=== PATIENT | female | born 1985 | race Caucasian/White ===

== ENCOUNTER 2024-04-17 07:23 | Emergency (ER) | payer MEDICAID, SELFPAY ==
[2024-04-17] VITALS (16 sets, daily range): BP systolic 118–147; BP diastolic 67–107; PULSE 70–91; RESP 16–20; TEMP 36.6–36.8; O2SAT 88–97; BMI 31.3
--- NOTE | 2024-04-17 06:09 | XR_ITS ---
Examination: Complete OB ultrasound greater than 14 weeks Date and time of exam: April 17, 2024 at 0740 hrs. This examination on synapse at 0856 hrs. Indications: Severe onset back pain and vomiting today Findings: Viable intrauterine single fetus with single amniotic sac presentation breech spine maternal left Cardiac motion 155 BPM Placenta posterior grade 1 Umbilical cord insertion seen Amniotic fluid index 15.3 cm Cervix 3.5 cm Ovaries obscured by bowel gas. Composite estimated gestational age based on BPD, head circumference, abdominal circumference, femur length is 23 weeks 4 days Estimated weight 621 g. Survey of intracranial anatomy, spinal anatomy, abdominal anatomy, four-chamber heart performed with no abnormalities identified. Impression: Viable intrauterine gestation breech presentation Estimated gestational age 23 weeks 4 days.
--- NOTE | 2024-04-17 06:40 | EKG_ITS ---
[facility] Test Date: 2024-04-17 Pat Name: RICHARD WRIGHT Department: Room: [facility] Gender: Female Varnish Remover: CICI : 1985 Requested By: Derian Umana Order Number: [id number] Reading MD: Derian Umana Measurements Intervals Myra Rate: 76 P: 84 CA: 162 QRS: 55 QRSD: 85 T: 36 QT: 389 QTc: 438 Interpretive Statements SINUS RHYTHM Compared to ECG 02/05/2023 10:30:47 Sinus bradycardia no longer present /store/S0/[id number]
--- NOTE | 2024-04-17 06:48 | XR_ITS ---
Examination: CTA chest with intravenous contrast 2-D reconstructions 3-D reconstructions, vascular Date and time of exam: April 17, 2024 at 0836 hrs. Indications: Severe chest back and abdomen pain shortness of breath nausea vomiting beginning 2 days ago CTDI: vol (mGy) 17.3 DLP: (mGycm) 338 Technique: Multiple axial sections of the thorax have been obtained. 3 mm slice thickness, from below the hemidiaphragms to above the apices of the lungs. Mediastinal and lung density settings have been obtained. 2-D sagittal and coronal reconstructions. 3-D angiographic renderings, 3-D volume renderings, 3D post processing, vascular maximum intensity projections obtained. Contrast administered is 80 cc Isovue-300 intravenous. Low dose protocols were performed. One or more of the following dose reduction techniques were used; automated exposure control, adjustment of the mA and/or KV according to patient size, use of iterative reconstruction technique. Findings: No thoracic aortic aneurysmal dilatation No pulmonary artery emboli depicted No paratracheal tracheobronchial or bronchopulmonary adenopathy No lobar pneumonia or pulmonary edema No pleural disease 3 mm calcified granuloma left upper lobe Diffuse fatty infiltration throughout the liver Retrocardiac gastric hernia No pancreatic mass noted Osseous structures are intact Impression: Negative for pulmonary artery emboli No pneumonia, pulmonary edema or pleural disease
[2024-04-17] MEDS: ONDANSETRON INJ 2 MG/ML INJ 2 ML 4 MG IV ×2 (06:55→09:51)
[2024-04-17] MEDS: ACETAMINOPHEN IVPB 1,000 MG/100 ML VIAL 250 MG IV (06:57)
[2024-04-17 07:12] LABS: Collection Type, Urine Clean Catch
[2024-04-17 07:21] LABS: Basophils # (Auto) 0.1 Thou/mm3 (0.0-0.2); Basophils % (Auto) 0 % (0-2.5); Eosinophils # (Auto) 0.2 Thou/mm3 (0.0-0.5); Eosinophils % (Auto) 1 % (0-10); Hematocrit 35.6 % (36.0-46.0); Hemoglobin 12.1 g/dL (12.0-16.0); Immature Granulocytes % (Auto) 1 % (0-0); Lymphocytes # (Auto) 2.2 Thou/mm3 (1.0-4.8); Lymphocytes % (Auto) 17 % (10-50); Mean Corpuscular Hemoglobin 27.8 pg (25.0-35.0); Mean Corpuscular Volume 82 fL (80-100); Monocytes # (Auto) 0.7 Thou/mm3 (0.0-0.8); Monocytes % (Auto) 5 % (0-12); Neutrophils # (Auto) 10.1 Thou/mm3 (1.8-7.7); Neutrophils % (Auto) 76 % (37-80); Nucleated Red Blood Cell % 0 /100 WBC (0); Platelet Count 355 Thou/mm3 (140-440); RDW Standard Deviation 40.1 fL (36.4-46.3); Red Blood Count 4.35 Miln/mm3 (4.00-5.20); White Blood Count 13.3 Thou/mm3 (3.6-11.0)
--- NOTE | 2024-04-17 07:22 | PD.LDTRIAGE2 ---
Documentation for date of: 04/17/24 Hx History Provider: Mejia Espinoza Attending Provider: Mejia Espinoza : 13 Term: 3 : 2 Number of Living Children: 3 Abortions: Spontaneous & Elective: 7 Hx Section: No Hx Vaginal Delivery Post : No Complaint Complaint Complaint: patiemnt seen at bedside , diaphoretic , c/o sever back , abdomen and groin pain , generalised , nauseated. Denies any chaest pain , SOB. Declines any drug use in last 24 hours except marijuana. No vaginal bleeding or contractions . 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 Disposition Dispostition: ER
[2024-04-17 07:26] LABS: Amphetamine/Metham Scrn,Ur OB Negative (Negative); Benzoylecgonine Screen, Ur OB Negative (Negative); Opiate Screen,Urine OB Negative (Negative); THC Screen,Urine OB Positive (Negative); THC U Confirm* See Sep Rpt
--- NOTE | 2024-04-17 07:30 | PC.NURSE ---
REPORT GIVEN TO MERLINE BHATT RN
[2024-04-17 07:40] LABS: Alanine Aminotransferase 12 U/L (10-49); Albumin, Serum 4.3 gm/dL (3.5-5.0); Albumin/Globulin Ratio 1.5 (1.2-2.2); Alkaline Phosphatase 101 U/L (46-116); Anion Gap 8 (7-16); Aspartate Amino Transferase 14 U/L (0-34); BUN/Creatinine Ratio 13 Ratio (12-20); Bilirubin,Total 0.2 mg/dL (0.3-1.2); Blood Urea Nitrogen 8 mg/dL (9-23); Calcium 9.1 mg/dL (8.3-10.6); Calcium (Corrected) 9.1 mg/dL (8.5-10.1); Carbon Dioxide 18.8 mMol/L (20.0-31.0); Chloride 109 mMol/L (98-107); Creatinine (Component) 0.6 mg/dL (0.6-1.3); Globulin 2.9 gm/dL (2.3-3.5); Glucose 137 mg/dL (74-106); LDH (Lactate Dehydrogenase) 183 U/L (120-246); Osmolality,Calculated 272 (275-295); Potassium 3.8 mMol/L (3.4-5.1); Sodium 136 mMol/L (136-145); Total Protein 7.2 gm/dL (5.7-8.2); Uric Acid 3.8 mg/dL (3.1-7.8); eGFR > 60 See Note
--- NOTE | 2024-04-17 07:44 | PD.EDABDPN ---
ED Abdominal Pain RME/HPI General Chief Complaint: Abdominal Pain Stated complaint: LABOR EVALUATION Time seen by provider: 04/17/24 08:14 Arrival date/time: 04/17/24 07:23 RME / HPI RME / HPI narrative: 39 year old female with history of psychiatric disorder, hyperlipidemia, currently 24 weeks gestational age [id number] presents to the ED from the L&D unit within this facility for evaluation for lower abdomen/groin and lower back pain beginning 2 days ago that has progressively worsened. Patient reports the pain initially was described as It felt like my stomach was stretching . However, over the last 24 hours pain has become moderate-severe with no known modifying factors. Accompanied by nausea, vomiting beginning at 03:00 this morning and urinary urgency. Denies fevers, chills, chest pain, cough, shortness of breath, vaginal bleeding. Related Data Home Medications ?Medication ?Instructions ?Recorded ?Confirmed ondansetron HCl 8 mg tablet 4 mg PO Q8HR PRN Nausea 08/25/21 02/06/23 tizanidine 2 mg capsule 4 mg PO HS 09/05/21 02/06/23 pregabalin 150 mg capsule 75 mg PO HS 11/17/21 02/06/23 albuterol sulfate 90 mcg/actuation 1 inh inhalation QID PRN Wheezing 02/05/23 02/06/23 aerosol inhaler atorvastatin 20 mg tablet 20 mg PO QPM 02/05/23 02/06/23 fluoxetine 20 mg capsule 20 mg PO QDAY 02/05/23 02/06/23 Previous Rx's ?Medication ?Instructions ?Recorded ibuprofen 800 mg tablet 800 mg PO Q8H PRN pain #30 tabs 04/03/22 ibuprofen 800 mg tablet (IBU) 800 mg PO Q8H #20 tabs 04/25/23 Allergies Allergy/AdvReac Type Severity Reaction Status Date / Time No Known Allergies Allergy Verified 02/06/23 10:00 Review of Systems Review of Systems Narrative Review of Systems: Gen: No fever, no chills, no weight loss EYES: No discharge, no visual changes, no pain HEENT: No ear pain, no congestion, no sore throat PULM: No shortness of breath, no cough, no congestion CV: No chest pain, no dyspnea on exertion, no palpitations GI: +nausea, +vomiting, no diarrhea, +pain, no constipation : No frequency, +urgency,? no dysuria Musc/skel: No joint pain, +back pain Skin: No rash. Psyc: No hallucinations, no depression Heme/Lymph: No easy bleeding or bruising tendencies Neuro: No weakness, no headache Past Medical History Past Medical History CARDIAC: Positive Cardiac Disorders, Hypercholesterolemia and Varicose Veins RESPIRATORY: Positive Asthma GASTROINTESTINAL: Positive Gastrointestinal Disorders, Pancreatitis, Hiatal Hernia and Obesity REPRODUCTIVE: Positive Previous Pregnancies MUSCULOSKELETAL: Positive Musculoskeletal Disorders, Arthritis, Degenerative Disk Disease and Fibromyalgia PSYCHO/SOCIAL: Positive Psychiatric Problems, Recreational Drug Use, Bipolar Disorder, Anxiety and Depression OTHER HISTORY: Positive Hospitalization and Chicken Pox Family History FAMILY HISTORY: Positive Family Cardiac Disorders and Family Surgery Surgical History SURGICAL: Negative Section Social History SMOKING STATUS: Former smoker SECOND HAND EXPOSURE: No SUBSTANCE USE: does not use ED Exam Narrative Physical exam: GENERAL: In general the patient is awake, interactive, in an emergency department gurney. HEAD/EYES/EARS/NOSE/THROAT: normo-cephalic, atraumatic, mucus membranes are moist, anicteric, palpebral conjunctiva is pink, trachea is midline. CARDIOVASCULAR: regular rate and regular rhythm, no murmurs, heart sounds are not distant, strong pulses in all four extremities that are equal and symmetric bilateral upper and lower extremities, normal capillary refill. CHEST/PULMONARY: normal chest rise and fall, good air movement, clear to auscultation bilaterally, normal inspiratory to expiratory ratios without evidence of respiratory distress. ABDOMEN: soft, not tender, gravid fundus consisted with gestational age. BACK: normal range of motion without pain. No CVA tenderness. NEUROLOGICAL: cranio-facial features are symmetric, moves all four extremities equally without obvious limitations or weakness. EXTREMITY: no tenderness to palpation over the long bones or large joints of the bilateral upper and lower extremities, no joint swelling, no joint erythema, no signs of trauma, no unilateral leg swelling and no peripheral edema. SKIN: warm, dry, well-perfused, no jaundice, no rash, no telangiectasias or petechia. PSYCH: calm, cooperative, no evidence of psychosis or agitation Course Quality Measures none Orders Category Date Time Status Place in Observation Status Routine Admission 04/17/24 06:[address] Screening NOW Care 04/17/24 06:[address] Screening NOW Care 04/17/24 11:[address] Screening X1 Care 04/17/24 11:10 Active Continuous Monitoring Routine Care 04/17/24 06:50 Ordered heart tone auscultation X1 Care 04/17/24 06:17 Active In and Out Catheter X1 Care 04/17/24 08:13 Completed Insert IV NOW Care 04/17/24 06:17 Active Sterile Vaginal Exam PRN Care 04/17/24 06:[address] abdomen pelvis w con Stat Exams 04/17/24 11:[address] abdomen pelvis wo con Stat Exams 04/17/24 06:[address] angio chest Stat Exams 04/17/24 06:48 Completed US OB >= 14 weeks Fetus Stat Exams 04/17/24 06:09 Completed CBC Stat Lab 04/17/24 06:30 Completed Comprehensive Metabolic Panel Stat Lab 04/17/24 06:30 Completed Drug Screen OB, Ur (Inpatient) Stat Lab 04/17/24 06:38 Completed Drug Screen,Urine Stat Lab 04/17/24 09:15 Completed Fibrinogen Stat Lab 04/17/24 06:30 Completed LDH (Lactate Dehydrogenase) Stat Lab 04/17/24 06:30 Completed Partial Thromboplastin Time Stat Lab 04/17/24 06:30 Completed Prothrombin Time with INR Stat Lab 04/17/24 06:30 Completed THC U Confirm* Stat Lab 04/17/24 06:38 Received Uric Acid Stat Lab 04/17/24 06:30 Completed Urinalysis Stat Lab 04/17/24 06:30 Completed Acetaminophen Ivpb [Ofirmev Inj] Med 04/17/24 06:54 Discontinued 1,000 mg in 100 ml IV Q6HR DiphenhydrAMINE INJ [Benadryl Inj] Med 04/17/24 10:23 Discontinued 25 mg IVP X1 ONE DiphenhydrAMINE INJ [Benadryl Inj] Med 04/17/24 10:40 Discontinued 50 mg IVP X1 ONE LORazepam [Ativan Inj] Med 04/17/24 11:39 Discontinued 1 mg IVP X1 ONE LORazepam [Ativan Inj] Med 04/17/24 08:12 Discontinued 2 mg IVP X1 ONE Metoclopramide Inj [Reglan Inj] Med 04/17/24 10:40 Discontinued 10 mg IVP X1 ONE Morphine Inj Med 04/17/24 11:38 Discontinued 4 mg IVP X1 ONE Ondansetron Inj [Zofran Inj] Med 04/17/24 06:47 Discontinued 4 mg IV NOW ONE Ondansetron Inj [Zofran Inj] Med 04/17/24 09:20 Discontinued 4 mg IV X1 ONE Ondansetron Inj [Zofran Inj] Med 04/17/24 09:44 Discontinued 4 mg IV X1 ONE Ringers Lactated 1000 ml [Lactated Ringers] 1,000 ml Med 04/17/24 06:30 Discontinued IV 100 mls/hr Ringers Lactated 1000 ml [Lactated Ringers] 1,000 ml Med 04/17/24 06:17 Discontinued IV 999 mls/hr cefTRIAXone [Rocephin] 1,000 mg Med 04/17/24 10:24 Discontinued Sodium Chloride 0.9% (P) [Ns 0.9% (P)] 50 ml IV X1 EKG (RT) Stat RT 04/17/24 06:40 Draft Reevaluation(s) Reevaluation #1: gis technician reports she was only able to get about 5 images for the ultrasound. States patient was uncooperative and in too much pain to continue. Time: 07:50 Reevaluation #2: We reviewed all the results, analysis, and treatment plans. Patient states she is still in pain and requesting medication for pain and to help her sleep . Advised I would consult again with her OB Dr. Umana. Time: 10:10 Vital Signs Vital signs: Vital Signs Pulse Rate 78 04/17/24 06:17 Blood Pressure 147/99 H 04/17/24 06:17 Pulse ox is 96% on room air which is adequate. Abdominal Pain MDM MDM Narrative MDM Narrative:: IKimber, am scribing for and in the presence of Dr. Ferguson. 1200: I was notified by the patients RN that she left against medical advise. It was discussed in great length that without further evaluation and monitoring there may be unforeseen circumstances and deterioration causing permanent bodily harm or as a result of their choice. The patient is alert, oriented and competent at this time. The patient states that they are aware of the serious risks as explained, but they continue to wish to leave against medical advice. Patient left without received her prescription for Keflex. Will send the prescription to the pharmacy. Patient data External records reviewed:: [facility] previous records (I reviewed triage report from OB Dr. Umana today 04/17/2024. I reviewed ED visit on 03/19/2024. ) Clinical information provided by:: patient and other (specify) (Dr. Umana called prior to patient's arrival to the ED) Social determinants that could affect healthcare access:: substance use (Marijuana ) Patient has the following chronic illnesses:: psychiatric disorder, hyperlipidemia, currently 24 weeks gestational age [id number] How is presenting disease/condition affected by chronic disease/condition?: uneffected by Evaluation data The following diagnostics were reviewed and interpreted by me:: lab results and radiology exam(s) Lab and/or radiology exams considered but not ordered:: None Interpretation Summary: Ordering Physician: Derian Umana MD Date of Service: 04/17/24 Procedure(s): CT angio chest Accession Number(s): [id number] cc: Derian Umana MD; Prashant Newton MD; Julien Monte MD~ Examination: CTA chest with intravenous contrast 2-D reconstructions 3-D reconstructions, vascular Date and time of exam: April 17, 2024 at 0836 hrs. Indications: Severe chest back and abdomen pain shortness of breath nausea vomiting beginning 2 days ago CTDI: vol (mGy) 17.3 DLP: (mGycm) 338 Technique: Multiple axial sections of the thorax have been obtained. 3 mm slice thickness, from below the hemidiaphragms to above the apices of the lungs. Mediastinal and lung density settings have been obtained. 2-D sagittal and coronal reconstructions. 3-D angiographic renderings, 3-D volume renderings, 3D post processing, vascular maximum intensity projections obtained. Contrast administered is 80 cc Isovue-300 intravenous. Low dose protocols were performed. One or more of the following dose reduction techniques were used; automated exposure control, adjustment of the mA and/or KV according to patient size, use of iterative reconstruction technique. Findings: No thoracic aortic aneurysmal dilatation No pulmonary artery emboli depicted No paratracheal tracheobronchial or bronchopulmonary adenopathy No lobar pneumonia or pulmonary edema No pleural disease 3 mm calcified granuloma left upper lobe Diffuse fatty infiltration throughout the liver Retrocardiac gastric hernia No pancreatic mass noted Osseous structures are intact Impression: Negative for pulmonary artery emboli No pneumonia, pulmonary edema or pleural disease Dictated By: Prashant Newton MD Signed By: <Electronically signed by Prashant Newton MD in OV> 04/17/2410 Ordering Physician: Derian Umana MD Date of Service: 04/17/24 Procedure(s): US OB >= 14 weeks Fetus Accession Number(s): [id number] cc: Derian Umana MD; Prashant Newton MD; Julien Monte MD~ Examination: Complete OB ultrasound greater than 14 weeks Date and time of exam: April 17, 2024 at 0740 hrs. This examination on synapse at 0856 hrs. Indications: Severe onset back pain and vomiting today Findings: Viable intrauterine single fetus with single amniotic sac presentation breech spine maternal left Cardiac motion 155 BPM Placenta posterior grade 1 Umbilical cord insertion seen Amniotic fluid index 15.3 cm Cervix 3.5 cm Ovaries obscured by bowel gas. Composite estimated gestational age based on BPD, head circumference, abdominal circumference, femur length is 23 weeks 4 days Estimated weight 621 g. Survey of intracranial anatomy, spinal anatomy, abdominal anatomy, four-chamber heart performed with no abnormalities identified. Impression: Viable intrauterine gestation breech presentation Estimated gestational age 23 weeks 4 days. Dictated By: Prashant Newton MD Signed By: <Electronically signed by Prashant Newton MD in OV> 04/17/24 09 Medications / Prescriptions Medications or Prescriptions considered but not ordered:: None Medication administrations:: Medication Administration History Discontinued Medications Diphenhydramine HCl (Diphenhydramine Inj 50 Mg/Ml Vial) 25 mg IVP X1 ONE Stop: 04/17/24 10:24 Last Admin: 04/17/24 11:44 Dose: Not Given Documented By: BRINDA Non-Admin Reason: Cancelled by Provider Diphenhydramine HCl (Diphenhydramine Inj 50 Mg/Ml Vial) 50 mg IVP X1 ONE Stop: 04/17/24 10:41 Last Admin: 04/17/24 10:51 Dose: 50 mg Documented By: BRINDA Lactated Ringer's (Lactated Ringers) 1,000 mls @ 999 mls/hr IV .Q1H1M ONE Stop: 04/17/24 07:17 Last Admin: 04/17/24 09:04 Dose: Not Given Documented By: BRINDA Non-Admin Reason: Cancelled by Provider Lactated Ringer's (Lactated Ringers) 1,000 mls @ 100 mls/hr IV .Q10H CHRISTINA Stop: 05/17/24 06:29 Last Admin: 04/17/24 09:05 Dose: Not Given Documented By: BRINDA Non-Admin Reason: Cancelled by Provider Acetaminophen (Ofirmev Inj) 1,000 mg in 100 mls @ 250 mls/hr IV Q6HR [facility] Stop: 04/18/24 00:23 Last Infusion: 04/17/24 09:17 Dose: Infused Documented By: Admin: 04/17/24 06:57 Dose: 250 mls/hr Documented By: KALIE Ceftriaxone Sodium 1,000 mg/ (Sodium Chloride) 50 mls @ 100 mls/hr IV X1 ONE Stop: 04/17/24 10:53 Last Admin: 04/17/24 11:42 Dose: 100 mls/hr Documented By: BIRNDA Lorazepam (Lorazepam 2 Mg/Ml Vial) 2 mg IVP X1 ONE Stop: 04/17/24 08:13 Last Admin: 04/17/24 08:21 Dose: 2 mg Documented By: BRINDA Lorazepam (Lorazepam 2 Mg/Ml Vial) 1 mg IVP X1 ONE Stop: 04/17/24 11:40 Metoclopramide HCl (Metoclopramide Inj 5 Mg/Ml Vial 2 Ml) 10 mg IVP X1 ONE; Protocol Stop: 04/17/24 10:41 Last Admin: 04/17/24 10:52 Dose: 10 mg Documented By: BRINDA Morphine Sulfate (Morphine Sulf Inj 10 Mg/Ml Vial) 4 mg IVP X1 ONE Stop: 04/17/24 11:39 Ondansetron HCl (Ondansetron Inj 2 Mg/Ml Inj 2 Ml) 4 mg IV NOW ONE; Protocol Stop: 04/17/24 06:48 Last Admin: 04/17/24 06:55 Dose: 4 mg Documented By: KALIE Ondansetron HCl (Ondansetron Inj 2 Mg/Ml Inj 2 Ml) 4 mg IV X1 ONE; Protocol Stop: 04/17/24 09:21 Last Admin: 04/17/24 09:51 Dose: Not Given Documented By: BRINDA Non-Admin Reason: Duplicate Medication on eMAR Ondansetron HCl (Ondansetron Inj 2 Mg/Ml Inj 2 Ml) 4 mg IV X1 ONE; Protocol Stop: 04/17/24 09:45 Last Admin: 04/17/24 09:51 Dose: 4 mg Documented By: BRINDA See above Consultations Consultation(s) initiated? (list below): Yes Consultation #1 (Physician, Specialty, Details): I spoke with OB Dr. Umana. We discussed ED course, exam findings, labs results. Will call back once imaging and remainder of labs result. Time: 07:44 Consultation #2 (Physician, Specialty, Details): I spoke with radiologist Dr. Newton regarding CT abdomen. Time: 08:02 Consultation #3 (Physician, Specialty, Details): 1017: I spoke with OB Dr. Umana. Discussed patients ED course, exam findings, labs, and radiology results. She is requesting MRI of abdomen however advised it is not available today or tomorrow. She is requesting CT abdomen to rule out appendicitis. 1028: I spoke again with radiologist Dr. Newton regarding CT abdomen. Diagnosis Differential diagnosis abdominal pain: abdominal pain, calculus of kidney and other (Pyelonephritis, UTI ) Most likely diagnosis given after review of the tests above:: Intractable nausea Admission Indicated Admission indicated?: not indicated Explain why admission is indicated or not indicated:: Patient left against medical advise Admission Request Was there a request for admission?: No Disposition Plan Disposition Plan: other (specify) (Patient left against medical advise at 12:00 ) Discharge Plan Plan Patient Disposition: Left Against Medical Advice Prescriptions/Referrals Prescriptions/Med Rec: No Action ondansetron HCl 8 mg tablet 4 mg PO Q8HR PRN (Reason: Nausea) Patient Comments: TAKE ONE TABLET BY MOUTH EVERY 8 HOURS NEEDED FOR NAUSEA tizanidine 2 mg Capsule 4 mg PO HS Rx Instructions: every 4 to 6 hours. pregabalin 150 mg capsule 75 mg PO HS Patient Comments: TAKE ONE CAPSULE BY MOUTH EVERY 12 HOURS NOTE NEW STRENGTH ibuprofen 800 mg tablet 800 mg PO Q8H PRN (Reason: pain) Qty: 30 0RF atorvastatin 20 mg Tablet 20 mg PO QPM fluoxetine 20 mg Capsule 20 mg PO QDAY albuterol sulfate 90 mcg/actuation Hfa Aerosol Inhaler 1 inh INHALATION QID PRN (Reason: Wheezing) ibuprofen [IBU] 800 mg tablet 800 mg PO Q8H Qty: 20 0RF Referrals: Derian Umana MD [Physician] - In 1 week Problem List Clinical Impression: Intractable nausea Patient/Caregiver Discharge Instructions Print Language: Mongolian
[2024-04-17 07:48] LABS: Bacteria,Urine Rare; Bilirubin,Urine Negative (Negative); Blood,Urine Negative (Negative); Clarity,Urine Clear (Clear/Hazy); Color,Urine Lt-Yellow (Lt Yel-Yel); Glucose, Urine Negative (Negative); Ketones,Urine Negative (Negative); Leukocyte Esterase,Urine Negative (Negative); Nitrite,Urine Negative (Negative); Protein,Urine Negative (Neg - Trace); RBC,Urine < 1 /hpf (0-3); Specific Gravity,Urine 1.011 (1.001-1.035); Squamous Epithelial Cell,Urine 6 /hpf (0-5); Urobilinogen,Urine Negative mg/dL (0.0-1.0); WBC,Urine 1 /hpf (0-5)
--- NOTE | 2024-04-17 07:48 | PC.NURSE ---
PATIENT BROUGHT DOWN TO ED FROM OB FOR FURTHER EVALUATION. PATIENT STATES SHE STARTED HAVING PAIN TO LOWER ABDOMEN, GROIN PAIN RADIATING TO THE BACK. PATIENT UNABLE TO DESCRIBE PAIN. PATIENT WAS SEEN AND TREATED IN THE OB, IV, FLUIDS, PATIENT STARTED ON TYLENOL DRIP FOR PAIN. UPON ARRIVAL TO ED IV WAS PULLED OUT. IV ESTABLISHED, PATIENT TAKEN TO ULTRASOUND VIA WHEELCHAIR.
[2024-04-17 07:54] LABS: Fibrinogen 490 mg/dL (175-375); Partial Thromboplastin Time 22.9 Seconds (22.0-36.0); Prothrombin Time 10.7 Seconds (9.0-12.2)
[2024-04-17] MEDS: LORazepam 2 MG/ML VIAL IVP (08:21)
[2024-04-17 10:22] LABS: Amphetamine/Methamp Scrn,U Negative (Negative); Barbiturate Screen,Urine Negative (Negative); Benzodiazepines Screen,Urine Negative (Negative); Benzoylecgonine Screen, Ur Negative (Negative); Fentanyl Screen,Urine Negative (Negative); Opiate Screen,Urine Negative (Negative); THC Screen,Urine Positive (Negative)
[2024-04-17] MEDS: DiphenhydrAMINE INJ 50 MG/ML VIAL IVP (10:51)
[2024-04-17] MEDS: METOCLOPRAMIDE INJ 5 MG/ML VIAL 2 ML 10 MG IVP (10:52)
[2024-04-17] MEDS: cefTRIAXone 1,000 MG in SODIUM CHLORIDE 0.9% (P) 50 ML 100 MG IV (11:42)
--- NOTE | 2024-04-17 12:00 | PC.NURSE ---
pt wanting to sign out ama at this time. ivl removed with cath intact. ama form signed
== END 2024-04-17 12:05 | disposition left against medical advice (07) ==
LOC: SERX 07:58
PROVIDERS: Student in an Organized Health Care Education/Training Program; Emergency Provider Emergency Medicine; PCP Obstetrics & Gynecology
DX: O21.2 Late vomiting of pregnancy (principal); O26.892 Other specified pregnancy related conditions, second trimester; R10.9 Unspecified abdominal pain; R06.02 Shortness of breath; O99.512 Diseases of the respiratory system complicating pregnancy, second trimester; Z3A.24 24 weeks gestation of pregnancy; Z53.29 Procedure and treatment not carried out because of patient's decision for other reasons
CPT/HCPCS: 51701; 36415; 71275; 76805; 80053; 80307; 81001; 83615; 84550; 85025; 85384; 85610; 85730; 93005; 96374; 99284; A4649; J0131; J0696; J1200; J2060; J2405; J2765; J7050; Q9967

== ENCOUNTER 2024-07-14 13:50 | Observation (INO) | payer MEDICAID, SELFPAY ==
[2024-07-14] VITALS (15 sets, daily range): BP systolic 130; BP diastolic 82; PULSE 63–97; RESP 18–95; TEMP 36.8; O2SAT 90–99; BMI 31.9
--- NOTE | 2024-07-14 14:42 | XR_ITS ---
Examination: Complete OB ultrasound greater than 14 weeks Date and time of exam: July 14, 2024 1519 hours INDICATIONS: Nausea vomiting pelvic contractions today Findings: Viable intrauterine single fetus with single amniotic sac presentation cephalic Cardiac motion 169 bpm Placenta fundal posterior grade 2 Umbilical cord insertion seen Amniotic fluid index 17.8 cm Ovaries obscured by bowel gas. Composite estimated gestational age based on BPD, head circumference, abdominal circumference, femur length is 36 weeks 1 day Estimated weight 2888 g. Survey of intracranial anatomy, spinal anatomy, abdominal anatomy, four-chamber heart performed with no abnormalities identified. Impression: Viable intrauterine gestation cephalic presentation.
[2024-07-14] MEDS: RINGERS LACTATED 1000 ML 1,000 ML 100 ML IV (15:06)
[2024-07-14] MEDS: TERBUTALINE SULF INJ 1 MG/ML VIAL 0.25 MG SC (15:21)
[2024-07-14] MEDS: ONDANSETRON INJ 2 MG/ML INJ 2 ML 4 MG IV (15:37)
[2024-07-14 16:34] LABS: Collection Type, Urine Voided
[2024-07-14 17:24] LABS: Bacteria,Urine 2+; Bilirubin,Urine Negative (Negative); Blood,Urine Negative (Negative); Clarity,Urine Clear (Clear/Hazy); Color,Urine Yellow (Lt Yel-Yel); Glucose, Urine Negative (Negative); Ketones,Urine Negative (Negative); Leukocyte Esterase,Urine Positive (Negative); Nitrite,Urine Negative (Negative); PH,Urine 6.5 (5.0-7.0); Protein,Urine Trace (Neg - Trace); RBC,Urine 1 /hpf (0-3); Specific Gravity,Urine 1.019 (1.001-1.035); Squamous Epithelial Cell,Urine 15 /hpf (0-5); Urobilinogen,Urine Negative mg/dL (0.0-1.0); WBC,Urine 10 /hpf (0-5)
[2024-07-14 18:00] LABS: Amphetamine/Metham Scrn,Ur OB Negative (Negative); Benzoylecgonine Screen, Ur OB Negative (Negative); Opiate Screen,Urine OB Positive (Negative); Opiates U Confirm* See Sep Rpt; THC Screen,Urine OB Positive (Negative); THC U Confirm* See Sep Rpt
--- NOTE | 2024-07-14 18:51 | PD.LDPN ---
Documentation for date of: 07/14/24 OB Labor Progress Note Assessment and Plan Comments: Triage Note Erika is a 39yo with SIUP at 36w4d by 7wk ultrasound who presents to triage for n/v, ctx. No lof, no vaginal bleeding. Normal movement. Current : She has had regular OB care with Dr. Monte. She has chronic back pain and fibromyalgia. Currently taking ASA 81mg, cyclobenzaprine prn, fluoxetine, pregabalin, tizanidine. AMA. Hx of THC and opiate positive Utox on prior visits. Previous pregnancies: history of vaginal deliveries, 2 were pre-term deliveries ROS negative other than what was described above. Vitals wnl, afebrile General: no acute distress Cardiac: normal heart rate Lungs: breathing without distress Abdomen: soft, gravid, non-tender, no rebound or guarding SCE: 1/thick/high NST: Reactive Independence: ctx q3-4min, spaced out after IVF Labs: Urinalysis: contaminated Utox: +THC and opiates Imaging: OB ultrasound 07/14/24: Findings: Viable intrauterine single fetus with single amniotic sac presentation cephalic Cardiac motion 169 bpm Placenta fundal posterior grade 2 Umbilical cord insertion seen Amniotic fluid index 17.8 cm Ovaries obscured by bowel gas. Composite estimated gestational age based on BPD, head circumference, abdominal circumference, femur length is 36 weeks 1 day Estimated weight 2888 g. Survey of intracranial anatomy, spinal anatomy, abdominal anatomy, four-chamber heart performed with no abnormalities identified. Impression: Viable intrauterine gestation cephalic presentation. Assessment: Erika is a 39yo with SIUP at 36w4d by 7wk ultrasound with no evidence of labor based on SCE. After 1L IVF and a dose of terbutaline, ctx spaced out. Zofran 4mg IV treated n/v. Patient was feeling anxiety (possibly from terbutaline) and desired to sign out AMA before results of ultrasound and urinalysis/utox had resuted. Vitals wnl, benign exam. Reassuring status. Plan: -Patient signed out AMA after counseling regarding r/b/a. She strongly desired to go home and shower. Suspect her n/v may have been related to her THC use. -She plans to deliver here. Office records from Dr. Monte are now in the chart (will be scanned) and ultrasound today confirms gestational age. Utox confirms continued use of THC and opiates. Will need social work consult when she delivers -Continue routine follow up with YADIRA Charles MD
== END 2024-07-14 16:00 | disposition left against medical advice (07) ==
LOC: S4SX 13:52
PROVIDERS: Admitting Provider Obstetrics & Gynecology; Visit Provider Obstetrics & Gynecology
DX: O47.03 False labor before 37 completed weeks of gestation, third trimester (principal); O99.343 Other mental disorders complicating pregnancy, third trimester; F41.9 Anxiety disorder, unspecified; Z3A.36 36 weeks gestation of pregnancy; Z53.29 Procedure and treatment not carried out because of patient's decision for other reasons
CPT/HCPCS: 59025; 59899; 76805; 80307; 81001; 96372; J2405; J3105; J7120

== ENCOUNTER 2024-07-19 12:00 | Observation (INO) | payer MEDICAID, SELFPAY ==
[2024-07-19 12:10] VITALS: BP 133/80; PULSE 86
== END 2024-07-19 12:52 | disposition home or self-care (01) ==
PROVIDERS: Admitting Provider Obstetrics & Gynecology; Visit Provider Obstetrics & Gynecology
DX: Z34.83 Encounter for supervision of other normal pregnancy, third trimester (principal); Z3A.37 37 weeks gestation of pregnancy
CPT/HCPCS: 59899; A9270

== ENCOUNTER 2024-07-21 06:33 | Inpatient (IN) | payer MEDICAID, SELFPAY ==
[2024-07-21] VITALS (184 sets, daily range): BP systolic 103–189; BP diastolic 59–111; PULSE 69–142; RESP 16–97; TEMP 36.6–37.4; O2SAT 81–100; BMI 31.3
--- NOTE | 2024-07-21 07:08 | ESPR_ITS ---
Documentation for date of: 07/21/24 OB Labor Progress Note Pain Control Comments: Patient is a 39-year-old who presented by ambulance and severe pain approximately 37 weeks. She seemed like she wanted to push. She stated that she thought she broke her back in the shower today. Upon presentation and exam by RN revealed 2 to 3 cm thick and high position. heart tones currently are in the 160s to 170s. Category 1 tracing. Patient was just in triage July 14. Patient is on a lot of medication at home for chronic pain and fibromyalgia. UDS is pending. No bleeding to suggest an abruption. Pelvic Exam Dilation (cm): 2-3 Effacement (%): 60 station: -2 Amniotic membrane status: Intact Contractions Monitor mode: External Contraction frequency: irregular Contraction intensity: Moderate Status status: Category l Assessment and Plan Plan OB labor note: continuous present management Comments: At this time patient patient will have an IV started labs sent down and be given fentanyl for pain. She there is a likelihood she might get sent home if she merino s not progress in labor
[2024-07-21 07:12] LABS: ROM Kit Lot # 57809118
[2024-07-21] MEDS: fentaNYL CIT INJ 50 mCg/ML AMP 2ML 100 MCG IV ×4 (07:12→20:07)
[2024-07-21 07:13] LABS: ROM Swab Mixed By: DELEN1; Rupture of Fetal Membranes Negative (Negative); Swb Mxed in Solvent 1 min? Yes
--- NOTE | 2024-07-21 08:07 | PC.NURSE ---
0805 dr shae ingram pr presented to LD via ems, , ve /-2 on arrival, fentanly given at 715, recheck2, pt thought she was leaking amnisure neg, fht 150, uc 2-4, orders rec for admit, start gbs prophylactic antibiotic if unknown, do limited u/s for presentation, can have epidural if pt desires
--- NOTE | 2024-07-21 08:20 | XR_ITS ---
Examination: Complete OB ultrasound greater than 14 weeks Date and time of exam: July 21, 2024 0833 hours INDICATIONS: Labor evaluation, active pelvic contractions today, unknown presentation Findings: Viable intrauterine single fetus with single amniotic sac presentation cephalic spine maternal right Cardiac motion 150 BPM Placenta fundal grade 2 Umbilical cord insertion 3 vessel seen Amniotic fluid index 8.3 cm Cervix 4.0 cm Ovaries obscured by the fetus Composite estimated gestational age based on BPD, head circumference, abdominal circumference, femur length is 37 weeks 0 days Estimated weight 3227.2 g. Survey of intracranial anatomy, spinal anatomy, abdominal anatomy, four-chamber heart performed with no abnormalities identified. Impression: Viable intrauterine gestation cephalic presentation Estimated gestational age 37 weeks 0 days Estimated weight 3227.2 g.
[2024-07-21] MEDS: RINGERS LACTATED 1000 ML 1,000 ML 125 ML IV ×2 (09:24→11:35)
[2024-07-21 10:18] LABS: Hematocrit 30.3 % (36.0-46.0); Hemoglobin 9.7 g/dL (12.0-16.0); Lymphocytes % (Auto) 12 % (10-50); Mean Corpuscular Hemoglobin 22.8 pg (25.0-35.0); Mean Corpuscular Volume 71 fL (80-100); Monocytes % (Auto) 5 % (0-12); Neutrophils % (Auto) 82 % (37-80); Platelet Count 332 Thou/mm3 (140-440); RDW Standard Deviation 37.2 fL (36.4-46.3); Red Blood Count 4.26 Miln/mm3 (4.00-5.20); White Blood Count 13.4 Thou/mm3 (3.6-11.0)
[2024-07-21 10:19] LABS: Basophils % (Auto) 0 % (0-2.5); Eosinophils # (Auto) 0.1 Thou/mm3 (0.0-0.5); Eosinophils % (Auto) 0 % (0-10); Immature Granulocytes % (Auto) 1 % (0-0); Immature Granulocytes Auto 0.18 Thou/mm3 (0.00-0.00); Lymphocytes # (Auto) 1.6 Thou/mm3 (1.0-4.8); Monocytes # (Auto) 0.7 Thou/mm3 (0.0-0.8); Nucleated Red Blood Cell % 0 /100 WBC (0)
--- NOTE | 2024-07-21 10:22 | PD.LDHP ---
Documentation for date of: 07/21/24 OB Labor/Induct. HPI History of Present Illness : 13 Term pregnancies: 3 pregnancies: 2 Living children: 3 History of Abortions: Spontaneous and Elective: 7 History of sections: No History of : No History of present illness: 39 y/o @37w1d , per 23 w scan , is here for contractions , Patient was brought over by ambulance and was checked n meliza triafge to be 3 cm. Pt denies any headache , nausea , vomitting . Shank[facility]. History of Present Dating criteria: LMP confirmed by 2nd trimester US Adequate Care: No ( RECORDS. PER PT YES) Labs Labs: Negative: Hepatitis B, HIV, Chlamydia, Gonorrhea and Group Beta Strep Past Medical History Surgical History SURGICAL: Negative Section Meds Home Medications and Allergies Home Medications ?Medication ?Instructions ?Recorded ?Confirmed ?Type ondansetron HCl 8 mg tablet 4 mg PO Q8HR PRN Nausea 08/25/21 07/21/24 History tizanidine 2 mg capsule 4 mg PO HS 09/05/21 07/21/24 History pregabalin 150 mg capsule 75 mg PO HS 11/17/21 07/21/24 History fluoxetine 20 mg capsule 20 mg PO QDAY 02/05/23 07/21/24 History aspirin 81 mg tablet,delayed 81 mg PO QDAY 07/14/24 07/21/24 History release cyclobenzaprine 5 mg tablet 5 mg PO TID PRN muscle relaxation 07/14/24 07/21/24 History vit no.95-ferrous 1 tab PO QDAY 07/14/24 07/21/24 History fumarate 28 mg-folic acid 800 mcg tablet () Allergies Allergy/AdvReac Type Severity Reaction Status Date / Time No Known Allergies Allergy Verified 07/21/24 14:24 OB Exam Physical Exam Vital signs: Temp Pulse Resp BP Pulse Ox 99.3 F 81 19 133/76 H 94 L 07/21/24 06:53 07/21/24 09:04 07/21/24 06:53 07/21/24 09:04 07/21/24 10:21 Constitutional Constitutional: no acute distress Routine HEENT Exam Head: Present normocephalic and atraumatic Eye: Present EOMI and PERRL ENT: Present mucous membranes moist Routine Neck Exam Neck: Present supple and trachea midline Routine Cardiovascular Exam Cardiovascular: Present RRR Routine Abdominal Exam Abdominal: Present soft and normoactive bowel sounds Detailed Labor and Delivery Exam Dilation (cm): 3 Comments: cat 1 FHT , Occasional contractions Routine Extremities Exam Extremities: Present full ROM Routine Skin Exam Skin: Present intact, dry and warm Routine Neurological Exam Neurological: Present alert, oriented X3 and CN II-XII intact Routine Psychiatric Exam Psychiatric: Present normal affect and normal thought process OB Results Labs 07/21/24 09:10 07/21/24 14:52 Impressions Impression: 39 y/o @37w1d , per 23 w US , her efor IOL for hypertensive disorders of BP elevated on admission , preclampsia labs pending cephalic THC Positive on admission anemic Hb 9.4 OB Assessment & Plan Additional Plan Additional Plan Comment: pitocin to vbe started as she has not made any 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
[2024-07-21 10:56] LABS: Syphilis Nonreactive (Nonreactive)
[2024-07-21 11:05] LABS: Amphetamine/Metham Scrn,Ur OB Negative (Negative); Benzoylecgonine Screen, Ur OB Negative (Negative); Opiate Screen,Urine OB Positive (Negative); Opiates U Confirm* See Sep Rpt; THC Screen,Urine OB Positive (Negative); THC U Confirm* See Sep Rpt
[2024-07-21] MEDS: ONDANSETRON INJ 2 MG/ML INJ 2 ML 4 MG IV ×2 (12:16→17:56)
[2024-07-21] MEDS: OXYTOCIN in NS 30 units 30 UNIT/500 ML BAG IV (12:43)
--- NOTE | 2024-07-21 13:19 | PD.LDPN ---
Documentation for date of: 07/21/24 OB Labor Progress Note Pain Control Comments: Epidural Pelvic Exam Dilation (cm): 5 Effacement (%): 60 station: -2 Amniotic membrane status: Ruptured Comments: AROM@12.15, Pitocin @2 units Contractions Monitor mode: External Contraction frequency: irregular Contraction intensity: Moderate Status status: Category l Assessment and Plan Comments: continue labor managemnt
[2024-07-21] MEDS: ACETAMINOPHEN IVPB 1,000 MG/100 ML VIAL 250 MG IV ×2 (13:24→20:05)
[2024-07-21 15:17] LABS: Alanine Aminotransferase 18 U/L (10-49); Albumin, Serum 4.1 gm/dL (3.5-5.0); Albumin/Globulin Ratio 1.4 (1.2-2.2); Alkaline Phosphatase 167 U/L (46-116); Anion Gap 14 (7-16); Aspartate Amino Transferase 16 U/L (0-34); BUN/Creatinine Ratio 14 Ratio (12-20); Bilirubin,Total 0.5 mg/dL (0.3-1.2); Blood Urea Nitrogen 10 mg/dL (9-23); Calcium 9.4 mg/dL (8.3-10.6); Calcium (Corrected) 9.4 mg/dL (8.5-10.1); Carbon Dioxide 19.5 mMol/L (20.0-31.0); Chloride 106 mMol/L (98-107); Creatinine (Component) 0.7 mg/dL (0.6-1.3); Estimated Creatinine Clearance 123.5 mL/min (>60); Glucose 105 mg/dL (74-106); LDH (Lactate Dehydrogenase) 218 U/L (120-246); Osmolality,Calculated 276 (275-295); Potassium 3.9 mMol/L (3.4-5.1); Sodium 139 mMol/L (136-145); Total Protein 7.1 gm/dL (5.7-8.2); eGFR > 60 See Note
[2024-07-21 15:20] LABS: Fibrinogen 433 mg/dL (175-375)
[2024-07-21] MEDS: SODIUM CHLORIDE 0.9% 1000 ML 1,000 ML 100 ML IV (16:40)
[2024-07-21] MEDS: OXYTOCIN in NS 20 units 20 UNIT/1,000 ML BAG 125 UNIT IV (16:40)
[2024-07-21] MEDS: MISOPROSTOL 200 mCg TABLET 800 MCG PR (16:41)
[2024-07-21] MEDS: TRANEXAMIC ACID 1,000 MG IVPB 1,000 MG/100 ML BAG 200 MG IV (16:44)
[2024-07-21] MEDS: CARBOPROST TROMETH INJ 250 MCG/ML VIAL IM (16:46)
[2024-07-21] MEDS: DIPHENOXYLATE/ATROP SULF 1 TAB PO (17:57)
--- NOTE | 2024-07-21 18:22 | PC.NURSE ---
1715 pt requesting to get up to sit in the shower because thats the only thing that helps with pain, enc pt to wait a little longer to monitor bleeding and let epidural wear off, pt agree, pt continues to vomit 1730 pt persistant that wants to get in shower states its the only thing that will make the pain go away. pt started to take gown off and wanted to dc ivs, asked pt if we could attempt to get up to br first and see how she tolerated then we could get up to shower. she agree and complied. 1808 pt ambulated to bathroom, no void, shower chair given and pt sitting in shower, pt denies any dizziness, feeling a litle better
--- NOTE | 2024-07-21 20:05 | PC.NURSE ---
1929:Pt. in the shower, requesting shower chair. 1932:Shower chair provided to the pt. 1939:Pt. out of the shower, clean gown provided, friend at site. 1944:Pt. requesting warm blankets. 1946:Warm blankets x2 provided to the pt.
--- NOTE | 2024-07-21 20:10 | PC.NURSE ---
IV to left hand accidentally removed, catheter intact, 1 min pressure applied, patient tolerated well.
[2024-07-21] MEDS: LIDOCAINE 5% 1 PATCH TOP (20:39)
[2024-07-21] MEDS: CYCLObenzaPRINE 5 MG TABLET PO (20:40)
[2024-07-21] MEDS: PROMETHAZINE INJ 25 MG in SODIUM CHLORIDE 0.9% 50 ML IV (20:40)
[2024-07-21] MEDS: FLUoxetine HCL 10 MG CAPSULE 20 MG PO (20:41)
--- NOTE | 2024-07-21 21:30 | PC.NURSE ---
call placed to Dr. Umana, seroquel 100 mg qd HS V.O.R.B
[2024-07-21] MEDS: PREGABALIN 75 MG CAPSULE PO (22:07)
[2024-07-21] MEDS: QUEtiapine FUMARATE 100 MG TABLET PO (22:07)
[2024-07-22 00:30] VITALS: BP 99/65; PULSE 65; RESP 17; TEMP 36.4; O2SAT 95
[2024-07-22 00:51] LABS: Basophils % (Auto) 0 % (0-2.5); Eosinophils % (Auto) 0 % (0-10); Hematocrit 26.1 % (36.0-46.0); Immature Granulocytes % (Auto) 1 % (0-0); Immature Granulocytes Auto 0.12 Thou/mm3 (0.00-0.00); Lymphocytes # (Auto) 1.7 Thou/mm3 (1.0-4.8); Lymphocytes % (Auto) 9 % (10-50); Mean Corpuscular Hemoglobin 23.1 pg (25.0-35.0); Mean Corpuscular Volume 70 fL (80-100); Monocytes # (Auto) 1.2 Thou/mm3 (0.0-0.8); Monocytes % (Auto) 7 % (0-12); Neutrophils # (Auto) 15.2 Thou/mm3 (1.8-7.7); Neutrophils % (Auto) 83 % (37-80); Nucleated Red Blood Cell % 0 /100 WBC (0); Platelet Count 266 Thou/mm3 (140-440); RDW Standard Deviation 36.6 fL (36.4-46.3); Red Blood Count 3.72 Miln/mm3 (4.00-5.20); White Blood Count 18.2 Thou/mm3 (3.6-11.0)
[2024-07-22 00:55] LABS: Hemoglobin 8.6 g/dL (12.0-16.0)
[2024-07-22] MEDS: ACETAMINOPHEN IVPB 1,000 MG/100 ML VIAL 250 MG IV ×2 (01:59→08:34)
--- NOTE | 2024-07-22 02:36 | PD.LDDELS ---
Shoulder Dystocia Surgical Team Notified Surgical team notified:: Yes Vacuum Assisted Delivery General Patient Counseled by physician:: Yes Informed consent to patient:: Yes Estimated weight:: 3200 kg Cervical dilation:: fully dilated station:: +4 position:: OA Vacuum Application Vacuum type:: Mityvac Vacuum application:: flexing median Total vacuum time (min):: 1 Maximum pressure (cm Hg):: 40 Cup Placement Flexion point identified:: Yes Cup approp. for head position:: Yes Maternal tissue excluded:: Yes Vacuum Procedure Number of pulls (contractions):: 3 Number of pop-offs:: 2 Recommended range maintained:: Yes Vacuum reduced between pulls:: Yes Advancement made each pull:: Yes Vacuum successful:: Yes Additional Comments Additional comments: for cat 2 FHT Data (Howard) Data Hx Section: No : 14 Para: 6 Term: 4 : 2 : 8 Delivery Data (Howard) Labor Data ROM Date: 07/21/24 ROM Time: 12:28 Rupture Type: AROM Amniotic Fluid: Thin Meconium Delivery Data Labor Onset Stage 1 Date: 07/21/24 Labor Onset Stage 1 Time: 04:00 Labor Onset Stage 2 Date: 07/21/24 Labor Onset Stage 2 Time: 15:48 Delivery Date: 07/21/24 Delivery Time: 16:36 Gestational age (weeks): 37 Gestational age (days): 1 Placenta Delivery Date: 07/21/24 Placenta Delivery Time: 16:40 Delivered by: Derian Umana Delivery nurse: Suzy Silveira Other staff at delivery: Nursery Nurse Other staff at delivery: Rea Roper Delivery Method Delivery: Vaginal Delivery Type: Vacuum Assisted Anesthesia Type Primary Anesthesia: Epidural EBL Estimated blood loss (ml): 500 Data (Howard) Bruno Data Infant Gender: Female Infant Weight Grams: 2840 1 Minute Total: 4 5 Minute Total: 7
[2024-07-22] MEDS: fentaNYL CIT INJ 50 mCg/ML AMP 2ML 100 MCG IV (04:33)
[2024-07-22 04:40] VITALS: BP 123/83; PULSE 66; RESP 17; TEMP 36.4; O2SAT 96
[2024-07-22 08:30] VITALS: BP 89/59; PULSE 59; RESP 18; TEMP 36.4; O2SAT 97
--- NOTE | 2024-07-22 12:04 | ESDS_ITS ---
DS: Providers Provider Date of admission: 07/21/24 08:37 Primary care physician: Physician No Primary/Family Admitting Provider: Derian Umana MD Attending Provider on Admission: Derian Umana MD Consults: 07/21/24 18:05 Referral Routine Comment: Attending Provider on DC: Neli Meza MD Discharging Provider: Neli Meza MD Anticipated date of discharge: 07/22/24 DS: Diagnosis Discharge Diagnosis (1) Active labor: Status: Acute (2) Grand multiparity in labor and delivery: Status: Acute (3) Anxiety: Status: Acute (4) Chronic pain: Status: Acute (5) Term delivered: Status: Acute Problem List Completed Was Problem List Reviewed/Reconciled?: Yes Summary/Hosp Course Brief History: 39 y/o @37w1d , per 23 w scan , is here for contractions , Patient was brought over by ambulance and was checked n meliza triafge to be 3 cm. Pt denies any headache , nausea , vomitting . Shankar [facility] all [facility]. Peripartum Data Delivery Method: Normal Vaginal Delivery (mity vac assisted by Dr Umana 07/21/24) Laceration Description: see Delivery Summary complications: none Status at Discharge Cognitive/behavioral status at discharge: Patient is alert and oriented x 3 in no apparent distress. Functional status at discharge: independent ambulation Overall status at discharge: patient is progressing back to baseline Time Spent with Patient Time attestation: Total time spent providing and/or coordinating discharge services: Time spent: Less than 30 minutes Specific discharge activities: No intercourse tampons douching for 6 weeks no bath tubs x 6 weeks Exam Vital Signs Temp Pulse Resp BP Pulse Ox O2 Del Method 97.5 F 59 L 18 89/59 L 97 Room Air 07/22/24 08:30 07/22/24 08:30 07/22/24 08:30 07/22/24 08:30 07/22/24 08:30 07/22/24 08:30 Constitutional Constitutional: no acute distress and cooperative Comments: Patient is alert and oriented x 3 in no apparent distress. Routine Respiratory Exam Respiratory: Present chest non-tender, lungs clear, normal breath sounds and no resp distress Routine Abdominal Exam Abdominal: Present soft and normoactive bowel sounds Comments: Fundus firm nontender Routine Extremities Exam Comments: No pedal edema Routine Skin Exam Skin: Present intact, dry and warm Routine Psychiatric Exam Psychiatric: Present normal affect and normal thought process Discharge Plan Plan Patient Disposition: HOME (Self Care) Disposition Comment: stable Prescriptions/Referrals Prescriptions/Med Rec: No Action ondansetron HCl 8 mg tablet 4 mg PO Q8HR PRN (Reason: Nausea) Patient Comments: TAKE ONE TABLET BY MOUTH EVERY 8 HOURS NEEDED FOR NAUSEA tizanidine 2 mg Capsule 4 mg PO HS Rx Instructions: every 4 to 6 hours. pregabalin 150 mg capsule 75 mg PO HS Patient Comments: TAKE ONE CAPSULE BY MOUTH EVERY 12 HOURS NOTE NEW STRENGTH ibuprofen 800 mg tablet 800 mg PO Q8H PRN (Reason: pain) Qty: 30 0RF fluoxetine 20 mg Capsule 20 mg PO QDAY ibuprofen [IBU] 800 mg tablet 800 mg PO Q8H Qty: 20 0RF aspirin 81 mg tablet,delayed release (DR/EC) 81 mg PO QDAY Patient Comments: TAKE 2 TABLETS BY MOUTH EVERY DAY PNV cmb#95-ferrous fumarate-FA [] 28 mg iron- 800 mcg tablet 1 tab PO QDAY Patient Comments: TAKE 1 TABLET BY MOUTH EVERY DAY cyclobenzaprine 5 mg tablet 5 mg PO TID PRN (Reason: muscle relaxation) Patient Comments: TAKE 1 TABLET BY MOUTH 3 TIMES A DAY NEEDED MUSCLE RELAXATION Referrals: No Primary/Family,Physician [Primary Care Provider] - Patient/Caregiver Discharge Instructions Discharge Activity: activity as tolerated and resume usual activities Other Discharge Activity Instructions:: Pelvic rest for 6 weeks Other Discharge Diet Instructions: General diet lots of protein lots of iron rich foods and lots of water Education Materials: After a Vaginal , Understanding Blues, Breast Care After Print Language: Latvian Stand Alone Forms: Allocab Award Info., Patient Portal Info Letter Discharge Order Discharge Orders: Discharge (Routine); Ordered 07/22/24 Ordered By: Neli Meza Planned Discharge Date 07/22/24 (4) Chronic pain Qualifiers: Chronic pain type: chronic pain syndrome Qualified Code(s): G89.4 - Chronic pain syndrome
[2024-07-22 12:40] VITALS: BP 99/65; PULSE 61; RESP 17; TEMP 36.7; O2SAT 97
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
[2024-07-22] MEDS: IBUPROFEN TAB 400 MG TABLET 800 MG PO (15:19)
[2024-07-22 16:30] VITALS: BP 113/74; PULSE 66; RESP 17; TEMP 36.7; O2SAT 95
== END 2024-07-22 17:55 | disposition home or self-care (01) | DRG 560 ==
LOC: S4SX 07-22 05:46 → S4NX 07-22 05:46
PROVIDERS: Obstetrics & Gynecology; Admitting Provider Student in an Organized Health Care Education/Training Program; Visit Provider Student in an Organized Health Care Education/Training Program
DX: O16.4 Unspecified maternal hypertension, complicating childbirth (principal); O99.02 Anemia complicating childbirth; O99.324 Drug use complicating childbirth; F12.90 Cannabis use, unspecified, uncomplicated; Z37.0 Single live birth; Z3A.37 37 weeks gestation of pregnancy; O77.0 Labor and delivery complicated by meconium in amniotic fluid; O99.892 Other specified diseases and conditions complicating childbirth; M79.7 Fibromyalgia; G89.29 Other chronic pain; O99.344 Other mental disorders complicating childbirth; F41.9 Anxiety disorder, unspecified; Z79.82 Long term (current) use of aspirin; Z79.899 Other long term (current) drug therapy
CPT/HCPCS: 36415; 59409; 76805; 80053; 80307; 83615; 84112; 85025; 85384; 86780; 86850; 86900; 86901; 94762; J0131; J2405; J2550; J2590; J2795; J3010; J3490; J7030; J7120; S0191; Z7610; A9270

== ENCOUNTER 2024-07-24 16:32 | Emergency (ER) | payer MEDICAID, SELFPAY ==
[2024-07-24 16:33] VITALS: BMI 31.3
[2024-07-24 17:03] VITALS: BP 129/79; PULSE 70; RESP 20; TEMP 36.9; O2SAT 95
--- NOTE | 2024-07-24 17:09 | XR_ITS ---
Examination: PA lateral chest 2 views Technique: Upright PA lateral chest 2 views Exam date and time: 09/21/2024 1817 hrs. Indications: Fever today. Findings: Normal heart size No pneumonia or pulmonary edema The osseous structures are intact Impression: No pneumonia identified
--- NOTE | 2024-07-24 17:10 | PD.EDRME ---
Rapid Medical Screening Exam RME Arrival date/time: 07/24/24 16:32 This is a 39-year-old female that is x 4 days. Patient states she is not able to keep anything down. Patient is complaining of abdominal pain and fever. Patient reports that she thinks that her stomach is twisted. Patient has a history of fibromyalgia, depression, anxiety. Patient reports that her urine has a foul smell. I have greeted and performed a focused initial assessment of this patient. Initial appropriate labs ordered at this time. A comprehensive ED assessment and evaluation of the patient and analysis of all test and completion of medical decision making process will be conducted by additional ED provider. Chief Complaint: Abdominal Pain Time Seen by Provider: 07/24/24 16:37 Vital signs: Vital Signs Temperature 98.4 F 07/24/24 17:03 Pulse Rate 70 07/24/24 17:03 Respiratory Rate 20 07/24/24 17:03 Blood Pressure 129/79 07/24/24 17:03 Pulse Oximetry (%) 95 07/24/24 17:03 Oxygen Delivery Method Room Air 07/24/24 17:03
[2024-07-24 17:37] LABS: Lactate (Lactic Acid) 1.1 mMol/L (0.4-2.0)
[2024-07-24 17:38] LABS: Basophils # (Auto) 0.1 Thou/mm3 (0.0-0.2); Basophils % (Auto) 1 % (0-2.5); Eosinophils # (Auto) 0.1 Thou/mm3 (0.0-0.5); Eosinophils % (Auto) 1 % (0-10); Hematocrit 27.7 % (36.0-46.0); Hemoglobin 8.9 g/dL (12.0-16.0); Immature Granulocytes % (Auto) 1 % (0-0); Immature Granulocytes Auto 0.07 Thou/mm3 (0.00-0.00); Lymphocytes % (Auto) 22 % (10-50); Mean Corpuscular HGB Conc 32.1 g/dl (31.0-37.0); Mean Corpuscular Hemoglobin 22.6 pg (25.0-35.0); Mean Corpuscular Volume 70 fL (80-100); Monocytes # (Auto) 0.6 Thou/mm3 (0.0-0.8); Monocytes % (Auto) 7 % (0-12); Neutrophils # (Auto) 6.2 Thou/mm3 (1.8-7.7); Neutrophils % (Auto) 69 % (37-80); Nucleated Red Blood Cell % 0 /100 WBC (0); Platelet Count 387 Thou/mm3 (140-440); RDW Standard Deviation 37.2 fL (36.4-46.3); Red Blood Count 3.94 Miln/mm3 (4.00-5.20)
[2024-07-24 18:04] LABS: Alanine Aminotransferase 49 U/L (10-49); Albumin, Serum 3.9 gm/dL (3.5-5.0); Albumin/Globulin Ratio 1.5 (1.2-2.2); Alkaline Phosphatase 129 U/L (46-116); Anion Gap 10 (7-16); Aspartate Amino Transferase 49 U/L (0-34); BUN/Creatinine Ratio 18 Ratio (12-20); Bilirubin,Total 0.4 mg/dL (0.3-1.2); Blood Urea Nitrogen 11 mg/dL (9-23); Calcium 9.2 mg/dL (8.3-10.6); Calcium (Corrected) 9.3 mg/dL (8.5-10.1); Carbon Dioxide 26.7 mMol/L (20.0-31.0); Chloride 104 mMol/L (98-107); Creatinine (Component) 0.6 mg/dL (0.6-1.3); Estimated Creatinine Clearance 144.1 mL/min (>60); Globulin 2.6 gm/dL (2.3-3.5); Glucose 93 mg/dL (74-106); Lipase 35 U/L (12-53); Osmolality,Calculated 280 (275-295); Potassium 3.9 mMol/L (3.4-5.1); Procalcitonin 0.05 ng/ml (0.0-0.49); Sodium 141 mMol/L (136-145); Total Protein 6.5 gm/dL (5.7-8.2); eGFR > 60 See Note
[2024-07-24 18:42] LABS: Collection Type, Urine Voided
[2024-07-24 19:02] LABS: Bilirubin,Urine Negative (Negative); Blood,Urine 3+ (Negative); Clarity,Urine Clear (Clear/Hazy); Color,Urine Yellow (Lt Yel-Yel); Culture Indicated,Urine Not Indicated; Glucose, Urine Negative (Negative); Ketones,Urine Negative (Negative); Leukocyte Esterase,Urine Positive (Negative); Nitrite,Urine Negative (Negative); PH,Urine 7.5 (5.0-7.0); Protein,Urine 1+ (Neg - Trace); RBC,Urine 18 /hpf (0-3); Specific Gravity,Urine 1.026 (1.001-1.035); Squamous Epithelial Cell,Urine 3 /hpf (0-5); Urobilinogen,Urine Negative mg/dL (0.0-1.0); WBC,Urine 8 /hpf (0-5)
--- NOTE | 2024-07-24 21:34 | EKG_ITS ---
[facility] Test Date: 2024-07-24 Pat Name: RICHARD WRIGHT Department: Room: - Gender: Female [employer] Coordinator: : 1985 Requested By: Nahun Euceda Order Number: [id number] Reading MD: Nahun Euceda Measurements Intervals [place] Rate: 66 P: 63 HI: 139 QRS: 51 QRSD: 90 T: 40 QT: 380 QTc: 398 Interpretive Statements SINUS RHYTHM WITH SINUS ARRHYTHMIA Compared to ECG 04/17/2024 06:50:17 No significant changes /store/S0/[id number]
--- NOTE | 2024-07-24 21:35 | PD.EDABDPN ---
ED Abdominal Pain RME/HPI General Chief Complaint: Abdominal Pain Stated complaint: ABD PAIN, UNABLE TO PEE, VOMITING, POST- Time seen by provider: 07/24/24 16:37 Arrival date/time: 07/24/24 16:32 Source: patient Mode of arrival: ambulatory Limitations: no limitations RME / HPI RME / HPI narrative: 07/24/24 16:32 This is a 39-year-old female that is x 4 days. Patient states she is not able to keep anything down. Patient is complaining of abdominal pain and fever. Patient reports that she thinks that her stomach is twisted. Patient has a history of fibromyalgia, depression, anxiety. Patient reports that her urine has a foul smell. I have greeted and performed a focused initial assessment of this patient. Initial appropriate labs ordered at this time. A comprehensive ED assessment and evaluation of the patient and analysis of all test and completion of medical decision making process will be conducted by additional ED provider. Dr. Bhatti?s Main ED Evaluation: 39-year-old female, who is ambulatory, presents to the emergency department with persistent abdominal pain following a recent delivery on July 21, 2024. She reports that she does not feel she has completely recovered and continues to experience mid to upper abdominal pain, which she describes as a sensation of her stomach being flipped around and gripped tightly. In addition to the abdominal pain, she reports nausea, vomiting, and headaches, as well as foul smelling urine and proteinuria. She states that she is unable to hold down food, contributing to further weakness and discomfort. She denies painful urination. The pain has also prevented her from . Her past medical history is notable for fibromyalgia, but she denies any prior history of hypertension. She has had previous pregnancies without any complications. Related Data Home Medications ?Medication ?Instructions ?Recorded ?Confirmed ondansetron HCl 8 mg tablet 4 mg PO Q8HR PRN Nausea 08/25/21 07/21/24 tizanidine 2 mg capsule 4 mg PO HS 09/05/21 07/21/24 pregabalin 150 mg capsule 75 mg PO HS 11/17/21 07/21/24 fluoxetine 20 mg capsule 20 mg PO QDAY 02/05/23 07/21/24 aspirin 81 mg tablet,delayed 81 mg PO QDAY 07/14/24 07/21/24 release cyclobenzaprine 5 mg tablet 5 mg PO TID PRN muscle relaxation 07/14/24 07/21/24 vit no.95-ferrous 1 tab PO QDAY 07/14/24 07/21/24 fumarate 28 mg-folic acid 800 mcg tablet () Previous Rx's ?Medication ?Instructions ?Recorded ibuprofen 800 mg tablet 800 mg PO Q8H PRN pain #30 tabs 04/03/22 Held on 07/21/24. Instructions: Duplicate ibuprofen 800 mg tablet (IBU) 800 mg PO Q8H #20 tabs 04/25/23 Allergies Allergy/AdvReac Type Severity Reaction Status Date / Time No Known Allergies Allergy Verified 07/24/24 16:33 Review of Systems Review of Systems Systems Reviewed: All systems reviewed, normal except as documented Past Medical History Past Medical History NEUROLOGIC: Negative Neurological Disorders or Seizures CARDIAC: Positive Hypercholesterolemia and Varicose Veins; Negative Cardiac Disorders or Congestive Heart Failure RESPIRATORY: Negative Chronic Obstructive Pulmonary Disease (COPD) or Asthma GASTROINTESTINAL: Positive Gastrointestinal Disorders, Pancreatitis, Hiatal Hernia and Obesity; Negative Hepatitis GENITOURINARY: Negative Genitourinary Disorders or Renal Disease REPRODUCTIVE: Positive Previous Pregnancies; Negative Endometriosis, Genital Herpes, Gonorrhea, Pelvic Inflammatory Disease, Syphilis or Uterine Prolapse MUSCULOSKELETAL: Positive Musculoskeletal Disorders, Arthritis, Degenerative Disk Disease and Fibromyalgia ENDOCRINE: Negative Endocrine Disorders, Diabetes Mellitus Type 1 or Diabetes Mellitus Type 2 HEMATOLOGIC: Negative Blood Disorders or Sickle Cell Disease PSYCHO/SOCIAL: Positive Psychiatric Problems, Recreational Drug Use, Bipolar Disorder, Anxiety and Depression OTHER HISTORY: Positive Hospitalization and Chicken Pox; Negative Autoimmune Disease, Down Syndrome, Developmental Delay, Shingles, Falls, Blood Transfusions, Blood Transfusion Reaction, Anesthesia Reactions, Organ Transplant, Chemotherapy, Radiation Therapy, Hyperbaric Therapy, MRSA, VRSA, Vancomycin-Resistant Enterococci, Human Immunodeficiency Virus (HIV), Measles, Mumps, Rubella (Icelandic Measles), Pertussis, Clostridium Difficile or Cancer Family History FAMILY HISTORY: Positive Family Cardiac Disorders and Family Surgery; Negative Family Psychiatric Problems, Family Respiratory Disorders, Family Gastrointestinal Problems, Family Cancer or Family Anesthesia Reaction Surgical History SURGICAL: Negative Cardiac Surgery, Endocrine Surgery, Ear Surgery, Abdominal Surgery, Nephrectomy, Joint Replacement, Neurologic Surgery, Section or Organ Transplant Social History SMOKING STATUS: Never smoker SECOND HAND EXPOSURE: No SUBSTANCE USE: does not use ED Exam Narrative Physical exam: GENERAL APPEARANCE: alert and oriented x 4, well-developed, well-nourished, no acute distress VITALS: All vitals were reviewed and the pulse ox is 95% on room air, which is normal according to my interpretation. Hypertensive 162/100. HEENT: Normocephalic, atraumatic; pupils equal, round, reactive to light; EOMI; mucous membranes pink, moist; oropharynx clear NECK: Supple LUNGS: CTABL; no wheezes, no rales, no rhonchi HEART: Regular rate, regular rhythm; normal S1, S2; no murmurs ABDOMEN: non distended; normal BS; soft, generalized mild to moderate abdominal tenderness, diffusely distributed without focal point tenderness no guarding, no rebound; no masses, no organomegaly, no hernia BACK: no CVA tenderness EXTREMITIES: atraumatic; no edema NEUROLOGIC: awake; alert and oriented x4; cranial nerves II-XII grossly intact; no focal sensory or motor deficits PSYCHIATRIC: appropriate mood and affect SKIN: warm, dry, normal color; no rashes General Limitations: Present no limitations Course Quality Measures none Orders Category Date Time Status Bedside COVID-19 Antigen Test NOW Care 07/24/24 17:09 Completed Bedside Influenza A&B Antigen Test NOW Care 07/24/24 17:[address] Screening NOW Care 07/24/24 21:40 Completed Information Management Specialist Q4H START 00 Care 07/24/24 21:35 Completed Continuous Pulse Oximetry NOW Care 07/24/24 21:35 Completed EKG (ED ONLY) *Do not use* NOW Care 07/24/24 21:35 Completed IV [Insert IV] NOW Care 07/24/24 21:35 Completed Miscellaneous Nursing Order NOW Care 07/24/24 21:[address] abdomen pelvis w con Stat Exams 07/24/24 21:40 Completed EKG (ED Only) Stat Exams 07/24/24 21:34 Ordered XR chest 1V portable Stat Exams 07/24/24 21:40 Completed XR chest 2V Stat Exams 07/24/24 17:09 Completed Blood Culture (Lab) Stat Lab 07/24/24 17:25 Received CBC Stat Lab 07/24/24 17:25 Completed Comprehensive Metabolic Panel Stat Lab 07/24/24 17:25 Completed Lactate (Lactic Acid) Stat Lab 07/24/24 17:25 Completed Lipase Stat Lab 07/24/24 17:25 Completed Magnesium Stat Lab 07/24/24 17:25 Completed Procalcitonin Stat Lab 07/24/24 17:25 Completed Urinalysis, C/S if Indicated Stat Lab 07/24/24 18:37 Completed Magnesium Sulfate 2 GM Ivpb [Magnesium Sulfate Ivpb] Med 07/24/24 21:33 Discontinued 2 gm in 50 ml IV X1 Morphine Inj Med 07/24/24 21:33 Discontinued 2 mg IVP X1 ONE Morphine Inj Med 07/25/24 00:16 Discontinued 4 mg IVP X1 ONE Ondansetron Inj [Zofran Inj] Med 07/24/24 21:33 Discontinued 4 mg IV X1 ONE Ondansetron Inj [Zofran Inj] Med 07/25/24 00:19 Discontinued 4 mg IV X1 ONE Vital Signs Vital signs: Vital Signs Temperature 98.4 F 07/24/24 17:03 Pulse Rate 70 07/24/24 17:03 Respiratory Rate 20 07/24/24 17:03 Blood Pressure 129/79 07/24/24 17:03 Pulse Oximetry (%) 95 07/24/24 17:03 Oxygen Delivery Method Room Air 07/24/24 17:03 Abdominal Pain MDM MDM Narrative MDM Narrative:: The differential diagnosis includes small bowel obstruction, acute appendicitis, gallbladder pathology, gastric pathology, and preeclampsia. 2135: Case discussed with Dr. Charles (PRINCIPAL BIOSTATISTICIAN), who declined the patient for admission. She states the patient does not need to be admitted at this time. Patient's blood pressures from 4472-2931 where as follows: 144/100, 143/83, 162/97, and 158/98. Due to concern for preeclampsia, will re-consult with Dr. Charles. 2326: Care discussed with Dr. Charles (PRINCIPAL BIOSTATISTICIAN) at great length including the patient's blood pressures and symptoms (abdominal pain and N/V). She states the patient does not need to be treated here in the ED, does not need to be admitted, and can follow-up with her as an outpatient. Scribe Attestation: I, Alethea Armstrong, am scribing for and in the presence of Dr. Bhatti. Provider Notation: Although this document has been carefully reviewed, there may still be some phonetic and other typographical errors. These errors are purely grammatical due to imperfections in the software program and should not be construed in any way to compromise the substance of the patient's medical care during this visit. Patient data External records reviewed:: [facility] previous records Clinical information provided by:: patient Social determinants that could affect healthcare access:: none Patient has the following chronic illnesses:: see PMH How is presenting disease/condition affected by chronic disease/condition?: uneffected by Evaluation data The following diagnostics were reviewed and interpreted by me:: lab results and radiology exam(s) Lab and/or radiology exams considered but not ordered:: na Interpretation Summary: EKG done at 2145, NSR, rate of 66, normal axis, no ectopy, no acute ischemia, according to my interpretation. ----- [place] [facility] Report Signed Patient: RICHARD WRIGHT [facility]. Record#: [id number] Birthdate: 1985 Age/Sex: 39 / F Location: [facility] Attending Dr: Ordering Physician: Angela Matta NP Date of Service: 07/24/24 Procedure(s): XR chest 2V Accession Number(s): [id number] cc: Prashant Newton MD; NO PRIMARY/FAMILY,PHYSICIAN; Angela Matta NP~ Examination: PA lateral chest 2 views Technique: Upright PA lateral chest 2 views Exam date and time: 09/21/2024 1817 hrs. Indications: Fever today. Findings: Normal heart size No pneumonia or pulmonary edema The osseous structures are intact Impression: No pneumonia identified Dictated By: Prashant Newton MD Signed By: <Electronically signed by Prashant Newton MD in OV> 07/24/241944 [place] [facility] Report Signed Patient: RICHARD WRIGHT [facility]. Record#: [id number] Birthdate: 1985 Age/Sex: 39 / F Location: [facility]X Attending Dr: Ordering Physician: Nahun Bhatti MD Date of Service: 07/24/24 Procedure(s): CT abdomen pelvis w con Accession Number(s): [id number] cc: Prashant Newton MD; NO PRIMARY/FAMILY,PHYSICIAN; Nahun Bhatti MD~ Examination: CT abdomen with intravenous contrast CT pelvis with intravenous contrast 2-D coronal reconstructions 2-D sagittal reconstructions Date and time of exam:July 24, 1999 2510 0 1:00 PM Comparison September 25, 2022 Indications: 3 days with abdominal pain, unable to urinate. CTDI: vol (mGy) 8.82 DLP: (mGycm) 507 Technique: Multiple axial sections of the abdomen and pelvis have been obtained. 64 slice high-resolution scanner used. 3 mm axial sections have been obtained, post intravenous injection 60 cc [id number] 2-D sagittal, coronal reconstructions obtained. Low dose protocols were performed. One or more of the following dose reduction techniques were used; automated exposure control, adjustment of the mA and/or KV according to patient size, use of iterative reconstruction technique. Findings: No focal liver or splenic lesions No gallstones No pancreatic or adrenal mass No renal or ureteral calculi, no hydronephrosis Aorta normal size No pericecal inflammatory change Abundant stool throughout the colon enlarged uterus with heterogeneous thickened endometrial stripe Intact urinary bladder Intact osseous structures Impression: enlarged uterus with thickened endometrial stripe, if retained products is a clinical consideration, recommend pelvic sonography follow-up Moderate stool throughout the colon Bladder is not distended Dictated By: Prashant Newton MD Signed By: <Electronically signed by Prashant Newton MD in OV> 07/24/24 0393 Medications / Prescriptions Medications or Prescriptions considered but not ordered:: na Medication administrations:: Medication Administration History Discontinued Medications Magnesium Sulfate (Magnesium Sulfate Ivpb) 2 gm in 50 mls @ 25 mls/hr IV X1 ONE Stop: 07/24/24 23:32 Last Admin: 07/24/24 21:41 Dose: Not Given Documented By: CVL Non-Admin Reason: Cancelled by Provider Morphine Sulfate (Morphine Sulf Inj 10 Mg/Ml Vial) 2 mg IVP X1 ONE Stop: 07/24/24 21:34 Last Admin: 07/24/24 22:21 Dose: 2 mg Documented By: LB Morphine Sulfate (Morphine Sulf Inj 10 Mg/Ml Vial) 4 mg IVP X1 ONE Stop: 07/25/24 00:17 Last Admin: 07/25/24 00:32 Dose: 4 mg Documented By: LB Ondansetron HCl (Ondansetron Inj 2 Mg/Ml Inj 2 Ml) 4 mg IV X1 ONE; Protocol Stop: 07/24/24 21:34 Last Admin: 07/24/24 22:20 Dose: 4 mg Documented By: DEBRA Ondansetron HCl (Ondansetron Inj 2 Mg/Ml Inj 2 Ml) 4 mg IV X1 ONE; Protocol Stop: 07/25/24 00:20 Last Admin: 07/25/24 00:29 Dose: 4 mg Documented By: DEBRA as above Consultations Consultation(s) initiated? (list below): Yes Consultation #1 (Physician, Specialty, Details): see narrative Diagnosis Differential diagnosis abdominal pain: other Most likely diagnosis given after review of the tests above:: Eclampsia Admission Indicated Admission indicated?: not indicated Explain why admission is indicated or not indicated:: No criteria for admission per Dr. Charles. Admission Request Was there a request for admission?: No Disposition Plan Disposition Plan: Discharge Discharge Attestation Discharge Attestation: The patient and all family members were given an opportunity to ask questions and understood the discharge instructions. Discharge instructions specifically effects, indications for sooner follow up or return to the emergency department, and the expected course of current diagnosis. Patient condition: Stable Critical Care Time Critical Care Time Critical Care Time: Yes Total Critical Care Time (min.): 45 Attestation: The high probability of sudden, clinically significant deterioration in the patient?s condition required the highest level of my preparedness to intervene urgently. ? The services I provided to this patient were to treat and/or prevent clinically significant deterioration. Services included the following: chart data review, reviewing nursing notes and/or old charts, documentation time, senior application security consultant collaboration regarding findings and treatment options, medication orders and management, direct patient care, vital sign assessments and ordering, interpreting and reviewing diagnostic studies and lab tests. ? Aggregate critical care time includes only time during which I was engaged in work directly related to the patient?s care, as described above, whether at bedside or elsewhere in the Emergency Department. It did not include time spent performing other reported procedures or the services of residents, students, nurses or physician assistants. Discharge Plan Plan Patient Disposition: HOME (Self Care) Disposition Comment: Stable for discharge Patient condition on transfer: Stable Prescriptions/Referrals Prescriptions/Med Rec: No Action ondansetron HCl 8 mg tablet 4 mg PO Q8HR PRN (Reason: Nausea) Patient Comments: TAKE ONE TABLET BY MOUTH EVERY 8 HOURS NEEDED FOR NAUSEA tizanidine 2 mg Capsule 4 mg PO HS Rx Instructions: every 4 to 6 hours. pregabalin 150 mg capsule 75 mg PO HS Patient Comments: TAKE ONE CAPSULE BY MOUTH EVERY 12 HOURS NOTE NEW STRENGTH ibuprofen 800 mg tablet 800 mg PO Q8H PRN (Reason: pain) Qty: 30 0RF fluoxetine 20 mg Capsule 20 mg PO QDAY ibuprofen [IBU] 800 mg tablet 800 mg PO Q8H Qty: 20 0RF aspirin 81 mg tablet,delayed release (DR/EC) 81 mg PO QDAY Patient Comments: TAKE 2 TABLETS BY MOUTH EVERY DAY PNV cmb#95-ferrous fumarate-FA [] 28 mg iron- 800 mcg tablet 1 tab PO QDAY Patient Comments: TAKE 1 TABLET BY MOUTH EVERY DAY cyclobenzaprine 5 mg tablet 5 mg PO TID PRN (Reason: muscle relaxation) Patient Comments: TAKE 1 TABLET BY MOUTH 3 TIMES A DAY NEEDED MUSCLE RELAXATION Referrals: Stephanie Charles MD [Physician] - 07/26/24 Problem List Clinical Impression: Abdominal pain, Vomiting, Hypertension Patient/Caregiver Discharge Instructions Discharge Activity: activity as tolerated Education Materials: Abdominal Pain, ED Vomiting (Adult) Additional Instructions: It is very important that you follow-up in the office with Dr. Charles. Dr. Charles is our PRINCIPAL BIOSTATISTICIAN doctor who is on-call for the [facility]. You should be seen in her office within the next several days. Please just call her office in the morning and with your appointment Please return to the emergency department if you have any worsening or any further medical problems. Otherwise you should follow-up with your primary care doctor within the next several days as well. Print Language: Macedonian Stand Alone Forms: Patti Award Info., Patient Portal Info Letter
[2024-07-24 21:39] VITALS: BP 144/100; PULSE 73; RESP 18; O2SAT 97
--- NOTE | 2024-07-24 21:40 | XR_ITS ---
Examination: AP chest single view Technique one AP portable upright chest single view Exam date and time: July 24, 2024 1015 hrs. Indications: Coughing today with vomiting Findings: Normal heart size Mild vascular congestion. Basilar bronchitis pattern. No lobar pneumonia Impression: Basilar bronchitis pattern
--- NOTE | 2024-07-24 21:40 | XR_ITS ---
Examination: CT abdomen with intravenous contrast CT pelvis with intravenous contrast 2-D coronal reconstructions 2-D sagittal reconstructions Date and time of exam:July 24, 1999 2510 0 1:00 PM Comparison September 25, 2022 Indications: 3 days with abdominal pain, unable to urinate. CTDI: vol (mGy) 8.82 DLP: (mGycm) 507 Technique: Multiple axial sections of the abdomen and pelvis have been obtained. 64 slice high-resolution scanner used. 3 mm axial sections have been obtained, post intravenous injection 60 cc Isovue-370 2-D sagittal, coronal reconstructions obtained. Low dose protocols were performed. One or more of the following dose reduction techniques were used; automated exposure control, adjustment of the mA and/or KV according to patient size, use of iterative reconstruction technique. Findings: No focal liver or splenic lesions No gallstones No pancreatic or adrenal mass No renal or ureteral calculi, no hydronephrosis Aorta normal size No pericecal inflammatory change Abundant stool throughout the colon enlarged uterus with heterogeneous thickened endometrial stripe Intact urinary bladder Intact osseous structures Impression: enlarged uterus with thickened endometrial stripe, if retained products is a clinical consideration, recommend pelvic sonography follow-up Moderate stool throughout the colon Bladder is not distended
[2024-07-24 21:56] VITALS: PULSE 63
[2024-07-24 21:57] LABS: Magnesium 1.8 mg/dL (1.6-2.6)
[2024-07-24 21:58] VITALS: BP 143/83; PULSE 63; RESP 18
[2024-07-24] MEDS: ONDANSETRON INJ 2 MG/ML INJ 2 ML 4 MG IV (22:20)
[2024-07-24] MEDS: MORPHINE SULF INJ 10 MG/ML VIAL 2 MG IVP (22:21)
[2024-07-24 22:32] VITALS: BP 162/97; PULSE 62; RESP 12; O2SAT 95
[2024-07-24 23:09] VITALS: BP 158/98; PULSE 63
--- NOTE | 2024-07-25 00:12 | PC.NURSE ---
Assisting primary RN to discharge pt. Pt refused to go home, stated that she was told that she's going to be admitted. Dr. Bhatti informed of pt concerns.
--- NOTE | 2024-07-25 00:15 | PC.NURSE ---
Dr. Bhatti at bedside, talking to pt with regards to plan of care.
[2024-07-25 00:20] VITALS: BP 157/63; PULSE 78; RESP 20; TEMP 36.6
[2024-07-25] MEDS: ONDANSETRON INJ 2 MG/ML INJ 2 ML 4 MG IV (00:29)
[2024-07-25] MEDS: MORPHINE SULF INJ 10 MG/ML VIAL 4 MG IVP (00:32)
[2024-07-25 00:45] VITALS: BP 124/79; PULSE 68; RESP 18; O2SAT 97
--- NOTE | 2024-07-25 01:43 | PD.GYNCONS ---
COOPER HELPER HPI Data of Consult Primary Care Provider: Physician No Primary/Family Consult Narrative cc:: cc: Meds Home Medications and Allergies Home Medications ?Medication ?Instructions ?Recorded ?Confirmed ?Type ondansetron HCl 8 mg tablet 4 mg PO Q8HR PRN Nausea 08/25/21 07/21/24 History tizanidine 2 mg capsule 4 mg PO HS 09/05/21 07/21/24 History pregabalin 150 mg capsule 75 mg PO HS 11/17/21 07/21/24 History fluoxetine 20 mg capsule 20 mg PO QDAY 02/05/23 07/21/24 History aspirin 81 mg tablet,delayed 81 mg PO QDAY 07/14/24 07/21/24 History release cyclobenzaprine 5 mg tablet 5 mg PO TID PRN muscle relaxation 07/14/24 07/21/24 History vit no.95-ferrous 1 tab PO QDAY 07/14/24 07/21/24 History fumarate 28 mg-folic acid 800 mcg tablet () Allergies Allergy/AdvReac Type Severity Reaction Status Date / Time No Known Allergies Allergy Verified 07/24/24 16:33 Exam - COOPER HELPER Vital Signs Temp Pulse Resp BP Pulse Ox O2 Del Method 98 F 68 18 124/79 97 Room Air 07/25/24 00:20 07/25/24 00:45 07/25/24 00:45 07/25/24 00:45 07/25/24 00:45 07/25/24 00:45 COOPER HELPER - Results Labs 07/24/24 17:25 07/24/24 17:25 Labs: Short CBC 07/24/24 Range/Units 17:25 WBC 9.0 D (3.6-11.0) Thou/mm3 Hgb 8.9 L (12.0-16.0) g/dL Hct 27.7 L (36.0-46.0) % Plt Count 387 D (140-440) Thou/mm3 BMP 07/24/24 17:25 Sodium 141 Potassium 3.9 Chloride 104 Carbon Dioxide 26.7 BUN 11 Creatinine 0.6 Glucose 93 Calcium 9.2 Liver Function 07/24/24 Range/Units 17:25 Total Bilirubin 0.4 (0.3-1.2) mg/dL AST 49 H (0-34) U/L ALT 49 (10-49) U/L Alkaline Phosphatase 129 H (46-116) U/L Albumin 3.9 (3.5-5.0) gm/dL Urine 07/24/24 Range/Units 18:37 Urine Color Yellow (Lt Yel-Yel) Urine Clarity Clear (Clear/Hazy) Urine pH 7.5 H (5.0-7.0) Ur Specific Gratz 1.026 (1.001-1.035) Urine Protein 1+ A (Neg - Trace) Urine Glucose (UA) Negative (Negative) Assessment and Plan Assessment and plan (1) Hypertension: Status: Acute Assessment and plan: I was called by Dr. Bhatti with specific request to ascertain whether patient's clinical presentation 3 days after with upper abdominal pain, nausea/vomiting, headache and elevated bp's met criteria for pre-eclampsia which would require inpatient management. On review of chart, she had intermittent elevated bp's on 07/21 when admitted for labor. Today, bp's are not sustained severe range- they are normal to mild range with only 1 non-sustained severe range. Labs reviewed: WBC 9. Hgb 8.9, up from 8.6 after delivery. Plt 387, up from 266 after delivery. UA is not elucidating for proteinuria since it is contaminated with lochia (RBCs). Creatinine 0.6. AST 49, ALT 49. We discussed that patient's abdominal pain should be worked up (CT scan), and that her presentation is NOT consistent with pre-eclampsia with severe features given that she does not have sustained severe range bp's or any concerning laboratory findings. Nausea, vomiting and JOSEPH should be treated with IVF, anti-emetic and tylenol. if abdominal pain workup is benign and patient is discharged home, she should follow up in office with her OBGYN Dr. Monte on Thursday for bp check. Stephanie Charles MD (2) Term delivered: Status: Acute (1) Hypertension Qualifiers: Hypertension type: unspecified Qualified Code(s): I10 - Essential (primary) hypertension
== END 2024-07-25 00:48 | disposition home or self-care (01) ==
PROVIDERS: Nurse Practitioner Family; Emergency Provider Emergency Medicine
DX: R10.9 Unspecified abdominal pain (principal); R11.2 Nausea with vomiting, unspecified; I10 Essential (primary) hypertension; F41.9 Anxiety disorder, unspecified; F32.A Depression, unspecified; M79.7 Fibromyalgia
CPT/HCPCS: 36415; 71045; 71046; 74177; 80053; 81001; 83605; 83690; 83735; 84145; 85025; 87040; 87400; 87811; 93005; 96374; 96375; 96376; 99285; A4649; J2270; J2405; Q9967

== ENCOUNTER 2024-09-25 12:01 | Emergency (ER) | payer MEDICAID, SELFPAY ==
[2024-09-25 12:06] VITALS: BP 143/91; PULSE 84; RESP 22; TEMP 36.4; O2SAT 99
[2024-09-25 12:07] VITALS: BMI 28.1
[2024-09-25] MEDS: KETOROLAC INJ 30 MG/ML VIAL IM (12:22)
[2024-09-25] MEDS: DEXAMETHASONE SOD PHOS INJ 10 MG/ML VIAL IM (12:25)
--- NOTE | 2024-09-25 13:21 | PD.EDURI ---
Upper Respiratory Inf. RME/HPI General Chief Complaint: Shortness of Breath/Dyspnea Stated Complaint: throat swollen, difficult to breath Time Seen by Provider: 09/25/24 12:11 Arrival date/time: 09/25/24 12:01 39-year-old female presents to the emergency department today for complaints of uvular swelling and pain with swallowing patient for symptoms ongoing x 1 day. Patient reports no fever nausea vomiting no headache dizziness weakness Limitations: no limitations Related Data Home Medications ?Medication ?Instructions ?Recorded ?Confirmed ondansetron HCl 8 mg tablet 4 mg PO Q8HR PRN Nausea 08/25/21 07/21/24 tizanidine 2 mg capsule 4 mg PO HS 09/05/21 07/21/24 pregabalin 150 mg capsule 75 mg PO HS 11/17/21 07/21/24 fluoxetine 20 mg capsule 20 mg PO QDAY 02/05/23 07/21/24 aspirin 81 mg tablet,delayed 81 mg PO QDAY 07/14/24 07/21/24 release cyclobenzaprine 5 mg tablet 5 mg PO TID PRN muscle relaxation 07/14/24 07/21/24 vit no.95-ferrous 1 tab PO QDAY 07/14/24 07/21/24 fumarate 28 mg-folic acid 800 mcg tablet () Previous Rx's ?Medication ?Instructions ?Recorded ibuprofen 800 mg tablet 800 mg PO Q8H PRN pain #30 tabs 04/03/22 Held on 07/21/24. Instructions: Duplicate ibuprofen 800 mg tablet (IBU) 800 mg PO Q8H #20 tabs 04/25/23 amoxicillin 875 mg-potassium 1 tab PO BID 10 days #20 tabs 09/25/24 clavulanate 125 mg tablet ibuprofen 600 mg tablet 600 mg PO Q6H #30 tabs 09/25/24 prednisone 10 mg tablet 30 mg (3 x 10 mg) PO BID 3 days 09/25/24 #18 tabs Allergies Allergy/AdvReac Type Severity Reaction Status Date / Time No Known Allergies Allergy Verified 09/25/24 12:05 Review of Systems Review of Systems Systems Reviewed: All systems reviewed, normal except as documented Constitutional Constitutional: Reports system reviewed and no additional complaints, except as documented, Denies fever(s) and Denies headache(s) Eyes Eyes: Reports system reviewed and no additional complaints, except as documented and Denies blurry vision ENT Ears, Nose, Mouth, and Throat: Reports system reviewed and no additional complaints, except as documented, Denies headache(s), Denies nasal congestion, Denies nasal discharge, Reports sore throat and Reports throat swelling Cardiovascular Cardiovascular: Reports system reviewed and no additional complaints, except as documented, Denies chest pain and Denies dyspnea Respiratory Respiratory: Reports system reviewed and no additional complaints, except as documented, Denies chest congestion, Denies cough and Denies dyspnea Gastrointestinal Gastrointestinal: Reports system reviewed and no additional complaints, except as documented and Denies abdominal pain Integumentary/Breasts Skin/Breast: Reports system reviewed and no additional complaints, except as documented and Denies rash Neurologic Neurologic: Reports system reviewed and no additional complaints, except as documented, Reports as per HPI and Denies headache(s) Allergic/Immunologic Allergic/Immunologic: Reports throat swelling Past Medical History Past Medical History NEUROLOGIC: Negative Neurological Disorders or Seizures CARDIAC: Positive Hypercholesterolemia and Varicose Veins; Negative Cardiac Disorders or Congestive Heart Failure RESPIRATORY: Negative Chronic Obstructive Pulmonary Disease (COPD) or Asthma GASTROINTESTINAL: Positive Gastrointestinal Disorders, Pancreatitis, Hiatal Hernia and Obesity; Negative Hepatitis GENITOURINARY: Negative Genitourinary Disorders or Renal Disease REPRODUCTIVE: Positive Previous Pregnancies; Negative Endometriosis, Genital Herpes, Gonorrhea, Pelvic Inflammatory Disease, Syphilis or Uterine Prolapse MUSCULOSKELETAL: Positive Musculoskeletal Disorders, Arthritis, Degenerative Disk Disease and Fibromyalgia ENDOCRINE: Negative Endocrine Disorders, Diabetes Mellitus Type 1 or Diabetes Mellitus Type 2 HEMATOLOGIC: Negative Blood Disorders or Sickle Cell Disease PSYCHO/SOCIAL: Positive Psychiatric Problems, Recreational Drug Use, Bipolar Disorder, Anxiety and Depression OTHER HISTORY: Positive Hospitalization and Chicken Pox; Negative Autoimmune Disease, Down Syndrome, Developmental Delay, Shingles, Falls, Blood Transfusions, Blood Transfusion Reaction, Anesthesia Reactions, Organ Transplant, Chemotherapy, Radiation Therapy, Hyperbaric Therapy, MRSA, VRSA, Vancomycin-Resistant Enterococci, Human Immunodeficiency Virus (HIV), Measles, Mumps, Rubella (Cypriot Measles), Pertussis, Clostridium Difficile or Cancer Family History FAMILY HISTORY: Positive Family Cardiac Disorders and Family Surgery; Negative Family Psychiatric Problems, Family Respiratory Disorders, Family Gastrointestinal Problems, Family Cancer or Family Anesthesia Reaction Surgical History SURGICAL: Negative Cardiac Surgery, Endocrine Surgery, Ear Surgery, Abdominal Surgery, Nephrectomy, Joint Replacement, Neurologic Surgery, Section or Organ Transplant Social History SMOKING STATUS: Current some day smoker SECOND HAND EXPOSURE: No SUBSTANCE USE: does not use ED Exam General Limitations: Present no limitations General appearance: Present alert and in no apparent distress Head Head exam: Present atraumatic Eye Eye exam: Present normal appearance, PERRL and EOMI ENT ENT exam: Present mucous membranes moist and other (Clinically patient has uvular swelling no trismus no hoarseness of voice patient has no difficulty breathing) Neck Neck exam: Present normal inspection, full ROM and trachea midline Chest Chest inspection: Present normal inspection and symmetric chest wall rise Respiratory Respiratory exam: Present normal lung sounds bilaterally Cardiovascular Cardiovascular exam: Present regular rate, normal rhythm and normal heart sounds Abdominal Exam Abdominal exam: Present soft and normal bowel sounds Extremities Exam Extremities exam: Present normal inspection and full ROM Back Exam Back exam: Present normal inspection and full ROM Neurological Exam Neurological exam: Present alert, oriented X3 and CN II-XII intact Psychiatric Psychiatric exam: Present normal affect and normal mood Skin Skin exam: Present warm, dry, intact and normal color Course Quality Measures none Orders Category Date Time Status Dexamethasone Inj [Decadron Inj] Med 09/25/24 12:11 Discontinued 10 mg IM X1 ONE Ketorolac Inj [Toradol Inj] Med 09/25/24 12:11 Discontinued 30 mg IM X1 ONE Vital Signs Vital signs: Vital Signs Temperature 97.5 F 09/25/24 12:06 Pulse Rate 84 09/25/24 12:06 Respiratory Rate 22 H 09/25/24 12:06 Blood Pressure 143/91 H 09/25/24 12:06 Pulse Oximetry (%) 99 09/25/24 12:06 Oxygen Delivery Method Room Air 09/25/24 12:06 O2 saturation 99% room air within normal limits Upper Respiratory Infection MDM Narrative MDM Narrative:: 39-year-old female presents to the emergency department today for complaints of uvular swelling and pain with swallowing patient for symptoms ongoing x 1 day. Patient reports no fever nausea vomiting no headache dizziness weakness On exam patient has tonsillar erythema and uvular swelling Patient given pain medication as well as steroids At time reevaluation patient symptoms have improved At time of discharge patient reports no difficulty swallowing or breathing Patient discharged home in no distress to follow-up with primary care doctor in the next 24 to 48 hours and for any worsening symptoms to return to the ER immediately Patient data External records reviewed:: [facility] previous records Clinical information provided by:: patient Social determinants that could affect healthcare access:: none Patient has the following chronic illnesses:: None How is presenting disease/condition affected by chronic disease/condition?: no chronic disease Evaluation data The following diagnostics were reviewed and interpreted by me:: other (specify) Lab and/or radiology exams considered but not ordered:: Consider not ordered Interpretation Summary: N/A Medications / Prescriptions Medications or Prescriptions considered but not ordered:: Given Medication administrations:: Medication Administration History Discontinued Medications Dexamethasone Sodium Phosphate (Dexamethasone Sod Phos Inj 10 Mg/Ml Vial) 10 mg IM X1 ONE Stop: 09/25/24 12:12 Last Admin: 09/25/24 12:25 Dose: 10 mg Documented By: BRINDA Ketorolac Tromethamine (Ketorolac Inj 30 Mg/Ml Vial) 30 mg IM X1 ONE Stop: 09/25/24 12:12 Last Admin: 09/25/24 12:22 Dose: 30 mg Documented By: BRINDA Given Consultations Consultation(s) initiated? (list below): No Diagnosis Upper Respiratory Differential Diagnosis: upper respiratory infection, viral infection, bronchitis and influenza Most likely diagnosis given after review of the tests above:: Pharyngitis Admission Indicated Admission indicated?: not indicated Admission Request Was there a request for admission?: No Disposition Plan Disposition Plan: Discharge Discharge Attestation Discharge Attestation: The patient and all family members were given an opportunity to ask questions and understood the discharge instructions. Discharge instructions specifically effects, indications for sooner follow up or return to the emergency department, and the expected course of current diagnosis. Patient condition: Stable Discharge Plan Plan Patient Disposition: HOME (Self Care) Disposition Comment: Stable Prescriptions/Referrals Prescriptions/Med Rec: New prednisone 10 mg tablet 30 mg PO BID 3 Days Qty: 18 0RF ibuprofen 600 mg tablet 600 mg PO Q6H Qty: 30 0RF amoxicillin-pot clavulanate 875-125 mg tablet 1 tab PO BID 10 Days Qty: 20 0RF No Action ondansetron HCl 8 mg tablet 4 mg PO Q8HR PRN (Reason: Nausea) Patient Comments: TAKE ONE TABLET BY MOUTH EVERY 8 HOURS NEEDED FOR NAUSEA tizanidine 2 mg Capsule 4 mg PO HS Rx Instructions: every 4 to 6 hours. pregabalin 150 mg capsule 75 mg PO HS Patient Comments: TAKE ONE CAPSULE BY MOUTH EVERY 12 HOURS NOTE NEW STRENGTH ibuprofen 800 mg tablet 800 mg PO Q8H PRN (Reason: pain) Qty: 30 0RF fluoxetine 20 mg Capsule 20 mg PO QDAY ibuprofen [IBU] 800 mg tablet 800 mg PO Q8H Qty: 20 0RF aspirin 81 mg tablet,delayed release (DR/EC) 81 mg PO QDAY Patient Comments: TAKE 2 TABLETS BY MOUTH EVERY DAY PNV cmb#95-ferrous fumarate-FA [] 28 mg iron- 800 mcg tablet 1 tab PO QDAY Patient Comments: TAKE 1 TABLET BY MOUTH EVERY DAY cyclobenzaprine 5 mg tablet 5 mg PO TID PRN (Reason: muscle relaxation) Patient Comments: TAKE 1 TABLET BY MOUTH 3 TIMES A DAY NEEDED MUSCLE RELAXATION Referrals: Morales Javier MD [Primary Care Provider] - In 1 week Problem List Clinical Impression: Pharyngitis, Uvular swelling Patient/Caregiver Discharge Instructions Education Materials: Parts of the Mouth Additional Instructions: Please follow up with your primary care doctor in the next 24-48hrs for any worsening symptoms return here immediately Print Language: Korean Stand Alone Forms: Patti Award Info., Patient Portal Info Letter PA/FLEET ASSISTANT Supervising Physician PA/FLEET ASSISTANT Supervising Physician: Dr Car
== END 2024-09-25 13:37 | disposition home or self-care (01) ==
PROVIDERS: Emergency Provider Family Medicine; PCP Family Medicine
DX: J02.9 Acute pharyngitis, unspecified (principal)
CPT/HCPCS: 96372; 99283; J1100; J1885

== ENCOUNTER 2024-10-18 13:02 | Outpatient (AMB) | payer MEDICAID, SELFPAY ==
[2024-10-18 13:15] VITALS: BP 117/78; PULSE 78; RESP 18; TEMP 36.2; O2SAT 98; BMI 30.2
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
== END 2024-10-18 13:26 | disposition home or self-care (01) ==
LOC: HODSOBC 13:02
PROVIDERS: PCP Obstetrics & Gynecology; Referring Provider Obstetrics & Gynecology; Supervising Provider Obstetrics & Gynecology; Visit Provider Obstetrics & Gynecology
DX: Z30.2 Encounter for sterilization (principal); F17.210 Nicotine dependence, cigarettes, uncomplicated; Z71.6 Tobacco abuse counseling
CPT/HCPCS: 99213; G0463

== ENCOUNTER 2024-12-15 06:30 | Day surgery (SDC) | payer MEDICAID, SELFPAY ==
[2024-12-14 11:30] VITALS: BMI 30.5
[2024-12-14 13:46] LABS: Basophils # (Auto) 0.1 Thou/mm3 (0.0-0.2); Basophils % (Auto) 1 % (0-2.5); Eosinophils # (Auto) 0.4 Thou/mm3 (0.0-0.5); Eosinophils % (Auto) 7 % (0-10); Hematocrit 33.9 % (36.0-46.0); Hemoglobin 10.8 g/dL (12.0-16.0); Immature Granulocytes Auto 0.01 Thou/mm3 (0.00-0.00); Lymphocytes # (Auto) 2.2 Thou/mm3 (1.0-4.8); Lymphocytes % (Auto) 33 % (10-50); Mean Corpuscular HGB Conc 31.9 g/dl (31.0-37.0); Mean Corpuscular Hemoglobin 23.1 pg (25.0-35.0); Mean Corpuscular Volume 72 fL (80-100); Monocytes # (Auto) 0.6 Thou/mm3 (0.0-0.8); Monocytes % (Auto) 9 % (0-12); Neutrophils # (Auto) 3.4 Thou/mm3 (1.8-7.7); Neutrophils % (Auto) 50 % (37-80); Nucleated Red Blood Cell # 0.00 Thou/mm3 (0.00-0.00); Nucleated Red Blood Cell % 0 /100 WBC (0); Platelet Count 353 Thou/mm3 (140-440); RDW Standard Deviation 45.8 fL (36.4-46.3); Red Blood Count 4.68 Miln/mm3 (4.00-5.20); White Blood Count 6.7 Thou/mm3 (3.6-11.0)
[2024-12-14 13:48] LABS: HCG,Qualitative Serum Negative
[2024-12-14 13:55] LABS: Alanine Aminotransferase 11 U/L (10-49); Albumin, Serum 4.4 gm/dL (3.5-5.0); Albumin/Globulin Ratio 1.7 (1.2-2.2); Alkaline Phosphatase 98 U/L (46-116); Anion Gap 8 (7-16); Aspartate Amino Transferase 15 U/L (0-34); BUN/Creatinine Ratio 15 Ratio (12-20); Bilirubin,Total 0.2 mg/dL (0.3-1.2); Blood Urea Nitrogen 12 mg/dL (9-23); Calcium 8.8 mg/dL (8.3-10.6); Calcium (Corrected) 8.8 mg/dL (8.5-10.1); Carbon Dioxide 26.6 mMol/L (20.0-31.0); Chloride 107 mMol/L (98-107); Creatinine (Component) 0.8 mg/dL (0.6-1.3); Estimated Creatinine Clearance 103.2 mL/min (>60); Globulin 2.6 gm/dL (2.3-3.5); Glucose 104 mg/dL (74-106); Osmolality,Calculated 282 (275-295); Potassium 4.0 mMol/L (3.4-5.1); Sodium 142 mMol/L (136-145); Total Protein 7.0 gm/dL (5.7-8.2); eGFR > 60 See Note
[2024-12-15] VITALS (13 sets, daily range): BP systolic 79–128; BP diastolic 44–91; PULSE 58–75; RESP 12–18; TEMP 36.1–36.6; O2SAT 95–100; BMI 31.2
[2024-12-15] MEDS: RINGERS LACTATED 1000 ML 1,000 ML 20 ML IV (07:25)
[2024-12-15] MEDS: MIDAZOLAM INJ 1 MG/ML VIAL 2 ML IVP (07:25)
--- NOTE | 2024-12-15 07:29 | SUR.PREOP ---
pt crying. throwing up. states so nervous. medicated per dr cabezas.
--- NOTE | 2024-12-15 07:31 | SUR.PREOP ---
reassurance given. pt states feels better.
--- NOTE | 2024-12-15 08:11 | PD.GYNHP ---
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 WRIGHT is a 39 year old female presenting for scheduled laparoscopic salpingectomy for bilateral surgical sterilization Patient was seen previously in the office and counseled extensively and details are available and her office notes in the chart Review of Systems Review of Systems Systems Reviewed: All systems reviewed, normal except as documented Meds Home Medications and Allergies Home Medications ?Medication ?Instructions ?Recorded ?Confirmed ?Type ondansetron HCl 8 mg tablet 4 mg PO Q8HR PRN Nausea 08/25/21 12/14/24 History pregabalin 150 mg capsule 75 mg PO HS 11/17/21 12/14/24 History fluoxetine 20 mg capsule 20 mg PO QDAY 02/05/23 12/14/24 History cyclobenzaprine 5 mg tablet 5 mg PO TID PRN muscle relaxation 07/14/24 12/14/24 History amitriptyline 10 mg tablet 30 mg PO HS 12/14/24 12/14/24 History quetiapine 100 mg tablet 100 mg PO HS 12/14/24 12/14/24 History Allergies Allergy/AdvReac Type Severity Reaction Status Date / Time No Known Allergies Allergy Verified 12/14/24 11:26 Exam - 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 Vital Signs Temp Pulse Resp BP Pulse Ox 97.8 F 64 17 128/91 H 95 12/15/24 07:03 12/15/24 07:03 12/15/24 07:03 12/15/24 07:03 12/15/24 07:03 Constitutional Constitutional: no acute distress Routine HEENT Exam Head: Present normocephalic and atraumatic Eye: Present EOMI and PERRL ENT: Present mucous membranes moist Routine Neck Exam Neck: Present supple and trachea midline Routine Respiratory Exam Respiratory: Present chest non-tender, lungs clear, normal breath sounds and no resp distress Routine Cardiovascular Exam Cardiovascular: Present RRR Routine Abdominal Exam Abdominal: Present soft and normoactive bowel sounds Routine Extremities Exam Extremities: Present full ROM Routine Skin Exam Skin: Present intact and dry Routine Neurological Exam Neurological: Present alert, oriented X3 and CN II-XII intact Routine Psychiatric Exam Psychiatric: Present normal affect and normal thought process 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 - Results Labs 12/14/24 11:45 12/14/24 11:45 Labs: Short CBC 12/14/24 Range/Units 11:45 WBC 6.7 (3.6-11.0) Thou/mm3 Hgb 10.8 L (12.0-16.0) g/dL Hct 33.9 L (36.0-46.0) % Plt Count 353 (140-440) Thou/mm3 BMP 12/14/24 11:45 Sodium 142 Potassium 4.0 Chloride 107 Carbon Dioxide 26.6 BUN 12 Creatinine 0.8 Glucose 104 Calcium 8.8 Liver Function 12/14/24 Range/Units 11:45 Total Bilirubin 0.2 L (0.3-1.2) mg/dL AST 15 (0-34) U/L ALT 11 (10-49) U/L Alkaline Phosphatase 98 (46-116) U/L Albumin 4.4 (3.5-5.0) gm/dL Assessment and Plan Assessment and plan (1) Encounter for sterilization: Status: Acute Assessment and plan: Admit to ambulatory status per laparoscopic salpingectomy Ambulatory surgical orders placed on separate sheet Obtain consent for laparoscopic salpingectomy bilateral Scheduled procedure for today Quality Measures Quality Measures VTE prophylaxis
--- NOTE | 2024-12-15 09:21 | PD.GYNPROC ---
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 Identity was confirmed by double identifiers and she was placed on the operating table.? General anesthesia was administered and airway was secured.? Patient was now positioned in the dorsal lithotomy position in [facility].? The abdomen and perineum were prepped in the usual sterile fashion and sterile drapes were applied.? The bladder was emptied using a straight catheter.? A sponge stick was placed in the vagina for uterine manipulation.? Attention was now turned to the patient's abdomen.? A 5 mm incision was made at the base of the umbilicus using a scalpel.? Laparoscopic entry was accomplished under direct visualization using Mobile[employer] laparoscopic trocar.? Once intra-abdominal placement was confirmed pneumoperitoneum was insufflated to 15 cm.? The camera was now introduced into the abdomen and a preliminary survey was performed.? The uterus and both adnexa were noted to be within normal limits.? Another overall survey of the upper abdomen was performed and no gross abnormalities were noted.? A pair of accessory ports were placed 2 cm superior and medial to the ASIS bilaterally.? The Enseal was used to perform a salpingectomy in the usual fashion, beginning dissection from the fimbriated end and carrying through until the uterine cornua. The dissection sites were now observed to note satisfactory hemostasis.? All instruments were now withdrawn.? Pneumoperitoneum was desufflated.? The laparoscopic ports were removed.? The skin was now closed using 4-0 Monocryl in a subcuticular fashion.? The patient's skin was now cleaned, sterile dressings were applied.? Patient was undraped, and general anesthesia was reversed and she was transferred to the recovery room in a stable and awake condition. The patient tolerated the entire procedure well.? All instrument, sponge and lap counts are correct x2.? No complications were encountered. Estimated blood loss (ml): 10 Complications: none Surgical staff Operation Date: 12/15/24 08:30 Case Staff Anesthesiologist: Yfn Amaral RNbehavioral health care coordinator: Ericka Bustos Diagnosis Discharge Diagnosis (1) Encounter for sterilization: Status: Acute Problem List Completed Was Problem List Reviewed/Reconciled?: Yes
--- NOTE | 2024-12-15 09:24 | SUR.PHASEI ---
pt received from OR in recovery bay 3. pt obtunded, breathing unlabored on oxymask 10, oral and nasal airway place. v/s stable. pt dressing to abd dermabond x3 cdi. report received from Dr. Amaral and [facility].
--- NOTE | 2024-12-15 11:16 | SUR.PHASEII ---
pt able to tolerate ice chips without difficulty swallowing or nausea/vomiting.
--- NOTE | 2024-12-15 11:52 | SUR.PHASEII ---
pt awake and alert, breathing unlabored on room air. v/s stable. pt dressing to abd dermabond x3 cdi. pt able to ambulate to wheelchair with steady gait. d/c instructions given with over the phone (child presence) and with pt in room, all questions answered. pt d/c via wheelchair with all belongings.
--- NOTE | 2024-12-17 13:43 | PD.ANESPROG ---
Documentation for date of: 12/17/24 POST ANESTHESIA NOTE: Patient had GETA for lap salpingectomy on 12/15/24. Pre-op, she reported h/o fibromyalgia and anxiety and she was markedly anxious pre-op, even feeling nauseous, and she endorsed she gets that way whenever she feels too anxious. She was educated, comforted and treated by me pre-op. She denied having any abdominal pain, nausea, vomiting, diarrhea, fever, chills, chest pain prior to the pre-op. She did well intra-op and she did well in PACU where she rested throughout. I just spoke with her on the phone and she denied any problems from anesthesia and did not report any concerns/complaints. Yfn Amaral MD Anesthesia Progress Note Progress Note Most recent Vital Signs: Last Vital Signs Temp 97.2 F 12/15/24 11:30 Pulse 67 12/15/24 11:30 Resp 14 12/15/24 11:30 BP 102/65 12/15/24 11:30 Pulse Ox 97 12/15/24 11:30 O2 Flow Rate 2 12/15/24 11:00
== END 2024-12-15 11:52 | disposition home or self-care (01) ==
PROVIDERS: PCP Family Medicine; Referring Provider Obstetrics & Gynecology; Visit Provider Obstetrics & Gynecology
PROC: (CPT 58720; principal; 2024-12-15 08:30)
DX: Z30.2 Encounter for sterilization (principal)
CPT/HCPCS: 58661; 36415; 80053; 84703; 85025; 86850; 86900; 86901; A4217; A4649; J0131; J0330; J1100; J2250; J2371; J2704; J2765; J3010; J3490; J7120; A9270

== ENCOUNTER 2025-01-21 22:34 | Emergency (ER) | payer MEDICAID, SELFPAY ==
--- NOTE | 2025-01-21 22:38 | PD.EDCHEST ---
ED Chest Pain RME/HPI General Chief Complaint: Shortness of Breath/Dyspnea Stated Complaint: SOB Time Seen by Provider: 01/21/25 22:45 Arrival date/time: 01/21/25 22:34 RME / HPI RME / HPI narrative: Refer to [facility]. Related Data Home Medications ?Medication ?Instructions ?Recorded ?Confirmed ondansetron HCl 8 mg tablet 4 mg PO Q8HR PRN Nausea 08/25/21 12/14/24 pregabalin 150 mg capsule 75 mg PO HS 11/17/21 12/14/24 fluoxetine 20 mg capsule 20 mg PO QDAY 02/05/23 12/14/24 cyclobenzaprine 5 mg tablet 5 mg PO TID PRN muscle relaxation 07/14/24 12/14/24 amitriptyline 10 mg tablet 30 mg PO HS 12/14/24 12/14/24 quetiapine 100 mg tablet 100 mg PO HS 12/14/24 12/14/24 Allergies Allergy/AdvReac Type Severity Reaction Status Date / Time No Known Allergies Allergy Verified 12/14/24 11:26 Review of Systems Review of Systems Systems Reviewed: All systems reviewed, normal except as documented Past Medical History Past Medical History CARDIAC: Positive Hypercholesterolemia and Varicose Veins GASTROINTESTINAL: Positive Gastrointestinal Disorders, Pancreatitis, Hiatal Hernia and Obesity REPRODUCTIVE: Positive Previous Pregnancies MUSCULOSKELETAL: Positive Musculoskeletal Disorders, Arthritis, Degenerative Disk Disease and Fibromyalgia PSYCHO/SOCIAL: Positive Psychiatric Problems, Recreational Drug Use, Bipolar Disorder, Depression, Anxiety and Depression OTHER HISTORY: Positive Hospitalization and Chicken Pox Family History FAMILY HISTORY: Positive Family Cardiac Disorders, Family Cancer and Family Surgery Social History SMOKING STATUS: Former smoker SUBSTANCE USE: crack/cocaine 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 Course Quality Measures none Orders Category Date Time Status Bedside COVID-19 Antigen Test NOW Care 01/21/25 22:48 Completed Bedside Influenza A&B Antigen Test NOW Care 01/21/25 22:[address] Screening NOW Care 01/21/25 22:49 Completed EKG (ED ONLY) *Do not use* NOW Care 01/21/25 22:49 Completed Saline [Insert IV] NOW Care 01/21/25 22:48 Completed Straight [In and Out Catheter] X1 Care 01/21/25 22:[address] chest wo con Stat Exams 01/22/25 00:23 Taken EKG (ED Only) Stat Exams 01/21/25 22:49 Ordered XR chest 1V portable Stat Exams 01/21/25 22:49 Completed Alcohol, Blood Medical Stat Lab 01/21/25 23:04 Completed BNP [B-Type Natriuretic Peptide] Stat Lab 01/21/25 23:04 Completed Bilirubin,Direct Stat Lab 01/21/25 23:04 Completed CBC Stat Lab 01/21/25 23:04 Completed CMP [Comprehensive Metabolic Panel] Stat Lab 01/21/25 23:04 Completed D-Dimer Stat Lab 01/21/25 23:04 Completed Drug Screen,Urine Stat Lab 01/21/25 01:13 Completed Free T4 (Free Thyroxine) Stat Lab 01/21/25 23:04 Completed Magnesium Stat Lab 01/21/25 23:04 Completed TSH [Thyroid Stimulating Hormone] Stat Lab 01/21/25 23:04 Completed Troponin I Stat Lab 01/21/25 23:04 Completed UA, C/S IF [Urinalysis, C/S if Indicated] Stat Lab 01/22/25 01:13 Completed HYDROmorphone INJ [Dilaudid Inj] Med 01/21/25 22:48 Discontinued 1 mg IVP X1 ONE Ketorolac Inj [Toradol Inj] Med 01/21/25 22:48 Discontinued 30 mg IVP X1 ONE Ondansetron Inj [Zofran Inj] Med 01/21/25 22:48 Discontinued 4 mg IVP X1 ONE Ondansetron Inj [Zofran Inj] Med 01/22/25 02:54 Discontinued 4 mg IVP X1 ONE Sodium Chloride 0.9% 1000 ml [Ns] 1,000 ml Med 01/21/25 22:48 Discontinued IV 999 mls/hr Vital Signs Vital signs: Vital Signs Pulse Rate 72 01/21/25 23:46 Respiratory Rate 18 01/21/25 23:46 Blood Pressure 143/81 H 01/21/25 23:46 Pulse Oximetry (%) 98 01/21/25 23:46 Oxygen Delivery Method Room Air 01/21/25 23:46 Chest Pain MDM Narrative MDM Narrative:: Scribe Attestation: Mary Thomas am scribing for and in the presence of Dr. Artis. Provider Notation: Although this document has been carefully reviewed, there may still be some phonetic and other typographical errors.? These errors are purely grammatical due to imperfections in the software program and should not be construed in any way to? compromise the substance of the patient's medical care during this visit. This section includes all my notes and documentations, including HPI, PE, and ED course. Luis Artis MD HPI: 40 y/o female with Hx of Fibromyalgia, Anxiety, and Recreational Drug Use ROBERTO from home presents with severe chest pain and back pain x several days. She has trouble localizing the pain further. Has trouble describing further the quality and quantity of her symptoms. Has trouble describing exacerbating factors and relieving factors. No other complaints. ROS: All negative except as documented in HPI. Physical Exam: General: Alert and oriented. Patient is screaming in pain. Eyes: Conjunctivae and lids clear. PERRL. EOMI. ENT: No nasal congestion. Neck: Supple. No carotid bruit. No JVD. Heart: RRR. Lungs: No respiratory distress. Good air movement. No rhonchi, wheezing, rales. Abdomen: Soft and nontender. Normal bowel sounds. No distension. No rebound or guarding. Back: No spinal tenderness. Skin: Warm and dry. Neuro: Alert and oriented X 3. I reviewed EMS notes. I reviewed all diagnostic test results: My interpretation of the EKG: NSR (81 bpm) with no ST-T changes. My interpretation of the chest x-ray is: NAD. My review of the Chest CT report is: No acute findings. Blood tests unremarkable. UDS positive for cocaine. Covid/Influenza: Negative. At this point, diagnoses include: Cocaine intoxication. Treatment here included: Dilaudid 1 mg, IVF, Toradol 30 mg, Zofran 4 mg. Significant improvement noted. Recommended outpatient care. Based on my best medical judgment, made decision no further evaluation or treatment indicated at this time. Patient understands and agrees to the discharge instructions customized and printed, see below. Discharge instructions from Dr. Artis: 1. After extensive evaluation, there is no life-threatening condition.? Such as heart attack or pulmonary embolism (blood clots in your lungs) or pneumothorax (collapsed lung). 2. To prevent serious and potentially fatal injuries and illnesses, avoid cocaine and all other drugs. 3. Apply ice or heat if helpful.? Tylenol/ibuprofen as needed. 4. See a private doctor on 01/23/2025 for recheck and further care. To make sure there is no serious underlying heart condition, ask to help you get more tests for your heart that cannot be done here in the ER.? Such as Holter Monitor (cardiac monitoring at home from a day to even a month), heart stress test (on treadmill or with medication), echocardiogram (imaging of your heart structures), heart catherization (checking for blockages in your heart arteries), and a referral to see a [employer] Specialist.? Ask to review all test results and official radiology reports, to make sure you receive all necessary follow-ups and monitoring. 5. Seek immediate medical care with worsening or with any concerns.?? Luis Artis MD Patient data External records reviewed:: [facility] previous records (Reviewed prior ED records from 09/25/24. Patient was seen for Pharyngitis.) and EMS form Clinical information provided by:: patient and EMS Social determinants that could affect healthcare access:: substance use Patient has the following chronic illnesses:: Hypercholesterolemia, Varicose Veins, Pancreatitis, Hiatal Hernia, Obesity, Arthritis, Degenerative Disk Disease, Fibromyalgia, Recreational Drug Use, Bipolar Disorder, Depression, Anxiety How is presenting disease/condition affected by chronic disease/condition?: exacerbated by Evaluation data The following diagnostics were reviewed and interpreted by me:: lab results, radiology exam(s) and EKG tracing(s) (My interpretation of the EKG: NSR (81 bpm) with no ST-T changes. Luis Artis MD) Lab and/or radiology exams considered but not ordered:: None Interpretation Summary: I reviewed all diagnostic test results: My interpretation of the EKG: NSR (81 bpm) with no ST-T changes. My interpretation of the chest x-ray is: NAD. My review of the Chest CT report is: No acute findings. Blood tests unremarkable. UDS positive for cocaine. Covid/Influenza: Negative. Medications / Prescriptions Medications or Prescriptions considered but not ordered:: None Medication administrations:: Medication Administration History Discontinued Medications Hydromorphone HCl (Hydromorphone Inj 2 Mg/Ml Vial) 1 mg IVP X1 ONE Stop: 01/21/25 22:49 Last Admin: 01/21/25 23:00 Dose: 1 mg Documented By: [email or web address] Sodium Chloride (Ns) 1,000 mls @ 999 mls/hr IV .Q1H1M ONE Stop: 01/21/25 23:48 Last Infusion: 01/22/25 00:00 Dose: Infused Documented By: Admin: 01/21/25 22:59 Dose: 999 mls/hr Documented By: MARJORIE Ketorolac Tromethamine (Ketorolac Inj 30 Mg/Ml Vial) 30 mg IVP X1 ONE Stop: 01/21/25 22:49 Last Admin: 01/21/25 22:58 Dose: 30 mg Documented By: MARJORIE Ondansetron HCl (Ondansetron Inj 2 Mg/Ml Inj 2 Ml) 4 mg IVP X1 ONE; Protocol Stop: 01/21/25 22:49 Last Admin: 01/21/25 22:58 Dose: 4 mg Documented By: MARJORIE Ondansetron HCl (Ondansetron Inj 2 Mg/Ml Inj 2 Ml) 4 mg IVP X1 ONE; Protocol Stop: 01/22/25 02:55 Last Admin: 01/22/25 02:57 Dose: 4 mg Documented By: MARJORIE Dilaudid 1 mg, IVF, Toradol 30 mg, Zofran 4 mg. Consultations Consultation(s) initiated? (list below): No Diagnosis Chest Pain Differential Diagnosis: fracture of rib, pneumothorax, stable angina, unstable angina pectoris, atypical chest pain, st elevation myocardial infarction, costochondritis, chest pain and biliary colic Most likely diagnosis given after review of the tests above:: Cocaine intoxication Admission Indicated Admission indicated?: not indicated Explain why admission is indicated or not indicated:: With significant improvement and no condition needing emergent intervention, there was no indication for admission. Admission Request Was there a request for admission?: No Disposition Plan Disposition Plan: Discharge Discharge Attestation Discharge Attestation: The patient and all family members were given an opportunity to ask questions and understood the discharge instructions. Discharge instructions specifically effects, indications for sooner follow up or return to the emergency department, and the expected course of current diagnosis. Patient condition: Stable Discharge Plan Plan Patient Disposition: HOME (Self Care) Prescriptions/Referrals Prescriptions/Med Rec: No Action ondansetron HCl 8 mg tablet 4 mg PO Q8HR PRN (Reason: Nausea) Patient Comments: TAKE ONE TABLET BY MOUTH EVERY 8 HOURS NEEDED FOR NAUSEA pregabalin 150 mg capsule 75 mg PO HS Patient Comments: TAKE ONE CAPSULE BY MOUTH EVERY 12 HOURS NOTE NEW STRENGTH fluoxetine 20 mg Capsule 20 mg PO QDAY cyclobenzaprine 5 mg tablet 5 mg PO TID PRN (Reason: muscle relaxation) Patient Comments: TAKE 1 TABLET BY MOUTH 3 TIMES A DAY NEEDED MUSCLE RELAXATION amitriptyline 10 mg tablet 30 mg PO HS Patient Comments: TAKE 3 TABLETS BY MOUTH EVERY DAY quetiapine 100 mg tablet 100 mg PO HS Patient Comments: TAKE 1 TABLET(S) ORALLY 1 TIME AT NIGHT Referrals: No Primary/Family,Physician [Primary Care Provider] - In 1 week Problem List Clinical Impression: Cocaine intoxication Patient/Caregiver Discharge Instructions Discharge Activity: activity as tolerated Education Materials: ED Cocaine And Crack Abuse, ED Drug Abuse Additional Instructions: Discharge instructions from Dr. Artis: 1. After extensive evaluation, there is no life-threatening condition.? Such as heart attack or pulmonary embolism (blood clots in your lungs) or pneumothorax (collapsed lung). 2. To prevent serious and potentially fatal injuries and illnesses, avoid cocaine and all other drugs. 3. Apply ice or heat if helpful.? Tylenol/ibuprofen as needed. 4. See a private doctor on 01/23/2025 for recheck and further care. To make sure there is no serious underlying heart condition, ask to help you get more tests for your heart that cannot be done here in the ER.? Such as Holter Monitor (cardiac monitoring at home from a day to even a month), heart stress test (on treadmill or with medication), echocardiogram (imaging of your heart structures), heart catherization (checking for blockages in your heart arteries), and a referral to see a [employer]ist.? Ask to review all test results and official radiology reports, to make sure you receive all necessary follow-ups and monitoring. 5. Seek immediate medical care with worsening or with any concerns.?? Print Language: Kinyarwanda Stand Alone Forms: Patti Award Info., Patient Portal Info Letter
--- NOTE | 2025-01-21 22:49 | XR_ITS ---
Examination: AP chest single view TECHNIQUE: AP portable semiupright chest single view Date and time: January 21, 2025 11:26 PM INDICATIONS: Shortness of breath chest pain today. FINDINGS: Stable small nodule left upper lobe compared with January 22, 2023 Normal heart size No interval pneumonia or pulmonary edema IMPRESSION: No pneumonia or pulmonary edema
[2025-01-21] MEDS: KETOROLAC INJ 30 MG/ML VIAL IVP (22:58)
[2025-01-21] MEDS: ONDANSETRON INJ 2 MG/ML INJ 2 ML 4 MG IVP (22:58)
[2025-01-21] MEDS: SODIUM CHLORIDE 0.9% 1000 ML 1,000 ML 999 ML IV (22:59)
[2025-01-21] MEDS: HYDROmorphone INJ 2 MG/ML VIAL 1 MG IVP (23:00)
[2025-01-21 23:10] VITALS: PULSE 75; RESP 19; O2SAT 100; BMI 29.7
[2025-01-21 23:46] VITALS: BP 143/81; PULSE 72; RESP 18; O2SAT 98
[2025-01-21 23:48] LABS: Basophils # (Auto) 0.1 Thou/mm3 (0.0-0.2); Basophils % (Auto) 1 % (0-2.5); Eosinophils # (Auto) 0.1 Thou/mm3 (0.0-0.5); Eosinophils % (Auto) 1 % (0-10); Hematocrit 38.2 % (36.0-46.0); Hemoglobin 12.1 g/dL (12.0-16.0); Immature Granulocytes Auto 0.05 Thou/mm3 (0.00-0.00); Lymphocytes # (Auto) 3.3 Thou/mm3 (1.0-4.8); Lymphocytes % (Auto) 26 % (10-50); Mean Corpuscular HGB Conc 31.7 g/dl (31.0-37.0); Mean Corpuscular Hemoglobin 22.7 pg (25.0-35.0); Mean Corpuscular Volume 72 fL (80-100); Monocytes # (Auto) 0.8 Thou/mm3 (0.0-0.8); Monocytes % (Auto) 6 % (0-12); Neutrophils # (Auto) 8.2 Thou/mm3 (1.8-7.7); Neutrophils % (Auto) 66 % (37-80); Nucleated Red Blood Cell # 0.00 Thou/mm3 (0.00-0.00); Nucleated Red Blood Cell % 0 /100 WBC (0); Platelet Count 504 Thou/mm3 (140-440); RDW Standard Deviation 45.8 fL (36.4-46.3); Red Blood Count 5.33 Miln/mm3 (4.00-5.20); White Blood Count 12.5 Thou/mm3 (3.6-11.0)
[2025-01-22 00:07] LABS: D-Dimer < 250 ng/mL (<600)
[2025-01-22 00:17] LABS: B-Type Natriuretic Peptide < 20 pg/mL (0-100)
--- NOTE | 2025-01-22 00:23 | XR_ITS ---
Examination: CT chest, without intravenous contrast. Sagittal and coronal 2-D reconstructions. Exam date and time: January 22, 2025 0048 hours INDICATION: Shortness of breath with severe chest pain today CTDI:vol (mGy) 12.7 DLP: (mGycm) 539. Technique: Multiple 3.0 mm axial sections of the chest to been obtained. Bone and lung density settings are obtained. Sagittal and coronal 2-D reconstructions have been obtained. Low dose protocols were performed. One or more of the following dose reduction techniques were used; automated exposure control, adjustment of the mA and/or KV according to patient size, use of iterative reconstruction technique. Findings: No thoracic aortic aneurysmal dilatation Pulmonary artery segments are not enlarged. No paratracheal tracheobronchial or bronchopulmonary adenopathy. No pneumonia or pulmonary edema or pleural disease No visualized liver or splenic lesion No pancreatic edema No gallstones identified Kidneys partially visualized and no gallstones IMPRESSION: No mediastinal lymphadenopathy. No pneumonia or pulmonary edema or pleural disease
[2025-01-22 00:25] LABS: Alanine Aminotransferase 16 U/L (10-49); Albumin, Serum 5.0 gm/dL (3.5-5.0); Anion Gap 16 (7-16); Aspartate Amino Transferase 19 U/L (0-34); BUN/Creatinine Ratio 14 Ratio (12-20); Bilirubin,Direct 0.1 mg/dL (0.0-0.3); Bilirubin,Total 0.6 mg/dL (0.3-1.2); Blood Urea Nitrogen 11 mg/dL (9-23); Calcium 10.5 mg/dL (8.3-10.6); Carbon Dioxide 18.0 mMol/L (20.0-31.0); Chloride 106 mMol/L (98-107); Creatinine (Component) 0.8 mg/dL (0.6-1.3); Estimated Creatinine Clearance 104.4 mL/min (>60); Glucose 119 mg/dL (74-106); Magnesium 1.9 mg/dL (1.6-2.6); Osmolality,Calculated 279 (275-295); Potassium 3.5 mMol/L (3.4-5.1); Sodium 140 mMol/L (136-145); Total Protein 7.9 gm/dL (5.7-8.2); Troponin I < 0.002 ng/mL (0.0-0.045); eGFR > 60 See Note
[2025-01-22 00:26] LABS: Albumin/Globulin Ratio 1.7 (1.2-2.2); Alcohol, Blood Medical < 3.0 mg/dL (0-10.0); Alkaline Phosphatase 108 U/L (46-116); Calcium (Corrected) 10.5 mg/dL (8.5-10.1); Free T4 (Free Thyroxine) 1.09 ng/dL (0.89-1.76); Globulin 2.9 gm/dL (2.3-3.5); Thyroid Stimulating Hormone 7.39 uIU/mL (0.55-4.78)
[2025-01-22 01:26] LABS: Collection Type, Urine Clean Catch
[2025-01-22 01:30] LABS: Bilirubin,Urine Negative (Negative); Blood,Urine Negative (Negative); Clarity,Urine Clear (Clear/Hazy); Color,Urine Yellow (Lt Yel-Yel); Culture Indicated,Urine Not Indicated; Glucose, Urine Negative (Negative); Ketones,Urine 2+ (Negative); Leukocyte Esterase,Urine Negative (Negative); Nitrite,Urine Negative (Negative); PH,Urine 8.0 (5.0-7.0); Protein,Urine 2+ (Neg - Trace); RBC,Urine 9 /hpf (0-3); Specific Gravity,Urine 1.034 (1.001-1.035); Squamous Epithelial Cell,Urine 8 /hpf (0-5); Urobilinogen,Urine Negative mg/dL (0.0-1.0); WBC,Urine 5 /hpf (0-5)
[2025-01-22 01:41] LABS: Amphetamine/Methamp Scrn,U Negative (Negative); Barbiturate Screen,Urine Negative (Negative); Benzodiazepines Screen,Urine Negative (Negative); Benzoylecgonine Screen, Ur Positive (Negative); Fentanyl Screen,Urine Negative (Negative); Opiate Screen,Urine Positive (Negative); THC Screen,Urine Positive (Negative)
--- NOTE | 2025-01-22 01:59 | PRELIM_ITS ---
CT scan of the chest without intravenous contrast (axial sections with sagittal and coronal reformats) January 22, 2025 0048 hours Clinical History: Severe chest pain Comparison: No prior study is available for comparison. Findings: There is a calcified nodule in the left upper lobe, measuring 6 mmThere are multiple calcified enlarged hilar lymph nodesThe lungs are otherwise clear. No evidence of pleural effusion or pneumothorax. The mediastinum demonstrates no evidence of mass . The thoracic aorta is unremarkable. There is no pericardial effusion. A moderate hiatal hernia is present. The osseous structures are unremarkable. The visualized upper abdominal viscera are unremarkable on this noncontrast study. Impression: No evidence of acute intrathoracic pathology on this noncontrast study. Other findings as described above. Report Electronically Signed By: Diego Waldrop 01/22/2025 1:58:50 AM [EST]
[2025-01-22] MEDS: ONDANSETRON INJ 2 MG/ML INJ 2 ML 4 MG IVP (02:57)
[2025-01-22 03:04] VITALS: BP 143/85; PULSE 90; RESP 19; TEMP 37; O2SAT 100
== END 2025-01-22 03:06 | disposition home or self-care (01) ==
PROVIDERS: Emergency Provider Emergency Medicine
DX: F14.129 Cocaine abuse with intoxication, unspecified (principal); R06.02 Shortness of breath; R07.9 Chest pain, unspecified; M54.9 Dorsalgia, unspecified; M79.7 Fibromyalgia; F41.9 Anxiety disorder, unspecified
CPT/HCPCS: 36415; 71045; 71250; 80053; 80307; 80320; 81001; 82248; 83735; 83880; 84439; 84443; 84484; 85025; 85379; 87400; 87811; 93005; 96374; 96375; 96376; 99284; J1171; J1885; J2405; J7030; G0480

== ENCOUNTER 2025-01-25 05:52 | Emergency (ER) | payer MEDICAID, SELFPAY ==
[2025-01-25 05:53] VITALS: PULSE 100; RESP 18; O2SAT 97; BMI 28.1
[2025-01-25 06:22] VITALS: BP 131/91; PULSE 78; RESP 17; TEMP 36.9; O2SAT 97
[2025-01-25] MEDS: METOCLOPRAMIDE 5 MG TABLET 10 MG PO (06:38)
[2025-01-25] MEDS: HYDROcodone/APAP 5/325 TABLET 1 TAB PO (06:38)
--- NOTE | 2025-01-25 06:42 | PD.EDADULT ---
ED General RME/HPI General Chief complaint: Weakness Stated complaint: GENERALIZED PAIN Time Seen by Provider: 01/25/25 06:18 Arrival date/time: 01/25/25 05:52 40-year-old female with history of fibromyalgia with chronic pain syndrome presents stating that she has not been able to get into pain management requesting pain management at this time. Patient reports no chest pain or shortness of breath no fever no nausea no vomiting no abdominal pain patient reports generalized joint pain and bodyaches Limitations: no limitations Related Data Home Medications ?Medication ?Instructions ?Recorded ?Confirmed ondansetron HCl 8 mg tablet 4 mg PO Q8HR PRN Nausea 08/25/21 12/14/24 pregabalin 150 mg capsule 75 mg PO HS 11/17/21 12/14/24 fluoxetine 20 mg capsule 20 mg PO QDAY 02/05/23 12/14/24 cyclobenzaprine 5 mg tablet 5 mg PO TID PRN muscle relaxation 07/14/24 12/14/24 amitriptyline 10 mg tablet 30 mg PO HS 12/14/24 12/14/24 quetiapine 100 mg tablet 100 mg PO HS 12/14/24 12/14/24 Previous Rx's ?Medication ?Instructions ?Recorded hydrocodone 5 mg-acetaminophen 325 1 tab PO BID PRN pain #6 tabs 01/25/25 mg tablet ibuprofen 600 mg tablet 600 mg PO Q6H #30 tabs 01/25/25 metoclopramide HCl 10 mg tablet 10 mg PO Q6H PRN nausea and 01/25/25 (Reglan) vomiting #30 tabs Allergies Allergy/AdvReac Type Severity Reaction Status Date / Time No Known Allergies Allergy Verified 01/25/25 05:56 Review of Systems Review of Systems Systems Reviewed: All systems reviewed, normal except as documented Constitutional Constitutional: Reports system reviewed and no additional complaints, except as documented, Denies fever(s) and Denies headache(s) Eyes Eyes: Reports system reviewed and no additional complaints, except as documented and Denies blurry vision ENT Ears, Nose, Mouth, and Throat: Reports system reviewed and no additional complaints, except as documented, Denies headache(s), Denies nasal congestion and Denies nasal discharge Cardiovascular Cardiovascular: Reports system reviewed and no additional complaints, except as documented, Denies chest pain and Denies dyspnea Respiratory Respiratory: Reports system reviewed and no additional complaints, except as documented, Denies chest congestion, Denies cough and Denies dyspnea Gastrointestinal Gastrointestinal: Reports system reviewed and no additional complaints, except as documented and Denies abdominal pain Musculoskeletal Musculoskeletal: Reports system reviewed and no additional complaints, except as documented, Reports arthralgias, Denies deformity and Denies joint swelling Integumentary/Breasts Skin/Breast: Reports system reviewed and no additional complaints, except as documented and Denies rash Neurologic Neurologic: Reports system reviewed and no additional complaints, except as documented, Reports as per HPI and Denies headache(s) Past Medical History Past Medical History NEUROLOGIC: Negative Neurological Disorders or Seizures CARDIAC: Positive Hypercholesterolemia and Varicose Veins; Negative Cardiac Disorders or Congestive Heart Failure RESPIRATORY: Positive Asthma; Negative Chronic Obstructive Pulmonary Disease (COPD) GASTROINTESTINAL: Positive Gastrointestinal Disorders, Pancreatitis, Hiatal Hernia and Obesity; Negative Hepatitis GENITOURINARY: Negative Genitourinary Disorders or Renal Disease REPRODUCTIVE: Positive Previous Pregnancies; Negative Endometriosis, Genital Herpes, Gonorrhea, Pelvic Inflammatory Disease, Syphilis or Uterine Prolapse MUSCULOSKELETAL: Positive Musculoskeletal Disorders, Arthritis, Degenerative Disk Disease and Fibromyalgia ENDOCRINE: Negative Endocrine Disorders, Diabetes Mellitus Type 1 or Diabetes Mellitus Type 2 HEMATOLOGIC: Negative Blood Disorders or Sickle Cell Disease PSYCHO/SOCIAL: Positive Psychiatric Problems, Recreational Drug Use, Bipolar Disorder, Depression, Anxiety and Depression OTHER HISTORY: Positive Hospitalization and Chicken Pox; Negative Autoimmune Disease, Down Syndrome, Developmental Delay, Shingles, Falls, Blood Transfusions, Blood Transfusion Reaction, Anesthesia Reactions, Organ Transplant, Chemotherapy, Radiation Therapy, Hyperbaric Therapy, MRSA, VRSA, Vancomycin-Resistant Enterococci, Human Immunodeficiency Virus (HIV), Measles, Mumps, Rubella (Gabonese Measles), Pertussis, Clostridium Difficile or Cancer Family History FAMILY HISTORY: Positive Family Cardiac Disorders, Family Cancer and Family Surgery; Negative Family Psychiatric Problems, Family Respiratory Disorders, Family Gastrointestinal Problems or Family Anesthesia Reaction Surgical History SURGICAL: Negative Cardiac Surgery, Endocrine Surgery, Ear Surgery, Abdominal Surgery, Nephrectomy, Joint Replacement, Neurologic Surgery, Section or Organ Transplant Social History SMOKING STATUS: Never smoker SECOND HAND EXPOSURE: No SUBSTANCE USE: crack/cocaine ED Exam General Limitations: Present no limitations General appearance: Present alert and in no apparent distress Head Head exam: Present atraumatic, normocephalic and normal inspection Eye Eye exam: Present normal appearance, PERRL and EOMI; Absent conjunctival injection ENT ENT exam: Present normal exam, normal oropharynx and mucous membranes moist Neck Neck exam: Present normal inspection, full ROM and trachea midline Chest Chest inspection: Present normal inspection and symmetric chest wall rise Respiratory Respiratory exam: Present normal lung sounds bilaterally; Absent respiratory distress Cardiovascular Cardiovascular exam: Present regular rate, normal rhythm and normal heart sounds Abdominal Exam Abdominal exam: Present soft and normal bowel sounds Extremities Exam Extremities exam: Present normal inspection and full ROM Back Exam Back exam: Present normal inspection and full ROM Neurological Exam Neurological exam: Present alert, oriented X3, CN II-XII intact, normal gait and reflexes normal; Absent motor sensory deficit Psychiatric Psychiatric exam: Present normal affect and normal mood Skin Skin exam: Present warm, dry, intact and normal color Course Quality Measures none Orders Category Date Time Status HYDROcodone*/APAP 5/325 [Sula 5/325] Med 01/25/25 06:22 Discontinued 1 tab PO X1 ONE Metoclopramide [Reglan] Med 01/25/25 06:22 Discontinued 10 mg PO X1 ONE Vital Signs Vital signs: Vital Signs Temperature 98.5 F 01/25/25 06:22 Pulse Rate 78 01/25/25 06:22 Respiratory Rate 17 01/25/25 06:22 Blood Pressure 131/91 H 01/25/25 06:22 Pulse Oximetry (%) 97 01/25/25 06:22 Oxygen Delivery Method Room Air 01/25/25 06:22 O2 saturation 97% room air with normal limits Discharge Plan Plan Patient Disposition: HOME (Self Care) Discharge Disposition comment: stable Prescriptions/Referrals Prescriptions/Med Rec: New hydrocodone-acetaminophen 5-325 mg tablet 1 tab PO BID MDD 10 PRN (Reason: pain) Qty: 6 0RF ibuprofen 600 mg tablet 600 mg PO Q6H Qty: 30 0RF metoclopramide HCl [Reglan] 10 mg tablet 10 mg PO Q6H PRN (Reason: nausea and vomiting) Qty: 30 0RF No Action ondansetron HCl 8 mg tablet 4 mg PO Q8HR PRN (Reason: Nausea) Patient Comments: TAKE ONE TABLET BY MOUTH EVERY 8 HOURS NEEDED FOR NAUSEA pregabalin 150 mg capsule 75 mg PO HS Patient Comments: TAKE ONE CAPSULE BY MOUTH EVERY 12 HOURS NOTE NEW STRENGTH fluoxetine 20 mg Capsule 20 mg PO QDAY cyclobenzaprine 5 mg tablet 5 mg PO TID PRN (Reason: muscle relaxation) Patient Comments: TAKE 1 TABLET BY MOUTH 3 TIMES A DAY NEEDED MUSCLE RELAXATION amitriptyline 10 mg tablet 30 mg PO HS Patient Comments: TAKE 3 TABLETS BY MOUTH EVERY DAY quetiapine 100 mg tablet 100 mg PO HS Patient Comments: TAKE 1 TABLET(S) ORALLY 1 TIME AT NIGHT Problem List Clinical Impression: Fibromyalgia, Chronic pain syndrome Patient/Caregiver Discharge Instructions Education Materials: ED Back Care Tips Additional Instructions: Please follow up with your primary care doctor in the next 24-48hrs for any worsening symptoms return here immediately Print Language: Greek Stand Alone Forms: Patti Award Info., Patient Portal Info Letter PA/RESOLUTION REP Supervising Physician PA/RESOLUTION REP Supervising Physician: Dr. Chatterjee [facility] Narrative MDM hospital course: 40-year-old female with history of fibromyalgia with chronic pain syndrome presents stating that she has not been able to get into pain management requesting pain management at this time. Patient reports no chest pain or shortness of breath no fever no nausea no vomiting no abdominal pain patient reports generalized joint pain and bodyaches On exam patient well-appearing patient does not appear ill or toxic no acute distress I do not believe lab work or imaging is indicated at this time Patient given 1 dose of pain medication and nausea medication here Patient discharged home in no distress to follow-up with primary care doctor in the next 24 to 48 hours and for any worsening symptoms to return to the ER immediately Clinical Information Provided by patient Medical Records Reviewed [facility] Meds/Rx Considered, not Ordered Describe details: Given Labs/Rad/Tests considered, not Ordered None Chronic Illness/Social Conditions which may negatively complicate care or outcome(s)-explain: ETOH/drugs/substance abuse EKG EKG not done Lab Interpretation Labs: none Imaging Imaging interpretation: none Medication Administration(s) Medication Administration History Discontinued Medications Hydrocodone Bitart/Acetaminophen (Hydrocodone/Apap 5/325 Tablet) 1 tab PO X1 ONE Stop: 01/25/25 06:23 Last Admin: 01/25/25 06:38 Dose: 1 tab Documented By: IDRIS Metoclopramide HCl (Metoclopramide 5 Mg Tablet) 10 mg PO X1 ONE Stop: 01/25/25 06:23 Last Admin: 01/25/25 06:38 Dose: 10 mg Documented By: IDRIS Given Diagnosis Differential diagnosis: Pain syndrome, body aches, fatigue Most likely dx, and/or detailed dx discussion: Chronic pain syndrome Dispositon Disposition: Discharge Home
== END 2025-01-25 07:04 | disposition home or self-care (01) ==
LOC: SERX 06:43
PROVIDERS: Emergency Provider Emergency Medicine; PCP Family Medicine
DX: M79.7 Fibromyalgia (principal); G89.4 Chronic pain syndrome
CPT/HCPCS: 99282; A9270

== ENCOUNTER 2025-01-27 04:46 | Inpatient (IN) | payer MEDICAID, SELFPAY ==
[2025-01-27] VITALS (9 sets, daily range): BP systolic 117–163; BP diastolic 71–96; PULSE 55–98; RESP 15–19; TEMP 36.3–37.1; O2SAT 95–98; BMI 28.1; BMI 30.2
--- NOTE | 2025-01-27 05:11 | PD.EDABDPN ---
ED Abdominal Pain RME/HPI General Chief Complaint: Nausea/Vomiting/Diarrhea Stated complaint: VOMITING Time seen by provider: 01/27/25 05:10 Arrival date/time: 01/27/25 04:46 RME / HPI RME / HPI narrative: See MDM for Dr. Artis's HPI Documentation. Related Data Home Medications ?Medication ?Instructions ?Recorded ?Confirmed ondansetron HCl 8 mg tablet 4 mg PO Q8HR PRN Nausea 08/25/21 12/14/24 pregabalin 150 mg capsule 75 mg PO HS 11/17/21 12/14/24 fluoxetine 20 mg capsule 20 mg PO QDAY 02/05/23 12/14/24 cyclobenzaprine 5 mg tablet 5 mg PO TID PRN muscle relaxation 07/14/24 12/14/24 amitriptyline 10 mg tablet 30 mg PO HS 12/14/24 12/14/24 quetiapine 100 mg tablet 100 mg PO HS 12/14/24 12/14/24 Previous Rx's ?Medication ?Instructions ?Recorded hydrocodone 5 mg-acetaminophen 325 1 tab PO BID PRN pain #6 tabs 01/25/25 mg tablet ibuprofen 600 mg tablet 600 mg PO Q6H #30 tabs 01/25/25 metoclopramide HCl 10 mg tablet 10 mg PO Q6H PRN nausea and 01/25/25 (Reglan) vomiting #30 tabs Allergies Allergy/AdvReac Type Severity Reaction Status Date / Time No Known Allergies Allergy Verified 01/25/25 05:56 Review of Systems Review of Systems Systems Reviewed: All systems reviewed, normal except as documented Past Medical History Past Medical History CARDIAC: Positive Hypercholesterolemia and Varicose Veins RESPIRATORY: Positive Asthma GASTROINTESTINAL: Positive Gastrointestinal Disorders, Pancreatitis, Hiatal Hernia and Obesity REPRODUCTIVE: Positive Previous Pregnancies MUSCULOSKELETAL: Positive Musculoskeletal Disorders, Arthritis, Degenerative Disk Disease and Fibromyalgia PSYCHO/SOCIAL: Positive Psychiatric Problems, Recreational Drug Use, Bipolar Disorder, Depression, Anxiety and Depression OTHER HISTORY: Positive Hospitalization and Chicken Pox Family History FAMILY HISTORY: Positive Family Cardiac Disorders, Family Cancer and Family Surgery Social History SMOKING STATUS: Former smoker SUBSTANCE USE: crack/cocaine ED Exam Narrative Physical exam: See MDM for Dr. Artis's Physical Exam Documentation. Course Quality Measures none Orders Category Date Time Status Bedside COVID-19 Antigen Test NOW Care 01/27/25 05:27 Active Bedside Influenza A&B Antigen Test NOW Care 01/27/25 05:[address] Screening NOW Care 01/27/25 05:28 Active Saline [Insert IV] NOW Care 01/27/25 05:28 Active Straight [In and Out Catheter] X1 Care 01/27/25 05:[address] abdomen pelvis w con Stat Exams 01/27/25 05:28 Ordered Alcohol, Blood Medical Stat Lab 01/27/25 05:10 Ordered Ammonia Stat Lab 01/27/25 05:10 Ordered Amylase Stat Lab 01/27/25 05:10 Ordered Bilirubin,Direct Stat Lab 01/27/25 05:10 Ordered CBC Stat Lab 01/27/25 05:10 Ordered CMP [Comprehensive Metabolic Panel] Stat Lab 01/27/25 05:10 Ordered Drug Screen,Urine Stat Lab 01/27/25 05:10 Ordered HCG,Qualitative Serum Stat Lab 01/27/25 05:10 Ordered Lipase Stat Lab 01/27/25 05:10 Ordered Magnesium Stat Lab 01/27/25 05:10 Ordered PT [Prothrombin Time with INR] Stat Lab 01/27/25 05:11 Ordered PTT [Partial Thromboplastin Time] Stat Lab 01/27/25 05:11 Ordered UA, C/S IF [Urinalysis, C/S if Indicated] Stat Lab 01/27/25 05:11 Ordered Metoclopramide Inj [Reglan Inj] Med 01/27/25 05:28 Once 10 mg IVP X1 ONE Sodium Chloride 0.9% 1000 ml [Ns] 1,000 ml Med 01/27/25 05:28 Ordered IV 999 mls/hr Vital Signs Vital signs: Vital Signs Temperature 98.3 F 01/27/25 04:48 Pulse Rate 80 01/27/25 04:48 Respiratory Rate 18 01/27/25 04:48 Blood Pressure 163/71 H 01/27/25 04:48 Pulse Oximetry (%) 96 01/27/25 04:48 Oxygen Delivery Method Room Air 01/27/25 04:48 Abdominal Pain MDM MDM Narrative MDM Narrative:: Scribe Attestation: I, Mary Parra, am scribing for and in the presence of Dr. Artis. This section includes all my notes and documentations, including HPI, PE, and ED course. Luis Artis MD HPI: 40 y/o female with Hx of Crack/Cocaine Use and Pancreatitis presents with severe abdominal pain and vomiting blood x 3 days. No other complaints. ROS: All negative except as documented in HPI. Physical Exam: General: Alert and oriented. Eyes: Conjunctivae and lids clear. ENT: No nasal congestion. Neck: Supple. Heart: RRR. Lungs: No respiratory distress. Good air movement. No rhonchi, wheezing, rales. Abdomen: Soft with equivocal tenderness, difficult to localize. Normal bowel sounds. No distension. No rebound or guarding. Back: No CVA tenderness. Skin: Warm and dry. Neuro: Alert and oriented X 3. I ordered IV fluid and Reglan 10 mg IV and diagnostic tests. At 6 AM on 01/27/2025, the care of the patient was transferred to Dr. Bhatti. Luis Artis MD Patient data External records reviewed:: [facility] previous records (Reviewed prior ED records from 01/25/25. Patient was seen for Chronic pain syndrome.) and EMS form Clinical information provided by:: patient and EMS Social determinants that could affect healthcare access:: substance use (Crack/Cocaine) Patient has the following chronic illnesses:: Hypercholesterolemia, Varicose Veins, Asthma, Pancreatitis, Hiatal Hernia, Obesity, Arthritis, Degenerative Disk Disease, Fibromyalgia, Recreational Drug Use, Bipolar Disorder, Depression, Anxiety How is presenting disease/condition affected by chronic disease/condition?: exacerbated by Evaluation data The following diagnostics were reviewed and interpreted by me:: lab results and radiology exam(s) Lab and/or radiology exams considered but not ordered:: None Interpretation Summary: Diagnostic tests are pending. Medications / Prescriptions Medications or Prescriptions considered but not ordered:: None Medication administrations:: Medication Administration History Sodium Chloride (Ns) 1,000 mls @ 999 mls/hr IV .Q1H1M ONE Stop: 01/27/25 06:28 Metoclopramide HCl (Metoclopramide Inj 5 Mg/Ml Vial 2 Ml) 10 mg IVP X1 ONE; Protocol Stop: 01/27/25 05:29 I ordered IV fluid and Reglan 10 mg IV. Consultations Consultation(s) initiated? (list below): No Diagnosis Differential diagnosis abdominal pain: abdominal pain, acute appendicitis, calculus of kidney, constipation, diverticulitis, endometriosis, gastroenteritis, pancreatitis, small bowel obstruction and other (Esophageal varices, Peptic Ulcer, Ordoñez's Esophagus, Gastritis) Most likely diagnosis given after review of the tests above:: Diagnostic tests are pending. Admission Indicated Admission indicated?: not indicated Explain why admission is indicated or not indicated:: Diagnostic tests are pending. Admission Request Was there a request for admission?: No Disposition Plan Disposition Plan: other (specify) (At 6 AM on 01/27/2025, the care of the patient was transferred to Dr. Bhatti.) Discharge Plan Prescriptions/Referrals Prescriptions/Med Rec: No Action ondansetron HCl 8 mg tablet 4 mg PO Q8HR PRN (Reason: Nausea) Patient Comments: TAKE ONE TABLET BY MOUTH EVERY 8 HOURS NEEDED FOR NAUSEA pregabalin 150 mg capsule 75 mg PO HS Patient Comments: TAKE ONE CAPSULE BY MOUTH EVERY 12 HOURS NOTE NEW STRENGTH fluoxetine 20 mg Capsule 20 mg PO QDAY cyclobenzaprine 5 mg tablet 5 mg PO TID PRN (Reason: muscle relaxation) Patient Comments: TAKE 1 TABLET BY MOUTH 3 TIMES A DAY NEEDED MUSCLE RELAXATION amitriptyline 10 mg tablet 30 mg PO HS Patient Comments: TAKE 3 TABLETS BY MOUTH EVERY DAY quetiapine 100 mg tablet 100 mg PO HS Patient Comments: TAKE 1 TABLET(S) ORALLY 1 TIME AT NIGHT hydrocodone-acetaminophen 5-325 mg tablet 1 tab PO BID MDD 10 PRN (Reason: pain) Qty: 6 0RF ibuprofen 600 mg tablet 600 mg PO Q6H Qty: 30 0RF metoclopramide HCl [Reglan] 10 mg tablet 10 mg PO Q6H PRN (Reason: nausea and vomiting) Qty: 30 0RF Problem List Clinical Impression: Abdominal pain, Vomiting Patient/Caregiver Discharge Instructions Print Language: Afghan
[2025-01-27] MEDS: METOCLOPRAMIDE INJ 5 MG/ML VIAL 2 ML 10 MG IVP (05:51)
[2025-01-27] MEDS: SODIUM CHLORIDE 0.9% 1000 ML 1,000 ML 999 ML IV (05:51)
--- NOTE | 2025-01-27 06:24 | PD.EDADDENDU ---
Emergency Room Addendum Addendum Narrative: 0600: Care assumed from Dr. Artis, the previous shift emergency physician. Past medical, surgical, social and family history reviewed. Vitals and home medications reviewed. I will assume the care of the patient at this time, pending diagnostic tests and final disposition. Please refer to the emergency department record for history and examination from initial visit.? 40-year-old female presents with acute onset of hematemesis beginning early this morning, described as vomiting large amounts of brownish-red blood. She reports associated abdominal pain and appears visibly uncomfortable. Trace blood was noted in emesis on bedside testing. Symptoms have progressively worsened since last night around 8 PM. Patient has a history of chronic nausea and vomiting following tube removal by Dr. Espinoza on December 15, with near-daily symptoms since then. She has a known history of cannabis use and prior diagnosis of cannabinoid hyperemesis syndrome, although she believes this episode feels different. Past medical history also includes pancreatitis. Given the volume of hematemesis, associated pain, and ongoing symptoms, differential includes upper GI bleed, possible Chely-Allen tear, gastritis or ulcer, and cannabis hyperemesis syndrome. Physical exam by me at 0720 hours, shows patient under some pain distress/ uncomfortable. Generalized diffuse moderate tenderness but worse in the left upper quadrant. Will give pain medications, fluids, and protonix. 1350: Discussed test HPI, PMHx, lab, radiology results and/or management with resident working with the hospitalist. Will admit for further evaluation and management. Accepts patient for admission. Diagnosis: Hematemesis Critical Care Time Critical Care Time Critical Care Time: Yes Total Critical Care Time (min.): 45 Attestation: The high probability of sudden, clinically significant deterioration in the patient?s condition required the highest level of my preparedness to intervene urgently. The services I provided to this patient were to treat and/or prevent clinically significant deterioration. Services included the following: chart data review, reviewing nursing notes and/or old charts, documentation time, residential solar consultant collaboration regarding findings and treatment options, medication orders and management, direct patient care, vital sign assessments and ordering, interpreting and reviewing diagnostic studies and lab tests. Aggregate critical care time includes only time during which I was engaged in work directly related to the patient?s care, as described above, whether at bedside or elsewhere in the Emergency Department. It did not include time spent performing other reported procedures or the services of residents, students, nurses or physician assistants. Results Objective Imaging: Procedure(s): US gall bladder Accession Number(s): [id number] cc: Prashant Newton MD; Nahun Bhatti MD; Demi Angel PA-C~ Examination: Abdomen sonogram, Limited Date and time of exam: January 27, 2025 0906 hours INDICATIONS: Onset severe right upper abdominal pain today Technique: Real-time kennedy scale transabdominal sonographic images of the upper abdomen obtained. Findings: Normal gallbladder Normal common bile duct 0.2 cm Pancreatic head 2.8 cm Liver 17.1 cm fatty infiltration Normal hepatopedal portal venous flow Patent IVC IMPRESSION: Normal gallbladder Normal common bile duct Hepatomegaly, fatty infiltration throughout the liver Dictated By: Prashant Newton MD Procedure(s): CT chest abdomen pelvis w Accession Number(s): [id number] cc: Prashant Newton MD; Nahun Bhatti MD; Demi Angel PA-C~ Examination: CT chest with intravenous contrast CT abdomen with intravenous contrast CT pelvis with intravenous contrast 2-D coronal and sagittal reconstructions Time of exam: January 27, 2025 1131 hours Comparison January 22, 2025 INDICATIONS: Generalized abdominal pain and vomiting blood today COMPARISON: CT chest January 22, 2025 CTDI: vol (mGy) : 9.57 DLP: (mGycm): 705 Technique: Multiple axial images of the chest, abdomen and pelvis with intravenous contrast, 3.0 mm slice thickness. Images obtained post intravenous injection Isovue 370 60 cc. 2-D sagittal and coronal reconstructions. Low dose protocols were performed. One or more of the following dose reduction techniques were used; automated exposure control, adjustment of the mA and/or KV according to patient size, use of iterative reconstruction technique. Findings: No thoracic aorta aneurysm dilatation No pulmonary artery filling defects on this non-CTA study No paratracheal tracheobronchial or bronchopulmonary adenopathy Mild opacity left lower lobe, for instance axial image 216 consistent with early pneumonia No focal liver or splenic lesion No gallstones No pancreatic or adrenal mass Aorta normal size No renal or ureteral calculi, no hydronephrosis No bowel obstruction Normal appendix coronal image 72 No diverticulitis Anteverted uterus Mild osteopenia IMPRESSION: Pneumonia left lower lobe Negative for pulmonary artery emboli Negative for gastritis pattern Normal appendix No nonspecific colitis enteritis or diverticulitis pattern Dictated By: Prashant Newton MD
--- NOTE | 2025-01-27 07:26 | XR_ITS ---
Examination: CT chest with intravenous contrast CT abdomen with intravenous contrast CT pelvis with intravenous contrast 2-D coronal and sagittal reconstructions Time of exam: January 27, 2025 1131 hours Comparison January 22, 2025 INDICATIONS: Generalized abdominal pain and vomiting blood today COMPARISON: CT chest January 22, 2025 CTDI: vol (mGy) : 9.57 DLP: (mGycm): 705 Technique: Multiple axial images of the chest, abdomen and pelvis with intravenous contrast, 3.0 mm slice thickness. Images obtained post intravenous injection Isovue 370 60 cc. 2-D sagittal and coronal reconstructions. Low dose protocols were performed. One or more of the following dose reduction techniques were used; automated exposure control, adjustment of the mA and/or KV according to patient size, use of iterative reconstruction technique. Findings: No thoracic aorta aneurysm dilatation No pulmonary artery filling defects on this non-CTA study No paratracheal tracheobronchial or bronchopulmonary adenopathy Mild opacity left lower lobe, for instance axial image 216 consistent with early pneumonia No focal liver or splenic lesion No gallstones No pancreatic or adrenal mass Aorta normal size No renal or ureteral calculi, no hydronephrosis No bowel obstruction Normal appendix coronal image 72 No diverticulitis Anteverted uterus Mild osteopenia IMPRESSION: Pneumonia left lower lobe Negative for pulmonary artery emboli Negative for gastritis pattern Normal appendix No nonspecific colitis enteritis or diverticulitis pattern
--- NOTE | 2025-01-27 07:33 | XR_ITS ---
Examination: Abdomen sonogram, Limited Date and time of exam: January 27, 2025 0906 hours INDICATIONS: Onset severe right upper abdominal pain today Technique: Real-time kennedy scale transabdominal sonographic images of the upper abdomen obtained. Findings: Normal gallbladder Normal common bile duct 0.2 cm Pancreatic head 2.8 cm Liver 17.1 cm fatty infiltration Normal hepatopedal portal venous flow Patent IVC IMPRESSION: Normal gallbladder Normal common bile duct Hepatomegaly, fatty infiltration throughout the liver
[2025-01-27] MEDS: MORPHINE SULF INJ 10 MG/ML VIAL 4 MG IVP (07:52)
[2025-01-27] MEDS: PANTOPRAZOLE/NS 80MG IV PREMIX 80 MG/100 ML BAG 10 MG IV ×2 (07:53→16:51)
[2025-01-27 08:08] LABS: INR 1.0 (0.9-1.3); Partial Thromboplastin Time 21.9 Seconds (22.0-36.0); Prothrombin Time 11.3 Seconds (9.0-12.2)
[2025-01-27 08:23] LABS: Basophils # (Auto) 0.0 Thou/mm3 (0.0-0.2); Basophils % (Auto) 0 % (0-2.5); Eosinophils # (Auto) 0.0 Thou/mm3 (0.0-0.5); Eosinophils % (Auto) 0 % (0-10); Hematocrit 32.5 % (36.0-46.0); Hemoglobin 10.3 g/dL (12.0-16.0); Immature Granulocytes Auto 0.04 Thou/mm3 (0.00-0.00); Lymphocytes # (Auto) 1.5 Thou/mm3 (1.0-4.8); Lymphocytes % (Auto) 15 % (10-50); Mean Corpuscular HGB Conc 31.7 g/dl (31.0-37.0); Mean Corpuscular Hemoglobin 23.5 pg (25.0-35.0); Mean Corpuscular Volume 74 fL (80-100); Monocytes # (Auto) 0.4 Thou/mm3 (0.0-0.8); Monocytes % (Auto) 4 % (0-12); Neutrophils # (Auto) 8.5 Thou/mm3 (1.8-7.7); Neutrophils % (Auto) 81 % (37-80); Nucleated Red Blood Cell # 0.00 Thou/mm3 (0.00-0.00); Nucleated Red Blood Cell % 0 /100 WBC (0); Platelet Count 350 Thou/mm3 (140-440); RDW Standard Deviation 48.3 fL (36.4-46.3); Red Blood Count 4.38 Miln/mm3 (4.00-5.20); White Blood Count 10.6 Thou/mm3 (3.6-11.0)
[2025-01-27 09:10] LABS: Alanine Aminotransferase 13 U/L (10-49); Albumin, Serum 4.4 gm/dL (3.5-5.0); Albumin/Globulin Ratio 2.1 (1.2-2.2); Alcohol, Blood Medical < 3.0 mg/dL (0-10.0); Alkaline Phosphatase 84 U/L (46-116); Amylase 44 U/L (30-118); Anion Gap 9 (7-16); Aspartate Amino Transferase 13 U/L (0-34); BUN/Creatinine Ratio 16 Ratio (12-20); Bilirubin,Direct < 0.1 mg/dL (0.0-0.3); Bilirubin,Total 0.3 mg/dL (0.3-1.2); Blood Urea Nitrogen 11 mg/dL (9-23); Calcium 9.1 mg/dL (8.3-10.6); Calcium (Corrected) 9.1 mg/dL (8.5-10.1); Carbon Dioxide 24.7 mMol/L (20.0-31.0); Chloride 106 mMol/L (98-107); Creatinine (Component) 0.7 mg/dL (0.6-1.3); Globulin 2.1 gm/dL (2.3-3.5); Glucose 123 mg/dL (74-106); Lipase 51 U/L (12-53); Magnesium 1.8 mg/dL (1.6-2.6); Osmolality,Calculated 279 (275-295); Potassium 3.8 mMol/L (3.4-5.1); Sodium 140 mMol/L (136-145); Total Protein 6.5 gm/dL (5.7-8.2); eGFR > 60 See Note
[2025-01-27 09:10] LABS: Ammonia < 10 uMol/L (11-32)
[2025-01-27 10:29] LABS: HCG,Qualitative Serum Negative
[2025-01-27] MEDS: ONDANSETRON INJ 2 MG/ML INJ 2 ML 4 MG IVP ×2 (12:54→20:11)
[2025-01-27] MEDS: MORPHINE SULF INJ 10 MG/ML VIAL 2 MG IVP (13:35)
[2025-01-27 13:50] LABS: Bacteria,Urine Rare; Bilirubin,Urine Negative (Negative); Blood,Urine 3+ (Negative); Collection Type, Urine Clean Catch; Glucose, Urine Negative (Negative); Ketones,Urine Negative (Negative); Leukocyte Esterase,Urine Positive (Negative); Nitrite,Urine Negative (Negative); PH,Urine 8.0 (5.0-7.0); Protein,Urine 1+ (Neg - Trace); RBC,Urine 651 /hpf (0-3); Squamous Epithelial Cell,Urine 8 /hpf (0-5); Urobilinogen,Urine Negative mg/dL (0.0-1.0); WBC,Urine 36 /hpf (0-5)
[2025-01-27 13:57] LABS: Color,Urine Lt Brown (Lt Yel-Yel); Culture Indicated,Urine Yes; Specific Gravity,Urine 1.010 (1.001-1.035)
[2025-01-27 14:00] LABS: Clarity,Urine Hazy (Clear/Hazy)
[2025-01-27] MEDS: HYDROmorphone INJ 2 MG/ML VIAL 0.5 MG IVP (14:33)
[2025-01-27 15:11] LABS: Amphetamine/Methamp Scrn,U Negative (Negative); Barbiturate Screen,Urine Negative (Negative); Benzodiazepines Screen,Urine Negative (Negative); Benzoylecgonine Screen, Ur Negative (Negative); Fentanyl Screen,Urine Negative (Negative); Opiate Screen,Urine Positive (Negative); THC Screen,Urine Positive (Negative)
--- NOTE | 2025-01-27 15:24 | ESHP_ITS ---
<Statement entered by Annette Sheppard MD - 01/27/25 17:54> I have reviewed the note and agree with the resident's assessment & plan with exceptions as below. I have personally reviewed labs, imaging, home meds/prior records, examined the patient, formulated and discussed management plan with the IM team. Patient examined at bedside today. Patient reports having this abdominal pain and multiple episodes of hematemesis for the past couple weeks. Patient does endorse a history of H. pylori infection back in 2013 which was treated and upon retesting it was negative. She denies any NSAID use, and has never been a heavy drinker. She does endorse to going to a green party recently in which she may have been laced with cocaine and tested positive on her last ED visit. 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 Protonix drip initiated for patient, patient is currently n.p.o., GI consulted. Will continue with correction ratification, repeat hematology and chemistry in AM. Patient likely to get EGD, will hold on retesting for H. pylori at this time as patient would likely get EGD biopsies as well. #Acute blood loss anemia #Symptomatic anemia #History of H. pylori DDx: GI Bleed, ulcer, chronic anemia, medication induced, cancer FOBT: Positive NSAID use: None Blood thinner use: None Plan: ? GI consulted, appreciate recommendations ? Trend CBC ? Iron studies panel ? Ferritin ? Peripheral blood smear ? Transfusion protocol hemoglobin below 7 ? Avoiding any NSAIDs ? SCDs ? Protonix drip ? N.p.o. Annette Sheppard, PGY-2 Internal Medicine Documentation for date of: 01/27/25 HPI History of Present Illness Chief complaint: Hematemesis & Abdominal Pain History of present illness: Erika Hope is a 40 year old female with a past medical history of pancreatitis, HLD, hiatal hernia, fibromyalgia, cystic ovaries, anxiety, peptic ulcers (H.pylori treated ~2014), recreational drug use presented to ED at [facility] with complaint of abdominal pain and hematemesis. Patient states that ever since she had surgery for ovary tubes removal in December 2024, she has been feeling nauseous and weak. Patient stated that 1 week ago she went to a green party in [place] and after that she started having more nausea and starting vomiting non-bloody output. Patient states that during this last week she was not able to eat as much and couldn't keep most of her food down. Patient states that the vomiting persisted for for the rest of the week and then early this morning she started vomiting large amounts of bloody output. She states she has not eaten anything today. Endorses epigastric and chest pain that is tender to touch and worse when taking deep breaths. Endorses fatigue, decreased appetite and constipation. Patient denied fever, dyspnea, Past Medical History: above & extensive OBGYN hx Family History: Mother with heart/thyroid/GI related diseases Surgical History: notably bilateral salpingectomy 12/2024 Social History: Endorses 30+ year smoking hx, rare alcohol use, endorses weed use. 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 Lives with . Has a pet outside dog. Current Medications: Patient stated she takes Lyrica, amitriptyline, cyclobenzaprine, zofran, promethazine, fluoxetine at home; will f/u med rec Allergies: No known drug allergies ED Course: -Initial vitals were Temp 98.3 F, HR of 80 bpm, 18 RR, 163/71, 96% O2 on room air -Labs significant for WBC of 10.6, Hgb 10.3, lipase 51, Utox/Ur cultures pending, UA w/ 3+ blood, 1+ Protein, 651 RBC, 36 WBC -Imaging included CT AP showing PNA L lobe; US gallbladder showed hepatomegaly, fatty infiltration throughout the liver, Normal gallbladder and CBD. -In the ED, patient was given morphine, dilaudid, zofran, 1 L NS bolus, metoclopramide, Protonix 80 mg IV push and Protonix drip -Patient was admitted for GI bleed. Review of Systems Review of systems otherwise negative except what is mentioned above. Exam Vital Signs Temp Pulse Resp BP Pulse Ox O2 Del Method 98.8 F 62 16 138/94 H 96 Room Air 01/27/25 07:59 01/27/25 12:58 01/27/25 12:58 01/27/25 12:58 01/27/25 12:58 01/27/25 12:58 Narrative Exam General: mild distress; A&Ox3 Skin: Warm, dry, intact, no obvious rash. HEENT: NCAT, EOMI, not icteric. Poor dental hygiene. External ears normal. No rhinorrhea. Moist mucous membranes Cardiovascular: Chest tenderness to palpation; Regular rate and rhythm, no murmur, +S1/S2. Respiratory: Lungs CTAB GI: Epigastric tenderness to palpation. Pustule on Lower abdomen that is tender. No guarding or rebound tenderness. Bowel sounds present. Extremities: no edema, no cyanosis, no clubbing. Extremity pulses present Neuro: No focal deficits observed. Conversant, moving all extremities with d ecreased strength 4/5 Lower extremities. No overt cerebellar signs/incoordination. Psychiatric: Cooperative, appropriate affect. Results: Labs 01/27/25 08:04 01/27/25 07:15 Labs: Short CBC 01/27/25 Range/Units 08:04 WBC 10.6 (3.6-11.0) Thou/mm3 Hgb 10.3 L (12.0-16.0) g/dL Hct 32.5 L (36.0-46.0) % Plt Count 350 D (140-440) Thou/mm3 BMP 01/27/25 07:15 Sodium 140 Potassium 3.8 Chloride 106 Carbon Dioxide 24.7 BUN 11 Creatinine 0.7 Glucose 123 H Calcium 9.1 Liver Function 01/27/25 Range/Units 07:15 Total Bilirubin 0.3 (0.3-1.2) mg/dL Direct Bilirubin < 0.1 (0.0-0.3) mg/dL AST 13 (0-34) U/L ALT 13 (10-49) U/L Alkaline Phosphatase 84 (46-116) U/L Albumin 4.4 (3.5-5.0) gm/dL Urine 01/27/25 Range/Units 13:37 Urine Color Lt Brown A (Lt Yel-Yel) Urine Clarity Hazy (Clear/Hazy) Urine pH 8.0 H (5.0-7.0) Ur Specific [place] 1.010 (1.001-1.035) Urine Protein 1+ A (Neg - Trace) Urine Glucose (UA) Negative (Negative) Quality Measures Quality Measures VTE prophylaxis Medications Home Medications and Allergies Home Medications ?Medication ?Instructions ?Recorded ?Confirmed ?Type ondansetron HCl 8 mg tablet 4 mg PO Q8HR PRN Nausea 12/14/24 History pregabalin 150 mg capsule 75 mg PO HS 11/17/21 5 History fluoxetine 20 mg capsule 20 mg PO QDAY 02/05/2312/14 History cyclobenzaprine 5 mg tablet 5 mg PO TID PRN muscle rel axation 07/14/24 12/14/24 History amitriptyline 10 mg tablet 30 mg PO HS 12/14/24 History quetiapine 100 mg tablet 100 mg PO HS 12/14/24 History Allergies Allergy/AdvReac Type Severity Reaction Status Date / Time No Known Allergies Allergy Verified 01/25/25 05:56 Visit Medications Acetaminophen (Acetaminophen 325 Mg Tablet) 650 mg PO Q6H PRN PRN Reason: Fever >100.5 or pain 1-3 Stop: 02/26/25 14:58 Hydrocodone Bitart/Acetaminophen (Hydrocodone/Apap 5/325 Tablet) 1 tab PO Q4HR PRN PRN Reason: PAIN SCALE 4-6 (Moderate Stop: 02/01/25 15:03 Pantoprazole Sodium (Protonix/Ns 80mg Iv Premix) 80 mg in 100 mls @ 10 mls/hr IV Q10H CHRISTINA Stop: 01/30/25 05:30 Last Admin: 01/27/25 07:53 Dose: 10 mls/hr Morphine Sulfate (Morphine Sulf Inj 10 Mg/Ml Vial) 1 mg IVP Q2H PRN PRN Reason: PAIN SCALE 7-10 (Severe Stop: 02/01/25 15:03 Ondansetron HCl (Ondansetron Inj 2 Mg/Ml Inj 2 Ml) 4 mg IVP Q6H PRN; Protocol PRN Reason: NAUSEA OR VOMITING Stop: 02/26/25 14:58 Discontinued Medications Hydromorphone HCl (Hydromorphone Inj 2 Mg/Ml Vial) 0.5 mg IVP X1 ONE Stop: 01/27/25 14:28 Last Admin: 01/27/25 14:33 Dose: 0.5 mg Sodium Chloride (Ns) 1,000 mls @ 999 mls/hr IV .Q1H1M ONE Stop: 01/27/25 06:28 Last Infusion: 01/27/25 06:52 Dose: Infused Metoclopramide HCl (Metoclopramide Inj 5 Mg/Ml Vial 2 Ml) 10 mg IVP X1 ONE; Protocol Stop: 01/27/25 05:29 Last Admin: 01/27/25 05:51 Dose: 10 mg Morphine Sulfate (Morphine Sulf Inj 10 Mg/Ml Vial) 4 mg IVP X1 ONE Stop: 01/27/25 07:31 Last Admin: 01/27/25 07:52 Dose: 4 mg Morphine Sulfate (Morphine Sulf Inj 10 Mg/Ml Vial) 2 mg IVP X1 ONE Stop: 01/27/25 13:31 Last Admin: 01/27/25 13:35 Dose: 2 mg Ondansetron HCl (Ondansetron Inj 2 Mg/Ml Inj 2 Ml) 4 mg IVP X1 ONE; Protocol Stop: 01/27/25 12:33 Last Admin: 01/27/25 12:54 Dose: 4 mg Pantoprazole Sodium (Pantoprazole Inj 40 Mg Vial) 80 mg IVP X1 ONE Stop: 01/27/25 07:31 Last Admin: 01/27/25 07:52 Dose: 80 mg Assessment & Plan Plan Erika Hope is a 40 year old female with a past medical history of pancreatitis, HLD, hiatal hernia, fibromyalgia, cystic ovaries, anxiety, peptic ulcers (H.pylori treated ~2014), recreational drug use presented to ED at [facility] with complaint of abdominal pain and hematemesis, admitted for GI bleed. #GI bleed #hematemesis #epigastric pain #nausea #acute symptomatic anemia Possibly due to gastritis, peptic ulcer disease with hx of h.pylori that was treated around 2014 with negative 1 week ago patient had worsening nausea, started vomiting non-bloody output. This morning large volume bloody vomit. Hgb 10.3 on admission. -GI consulted, planning to do EGD, will f/u recs -occult blood stool ordered -iron panel/retics/smear ordered -Will continue to monitor for blood loss -Pain medication tylenol, norco, morphine prn -GI irritation managed with Protonix drip -Nausea managed with Zofran prn #UTI, possible Patient denies dysuria, suprapubic tenderness. UA showed 3+ Blood, 651 RBC, 36 WBC, 1+ protein -will continue to monitor for urinary symptoms/signs #hepatomegaly on imaging US gallbladder showed hepatomegaly, fatty infiltration throughout the liver LFT's normal -follow up outpatient Hospital Management: Disposition: Tele Diet: NPO Bowel Prophylaxis: n/a GI Prophylaxis: Protonix drip CODE STATUS: FULL CODE Patient plan of care was discussed with the attending physician, Dr. Bassett & senior resident Dr. Valarie Nowak MD PGY-1 Attending Provider Attestation/Addendum After examination of the patient and review of the clinical data I feel that this patient needs admission to the hospital for further treatment/evaluation. I have discussed and was present for the essential components of the history, physical examination, diagnosis, and treatment plan with the resident. I agree with the patient's care as documented by the resident and amended herein by me. Mina Bassett DO. Although this document has been carefully reviewed, there may still be some phonetic and other typographical errors. These errors are purely grammatical due to imperfections in the software program and should not be construed in any way to compromise the substance of the patient's medical care during this visit. Patient seen and evaluated in the ED. Patient is a 40-year-old female with significant past medical history of gastric/peptic ulcer disease and H. pylori, fibromyalgia, tobacco use, anxiety fibromyalgia, ovarian cysts and marijuana use, presented to the ED for abdominal plain mostly presently epigastric region with associated hematemesis, subsequently admitted to telemetry for acute GI bleed. In the ED, the patient's vital signs were stable, patient was afebrile, significant labs include a hemoglobin of 10.3, BMP largely unremarkable, gallbladder ultrasound significant for hepatomegaly, CT abdomen pelvis demonstrated a left lower lobe pneumonia and colitis, possibly enteritis. Patient subsequently admitted to telemetry, GI has been consulted for possible upper endoscopy and colonoscopy, patient placed on Protonix drip in the ED. Will continue to monitor closely
--- NOTE | 2025-01-27 15:36 | PC.CC ---
Patient is a 40 year-old female who presents to the hospital for vomiting. PUBLIC HEALTH INFORMATICIANUsha made [id number] contact with patient introduced self, role, and reason for visit. Patient appeared alert and oriented to self, location, and situation. PUBLIC HEALTH INFORMATICIAN, discussed limits of confidentiality. Patient made appropriate eye contact and engaged in initial assessment. ? Patient confirmed information on demographics and reports to living at home with her , Leonard Hope . Per patient, her is her medical decision maker in the event she is unable to make her own medical decisions. Patient is able to ambulate independently and complete her own ADLs. Patient does not require any DME. Patient is seen by Jeremias at [facility] for primary care and uses [facility] for prescription medications. Upon discharge patient plans to return back home. manager support services to follow up for any discharge needs.
--- NOTE | 2025-01-27 16:02 | PC.NURSE ---
Report called to BITA Martinez. No further questions
[2025-01-27] MEDS: MORPHINE SULF INJ 10 MG/ML VIAL IVP ×3 (16:51→22:37)
[2025-01-27] MEDS: SODIUM CHLORIDE 0.9% 1000 ML 1,000 ML 75 ML IV (18:40)
[2025-01-27] MEDS: AMITRIPTYLINE HCL 25 MG TABLET PO (20:13)
--- NOTE | 2025-01-27 21:11 | PD.IMCONS ---
HPI Data of Consult Requesting Physician: Annette Sheppard MD Primary Care Provider: Demi Angel PA-C Consult Narrative Reason for consult: Hematemesis with drop in H&H 10.3/32.5 History of present illness: 40 years of female admitted with 2-week history of hematemesis on 01/21/2025 hemoglobin hematocrit of 4.1 and 38.2 and on admission on 01/27/2025 hemoglobin hematocrit 10.3 and 32.5 Platelet count is 50,000 CT scan of the chest abdomen pelvis with contrast showed pneumonia left base otherwise negative Gallbladder ultrasound is negative for any cholelithiasis normal CBD hepatomegaly with fatty infiltration patient did drink alcohol in the chamber days She might of gone to a green party where she drank something which was cocaine laced and her previous ER visit she was cocaine positive cc:: cc: Annette Sheppard MD Review of Systems Review of Systems Systems Reviewed: All systems reviewed, normal except as documented Meds Home Medications and Allergies Home Medications ?Medication ?Instructions ?Recorded ?Confirmed ?Type ondansetron HCl 8 mg tablet 4 mg PO Q8HR PRN Nausea 08/25/21 01/27/25 History pregabalin 150 mg capsule 75 mg PO HS 11/17/21 01/27/25 History fluoxetine 20 mg capsule 20 mg PO QDAY 02/05/23 01/27/25 History cyclobenzaprine 5 mg tablet 5 mg PO TID PRN muscle relaxation 07/14/24 01/27/25 History amitriptyline 10 mg tablet 30 mg PO HS 12/14/24 01/27/25 History quetiapine 100 mg tablet 100 mg PO HS 12/14/24 01/27/25 History Allergies Allergy/AdvReac Type Severity Reaction Status Date / Time No Known Allergies Allergy Verified 01/25/25 05:56 Exam Vital Signs Temp Pulse Resp BP Pulse Ox O2 Del Method 97.7 F 75 16 143/96 H 95 Room Air 01/27/25 20:00 01/27/25 20:00 01/27/25 20:00 01/27/25 20:00 01/27/25 20:00 01/27/25 20:00 Routine Respiratory Exam Comments: Normal to auscultation Routine Abdominal Exam Comments: Soft nontender Results Labs 01/27/25 08:04 01/27/25 07:15 Labs: Short CBC 01/27/25 Range/Units 08:04 WBC 10.6 (3.6-11.0) Thou/mm3 Hgb 10.3 L (12.0-16.0) g/dL Hct 32.5 L (36.0-46.0) % Plt Count 350 D (140-440) Thou/mm3 BMP 01/27/25 07:15 Sodium 140 Potassium 3.8 Chloride 106 Carbon Dioxide 24.7 BUN 11 Creatinine 0.7 Glucose 123 H Calcium 9.1 Liver Function 01/27/25 Range/Units 07:15 Total Bilirubin 0.3 (0.3-1.2) mg/dL Direct Bilirubin < 0.1 (0.0-0.3) mg/dL AST 13 (0-34) U/L ALT 13 (10-49) U/L Alkaline Phosphatase 84 (46-116) U/L Albumin 4.4 (3.5-5.0) gm/dL Urine 01/27/25 Range/Units 13:37 Urine Color Lt Brown A (Lt Yel-Yel) Urine Clarity Hazy (Clear/Hazy) Urine pH 8.0 H (5.0-7.0) Ur Specific [place] 1.010 (1.001-1.035) Urine Protein 1+ A (Neg - Trace) Urine Glucose (UA) Negative (Negative) Assessment and Plan Additional Assessment & Plan Additional Plan: # Hematemesis # posthemorrhagic anemia plan agree with the current management Consent obtained for fiberoptic esophagogastroduodenoscopy with possible biopsy possible therapeutic intervention under intravenous moderate sedation N.p.o. midnight tonight except p.o. meds Serial CBC IV Protonix Thank you for the opportunity to participate in the care of this patient
[2025-01-28] VITALS (15 sets, daily range): BP systolic 111–163; BP diastolic 65–102; PULSE 53–75; RESP 13–97; TEMP 36.2–37.1; O2SAT 91–100; BMI 30.2
[2025-01-28] MEDS: PANTOPRAZOLE/NS 80MG IV PREMIX 80 MG/100 ML BAG 10 MG IV ×2 (04:14→13:16)
[2025-01-28] MEDS: MORPHINE SULF INJ 10 MG/ML VIAL IVP ×7 (05:16→21:39)
[2025-01-28] MEDS: ONDANSETRON INJ 2 MG/ML INJ 2 ML 4 MG IVP ×3 (05:17→19:35)
[2025-01-28 06:08] LABS: Basophils # (Auto) 0.0 Thou/mm3 (0.0-0.2); Basophils % (Auto) 1 % (0-2.5); Eosinophils # (Auto) 0.2 Thou/mm3 (0.0-0.5); Eosinophils % (Auto) 3 % (0-10); Hematocrit 31.3 % (36.0-46.0); Hemoglobin 9.8 g/dL (12.0-16.0); Immature Granulocytes Auto 0.02 Thou/mm3 (0.00-0.00); Immature Reticulocyte Fraction 15.1 % (3.0-15.9); Lymphocytes # (Auto) 2.6 Thou/mm3 (1.0-4.8); Lymphocytes % (Auto) 44 % (10-50); Mean Corpuscular HGB Conc 31.3 g/dl (31.0-37.0); Mean Corpuscular Hemoglobin 23.3 pg (25.0-35.0); Mean Corpuscular Volume 75 fL (80-100); Monocytes # (Auto) 0.5 Thou/mm3 (0.0-0.8); Monocytes % (Auto) 8 % (0-12); Neutrophils # (Auto) 2.7 Thou/mm3 (1.8-7.7); Neutrophils % (Auto) 45 % (37-80); Nucleated Red Blood Cell # 0.00 Thou/mm3 (0.00-0.00); Nucleated Red Blood Cell % 0 /100 WBC (0); Platelet Count 307 Thou/mm3 (140-440); RDW Standard Deviation 49.1 fL (36.4-46.3); Red Blood Count 4.20 Miln/mm3 (4.00-5.20); Reticulocyte % (Auto) 1.5 % (0.5-1.5); Reticulocyte Absolute Auto 61.3 Biln/L (25.0-75.0); Reticulocyte Hgb Content 28.1 pg (28.0-35.0); White Blood Count 6.0 Thou/mm3 (3.6-11.0)
[2025-01-28 06:15] LABS: Path Review Blood Smear Sent to Pathologist
[2025-01-28 06:27] LABS: INR 1.0 (0.9-1.3); Partial Thromboplastin Time 21.4 Seconds (22.0-36.0); Prothrombin Time 11.3 Seconds (9.0-12.2)
[2025-01-28 06:29] LABS: Ferritin 10 ng/mL (7.3-270.7); Iron 29 mcg/dL (50-170); Percent Iron Saturation 7 % (20-55); Total Iron Binding Capacity 379 mcg/dL (250-425); Unsaturated Iron Binding 350 (225-295)
[2025-01-28 06:33] LABS: Alanine Aminotransferase 12 U/L (10-49); Albumin, Serum 3.7 gm/dL (3.5-5.0); Albumin/Globulin Ratio 1.9 (1.2-2.2); Alkaline Phosphatase 74 U/L (46-116); Anion Gap 9 (7-16); Aspartate Amino Transferase 14 U/L (0-34); BUN/Creatinine Ratio 10 Ratio (12-20); Bilirubin,Total 0.4 mg/dL (0.3-1.2); Blood Urea Nitrogen 7 mg/dL (9-23); Calcium 8.7 mg/dL (8.3-10.6); Calcium (Corrected) 8.9 mg/dL (8.5-10.1); Carbon Dioxide 25.2 mMol/L (20.0-31.0); Cardiac Risk Estimate 5.4 RATIO (3.7-5.6); Chloride 107 mMol/L (98-107); Cholesterol 174 mg/dL (132-200); Creatinine (Component) 0.7 mg/dL (0.6-1.3); Estimated Creatinine Clearance 120.2 mL/min (>60); Globulin 1.9 gm/dL (2.3-3.5); Glucose 93 mg/dL (74-106); HDL Cholesterol 32 mg/dL (40-60); LDL Cholesterol,Calculated 112 mg/dL (0-130); Magnesium 1.9 mg/dL (1.6-2.6); Osmolality,Calculated 279 (275-295); Phosphorous 3.3 mg/dL (2.4-5.1); Potassium 3.4 mMol/L (3.4-5.1); Sodium 141 mMol/L (136-145); Total Protein 5.6 gm/dL (5.7-8.2); Triglycerides 150 mg/dL (30-150); eGFR > 60 See Note
[2025-01-28] MEDS: cefTRIAXone/D5w 1gm IV premix 1 GM/50 ML BAG IV (09:17)
[2025-01-28 11:46] LABS: Free T4 (Free Thyroxine) 1.13 ng/dL (0.89-1.76)
--- NOTE | 2025-01-28 14:11 | ESPR_ITS ---
Documentation for date of: 01/28/25 Subjective Subjective Interval history: Patient examined bedside today. No acute overnight events. Patient has not vomited any blood. She is wanting wanted to get her EGD today. She is requesting to drink water at this time. No other complaints at this time. Exam Vital Signs Temp Pulse Resp BP Pulse Ox O2 Del Method 98.2 F 62 19 125/86 H 99 Room Air 01/28/25 12:00 01/28/25 12:00 01/28/25 12:00 01/28/25 12:00 01/28/25 12:00 01/28/25 12:00 Narrative Exam General: mild distress; A&Ox3 Skin: Warm, dry, intact, no obvious rash. HEENT: NCAT, EOMI, not icteric. Poor dental hygiene. External ears normal. No rhinorrhea. Moist mucous membranes Cardiovascular: Chest tenderness to palpation; Regular rate and rhythm, no murmur, +S1/S2. Respiratory: Lungs CTAB GI: Epigastric tenderness to palpation. Pustule on Lower abdomen that is tender. No guarding or rebound tenderness. Bowel sounds present. Extremities: no edema, no cyanosis, no clubbing. Extremity pulses present Neuro: No focal deficits observed. Conversant, moving all extremities with decreased strength 4/5 Lower extremities. No overt cerebellar signs/incoordination. Psychiatric: Cooperative, appropriate affect. Objective Labs 01/28/25 05:26 01/28/25 05:26 Labs: Laboratory Results - last 24 hr 01/27/25 01/28/25 13:37 05:26 WBC 6.0 D RBC 4.20 Hgb 9.8 L Hct 31.3 L MCV 75 L MCH 23.3 L MCHC 31.3 RDW Std Deviation 49.1 H Plt Count 307 D Neut % (Auto) 45 Lymph % (Auto) 44 [place] % (Auto) 8 Eos % (Auto) 3 Baso % (Auto) 1 Neut # (Auto) 2.7 Lymph # (Auto) 2.6 [place] # (Auto) 0.5 Eos # (Auto) 0.2 Baso # (Auto) 0.0 Immature Gran # (Auto) 0.02 H Absolute Nucleated RBC 0.00 Immature Gran % 0 Nucleated RBC % 0 Smear Path Review Sent to Pathologist Retic Count (auto) 1.5 Absolute Retic 61.3 Immature Retic Fraction 15.1 Retic Hgb Content CHr 28.1 PT 11.3 INR 1.0 APTT 21.4 L Sodium 141 Potassium 3.4 Chloride 107 Carbon Dioxide 25.2 Anion Gap 9 BUN 7 L Creatinine 0.7 Estim Creat Clear Calc 120.2 eGFR > 60 BUN/Creatinine Ratio 10 L Glucose 93 Calculated Osmolality 279 Calcium 8.7 Corrected Calcium 8.9 Phosphorus 3.3 Magnesium 1.9 Iron 29 L TIBC 379 Iron Saturation 7 L Unsat Iron Binding 350 H Ferritin 10 Total Bilirubin 0.4 AST 14 ALT 12 Alkaline Phosphatase 74 Total Protein 5.6 L Albumin 3.7 D Globulin 1.9 L Albumin/Globulin Ratio 1.9 Triglycerides 150 Cholesterol 174 LDL Cholesterol, Calc 112 HDL Cholesterol 32 L Cholesterol/HDL Ratio 5.4 Free T4 1.13 Urine Opiates Screen Positive A Urine Fentanyl Screen Negative Ur Barbiturates Screen Negative U Amphetamin/Meth Scrn Negative U Benzodiazepines Scrn Negative U Cocaine Metab Screen Negative U Marijuana (THC) Screen Positive A Quality Measures Quality Measures VTE prophylaxis Assessment & Plan Assessment Current Active Medications: Generic Name Dose Route Start Last Admin Trade Name Freq PRN Reason Stop Dose Admin Acetaminophen 650 mg 01/27/25 14:59 Acetaminophen 325 Mg Tablet PO 02/26/25 14:58 Q6H PRN Fever >100.5 or pain 1-3 Hydrocodone Bitart/Acetaminophen 1 tab 01/27/25 15:04 Hydrocodone/Apap 5/325 Tablet PO 02/01/25 15:03 Q4HR PRN PAIN SCALE 4-6 (Moderate Amitriptyline HCl 25 mg 01/27/25 21:00 01/27/25 20:13 Amitriptyline Hcl 25 Mg Tablet PO 02/26/25 20:59 25 mg HS CHRISTINA Administration Fluoxetine HCl 20 mg 01/28/25 09:00 01/28/25 09:17 Fluoxetine Hcl 10 Mg Capsule PO 02/27/25 08:59 20 mg QDAY CHRISTINA Administration Pantoprazole Sodium 80 mg in 100 mls @ 10 mls/hr 01/27/25 07:31 01/28/25 13:16 Protonix/Ns 80mg Iv Premix IV 01/30/25 05:30 10 mls/hr Q10H CHRISTINA Administration Morphine Sulfate 1 mg 01/27/25 15:04 01/28/25 12:59 Morphine Sulf Inj 10 Mg/Ml Vial IVP 02/01/25 15:03 1 mg Q2H PRN Administration PAIN SCALE 7-10 (Severe Ondansetron HCl 4 mg 01/27/25 14:59 01/28/25 12:58 Ondansetron Inj 2 Mg/Ml Inj 2 Ml IVP 02/26/25 14:58 4 mg Q6H PRN Administration NAUSEA OR VOMITING Protocol Quetiapine Fumarate 100 mg 01/27/25 21:00 01/27/25 20:13 Quetiapine Fumarate 100 Mg Tablet PO 02/26/25 20:59 100 mg HS CHRISTINA Administration Plan Assessment Erika Hope is a 40 year old female with a past medical history of pancreatitis, HLD, hiatal hernia, fibromyalgia, cystic ovaries, anxiety, peptic ulcers (H.pylori treated ~2014), recreational drug use who is currently admitted for GI bleed. #GI bleed #Acute blood loss anemia #Iron deficiency anemia #History of H. pylori #Hematemesis DDx: Upper GI Bleed, ulcer, chronic anemia, medication induced, cancer FOBT: Positive NSAID use: None Blood thinner use: None Ferritin 10, MCV in the 70s, iron 29 Plan: ? GI consulted, appreciate recommendations ? EGD today ? Trend CBC ? Follow-up peripheral blood smear ? Transfusion protocol hemoglobin below 7 ? Avoiding any NSAIDs ? SCDs ? Protonix drip ? N.p.o. #Asymptomatic bacteriuria #Hematuria Likely related to patient menstruating # Thyromegaly US gallbladder showed hepatomegaly, fatty infiltration throughout the liver LFT's normal Plan: ? Trend CMP ? Outpatient follow-up #Health Maintenance Disposition: Telemetry DVT prophylaxis: SCDs GI prophylaxis: Protonix Drip Diet: NPO CODE STATUS: Full Code Patient seen and care discussed with my attending physician, Dr. Serjio Sheppard, PGY-2 Attending Provider Attestation/Addendum I have discussed and was present for the essential components of the history, physical examination, diagnosis, and treatment plan with the resident. I agree with the patient's care as documented by the resident and amended herein by me. Mina Bassett DO. Although this document has been carefully reviewed, there may still be some phonetic and other typographical errors. These errors are purely grammatical due to imperfections in the software program and should not be construed in any way to compromise the substance of the patient's medical care during this visit. Patient seen and evaluated this AM. No acute events overnight, vital signs stable, patient afebrile, hemoglobin stable at 9.8. Patient scheduled for EGD today. Will continue Protonix drip until results of EGD are known. Urine cultures pending however despite positive UA findings, the patient is completely asymptomatic for UTI. Will continue to monitor closely.
[2025-01-28] MEDS: SODIUM CHLORIDE 0.9% 500 ML 500 ML 20 ML IV ×2 (15:20→17:18)
--- NOTE | 2025-01-28 15:27 | PC.SS ---
1527-Per afternoon rounding note; GI on board Dr. Meraz, Pt will have an EGD today. No d/c date at this time.
[2025-01-28] MEDS: AMITRIPTYLINE HCL 25 MG TABLET PO (20:09)
[2025-01-29] VITALS (7 sets, daily range): BP systolic 104–119; BP diastolic 67–92; PULSE 51–64; RESP 16–95; TEMP 36.1–36.5; O2SAT 94–97; BMI 30.2
[2025-01-29] MEDS: PANTOPRAZOLE/NS 80MG IV PREMIX 80 MG/100 ML BAG 10 MG IV (02:44)
[2025-01-29] MEDS: MORPHINE SULF INJ 10 MG/ML VIAL IVP ×3 (02:49→08:55)
[2025-01-29] MEDS: ONDANSETRON INJ 2 MG/ML INJ 2 ML 4 MG IVP ×2 (02:49→08:56)
[2025-01-29 06:15] LABS: Basophils # (Auto) 0.0 Thou/mm3 (0.0-0.2); Basophils % (Auto) 1 % (0-2.5); Eosinophils # (Auto) 0.3 Thou/mm3 (0.0-0.5); Eosinophils % (Auto) 5 % (0-10); Hematocrit 31.2 % (36.0-46.0); Hemoglobin 9.7 g/dL (12.0-16.0); Immature Granulocytes Auto 0.01 Thou/mm3 (0.00-0.00); Lymphocytes # (Auto) 2.6 Thou/mm3 (1.0-4.8); Lymphocytes % (Auto) 43 % (10-50); Mean Corpuscular HGB Conc 31.1 g/dl (31.0-37.0); Mean Corpuscular Hemoglobin 23.3 pg (25.0-35.0); Mean Corpuscular Volume 75 fL (80-100); Monocytes # (Auto) 0.5 Thou/mm3 (0.0-0.8); Monocytes % (Auto) 8 % (0-12); Neutrophils # (Auto) 2.7 Thou/mm3 (1.8-7.7); Neutrophils % (Auto) 44 % (37-80); Nucleated Red Blood Cell # 0.00 Thou/mm3 (0.00-0.00); Nucleated Red Blood Cell % 0 /100 WBC (0); Platelet Count 314 Thou/mm3 (140-440); RDW Standard Deviation 50.9 fL (36.4-46.3); Red Blood Count 4.17 Miln/mm3 (4.00-5.20); White Blood Count 6.1 Thou/mm3 (3.6-11.0)
[2025-01-29 07:03] LABS: Alanine Aminotransferase 10 U/L (10-49); Albumin, Serum 3.7 gm/dL (3.5-5.0); Albumin/Globulin Ratio 1.9 (1.2-2.2); Alkaline Phosphatase 73 U/L (46-116); Anion Gap 10 (7-16); Aspartate Amino Transferase 10 U/L (0-34); BUN/Creatinine Ratio 11 Ratio (12-20); Bilirubin,Total 0.2 mg/dL (0.3-1.2); Blood Urea Nitrogen 9 mg/dL (9-23); Calcium 8.8 mg/dL (8.3-10.6); Calcium (Corrected) 9.0 mg/dL (8.5-10.1); Carbon Dioxide 26.9 mMol/L (20.0-31.0); Chloride 104 mMol/L (98-107); Creatinine (Component) 0.8 mg/dL (0.6-1.3); Estimated Creatinine Clearance 105.2 mL/min (>60); Globulin 2.0 gm/dL (2.3-3.5); Glucose 97 mg/dL (74-106); Magnesium 1.9 mg/dL (1.6-2.6); Osmolality,Calculated 279 (275-295); Phosphorous 4.1 mg/dL (2.4-5.1); Potassium 3.7 mMol/L (3.4-5.1); Sodium 141 mMol/L (136-145); Total Protein 5.7 gm/dL (5.7-8.2); eGFR > 60 See Note
--- NOTE | 2025-01-29 13:14 | ESDS_ITS ---
Planned Discharge Date 01/29/25 DS: Providers Provider Date of admission: 01/27/25 15:35 Primary care physician: Demi Angel PA-C Admitting Provider: Sajan Bassett DO Attending Provider on Admission: Annette Sheppard MD Consults: 01/27/25 13:48 Consult to Gastroenterology Stat Comment: hematemesis Consulting Provider: Rhett Meraz Attending Provider on DC: Sajan Bassett DO Discharging Provider: Sajan Bassett DO DS: Diagnosis Problem List Completed Was Problem List Reviewed/Reconciled?: Yes Hospital Course Hospital Course Hospital course: Erika Hope is a 40 year old female with a past medical history of pancreatitis, HLD, hiatal hernia, fibromyalgia, cystic ovaries, anxiety, peptic ulcers (H.pylori treated ~2014), recreational drug use who was admitted to [facility] on January 27, 2025 for GI bleed, and hematemesis. Initial vitals were Temp 98.3 F, HR of 80 bpm, 18 RR, 163/71, 96% O2 on room air. Labs significant for WBC of 10.6, Hgb 10.3, lipase 51, Utox/Ur cultures pending, UA w/ 3+ blood, 1+ Protein, 651 RBC, [address] AP showing PNA L lobe; US gallbladder showed hepatomegaly, fatty infiltration throughout the liver, Normal gallbladder and CBD. In the ED, patient was given morphine, dilaudid, zofran, 1 L NS bolus, metoclopramide, Protonix 80 mg IV push and Protonix drip. Medicine was consulted and patient was admitted to the floors. While in the floors, GI, Dr. Meraz, was consulted who had recommended patient to undergo endoscopy for further evaluation of hematemesis. Endoscopy was done which had showed peptic ulcer disease (pending official report) and was recommended to continue with PPI outpatient. Patient also had anemia workup in which he was discovered that patient had iron deficiency anemia with ferritin of 10 and iron levels of 29. Patient was also found to have hematuria at the time of admission, however she was actively menstruating. Patient was also told to stop taking any NSAIDs including ibuprofen, Aleeve and meloxicam. Patient was then medically cleared for discharge and was discharged with the following instructions below. Discharge instructions Follow-up with your PCP within 1 week See your cosmetics machine operator, Dr. Meraz, to follow up from the hospital within 1- 2 weeks. Address: [address] [place] [place] [address]. Phone: . Call to make an appointment AVOID TAKING ANY NSAIDS INCLUDING IBUPROFEN (MOTRIN/ADVIL), NAPROXEN (ALEEVE), OR MELOXICAM I am prescribing you a new medicine called Protonix, take as prescribed I have prescribed you Iron, take as prescribed Take your medicines as prescribed Return to ED if your symptoms worsen or return Problem List: #Upper GI bleed #Peptic Ulcer Disease #Acute blood loss anemia #Iron deficiency anemia #History of H. pylori, s/p tx #Hematemesis #Asymptomatic bacteriuria #Hematuria #Thyromegaly Discharge summary was reviewed with my attending Dr. Serjio Sheppard, PGY-2 Time Spent with Patient Time attestation: Total time spent providing and/or coordinating discharge services: Time spent: Greater than 30 minutes Exam Vital Signs Temp Pulse Resp BP Pulse Ox O2 Del Method O2 Flow Rate 97.7 F 51 L 16 104/75 97 Room Air 3 01/29/25 11:47 01/29/25 12:00 01/29/25 11:47 01/29/25 11:47 01/29/25 11:47 01/29/25 11:47 01/28/25 15:46 Narrative Exam General: mild distress; A&Ox3 Skin: Warm, dry, intact, no obvious rash. HEENT: NCAT, EOMI, not icteric. Poor dental hygiene. External ears normal. No rhinorrhea. Moist mucous membranes Cardiovascular: Chest tenderness to palpation; Regular rate and rhythm, no murmur, +S1/S2. Respiratory: Lungs CTAB GI: Epigastric tenderness to palpation. Pustule on Lower abdomen that is tender. No guarding or rebound tenderness. Bowel sounds present. Extremities: no edema, no cyanosis, no clubbing. Extremity pulses present Neuro: No focal deficits observed. Conversant, moving all extremities with decreased strength 4/5 Lower extremities. No overt cerebellar signs/incoordination. Psychiatric: Cooperative, appropriate affect. Discharge Plan Plan Patient Disposition: HOME (Self Care) Patient condition on transfer: Stable Care Plan Goals: Discharge instructions Follow-up with your PCP within 1 week See your cosmetics machine operator, Dr. Meraz, to follow up from the hospital within 1- 2 weeks. Address: [address] [place] [address]. Phone: . Call to make an appointment AVOID TAKING ANY NSAIDS INCLUDING IBUPROFEN (MOTRIN/ADVIL), NAPROXEN (ALEEVE), OR MELOXICAM I am prescribing you a new medicine called Protonix, take as prescribed I have prescribed you Iron, take as prescribed Take your medicines as prescribed Return to ED if your symptoms worsen or return Prescriptions/Referrals Prescriptions/Med Rec: New pantoprazole [Protonix] 40 mg tablet,delayed release (DR/EC) 40 mg PO BID 14 Days Qty: 28 0RF Rx Instructions: Take one tablet by mouth twice a day ferrous sulfate 27 mg iron tablet 27 mg PO Q OTHER DAY 14 Days Qty: 7 0RF Continued ondansetron HCl 8 mg tablet 4 mg PO Q8HR PRN (Reason: Nausea) Patient Comments: TAKE ONE TABLET BY MOUTH EVERY 8 HOURS NEEDED FOR NAUSEA pregabalin 150 mg capsule 75 mg PO HS Patient Comments: TAKE ONE CAPSULE BY MOUTH EVERY 12 HOURS NOTE NEW STRENGTH fluoxetine 20 mg Capsule 20 mg PO QDAY cyclobenzaprine 5 mg tablet 5 mg PO TID PRN (Reason: muscle relaxation) Patient Comments: TAKE 1 TABLET BY MOUTH 3 TIMES A DAY NEEDED MUSCLE RELAXATION amitriptyline 10 mg tablet 30 mg PO HS Patient Comments: TAKE 3 TABLETS BY MOUTH EVERY DAY quetiapine 100 mg tablet 100 mg PO HS Patient Comments: TAKE 1 TABLET(S) ORALLY 1 TIME AT NIGHT metoclopramide HCl [Reglan] 10 mg tablet 10 mg PO Q6H PRN (Reason: nausea and vomiting) Qty: 30 0RF Discontinued ibuprofen 600 mg tablet 600 mg PO Q6H Qty: 30 0RF Referrals: Rhett Meraz MD [Physician] - Demi Angel PA-C [Primary Care Provider] - Patient/Caregiver Discharge Instructions Discharge Activity: activity as tolerated Education Materials: Peptic Ulcer, Upper GI Endoscopy with Biopsy, ED PUD Print Language: Turkmen Stand Alone Forms: Patti Award Info., Patient Portal Info Letter Discharge Order Discharge Orders: Discharge (Routine); Ordered 01/29/25 Ordered By: Annette Sheppard Quality Discharge Quality Measures VTE prophylaxis (SCDs) Attestestation Attestation I have discussed and was present for the essential components of the discharge history, physical examination, diagnosis, and discharge treatment plan with the resident. I agree with the patient's discharge care as documented by the resident and amended herein by me. Mina Bassett DO. The patient understood all discharge instructions, all questions were answered satisfactorily. The patient was instructed to return to the Emergency Department is symptoms worsened or persisted. Patient was stable, afebrile, tolerating p.o. intake and ambulatory at time of discharge home. Patient will be discharged on PPI, see resident note above for additional details. Although this document has been carefully reviewed, there may still be some phonetic and other typographical errors. These errors are purely grammatical due to imperfections in the software program and should not be construed in any way to compromise the substance of the patient's medical care during this visit.
--- NOTE | 2025-01-29 18:53 | PD.IMPROG ---
Documentation for date of: 01/29/25 Subjective Subjective Interval history: Late entry for the note Case discussed with the internal medicine team and the senior resident Okay to discharge patient on a PPI once a day to be followed by the PCP Exam Vital Signs Temp Pulse Resp BP Pulse Ox O2 Del Method O2 Flow Rate 97.7 F 51 L 16 104/75 97 Room Air 3 01/29/25 11:47 01/29/25 12:00 01/29/25 11:47 01/29/25 11:47 01/29/25 11:47 01/29/25 11:47 01/28/25 15:46 Objective Labs 01/29/25 05:06 01/29/25 05:06 Labs: Laboratory Results - last 24 hr 01/29/25 05:06 WBC 6.1 RBC 4.17 Hgb 9.7 L Hct 31.2 L MCV 75 L MCH 23.3 L MCHC 31.1 RDW Std Deviation 50.9 H Plt Count 314 Neut % (Auto) 44 Lymph % (Auto) 43 Mclennan % (Auto) 8 Eos % (Auto) 5 Baso % (Auto) 1 Neut # (Auto) 2.7 Lymph # (Auto) 2.6 Mclennan # (Auto) 0.5 Eos # (Auto) 0.3 Baso # (Auto) 0.0 Immature Gran # (Auto) 0.01 H Absolute Nucleated RBC 0.00 Immature Gran % 0 Nucleated RBC % 0 Sodium 141 Potassium 3.7 Chloride 104 Carbon Dioxide 26.9 Anion Gap 10 BUN 9 Creatinine 0.8 Estim Creat Clear Calc 105.2 eGFR > 60 BUN/Creatinine Ratio 11 L Glucose 97 Calculated Osmolality 279 Calcium 8.8 Corrected Calcium 9.0 Phosphorus 4.1 Magnesium 1.9 Total Bilirubin 0.2 L AST 10 ALT 10 Alkaline Phosphatase 73 Total Protein 5.7 Albumin 3.7 Globulin 2.0 L Albumin/Globulin Ratio 1.9 Impressions Impression: Distal esophageal ulcers Esophagitis Okay to discharge on a PPI to be followed by PCP Assessment & Plan A&P Narrative # Hematemesis # posthemorrhagic anemia plan agree with the current management Consent obtained for fiberoptic esophagogastroduodenoscopy with possible biopsy possible therapeutic intervention under intravenous moderate sedation N.p.o. midnight tonight except p.o. meds Serial CBC IV Protonix Thank you for the opportunity to participate in the care of this patient Time Spent With Patient Time: Total time spent is greater than 50% in coordination of care (as documented) at patient's floor/unit and/or counseling patient:
[2025-01-29 20:13] LABS: Hepatitis B Core Antibody IgM Non Reactive (Non React); Hepatitis B Surface Ab Reactive (Immune) (Immune); Hepatitis B Surface Antigen Non Reactive (Non React); Hepatitis C Antibody Non Reactive (Non React)
== END 2025-01-29 12:35 | disposition home or self-care (01) | DRG 242 ==
LOC: SERX 13:57 → SERHOLD 15:42 → S2NX 17:12 → S3NX 01-29 11:15 → SERHOLD 01-30 05:52 → S2NX 01-30 05:52
PROVIDERS: Emergency Medicine; Specialist; Student in an Organized Health Care Education/Training Program; Admitting Provider Student in an Organized Health Care Education/Training Program; Emergency Provider Emergency Medicine; PCP Physician Assistant
PROC: 0DB68ZX Excision of Stomach, Via Natural or Artificial Opening Endoscopic, Diagnostic (ICD-10-PCS; CPT 43239; principal; 2025-01-28 14:30)
DX: K22.11 Ulcer of esophagus with bleeding (principal); M79.7 Fibromyalgia; K29.71 Gastritis, unspecified, with bleeding; K31.89 Other diseases of stomach and duodenum; D62 Acute posthemorrhagic anemia; K76.0 Fatty (change of) liver, not elsewhere classified; J18.9 Pneumonia, unspecified organism; Z87.891 Personal history of nicotine dependence; K52.9 Noninfective gastroenteritis and colitis, unspecified; E78.00 Pure hypercholesterolemia, unspecified; F31.9 Bipolar disorder, unspecified; N39.0 Urinary tract infection, site not specified
CPT/HCPCS: 36415; 71260; 74177; 76705; 80053; 80061; 80307; 80320; 81001; 82140; 82150; 82248; 82728; 83540; 83550; 83690; 83735; 84100; 84439; 84703; 85025; 85046; 85610; 85730; 86705; 86706; 86803; 86850; 86900; 86901; 87086; 87340; 87400; 87811; 93225; 96361; 96365; 96366; 96375; 96376; 99284; A4649; J0696; J1171; J1200; J2250; J2270; J2405; J2470; J2765; J3010; J3490; J7030; J7999; Q9967; A9270; G0480

== ENCOUNTER → 2025-02-20 | Outpatient (CLI) | payer MEDICAID, SELFPAY ==
--- NOTE | 2025-02-20 09:57 | XR_ITS ---
Examination: Knee bilateral, 6 views Technique: Knee AP, lateral, oblique each knee total 6 views Date and time of exam: February 21, 2020 5:10 AM INDICATIONS: 2 falls last week with injury to both knees, bilateral knee pain. FINDINGS: No fracture or dislocation involving either knee. No foreign bodies IMPRESSION: No fracture or dislocation involving either knee
--- NOTE | 2025-02-20 09:57 | XR_ITS ---
Examination: Shoulder bilateral, 6 views Technique: Shoulder AP internal rotation, AP external rotation, Y view each shoulder total 6 views Exam date and time :February 20, 2025 10:00 AM INDICATIONS: Several falls last week with injury of both shoulder, bilateral shoulder pain. FINDINGS: No fracture or dislocation involving either shoulder No AC joint separation IMPRESSION: No fracture or dislocation involving either shoulder
--- NOTE | 2025-02-20 10:41 | XR_ITS ---
Examination:Left hip AP, lateral, AP pelvis 3 views Technique: Hip AP lateral, AP pelvis, 3 views Exam date and time:February 20, 2025 10:40 AM INDICATIONS: Patient fell last week with injury to left hip, left hip pain. FINDINGS: No left hip fracture or dislocation Right hip bones of the pelvis intact IMPRESSION: No acute hip or pelvic fracture.
== END | disposition home or self-care (01) ==
DX: S89.92XA Unspecified injury of left lower leg, initial encounter (principal); S89.91XA Unspecified injury of right lower leg, initial encounter; S49.92XA Unspecified injury of left shoulder and upper arm, initial encounter; S49.91XA Unspecified injury of right shoulder and upper arm, initial encounter; S79.912A Unspecified injury of left hip, initial encounter; W19.XXXA Unspecified fall, initial encounter
CPT/HCPCS: 73030; 73502; 73562

== ENCOUNTER 2025-04-18 04:14 | Inpatient (IN) | payer MEDICAID, SELFPAY ==
[2025-04-18] VITALS (18 sets, daily range): BP systolic 101–168; BP diastolic 69–108; PULSE 52–83; RESP 12–99; TEMP 36.2–37.1; O2SAT 92–100; BMI 69.0; BMI 31.3
--- NOTE | 2025-04-18 04:33 | PD.EDNV ---
Nausea/Vomit./Diarrhea-RME/HPI General Chief complaint: Nausea/Vomiting/Diarrhea Stated complaint: BLOODY VOMIT Time Seen by Provider: 04/18/25 04:36 Arrival date/time: 04/18/25 04:14 RME / HPI RME / HPI Narrative: Dr. Ballard?s Main ED Evaluation: 40yo female with a history of H. Pylori, admitted in 01/2025 for acute GI bleed who underwent endoscopy and diagnosed with esophageal ulcers and severe gastritis now presenting with recurrent hematemesis and escalating generalized abdominal pain over the last 3 days. No fever, chills, dysuria, or diarrhea. No lightheadedness or near syncope. Related Data Home Medications ?Medication ?Instructions ?Recorded ?Confirmed ondansetron HCl 8 mg tablet 4 mg PO Q8HR PRN Nausea 08/25/21 01/27/25 pregabalin 150 mg capsule 75 mg PO HS 11/17/21 01/27/25 fluoxetine 20 mg capsule 20 mg PO QDAY 02/05/23 01/27/25 cyclobenzaprine 5 mg tablet 5 mg PO TID PRN muscle relaxation 07/14/24 01/27/25 amitriptyline 10 mg tablet 30 mg PO HS 12/14/24 01/27/25 quetiapine 100 mg tablet 100 mg PO HS 12/14/24 01/27/25 Previous Rx's ?Medication ?Instructions ?Recorded metoclopramide HCl 10 mg tablet 10 mg PO Q6H PRN nausea and 01/25/25 (Reglan) vomiting #30 tabs Allergies Allergy/AdvReac Type Severity Reaction Status Date / Time No Known Allergies Allergy Verified 01/25/25 05:56 Review of Systems Review of Systems Systems Reviewed: All systems reviewed, normal except as documented Past Medical History Past Medical History NEUROLOGIC: Negative Neurological Disorders or Seizures CARDIAC: Positive Hypercholesterolemia and Varicose Veins; Negative Cardiac Disorders or Congestive Heart Failure RESPIRATORY: Positive Asthma; Negative Chronic Obstructive Pulmonary Disease (COPD) GASTROINTESTINAL: Positive Gastrointestinal Disorders, Pancreatitis, Hiatal Hernia and Obesity; Negative Hepatitis GENITOURINARY: Negative Genitourinary Disorders or Renal Disease REPRODUCTIVE: Positive Previous Pregnancies; Negative Endometriosis, Genital Herpes, Gonorrhea, Pelvic Inflammatory Disease, Syphilis or Uterine Prolapse MUSCULOSKELETAL: Positive Musculoskeletal Disorders, Arthritis, Degenerative Disk Disease and Fibromyalgia ENDOCRINE: Negative Endocrine Disorders, Diabetes Mellitus Type 1 or Diabetes Mellitus Type 2 HEMATOLOGIC: Negative Blood Disorders or Sickle Cell Disease PSYCHO/SOCIAL: Positive Psychiatric Problems, Recreational Drug Use, Bipolar Disorder, Depression, Anxiety and Depression OTHER HISTORY: Positive Hospitalization and Chicken Pox; Negative Autoimmune Disease, Down Syndrome, Developmental Delay, Shingles, Falls, Blood Transfusions, Blood Transfusion Reaction, Anesthesia Reactions, Organ Transplant, Chemotherapy, Radiation Therapy, Hyperbaric Therapy, MRSA, VRSA, Vancomycin-Resistant Enterococci, Human Immunodeficiency Virus (HIV), Measles, Mumps, Rubella (Maltese Measles), Pertussis, Clostridium Difficile or Cancer Family History FAMILY HISTORY: Positive Family Cardiac Disorders, Family Cancer and Family Surgery; Negative Family Psychiatric Problems, Family Respiratory Disorders, Family Gastrointestinal Problems or Family Anesthesia Reaction Surgical History SURGICAL: Negative Cardiac Surgery, Endocrine Surgery, Ear Surgery, Abdominal Surgery, Nephrectomy, Joint Replacement, Neurologic Surgery, Section or Organ Transplant Social History SMOKING STATUS: Never smoker SECOND HAND EXPOSURE: No SUBSTANCE USE: crack/cocaine ED Exam Narrative Physical exam: GENERAL APPEARANCE: alert and oriented x 4, writhing on the gurney secondary to diffuse abdominal pain, in [id number] distress VITALS: All vitals were reviewed and the pulse ox is 99% on room air, which is normal according to my interpretation. HEENT: Normocephalic, atraumatic; pupils equal, round, reactive to light; EOMI; mucous membranes pink, moist; oropharynx clear NECK: Supple LUNGS: CTABL; no wheezes, no rales, no rhonchi HEART: Regular rate, regular rhythm; normal S1, S2; no murmurs ABDOMEN: non distended; soft, diffuse tenderness, particularly at the umbilicus with diffuse guarding BACK: no CVA tenderness EXTREMITIES: atraumatic; no edema NEUROLOGIC: awake; alert and oriented x4; cranial nerves II-XII grossly intact; no focal sensory or motor deficits PSYCHIATRIC: appropriate mood and affect SKIN: warm, dry, normal color; no rashes Course Quality Measures none Orders Category Date Time Status CT Screening NOW Care 04/18/25 06:36 Active Head Of Drama STAT Care 04/18/25 04:41 Active Continuous Pulse Oximetry STAT Care 04/18/25 04:41 Completed EKG (ED ONLY) *Do not use* NOW Care 04/18/25 04:40 Completed Insert IV STAT Care 04/18/25 04:40 Active NPO STAT Care 04/18/25 04:[address] abdomen pelvis w con Stat Exams 04/18/25 06:36 Ordered EKG (ED Only) Stat Exams 04/18/25 04:40 Draft B-Type Natriuretic Peptide Stat Lab 04/18/25 04:50 Completed CBC Stat Lab 04/18/25 04:50 Completed Comprehensive Metabolic Panel Stat Lab 04/18/25 04:50 Completed Drug Screen,Urine Stat Lab 04/18/25 04:40 Ordered Lipase Stat Lab 04/18/25 04:50 Completed Magnesium Stat Lab 04/18/25 04:50 Completed Partial Thromboplastin Time Stat Lab 04/18/25 04:50 Completed Prothrombin Time with INR Stat Lab 04/18/25 04:50 Completed Urinalysis, C/S if Indicated Stat Lab 04/18/25 04:40 Ordered Lidocaine 2% Viscous [Xylocaine 2% Viscous] Med 04/18/25 06:43 Once 15 ml PO X1 ONE Metoclopramide Inj [Reglan Inj] Med 04/18/25 04:40 Discontinued 10 mg IVP X1 ONE Midazolam Inj [Versed Inj] Med 04/18/25 05:29 Discontinued 2 mg IVP X1 ONE Morphine* Inj Med 04/18/25 05:30 Discontinued 4 mg IVP X1 ONE Morphine* Inj Med 04/18/25 04:42 Discontinued 5 mg IVP X1 ONE Ondansetron Inj [Zofran Inj] Med 04/18/25 04:40 Active 4 mg IVP Q1H PRN Pantoprazole Inj [Protonix Inj] Med 04/18/25 04:40 Discontinued 80 mg IVP X1 ONE Pantoprazole/Ns 80Mg IV Premix [Protonix/NS 80mg IV Med 04/18/25 05:56 Active Premix] 80 mg in 100 ml IV Q10H Sodium Chloride 0.9% 1000 ml [Ns] 1,000 ml Med 04/18/25 04:40 Discontinued IV 999 mls/hr Sodium Chloride 0.9% 1000 ml [Ns] 1,000 ml Med 04/18/25 04:45 Discontinued IV 999 mls/hr Oxygen Delivery STAT RT 04/18/25 04:41 Active Vital Signs Vital signs: Vital Signs Temperature 98.2 F 04/18/25 04:16 Pulse Rate 72 04/18/25 04:16 Respiratory Rate 18 04/18/25 04:16 Blood Pressure 168/108 H 04/18/25 04:16 Pulse Oximetry (%) 99 04/18/25 04:16 Nausea/Vomiting/Diarrhea [facility] Narrative [facility] Narrative:: Scribe Attestation: 04/18/25 Shirley Hou am scribing for and in the presence of Dr. Ballard. 40yo female with a history of H. Pylori, admitted in 01/2025 for acute GI bleed who underwent endoscopy and diagnosed with esophageal ulcers and severe gastritis now presenting with recurrent hematemesis and escalating generalized abdominal pain over the last 3 days. No fever, chills, dysuria, or diarrhea. Please see PE findings. Labs demonstrate stable Hgb 9.8, normal WBC and Plt counts. Chemistries and Coags are normal. Patient placed on personnel monitor, IV established, and received IV fluid resuscitation and began PPI bolus and infusion. Patient remained hemodynamically stable, although did require narcotic analgesics/anti-emetics with [id number] relief. Rectal exam is heme-positive but there is no melena. I attempted to contact Dr. Meraz without success. CT abdomen pelvis ordered. AM provider to follow. Dx: acute upper GI bleed, history of esophageal ulcers/gastritis Patient data External records reviewed:: [facility] previous records (Per chart review, patient was seen and admitted here on 01/27/25 for abdominal pain.) Clinical information provided by:: patient Social determinants that could affect healthcare access:: none Patient has the following chronic illnesses:: pancreatitis, HLD, hiatal hernia, fibromyalgia, cystic ovaries, anxiety, peptic ulcers How is presenting disease/condition affected by chronic disease/condition?: exacerbated by Evaluation data The following diagnostics were reviewed and interpreted by me:: lab results Lab and/or radiology exams considered but not ordered:: none Interpretation Summary: See [facility] Medications / Prescriptions Medications / Prescriptions considered but not ordered:: none Medication administrations:: Medication Administration History Pantoprazole Sodium (Protonix/Ns 80mg Iv Premix) 80 mg in 100 mls @ 10 mls/hr IV Q10H CHRISTINA Stop: 04/21/25 03:55 Last Admin: 04/18/25 06:16 Dose: 10 mls/hr Documented By: PARI Lidocaine HCl (Lidocaine Viscous 2% 15 Ml Udc) 15 ml PO X1 ONE Stop: 04/18/25 06:44 Ondansetron HCl (Ondansetron Inj 2 Mg/Ml Inj 2 Ml) 4 mg IVP Q1H PRN PRN Reason: PERSISTENT NAUSEA OR VOMITING Last Admin: 04/18/25 04:59 Dose: 4 mg Documented By: PARI Discontinued Medications Sodium Chloride (Ns) 1,000 mls @ 999 mls/hr IV .Q1H1M ONE Stop: 04/18/25 05:40 Last Admin: 04/18/25 05:02 Dose: 999 mls/hr Documented By: PARI Sodium Chloride (Ns) 1,000 mls @ 999 mls/hr IV .Q1H1M ONE Stop: 04/18/25 05:45 Last Admin: 04/18/25 05:02 Dose: 999 mls/hr Documented By: PARI Metoclopramide HCl (Metoclopramide Inj 5 Mg/Ml Vial 2 Ml) 10 mg IVP X1 ONE Stop: 04/18/25 04:41 Last Admin: 04/18/25 05:01 Dose: 10 mg Documented By: PARI Midazolam HCl (Midazolam Inj 1 Mg/Ml Vial 2 Ml) 2 mg IVP X1 ONE Stop: 04/18/25 05:30 Last Admin: 04/18/25 05:40 Dose: 2 mg Documented By: PARI Morphine Sulfate (Morphine Sulf Inj 4 Mg/Ml Vial) 5 mg IVP X1 ONE Stop: 04/18/25 04:43 Last Admin: 04/18/25 04:58 Dose: 5 mg Documented By: PARI Morphine Sulfate (Morphine Sulf Inj 4 Mg/Ml Vial) 4 mg IVP X1 ONE Stop: 04/18/25 05:31 Last Admin: 04/18/25 05:41 Dose: 4 mg Documented By: PARI Pantoprazole Sodium (Pantoprazole Inj 40 Mg Vial) 80 mg IVP X1 ONE Stop: 04/18/25 04:41 Last Admin: 04/18/25 05:01 Dose: 80 mg Documented By: PARI see above Consultations Consultation(s) initiated? (list below): No Diagnosis Nausea Differential Diagnosis: other (GI bleed, esophageal varices, PUD) Most likely diagnosis given after review of the tests above:: see clinical impression below Admission Indicated Admission indicated?: not indicated Admission Request Was there a request for admission?: No Disposition Plan Disposition Plan: other (specify) (Signed out to Dr. Reyes at 0600.) Discharge Plan Prescriptions/Referrals Prescriptions/Med Rec: No Action ondansetron HCl 8 mg tablet 4 mg PO Q8HR PRN (Reason: Nausea) Patient Comments: TAKE ONE TABLET BY MOUTH EVERY 8 HOURS NEEDED FOR NAUSEA pregabalin 150 mg capsule 75 mg PO HS Patient Comments: TAKE ONE CAPSULE BY MOUTH EVERY 12 HOURS NOTE NEW STRENGTH fluoxetine 20 mg Capsule 20 mg PO QDAY cyclobenzaprine 5 mg tablet 5 mg PO TID PRN (Reason: muscle relaxation) Patient Comments: TAKE 1 TABLET BY MOUTH 3 TIMES A DAY NEEDED MUSCLE RELAXATION amitriptyline 10 mg tablet 30 mg PO HS Patient Comments: TAKE 3 TABLETS BY MOUTH EVERY DAY quetiapine 100 mg tablet 100 mg PO HS Patient Comments: TAKE 1 TABLET(S) ORALLY 1 TIME AT NIGHT metoclopramide HCl [Reglan] 10 mg tablet 10 mg PO Q6H PRN (Reason: nausea and vomiting) Qty: 30 0RF Problem List Clinical Impression: Acute upper GI bleed, History of esophageal ulcer Patient/Caregiver Discharge Instructions Print Language: Hebrew
--- NOTE | 2025-04-18 04:40 | EKG_ITS ---
[facility] Test Date: 2025-04-18 Pat Name: RICHARD WRIGHT Department: Room: - Gender: Female [employer]: : 1985 Requested By: Kai Olivo Order Number: [id number] Reading MD: Kai Olivo Measurements Intervals [place] Rate: 77 P: 67 AL: 174 QRS: 59 QRSD: 98 T: 63 QT: 341 QTc: 387 Interpretive Statements SINUS RHYTHM WITH SINUS ARRHYTHMIA MODERATE ST DEPRESSION [0.05+ mV ST DEPRESSION] Compared to ECG 07/24/2024 21:45:04 ST (T wave) deviation now present /store/S0/[id number].pdf
[2025-04-18] MEDS: MORPHINE SULF INJ 4 MG/ML VIAL 5 MG IVP (04:58)
[2025-04-18] MEDS: ONDANSETRON INJ 2 MG/ML INJ 2 ML 4 MG IVP ×3 (04:59→12:26)
[2025-04-18] MEDS: METOCLOPRAMIDE INJ 5 MG/ML VIAL 2 ML 10 MG IVP (05:01)
[2025-04-18] MEDS: SODIUM CHLORIDE 0.9% 1000 ML 1,000 ML 999 ML IV ×2 (05:02)
[2025-04-18 05:07] LABS: Basophils # (Auto) 0.1 Thou/mm3 (0.0-0.2); Basophils % (Auto) 1 % (0-2.5); Eosinophils # (Auto) 0.3 Thou/mm3 (0.0-0.5); Eosinophils % (Auto) 5 % (0-10); Hematocrit 31.7 % (36.0-46.0); Hemoglobin 9.8 g/dL (12.0-16.0); Immature Granulocytes Auto 0.02 Thou/mm3 (0.00-0.00); Lymphocytes # (Auto) 1.8 Thou/mm3 (1.0-4.8); Lymphocytes % (Auto) 26 % (10-50); Mean Corpuscular HGB Conc 30.9 g/dl (31.0-37.0); Mean Corpuscular Hemoglobin 21.7 pg (25.0-35.0); Mean Corpuscular Volume 70 fL (80-100); Monocytes # (Auto) 0.4 Thou/mm3 (0.0-0.8); Monocytes % (Auto) 6 % (0-12); Neutrophils # (Auto) 4.4 Thou/mm3 (1.8-7.7); Neutrophils % (Auto) 63 % (37-80); Nucleated Red Blood Cell # 0.00 Thou/mm3 (0.00-0.00); Nucleated Red Blood Cell % 0 /100 WBC (0); Platelet Count 372 Thou/mm3 (140-440); RDW Standard Deviation 43.9 fL (36.4-46.3); Red Blood Count 4.51 Miln/mm3 (4.00-5.20); White Blood Count 7.0 Thou/mm3 (3.6-11.0)
[2025-04-18 05:20] LABS: INR 0.9 (0.9-1.3); Partial Thromboplastin Time 22.5 Seconds (22.0-36.0); Prothrombin Time 10.1 Seconds (9.0-12.2)
[2025-04-18 05:24] LABS: Alanine Aminotransferase 34 U/L (10-49); Albumin, Serum 4.6 gm/dL (3.5-5.0); Albumin/Globulin Ratio 1.9 (1.2-2.2); Alkaline Phosphatase 94 U/L (46-116); Anion Gap 8 (7-16); Aspartate Amino Transferase 25 U/L (0-34); BUN/Creatinine Ratio 14 Ratio (12-20); Bilirubin,Total 0.2 mg/dL (0.3-1.2); Blood Urea Nitrogen 11 mg/dL (9-23); Calcium 9.0 mg/dL (8.3-10.6); Calcium (Corrected) 9.0 mg/dL (8.5-10.1); Carbon Dioxide 27.9 mMol/L (20.0-31.0); Chloride 108 mMol/L (98-107); Creatinine (Component) 0.8 mg/dL (0.6-1.3); Estimated Creatinine Clearance 170.9 mL/min (>60); Globulin 2.4 gm/dL (2.3-3.5); Glucose 130 mg/dL (74-106); Lipase 41 U/L (12-53); Magnesium 1.9 mg/dL (1.6-2.6); Osmolality,Calculated 288 (275-295); Potassium 4.0 mMol/L (3.4-5.1); Sodium 144 mMol/L (136-145); Total Protein 7.0 gm/dL (5.7-8.2); eGFR > 60 See Note
[2025-04-18 05:25] LABS: B-Type Natriuretic Peptide 25 pg/mL (0-100)
[2025-04-18] MEDS: MIDAZOLAM INJ 1 MG/ML VIAL 2 ML 2 MG IVP (05:40)
[2025-04-18] MEDS: MORPHINE SULF INJ 4 MG/ML VIAL IVP ×2 (05:41→12:26)
[2025-04-18] MEDS: PANTOPRAZOLE/NS 80MG IV PREMIX 80 MG/100 ML BAG 10 MG IV (06:16)
--- NOTE | 2025-04-18 06:36 | XR_ITS ---
Examination: CT abdomen with intravenous contrast CT pelvis with intravenous contrast 2-D coronal reconstructions 2-D sagittal reconstructions Date and time of exam: April 18, 2025, 0918 hours, comparison January 27, 2025 INDICATIONS: Generalized abdominal pain today, clinical diagnosis abdominal perforation. CTDI: vol (mGy) 10.7 DLP: (mGycm) 652 Technique: Multiple axial sections of the abdomen and pelvis have been obtained. 64 slice high-resolution scanner used. 3 mm axial sections have been obtained, post intravenous injection 60 cc [id number] 2-D sagittal, coronal reconstructions obtained. Low dose protocols were performed. One or more of the following dose reduction techniques were used; automated exposure control, adjustment of the mA and/or KV according to patient size, use of iterative reconstruction technique. Findings: Diffuse fatty infiltration throughout the liver Contracted gallbladder No splenic pancreatic or adrenal mass lesion No renal or ureteral calculi Aorta normal size Normal appendix Negative for pneumoperitoneum No pelvic mass Urinary bladder intact Osseous structures are intact IMPRESSION: No renal or ureteral calculi, no hydronephrosis Normal appendix No bowel obstruction diverticulitis or free air
--- NOTE | 2025-04-18 06:45 | EDNOTE_ITS ---
Emergency Room Addendum <Shirley Pickett - Last Filed: 04/18/25 08:18> Addendum Narrative: 0600: Care assumed from Dr. Saldaña, the previous shift emergency physician. Past medical, surgical, social and family history reviewed. Vitals and home medications reviewed. Results and treatment plan discussed. I will assume the care of the patient at this time and will follow the patient, pending CT abdomen pelvis. Please refer to the emergency department record for history and examination from initial visit. EKG done at 0623, sinus arrhythmia, rate of 77, significant artifact, possible Q wave in V1 and V2, flattening of the ST segments in V1, avL, and lead III, according to my interpretation. 0817: Attempted to call Dr. Meraz without success. <Kimber Tate - Last Filed: 04/18/25 12:27> Addendum Narrative: 0600: Care assumed from Dr. Saldaña, the previous shift emergency physician. Past medical, surgical, social and family history reviewed. Vitals and home medications reviewed. Results and treatment plan discussed. I will assume the care of the patient at this time and will follow the patient, pending CT abdomen pelvis. Please refer to the emergency department record for history and examination from initial visit. EKG done at 0623, sinus arrhythmia, rate of 77, significant artifact, possible Q wave in V1 and V2, flattening of the ST segments in V1, avL, and lead III, according to my interpretation. 0817: Attempted to call Dr. Meraz without success. 1030: I spoke with GI Dr. Meraz. Discussed patients PMHx, HPI, ED course, exam findings, labs, and radiology results. He agrees to consult. 1100: I spoke with hospitalist team C. Discussed patients PMHx, HPI, ED course, exam findings, labs, and radiology results. The hospitalist agree to accept the patient for admission. Diagnosis: Epigastric pain, coffee ground emesis RADIOLOGY Ordering Physician: Kai Saldaña DO Date of Service: 04/18/25 Procedure(s): CT abdomen pelvis w con Accession Number(s): [id number] cc: Kai Saldaña DO; Prashant Newton MD; Morales Rendon MD~ Examination: CT abdomen with intravenous contrast CT pelvis with intravenous contrast 2-D coronal reconstructions 2-D sagittal reconstructions Date and time of exam: April 18, 2025, 0918 hours, comparison January 27, 2025 INDICATIONS: Generalized abdominal pain today, clinical diagnosis abdominal perforation. CTDI: vol (mGy) 10.7 DLP: (mGycm) 652 Technique: Multiple axial sections of the abdomen and pelvis have been obtained. 64 slice high-resolution scanner used. 3 mm axial sections have been obtained, post intravenous injection 60 cc [id number] 2-D sagittal, coronal reconstructions obtained. Low dose protocols were performed. One or more of the following dose reduction techniques were used; automated exposure control, adjustment of the mA and/or KV according to patient size, use of iterative reconstruction technique. Findings: Diffuse fatty infiltration throughout the liver Contracted gallbladder No splenic pancreatic or adrenal mass lesion No renal or ureteral calculi Aorta normal size Normal appendix Negative for pneumoperitoneum No pelvic mass Urinary bladder intact Osseous structures are intact IMPRESSION: No renal or ureteral calculi, no hydronephrosis Normal appendix No bowel obstruction diverticulitis or free air Dictated By: Prashant Newton MD Signed By: <Electronically signed by Prashant Newton MD in [place]> 04/18/25 0945
[2025-04-18 07:47] LABS: Collection Type, Urine Clean Catch
[2025-04-18] MEDS: LORazepam 2 MG/ML VIAL IVP (07:52)
[2025-04-18 08:16] LABS: Amphetamine/Methamp Scrn,U Negative (Negative); Barbiturate Screen,Urine Negative (Negative); Benzodiazepines Screen,Urine Positive (Negative); Benzoylecgonine Screen, Ur Negative (Negative); Fentanyl Screen,Urine Negative (Negative); Opiate Screen,Urine Positive (Negative); THC Screen,Urine Positive (Negative)
[2025-04-18 08:18] LABS: Bilirubin,Urine Negative (Negative); Blood,Urine Negative (Negative); Clarity,Urine Clear (Clear/Hazy); Color,Urine Lt-Yellow (Lt Yel-Yel); Culture Indicated,Urine Not Indicated; Glucose, Urine Negative (Negative); Ketones,Urine Negative (Negative); Leukocyte Esterase,Urine Negative (Negative); Nitrite,Urine Negative (Negative); PH,Urine 7.0 (5.0-7.0); Protein,Urine Negative (Neg - Trace); RBC,Urine < 1 /hpf (0-3); Specific Gravity,Urine 1.021 (1.001-1.035); Squamous Epithelial Cell,Urine 1 /hpf (0-5); Urobilinogen,Urine Negative mg/dL (0.0-1.0); WBC,Urine < 1 /hpf (0-5)
[2025-04-18 09:03] LABS: HCG Qualitative,Urine Negative
--- NOTE | 2025-04-18 11:40 | PC.NURSE ---
PT HAD A LARGE BM AT THIS TIME VIA BEDPAN; PT'S BM LOOSE BUT FORMED AND BROWN IN COLOR; NO OBVIOUS BLOOD OBSERVED ON PT'S STOOL. PT PLACED ON A BEDSIDE COMMODE PER PT'S REQUEST. PT PROVIDED WITH WARM BATH CLOTHS. PT INDEPENDENTLY CLEANED OWN PERINEUM AT THIS TIME USING WARM BATH CLOTHS. PT INDEPENDENTLY TRANSFERRED FROM BEDSIDE COMMODE BACK TO BED. PT PLACED IN NEW CLEAN BRIEFS, PER PT'S REQUEST. NEW CHUCKS PLACED ON PT'S BED. PT NOW LAYING ON BED COMFORTABLY WITH EQUAL CHEST RISE & FALL NOTED. PT STILL CONNECTED TO MONITORS AT THIS TIME.
[2025-04-18] MEDS: SODIUM CHLORIDE 0.9% 1000 ML 1,000 ML 75 ML IV (12:32)
--- NOTE | 2025-04-18 12:46 | PD.RESCONSUL ---
HPI Data of Consult Consult date: 04/18/25 Requesting Physician: Amy Cuevas MD Admitting Provider: Kishor Parrish Attending Provider: Kishor Parrish Primary Care Provider: DILMA Javier MD Consult Narrative Reason for consult: Upper GI bleed History of present illness: 40-year-old female with a past medical history significant for pancreatitis, hyperlipidemia, hiatal hernia, fibromyalgia, cystic ovaries, anxiety, and a history of peptic ulcer disease (H. pylori treated ~2014). She also has a history of recreational drug use. The patient presented to the [facility] Emergency Department on 04/18/25 with complaints of recurrent hematemesis and worsening abdominal pain. The patient reports experiencing abdominal pain for the past 3 days, associated with hematemesis. She describes the abdominal pain as a sensation of tightness that radiates to her lower back, with a severity of 10/10. The patient has had approximately 10 episodes of bloody emesis. She also reports nausea, generalized weakness, and dizziness. She denies headache, chest pain, fever, hematochezia, melena, or any recent weight changes. The patient has a prior history of hematemesis, which resulted in an admission where an EGD revealed an esophageal ulcer and gastritis. Prior to admission, she noted feeling clammy but has not experienced any other alarming symptoms. The ED provider is requesting a Gastroenterology consultation for evaluation of a possible upper GI bleed. Significant labs-hemoglobin 9.8, hematocrit 31.7, MCV 70, MCH 21.7 cc:: cc: Exam Vital Signs Temp Pulse Resp BP Pulse Ox O2 Del Method 98.8 F 81 14 152/86 H 100 Room Air 04/18/25 11:07 04/18/25 11:07 04/18/25 11:07 04/18/25 11:07 04/18/25 11:07 04/18/25 11:07 Narrative Exam General: Alert, in moderate distress due to abdominal pain Skin: Warm, dry, intact. No rash or ecchymoses. Head: Normocephalic, atraumatic. Eye: Normal conjunctiva, PERRL. Throat: Oral mucosa moist. No obvious lesions in oropharynx. Cardiovascular: Regular rate and rhythm, no murmur, +S1/S2. Respiratory: Lungs are clear to auscultation, respirations unlabored, no crackles, no wheezing. Gastrointestinal: Soft, diffuse tenderness no guarding Extremities: No edema, no cyanosis, no clubbing. Neuro: Alert and oriented x3.No focal deficits observed. Conversant, moving all extremities. No overt cerebellar signs/incoordination. Psychiatric: Cooperative, appropriate affect Results Labs 04/18/25 04:50 04/18/25 04:50 Labs: Short CBC 04/18/25 Range/Units 04:50 WBC 7.0 (3.6-11.0) Thou/mm3 Hgb 9.8 L (12.0-16.0) g/dL Hct 31.7 L (36.0-46.0) % Plt Count 372 (140-440) Thou/mm3 BMP 04/18/25 04:50 Sodium 144 Potassium 4.0 Chloride 108 H Carbon Dioxide 27.9 BUN 11 Creatinine 0.8 Glucose 130 H Calcium 9.0 Liver Function 04/18/25 Range/Units 04:50 Total Bilirubin 0.2 L (0.3-1.2) mg/dL AST 25 (0-34) U/L ALT 34 (10-49) U/L Alkaline Phosphatase 94 (46-116) U/L Albumin 4.6 (3.5-5.0) gm/dL Urine 04/18/25 Range/Units 07:40 Urine Color Lt-Yellow (Lt Yel-Yel) Urine Clarity Clear (Clear/Hazy) Urine pH 7.0 (5.0-7.0) Ur Specific [place] 1.021 (1.001-1.035) Urine Protein Negative (Neg - Trace) Urine Glucose (UA) Negative (Negative) Quality Measures Quality Measures none Medications Home Medications and Allergies Home Medications ?Medication ?Instructions ?Recorded ?Confirmed ?Type ondansetron HCl 8 mg tablet 4 mg PO Q8HR PRN Nausea 08/25/21 04/18/25 History pregabalin 150 mg capsule 75 mg PO HS 11/17/21 04/18/25 History fluoxetine 20 mg capsule 20 mg PO QDAY 02/05/23 04/18/25 History cyclobenzaprine 5 mg tablet 5 mg PO TID PRN muscle relaxation 07/14/24 04/18/25 History amitriptyline 10 mg tablet 30 mg PO HS 12/14/24 04/18/25 History quetiapine 100 mg tablet 100 mg PO HS 12/14/24 04/18/25 History Allergies Allergy/AdvReac Type Severity Reaction Status Date / Time No Known Allergies Allergy Verified 04/18/25 16:22 Visit Medications Acetaminophen (Acetaminophen 325 Mg Tablet) 650 mg PO Q6H PRN PRN Reason: Fever >100.4 or pain 1-6 Stop: 05/18/25 12:14 Pantoprazole Sodium (Protonix/Ns 80mg Iv Premix) 80 mg in 100 mls @ 10 mls/hr IV Q10H CHRISTINA Stop: 04/21/25 03:55 Last Admin: 04/18/25 06:16 Dose: 10 mls/hr Sodium Chloride (Ns) 1,000 mls @ 75 mls/hr IV .[id number] CHRISTINA Stop: 05/18/25 12:14 Last Admin: 04/18/25 12:32 Dose: 75 mls/hr Morphine Sulfate (Morphine Sulf Inj 4 Mg/Ml Vial) 1 mg IVP Q6H PRN PRN Reason: PAIN SCALE 7-10 (Severe Stop: 04/23/25 12:14 Ondansetron HCl (Ondansetron Inj 2 Mg/Ml Inj 2 Ml) 4 mg IVP Q6HR PRN; Protocol PRN Reason: NAUSEA OR VOMITING Stop: 05/18/25 12:34 Pantoprazole Sodium (Pantoprazole 40 Mg Tablet) 40 mg PO QDAY [facility] Stop: 05/21/25 08:59 Discontinued Medications Sodium Chloride (Ns) 1,000 mls @ 999 mls/hr IV .Q1H1M ONE Stop: 04/18/25 05:40 Last Infusion: 04/18/25 07:26 Dose: Infused Sodium Chloride (Ns) 1,000 mls @ 999 mls/hr IV .Q1H1M ONE Stop: 04/18/25 05:45 Last Infusion: 04/18/25 07:27 Dose: Infused Lidocaine HCl (Lidocaine Viscous 2% 15 Ml Udc) 15 ml PO X1 ONE Stop: 04/18/25 06:44 Last Admin: 04/18/25 07:50 Dose: Not Given Lorazepam (Lorazepam 2 Mg/Ml Vial) 2 mg IVP X1 ONE Stop: 04/18/25 07:43 Last Admin: 04/18/25 07:52 Dose: 2 mg Metoclopramide HCl (Metoclopramide Inj 5 Mg/Ml Vial 2 Ml) 10 mg IVP X1 ONE Stop: 04/18/25 04:41 Last Admin: 04/18/25 05:01 Dose: 10 mg Midazolam HCl (Midazolam Inj 1 Mg/Ml Vial 2 Ml) 2 mg IVP X1 ONE Stop: 04/18/25 05:30 Last Admin: 04/18/25 05:40 Dose: 2 mg Morphine Sulfate (Morphine Sulf Inj 4 Mg/Ml Vial) 5 mg IVP X1 ONE Stop: 04/18/25 04:43 Last Admin: 04/18/25 04:58 Dose: 5 mg Morphine Sulfate (Morphine Sulf Inj 4 Mg/Ml Vial) 4 mg IVP X1 ONE Stop: 04/18/25 05:31 Last Admin: 04/18/25 05:41 Dose: 4 mg Morphine Sulfate (Morphine Sulf Inj 4 Mg/Ml Vial) 4 mg IVP X1 ONE Stop: 04/18/25 11:52 Last Admin: 04/18/25 12:26 Dose: 4 mg Ondansetron HCl (Ondansetron Inj 2 Mg/Ml Inj 2 Ml) 4 mg IVP Q1H PRN PRN Reason: PERSISTENT NAUSEA OR VOMITING Last Admin: 04/18/25 12:26 Dose: 4 mg Pantoprazole Sodium (Pantoprazole Inj 40 Mg Vial) 80 mg IVP X1 ONE Stop: 04/18/25 04:41 Last Admin: 04/18/25 05:01 Dose: 80 mg Assessment & Plan Plan 40-year-old female with a past medical history significant for pancreatitis, hyperlipidemia, hiatal hernia, fibromyalgia, cystic ovaries, anxiety, and a history of peptic ulcer disease (H. pylori treated ~2014) presented to the [facility] with complaints of recurrent hematemesis and worsening abdominal pain. Admitted for upper GI bleed evaluation and management. Acute posthemorrhagic anemia 2/2 Upper GI bleed Intractable abdominal pain History of esophageal ulcer History of gastritis DDX: PUD vs erosive esophagitis vs esophageal erosion vs chronic gastritis She reported 3 days history of progressively worsening abdominal pain, tightness throughout and tender to palpation, associated with nausea and 10 episode of bloody emesis. Patient reports previous history of similar presentation however this pain is worsens. Associated feeling is weakness and dizziness. Hemoglobin 9.8, medic at 31.7 MCV 70 indicating microcytic anemia. Acute blood loss anemia and hematemesis likely secondary to erosive esophagitis from previous ulcer. EGD 01/25/2025 showed-esophageal ulcer in gastroesophageal junction and gastritis - Daily CBC - Monitor H&H, transfuse hemoglobin less than 7 - NPO now, EGD planned for tonight - Obtain consent obtained for fiberoptic esophagogastroduodenoscopy with possible biopsy possible therapeutic intervention under intravenous moderate sedation Patient seen and assessed under supervision of attending physician Dr.Kumar Lisa Smith MD PGY-1, Internal Medicine Please note: this document was transcribed using voice recognition technology; minor inaccuracies may be present. Attending Provider Attestation/Addendum Patient evaluated and examined by me Laboratory data and imaging studies reviewed Went over the documentation by the internal medicine resident which I agree with Plan is to get fiberoptic esophagogastroduodenoscopy with possible biopsy possible therapeutic intervention under intravenous moderate sedation CT scan of the abdomen pelvis done today shows fatty liver and a contracted gallbladder But ultrasound done on 01/27/2025 shows normal gallbladder hepatomegaly and fatty infiltration of the liver Will follow the patient Thank you very much for the opportunity to participate in the care of this patient
--- NOTE | 2025-04-18 13:19 | PC.SS ---
Patient is a 40 year old female presenting to the hospital for bloody vomit. SURGERY TEACHER made face to face contact with patient at bedside. SURGERY TEACHER introduced self, role, and reason for visit. Patient confirmed demographic information and stated that she lives with her Leonard Hope, . Patient stated that in case she is unable to make medical decisions on her own she would like her to make them. Patient stated she is unemployed, does not use DME, her PCP is Dr. Javier at [facility], her last appointment was on 04/21/2025. Her pharmacy of choice is [facility]. Patient stated that once medically clear she will be going home and stated that her family will provide transportation. PCP: [facility] Decision maker: Leonard Hope [phone] D/c: home
--- NOTE | 2025-04-18 13:33 | ESHP_ITS ---
Documentation for date of: 04/18/25 [facility] History of Present Illness Chief complaint: Coffee-ground emesis/abdominal pain History of present illness: Ms Hope is a 40-year-old female who presented to the ED with complaints of hematemesis and severe epigastric abdominal pain ongoing for the past 3 days. She describes the pain as a tight, diffuse discomfort radiating to the lower back, with 10/10 intensity, associated with nausea, generalized weakness, and dizziness. She reports approximately 10 episodes of vomiting, initially brownish-black in color, later with deep red streaks of blood. No hematochezia, melena, or diarrhea reported. She denies chest pain, shortness of breath, or syncope. No recent alcohol intake. She admits to taking Pratt (borrowed from a friend) for chronic abdominal and back pain, approximately 2 tablets daily for the past several days. She also takes pantoprazole nightly and Zofran as needed for nausea. She reports a prior hospitalization a few months ago for similar hematemesis, during which an EGD by Dr. Meraz showed esophageal ulcer and gastritis. She was treated for H. pylori in 2014. She denies use of NSAIDs, aspirin, or anticoagulants. No recent change in bowel habits, weight, or appetite. She denies dysphagia, odynophagia, or hematochezia. She uses marijuana daily, though abstinent for the last 6 days due to worsening nausea. No methamphetamine, alcohol, or other drug use. Review of Systems: * General: Reports fatigue and dizziness; denies fever, chills, or weight loss. * GI: Positive for abdominal pain, nausea, vomiting with blood; negative for diarrhea, melena, or hematochezia. * MSK: Chronic back pain. * Neuro: No focal weakness, numbness, or syncope. * Psych: Reports anxiety; denies depression or suicidal ideation. * Negative unless stated above Past Medical History: * Peptic ulcer disease (H. pylori treated ~2014) * Esophageal ulcer and gastritis (EGD 01/2025) * Pancreatitis (remote) * Hiatal hernia * Fibromyalgia * Cystic ovaries * Anxiety Past Surgical History: * Denies any abdominal surgeries. * No gastric bypass or other major operations. Medications: * Pantoprazole (takes nightly) * Ondansetron (Zofran) PRN * Lyrica * Amitriptyline * Pratt (borrowed from friend, 1 tab AM and 1 tab PM) Allergies: * No known drug allergies (NKDA) Family History: * Noncontributory per patient. Social History: * Lives at home. * Denies alcohol or methamphetamine use. * Marijuana use daily until 6 days ago. * Denies tobacco use. Exam Vital Signs Temp Pulse Resp BP Pulse Ox O2 Del Method 98.2 F 72 24 H 147/92 H 95 Room Air 04/18/25 13:17 04/18/25 13:17 04/18/25 13:17 04/18/25 13:17 04/18/25 13:17 04/18/25 13:17 Narrative Exam General: Alert, oriented ?3, in moderate distress due to abdominal pain. Skin: Warm, dry, intact. No pallor, rash, or ecchymoses. HEENT: Normocephalic, atraumatic, moist mucous membranes. Eyes: PERRL, no scleral icterus, conjunctiva pink. Neck: Supple, no JVD or lymphadenopathy. Cardiac: Regular rate and rhythm, normal S1/S2, no murmurs or gallops. Lungs: Clear to auscultation bilaterally, no wheezes or crackles. Abdomen: Soft, diffuse tenderness most prominent in epigastric and RUQ regions; no rebound or guarding, no distention. Bowel sounds present. Extremities: No cyanosis, clubbing, or edema. Neuro: Grossly intact, moving all extremities, no focal deficit. Psych: Cooperative, appropriate affect. Results: Labs 04/19/25 04:40 04/19/25 04:40 Labs: Short CBC 04/18/25 Range/Units 04:50 WBC 7.0 (3.6-11.0) Thou/mm3 Hgb 9.8 L (12.0-16.0) g/dL Hct 31.7 L (36.0-46.0) % Plt Count 372 (140-440) Thou/mm3 BMP 04/18/25 04:50 Sodium 144 Potassium 4.0 Chloride 108 H Carbon Dioxide 27.9 BUN 11 Creatinine 0.8 Glucose 130 H Calcium 9.0 Liver Function 04/18/25 Range/Units 04:50 Total Bilirubin 0.2 L (0.3-1.2) mg/dL AST 25 (0-34) U/L ALT 34 (10-49) U/L Alkaline Phosphatase 94 (46-116) U/L Albumin 4.6 (3.5-5.0) gm/dL Urine 04/18/25 Range/Units 07:40 Urine Color Lt-Yellow (Lt Yel-Yel) Urine Clarity Clear (Clear/Hazy) Urine pH 7.0 (5.0-7.0) Ur Specific [place] 1.021 (1.001-1.035) Urine Protein Negative (Neg - Trace) Urine Glucose (UA) Negative (Negative) Quality Measures Quality Measures none Medications Home Medications and Allergies Home Medications ?Medication ?Instructions ?Recorded ?Confirmed ?Type ondansetron HCl 8 mg tablet 4 mg PO Q8HR PRN Nausea 04/18/25 History pregabalin 150 mg capsule 75 mg PO HS 11/17/21 5 History fluoxetine 20 mg capsule 20 mg PO QDAY 02/05/2304/18 History cyclobenzaprine 5 mg tablet 5 mg PO TID PRN muscle rel axation 07/14/24 04/18/25 History amitriptyline 10 mg tablet 30 mg PO HS 12/14/24 History quetiapine 100 mg tablet 100 mg PO HS 12/14/24 History lorazepam 1 mg tablet 1 mg PO DAILY PRN anxiety 04/18/25 History Allergies Allergy/AdvReac Type Severity Reaction Status Date / Time No Known Allergies Allergy Verified 04/18/25 16:22 Visit Medications Acetaminophen (Acetaminophen 325 Mg Tablet) 650 mg PO Q6H PRN PRN Reason: Fever >100.4 or pain 1-6 Stop: 05/18/25 12:14 Pantoprazole Sodium (Protonix/Ns 80mg Iv Premix) 80 mg in 100 mls @ 10 mls/hr IV Q10H [facility] Stop: 04/21/25 03:55 Last Admin: 04/18/25 06:16 Dose: 10 mls/hr Sodium Chloride (Ns) 1,000 mls @ 75 mls/hr IV .[id number] CHRISTINA Stop: 05/18/25 12:14 Last Admin: 04/18/25 12:32 Dose: 75 mls/hr Morphine Sulfate (Morphine Sulf Inj 4 Mg/Ml Vial) 1 mg IVP Q6H PRN PRN Reason: PAIN SCALE 7-10 (Severe Stop: 04/23/25 12:14 Ondansetron HCl (Ondansetron Inj 2 Mg/Ml Inj 2 Ml) 4 mg IVP Q6HR PRN; Protocol PRN Reason: NAUSEA OR VOMITING Stop: 05/18/25 12:34 Pantoprazole Sodium (Pantoprazole 40 Mg Tablet) 40 mg PO QDAY CHRISTINA Stop: 05/21/25 08:59 Discontinued Medications Sodium Chloride (Ns) 1,000 mls @ 999 mls/hr IV .Q1H1M ONE Stop: 04/18/25 05:40 Last Infusion: 04/18/25 07:26 Dose: Infused Sodium Chloride (Ns) 1,000 mls @ 999 mls/hr IV .Q1H1M ONE Stop: 04/18/25 05:45 Last Infusion: 04/18/25 07:27 Dose: Infused Lidocaine HCl (Lidocaine Viscous 2% 15 Ml Udc) 15 ml PO X1 ONE Stop: 04/18/25 06:44 Last Admin: 04/18/25 07:50 Dose: Not Given Lorazepam (Lorazepam 2 Mg/Ml Vial) 2 mg IVP X1 ONE Stop: 04/18/25 07:43 Last Admin: 04/18/25 07:52 Dose: 2 mg Metoclopramide HCl (Metoclopramide Inj 5 Mg/Ml Vial 2 Ml) 10 mg IVP X1 ONE Stop: 04/18/25 04:41 Last Admin: 04/18/25 05:01 Dose: 10 mg Midazolam HCl (Midazolam Inj 1 Mg/Ml Vial 2 Ml) 2 mg IVP X1 ONE Stop: 04/18/25 05:30 Last Admin: 04/18/25 05:40 Dose: 2 mg Morphine Sulfate (Morphine Sulf Inj 4 Mg/Ml Vial) 5 mg IVP X1 ONE Stop: 04/18/25 04:43 Last Admin: 04/18/25 04:58 Dose: 5 mg Morphine Sulfate (Morphine Sulf Inj 4 Mg/Ml Vial) 4 mg IVP X1 ONE Stop: 04/18/25 05:31 Last Admin: 04/18/25 05:41 Dose: 4 mg Morphine Sulfate (Morphine Sulf Inj 4 Mg/Ml Vial) 4 mg IVP X1 ONE Stop: 04/18/25 11:52 Last Admin: 04/18/25 12:26 Dose: 4 mg Ondansetron HCl (Ondansetron Inj 2 Mg/Ml Inj 2 Ml) 4 mg IVP Q1H PRN PRN Reason: PERSISTENT NAUSEA OR VOMITING Last Admin: 04/18/25 12:26 Dose: 4 mg Pantoprazole Sodium (Pantoprazole Inj 40 Mg Vial) 80 mg IVP X1 ONE Stop: 04/18/25 04:41 Last Admin: 04/18/25 05:01 Dose: 80 mg Assessment & Plan Plan 40F with prior H. pylori ulcer, esophageal ulcer, and chronic cannabis use presenting with recurrent hematemesis, epigastric tenderness, and stable Hgb (9.8). Most consistent with recurrent but hemodynamically stable upper GI bleed, likely secondary to erosive esophagitis or ulcer recurrence, with cannabinoid hyperemesis syndrome contributing to vomiting and mucosal irritation. #Upper GI Bleed Likely secondary to erosive esophagitis vs recurrent ulcer Differential also includes Chely-Allen tear and CHS-related retching injury. Hemodynamically stable with microcytic anemia. Plan: * Admit to telemetry, GI following * NPO * start patient on PPI * Monitor H&H; transfuse if Hgb < 7 or symptomatic * EGD tonight per GI * Avoid NSAIDs, opioids, and anticoagulants #Intractable Nausea/Vomiting #Rule Out Cannabinoid Hyperemesis Syndrome (CHS) Daily cannabis use until 6 days ago; reports worsening nausea with smoking. Plan: * Supportive care: IV fluids, antiemetics * Haldol 5 mg IV once PRN for refractory vomiting * Irrigation Foreman on complete cannabis cessation * Consider CHS contribution to vomiting and mucosal irritation #Acute on Chronic Microcytic Anemia (stable Hgb 9.8) Likely chronic blood loss anemia due to prior ulcer disease. Plan: * Continue daily CBCs * Transfuse PRBCs if <7 or symptomatic * Iron studies after stabilization #Peptic Ulcer Disease #History of Esophageal Ulcer Recurrent upper GI symptoms and prior EGD findings. Plan: * Continue IV PPI infusion -> oral BID after EGD * Follow-up biopsy results if obtained * Avoid NSAIDs, tobacco, and marijuana #Chronic Pain / Fibromyalgia Likely worsened by acute illness; patient self-medicating with Pratt. Plan: * Avoid opioids during active GI bleed * Use IV morphine PRN for severe pain if necessary * Consider non-opioid options post-bleed (lidocaine patch) * Pain management consult if recurrent admissions #Substance Use (Opioids, Cannabis) Ongoing marijuana use and non-prescribed Pratt. Plan: * Monitor for withdrawal * Reinforce avoidance of marijuana and opioids #Anxiety / Insomnia Chronic issue, stable. Plan: * Resume home amitriptyline once tolerating PO * Supportive care, reassurance Health Maintenance: Disposition: Admit to telemetry for GI bleed monitoring Feeding: NPO pending EGD Thromboprophylaxis: Hold pharmacologic DVT prophylaxis due to bleed GI Prophylaxis: IV PPI infusion as above Code Status: Full Code ----- Plan discussed with attending physician Dr. Shivani Hoff MD PGY-1 Internal Medicine Attending Provider Attestation/Addendum I have examined the patient, reviewed labs and imaging findings, discussed the case with the resident(s), and reviewed entered orders. I agree with the plan of care as outlined in this note, with these additional summaries/recommendations: After examination of the patient and review of the clinical data, I feel that this patient needs admission to the hospital for further treatment and evaluation. Patient is a 40-year-old female with a medical history of hyperlipidemia, hiatal hernia, fibromyalgia, anxiety, and peptic ulcer disease who presents to [facility] emergency department on 04/18/2025 with complaints of recurrent hematemesis and abdominal pain. Patient will be admitted for GI bleed. Hold all chemical anticoagulation, steroids, and NSAIDs. Trend H&H. Start PPI. Consult gastroenterology, recommendations appreciated. Transfuse for hemoglobin less than 7, INR greater than 1.5, or platelets less than 50,000. NPO. Morphine as needed for pain management. Continue IVF. Continue home Klonopin 100 mg p.o. at bedtime. Continue fluoxetine. Patient updated on the plan and in agreement. All questions answered satisfaction. Please see residents note for additional details and management.
--- NOTE | 2025-04-18 14:42 | PC.NURSE ---
PER DR. HERNANDEZ PT MAY TAKE PO MEDICATIONS WITH SMALL SIPS OF WATER.
[2025-04-18] MEDS: HYDROcodone/APAP 5/325 TABLET 1 TAB PO (14:47)
[2025-04-18] MEDS: HYDROmorphone INJ 2 MG/ML VIAL 0.4 MG IVP (15:02)
--- NOTE | 2025-04-18 16:16 | SUR.PHASEI ---
Pt. arrived to recovery via gurney, eyes open, AAOx3, VSS, lung sounds clear, equal expansion wily., no c/o pain or nausea at this time, report received from Melissa SUNSHINE.
--- NOTE | 2025-04-18 16:44 | SUR.PHASEI ---
Called and gave report on pt. s/p egd to Vannesa SUNSHINE on M/S unit.
--- NOTE | 2025-04-18 16:50 | SUR.PHASEI ---
Pt. transferred to room 381 via CHAUNCEY marin, no c/o pain or nausea at this time, Vannesa SUNSHINE assumed care of pt.
[2025-04-18] MEDS: MORPHINE SULF INJ 4 MG/ML VIAL 1 MG IVP (20:09)
[2025-04-18] MEDS: METOCLOPRAMIDE INJ 5 MG/ML VIAL 2 ML IVP (20:12)
[2025-04-18] MEDS: PREGABALIN 75 MG CAPSULE PO (23:08)
[2025-04-19] VITALS: BP 118/80; PULSE 52; RESP 16; TEMP 36.1; O2SAT 94
[2025-04-19 00:57] VITALS: PULSE 66; RESP 16; RESP 94
[2025-04-19] MEDS: MORPHINE SULF INJ 4 MG/ML VIAL 1 MG IVP ×2 (03:18→10:58)
[2025-04-19] MEDS: ONDANSETRON INJ 2 MG/ML INJ 2 ML 4 MG IVP (03:19)
[2025-04-19 04:00] VITALS: BP 116/66; PULSE 55; RESP 17; TEMP 36.4; O2SAT 97
[2025-04-19 06:09] LABS: Basophils # (Auto) 0.0 Thou/mm3 (0.0-0.2); Basophils % (Auto) 0 % (0-2.5); Eosinophils # (Auto) 0.2 Thou/mm3 (0.0-0.5); Eosinophils % (Auto) 2 % (0-10); Hematocrit 28.8 % (36.0-46.0); Hemoglobin 8.9 g/dL (12.0-16.0); Immature Granulocytes Auto 0.02 Thou/mm3 (0.00-0.00); Lymphocytes # (Auto) 2.4 Thou/mm3 (1.0-4.8); Lymphocytes % (Auto) 32 % (10-50); Mean Corpuscular HGB Conc 30.9 g/dl (31.0-37.0); Mean Corpuscular Hemoglobin 21.4 pg (25.0-35.0); Mean Corpuscular Volume 69 fL (80-100); Monocytes # (Auto) 0.5 Thou/mm3 (0.0-0.8); Monocytes % (Auto) 7 % (0-12); Neutrophils # (Auto) 4.2 Thou/mm3 (1.8-7.7); Neutrophils % (Auto) 58 % (37-80); Nucleated Red Blood Cell # 0.00 Thou/mm3 (0.00-0.00); Nucleated Red Blood Cell % 0 /100 WBC (0); Platelet Count 329 Thou/mm3 (140-440); RDW Standard Deviation 44.2 fL (36.4-46.3); Red Blood Count 4.15 Miln/mm3 (4.00-5.20); White Blood Count 7.3 Thou/mm3 (3.6-11.0)
[2025-04-19 06:26] LABS: Alanine Aminotransferase 32 U/L (10-49); Albumin, Serum 4.1 gm/dL (3.5-5.0); Albumin/Globulin Ratio 2.3 (1.2-2.2); Alkaline Phosphatase 80 U/L (46-116); Anion Gap 7 (7-16); Aspartate Amino Transferase 24 U/L (0-34); BUN/Creatinine Ratio 12 Ratio (12-20); Bilirubin,Total 0.3 mg/dL (0.3-1.2); Blood Urea Nitrogen 7 mg/dL (9-23); Calcium 8.5 mg/dL (8.3-10.6); Calcium (Corrected) 8.5 mg/dL (8.5-10.1); Carbon Dioxide 28.1 mMol/L (20.0-31.0); Chloride 106 mMol/L (98-107); Creatinine (Component) 0.6 mg/dL (0.6-1.3); Estimated Creatinine Clearance 142.7 mL/min (>60); Globulin 1.8 gm/dL (2.3-3.5); Glucose 96 mg/dL (74-106); Magnesium 1.8 mg/dL (1.6-2.6); Osmolality,Calculated 279 (275-295); Phosphorous 3.3 mg/dL (2.4-5.1); Potassium 3.5 mMol/L (3.4-5.1); Sodium 141 mMol/L (136-145); Thyroid Stimulating Hormone 4.82 uIU/mL (0.55-4.78); Total Protein 5.9 gm/dL (5.7-8.2); eGFR > 60 See Note
[2025-04-19 08:00] VITALS: BP 164/112; PULSE 72; PULSE 81; RESP 20; TEMP 36.4; O2SAT 97
[2025-04-19 08:08] VITALS: PULSE 68; RESP 16; RESP 95
[2025-04-19] MEDS: METOCLOPRAMIDE INJ 5 MG/ML VIAL 2 ML IVP (08:40)
[2025-04-19] MEDS: MORPHINE SULF INJ 4 MG/ML VIAL 2 MG IVP (08:41)
[2025-04-19 10:17] LABS: Free T4 (Free Thyroxine) 0.89 ng/dL (0.89-1.76)
--- NOTE | 2025-04-19 11:31 | PC.SS ---
Rounding: Pt to be reassessed and possible DC home
[2025-04-19 12:00] VITALS: BP 146/90; PULSE 62; PULSE 82; RESP 18; TEMP 36.8; O2SAT 99
--- NOTE | 2025-04-19 13:28 | PD.RESDS ---
Planned Discharge Date 04/19/25 DS: Providers Provider Date of admission: 04/18/25 12:15 Primary care physician: DILMA Javier MD Admitting Provider: Kishor Parrish MD Attending Provider on Admission: Kishor Parrish MD Consults: 04/18/25 10:39 Consult to Gastroenterology Stat Comment: Consulting Provider: Rhett Meraz Attending Provider on DC: Kishor Parrish MD Discharging Provider: Clark Hoff MD DS: Diagnosis Problem List Completed Was Problem List Reviewed/Reconciled?: Yes Hospital Course Hospital Course Hospital course: Ms. Hope is a 40-year-old female admitted with complaints of recurrent hematemesis and epigastric abdominal pain. She was found to have esophagitis, gastritis, and a 4 cm hiatal hernia on EGD. No active bleeding was noted during the procedure, but retained food in the stomach suggested a gastric motility disorder. Her hemoglobin dropped slightly from 9.8 to 8.9, but the patient remained hemodynamically stable without further episodes of vomiting or hematemesis. She was treated with IV Protonix, which was switched to oral Protonix 40 mg for discharge. The patient was also started on Reglan 5 mg IV Q12h to improve gastric motility and reduce nausea. The patient tolerated a peptic ulcer diet and reported improvement in abdominal pain and nausea by discharge. Diagnosis during admission: #Upper GI Bleed #Gastric Motility Disorder #Chronic Microcytic Anemia #Cannabinoid Hyperemesis Syndrome (CHS) #Anxiety / Insomnia #Chronic Pain / Fibromyalgia Discharge instructions: -Follow-up with PCP within 1 week of discharge. If you do not have appointment, please follow-up with [facility] with Dr. May. Call [phone] to make an appointment. -Recommended to take all the home medications -Continue Metoclopramide 10mg as needed every 6th hrly for vomiting -Take Pantoprazole 40mg once daily in the morning on empty somach -Recommended to eat bland diet in view of Gastritis -Recommended to stop smokinng marijuana -Return to ED if symptoms persist or return ----- Plan discussed with attending physician Dr. Parrish and senior resident Dr. Yadira Hoff MD PGY-1 Internal Medicine Time Spent with Patient Time attestation: Total time spent providing and/or coordinating discharge services: Time spent: Greater than 30 minutes Exam Vital Signs Temp Pulse Resp BP Pulse Ox O2 Del Method O2 Flow Rate 98.3 F 62 18 146/90 H 99 Room Air 2 04/19/25 12:00 04/19/25 12:00 04/19/25 12:00 04/19/25 12:00 04/19/25 12:00 04/19/25 12:00 04/18/25 16:26 Narrative Exam General: Alert, oriented ?3, in moderate distress due to abdominal pain. Skin: Warm, dry, intact. No pallor, rash, or ecchymoses. HEENT: Normocephalic, atraumatic, moist mucous membranes. Eyes: PERRL, no scleral icterus, conjunctiva pink. Neck: Supple, no JVD or lymphadenopathy. Cardiac: Regular rate and rhythm, normal S1/S2, no murmurs or gallops. Lungs: Clear to auscultation bilaterally, no wheezes or crackles. Abdomen: Soft, diffuse tenderness most prominent in epigastric and RUQ regions; no rebound or guarding, no distention. Bowel sounds present. Extremities: No cyanosis, clubbing, or edema. Neuro: Grossly intact, moving all extremities, no focal deficit. Psych: Cooperative, appropriate affect. Discharge Plan Plan Patient Disposition: HOME (Self Care) Patient condition on transfer: Stable Care Plan Goals: -Follow-up with PCP within 1 week of discharge. If you do not have appointment, please follow-up with [facility] with Dr. May. Call [phone] to make an appointment. -Recommended to take all the home medications -Continue Metoclopramide 10mg as needed every 6th hrly for vomiting -Take Pantoprazole 40mg once daily in the morning on empty somach -Recommended to eat bland diet in view of Gastritis -Recommended to stop smokinng marijuana -Return to ED if symptoms persist or return Prescriptions/Referrals Prescriptions/Med Rec: New pantoprazole [Protonix] [address] for susp in packet 40 mg PO QDAY Qty: 30 2RF Continued ondansetron HCl 8 mg tablet 4 mg PO Q8HR PRN (Reason: Nausea) Patient Comments: TAKE ONE TABLET BY MOUTH EVERY 8 HOURS NEEDED FOR NAUSEA pregabalin 150 mg capsule 75 mg PO HS Patient Comments: TAKE ONE CAPSULE BY MOUTH EVERY 12 HOURS NOTE NEW STRENGTH fluoxetine 20 mg Capsule 20 mg PO QDAY lorazepam 1 mg tablet 1 mg PO DAILY PRN (Reason: anxiety) Patient Comments: TAKE 1 TABLET BY MOUTH THREE TIMES A DAY NEEDED FOR ANXIETY cyclobenzaprine 5 mg tablet 5 mg PO TID PRN (Reason: muscle relaxation) Patient Comments: TAKE 1 TABLET BY MOUTH 3 TIMES A DAY NEEDED MUSCLE RELAXATION amitriptyline 10 mg tablet 30 mg PO HS Patient Comments: TAKE 3 TABLETS BY MOUTH EVERY DAY quetiapine 100 mg tablet 100 mg PO HS Patient Comments: TAKE 1 TABLET(S) ORALLY 1 TIME AT NIGHT metoclopramide HCl [Reglan] 10 mg tablet 10 mg PO Q6H PRN (Reason: nausea and vomiting) Qty: 30 0RF Referrals: Morales Rendon MD [Primary Care Provider, Family Practice] Patient/Caregiver Discharge Instructions Education Materials: Bleeding Gastrointestinal, Abdominal Pain, Peptic Ulcer, Self-Care for Vomiting and Diarrhea, ED Diet for Vomiting or ... Print Language: Hebrew Stand Alone Forms: Patti Award Info., Patient Portal Info Letter Discharge Order Discharge Orders: Discharge (Routine); Ordered 04/19/25 Ordered By: Randolph May Quality Discharge Quality Measures VTE prophylaxis MD Attestestation MD Attestation I have examined the patient, reviewed labs and imaging findings, discussed the case with the resident(s), and reviewed entered orders. I agree with the plan of care as outlined in this note. Time Spent: [address] Shivani MD
== END 2025-04-19 13:35 | disposition home or self-care (01) | DRG 242 ==
LOC: SERX 12:27 → SERHOLD 13:07 → S3SX 14:15
PROVIDERS: Emergency Medicine; Specialist; Admitting Provider Student in an Organized Health Care Education/Training Program; Emergency Provider Emergency Medicine; PCP Family Medicine; Visit Provider Student in an Organized Health Care Education/Training Program
PROC: 0DJ08ZZ Inspection of Upper Intestinal Tract, Via Natural or Artificial Opening Endoscopic (ICD-10-PCS; CPT 43239; principal; 2025-04-18 15:15)
DX: K22.11 Ulcer of esophagus with bleeding (principal); F12.90 Cannabis use, unspecified, uncomplicated; G89.29 Other chronic pain; Z86.19 Personal history of other infectious and parasitic diseases; M79.7 Fibromyalgia; K29.71 Gastritis, unspecified, with bleeding; F41.9 Anxiety disorder, unspecified; R11.16 Cannabis hyperemesis syndrome; G47.00 Insomnia, unspecified; E78.5 Hyperlipidemia, unspecified; D62 Acute posthemorrhagic anemia; D50.0 Iron deficiency anemia secondary to blood loss (chronic); K44.9 Diaphragmatic hernia without obstruction or gangrene; K76.0 Fatty (change of) liver, not elsewhere classified; Z87.11 Personal history of peptic ulcer disease
CPT/HCPCS: 36415; 51701; 74177; 80053; 80307; 81001; 81025; 83690; 83735; 83880; 84100; 84439; 84443; 85025; 85610; 85730; 93005; 93225; 96361; 96374; 96375; 96376; 99284; A4649; J1171; J1200; J2060; J2250; J2270; J2405; J2470; J2765; J3010; J3490; J7030; Q9967; A9270

== ENCOUNTER 2025-04-22 11:26 | Emergency (ER) | payer MEDICAID, SELFPAY ==
[2025-04-22 11:28] VITALS: BP 167/100; PULSE 61; RESP 18; TEMP 36.8; O2SAT 99
[2025-04-22 11:30] VITALS: PULSE 74; RESP 22; O2SAT 99; BMI 31.3; BMI 32.4
--- NOTE | 2025-04-22 11:43 | XR_ITS ---
Examination: CT abdomen and pelvis without contrast. Coronal 3-D reconstructions. Sagittal 2-D reconstructions. Date and time of exam: April 22, 2025, 1339 hours, comparison April 18, 2025 INDICATIONS: Epigastric pain beginning 1 week ago CTDI: vol (mGy): 10.2 DLP: (mGycm): 558 Technique: Axial images of the abdomen have been obtained, 3 mm slice thickness Intravenous contrast material has not been administered. Low dose protocols were performed. One or more of the following dose reduction techniques were used; automated exposure control, adjustment of the mA and/or KV according to patient size, use of iterative reconstruction technique. Findings: No visualized liver or splenic lesion No gallstones No pancreatic mass or peripancreatic edema Normal adrenal glands No renal or ureteral calculi, no hydronephrosis Moderate retrocardiac gastric hernia Abdominal aorta is not enlarged Normal appendix No bowel obstruction diverticulitis or free air. Anteverted uterus with mildly enlarged fundus Urinary bladder intact Moderate disc narrowing L5-S1 IMPRESSION: Negative for gastritis Negative for pancreatitis No renal or ureteral calculi, no hydronephrosis Moderate retrocardiac gastric hernia Normal appendix No bowel obstruction diverticulitis or free air
[2025-04-22 11:49] VITALS: BP 148/105; PULSE 80; PULSE 84; RESP 20; O2SAT 95
--- NOTE | 2025-04-22 11:50 | PD.EDABDPN ---
ED Abdominal Pain RME/HPI General Chief Complaint: Abdominal Pain Stated complaint: EPIGASTRIC PAIN Time seen by provider: 04/22/25 11:42 Arrival date/time: 04/22/25 11:26 Limitations: no limitations RME / HPI RME / HPI narrative: DR. LEBRON MAIN ED EVALUATION: 40-year-old female presents to the Emergency Department with complaint of abdominal pain that began about one hour ago around 11 AM. Pain is associated with nausea and vomiting that started at the same time. She recently underwent an endoscopy which showed gastritis and a hernia. Past medical history includes pancreatitis and fibromyalgia. She denies diarrhea. Last bowel movement was this morning, normal in consistency, and she reports regular bowel habits with no constipation. She has an allergy to aspirin. Related Data Home Medications ?Medication ?Instructions ?Recorded ?Confirmed ondansetron HCl 8 mg tablet 4 mg PO Q8HR PRN Nausea 08/25/21 04/18/25 pregabalin 150 mg capsule 75 mg PO HS 11/17/21 04/18/25 fluoxetine 20 mg capsule 20 mg PO QDAY 02/05/23 04/18/25 cyclobenzaprine 5 mg tablet 5 mg PO TID PRN muscle relaxation 07/14/24 04/18/25 amitriptyline 10 mg tablet 30 mg PO HS 12/14/24 04/18/25 quetiapine 100 mg tablet 100 mg PO HS 12/14/24 04/18/25 lorazepam 1 mg tablet 1 mg PO DAILY PRN anxiety 04/18/25 04/18/25 Previous Rx's ?Medication ?Instructions ?Recorded metoclopramide HCl 10 mg tablet 10 mg PO Q6H PRN nausea and 01/25/25 (Reglan) vomiting #30 tabs pantoprazole 40 mg granules 40 mg PO QDAY #30 ea 04/19/25 delayed-release for susp in packet (Protonix) metoclopramide HCl 10 mg tablet 10 mg PO Q6H nausea 7 days #28 tabs 04/22/25 (Reglan) Allergies Allergy/AdvReac Type Severity Reaction Status Date / Time No Known Allergies Allergy Verified 04/22/25 11:36 Review of Systems Review of Systems Systems Reviewed: All systems reviewed, normal except as documented Past Medical History Past Medical History CARDIAC: Positive Hypercholesterolemia and Varicose Veins GASTROINTESTINAL: Positive Gastrointestinal Disorders, Pancreatitis, Hiatal Hernia and Obesity REPRODUCTIVE: Positive Previous Pregnancies MUSCULOSKELETAL: Positive Musculoskeletal Disorders, Arthritis, Degenerative Disk Disease and Fibromyalgia PSYCHO/SOCIAL: Positive Psychiatric Problems, Recreational Drug Use, Bipolar Disorder, Depression, Anxiety and Depression OTHER HISTORY: Positive Hospitalization and Chicken Pox Family History FAMILY HISTORY: Positive Family Cardiac Disorders (MOTHER), Family Cancer (GRANDMOTHER) and Family Surgery (MOTHER) Social History SMOKING STATUS: Never smoker SECOND HAND EXPOSURE: No SUBSTANCE USE: crack/cocaine ED Exam General Limitations: Present no limitations General appearance: Present alert, in distress (in mild distress) and obese Head Head exam: Present atraumatic, normocephalic and normal inspection Eye Eye exam: Present normal appearance, PERRL and EOMI ENT ENT exam: Present normal exam, normal oropharynx and mucous membranes moist Neck Neck exam: Present normal inspection, full ROM and trachea midline Chest Chest inspection: Present normal inspection and symmetric chest wall rise Respiratory Respiratory exam: Present normal lung sounds bilaterally Cardiovascular Cardiovascular exam: Present normal rhythm, tachycardia and normal heart sounds Abdominal Exam Abdominal exam: Present soft, distention (distention in upper abdomen), tenderness (notable upper mid abdominal tenderness), normal bowel sounds and other (obese habitus) Extremities Exam Extremities exam: Present normal inspection and full ROM Back Exam Back exam: Present normal inspection and full ROM Neurological Exam Neurological exam: Present alert, oriented X3 and CN II-XII intact Psychiatric Psychiatric exam: Present normal affect and normal mood Skin Skin exam: Present warm, dry, intact and normal color Course Quality Measures none Orders Category Date Time Status Investment Executive STAT Care 04/22/25 11:43 Completed Continuous Pulse Oximetry STAT Care 04/22/25 11:43 Completed Insert IV STAT Care 04/22/25 11:43 Completed NPO STAT Care 04/22/25 11:[address] abdomen pelvis wo con Stat Exams 04/22/25 11:43 Completed CBC Stat Lab 04/22/25 11:53 Completed Comprehensive Metabolic Panel Stat Lab 04/22/25 11:53 Completed Lipase Stat Lab 04/22/25 11:53 Completed Magnesium Stat Lab 04/22/25 11:53 Completed Prothrombin Time with INR Stat Lab 04/22/25 11:53 Completed Urinalysis Stat Lab 04/22/25 12:57 Completed Metoclopramide Inj [Reglan Inj] Med 04/22/25 15:04 Discontinued 10 mg IVP X1 ONE Morphine* Inj Med 04/22/25 11:43 Discontinued 4 mg IVP X1 ONE Morphine* Inj Med 04/22/25 13:03 Discontinued 4 mg IVP X1 ONE Ondansetron Inj [Zofran Inj] Med 04/22/25 11:43 Discontinued 4 mg IVP Q1H PRN Ondansetron Inj [Zofran Inj] Med 04/22/25 13:03 Discontinued 4 mg IVP X1 ONE Sodium Chloride 0.9% 1000 ml [Ns] 1,000 ml Med 04/22/25 11:43 Discontinued IV 999 mls/hr Vital Signs Vital signs: Vital Signs Temperature 98.3 F 04/22/25 11:28 Pulse Rate 61 04/22/25 11:28 Respiratory Rate 18 04/22/25 11:28 Blood Pressure 167/100 H 04/22/25 11:28 Pulse Oximetry (%) 99 04/22/25 11:28 Oxygen Delivery Method Room Air 04/22/25 11:28 Abdominal Pain MDM MDM Narrative MDM Narrative:: I, Cora Torres am scribing for and in the presence of Dr. Lebron. 40-year-old female with acute abdominal pain, nausea, and vomiting that began one hour ago. Recent endoscopy showed gastritis and hernia. Exam shows upper abdominal tenderness and distention with tachycardia. Workup initiated for possible gastritis flare, pancreatitis, or obstruction. Differential diagnoses include gastritis, pancreatitis, and small bowel obstruction. 1500: Patient will be discharged with gastroparesis. Patient data External records reviewed:: [facility] previous records Clinical information provided by:: patient Social determinants that could affect healthcare access:: substance use (cocaine) Patient has the following chronic illnesses:: She recently underwent an endoscopy which showed gastritis and a hernia. Past medical history includes pancreatitis and fibromyalgia. She has an allergy to aspirin. How is presenting disease/condition affected by chronic disease/condition?: exacerbated by Evaluation data The following diagnostics were reviewed and interpreted by me:: lab results and radiology exam(s) Lab and/or radiology exams considered but not ordered:: none Interpretation Summary: Procedure(s): CT abdomen pelvis wo [facility] Accession Number(s): [id number] cc: Jarred Lebron MD; Prashant Newton MD; Noy Sexton NP~ Examination: CT abdomen and pelvis without contrast. Coronal 3-D reconstructions. Sagittal 2-D reconstructions. Date and time of exam: April 22, 2025, 1339 hours, comparison April 18, 2025 INDICATIONS: Epigastric pain beginning 1 week ago CTDI: vol (mGy): 10.2 DLP: (mGycm): 558 Technique: Axial images of the abdomen have been obtained, 3 mm slice thickness Intravenous contrast material has not been administered. Low dose protocols were performed. One or more of the following dose reduction techniques were used; automated exposure control, adjustment of the mA and/or KV according to patient size, use of iterative reconstruction technique. Findings: No visualized liver or splenic lesion No gallstones No pancreatic mass or peripancreatic edema Normal adrenal glands No renal or ureteral calculi, no hydronephrosis Moderate retrocardiac gastric hernia Abdominal aorta is not enlarged Normal appendix No bowel obstruction diverticulitis or free air. Anteverted uterus with mildly enlarged fundus Urinary bladder intact Moderate disc narrowing L5-S1 IMPRESSION: Negative for gastritis Negative for pancreatitis No renal or ureteral calculi, no hydronephrosis Moderate retrocardiac gastric hernia Normal appendix No bowel obstruction diverticulitis or free air Dictated By: Prashant Newton MD Medications / Prescriptions Medications or Prescriptions considered but not ordered:: none Medication administrations:: Medication Administration History Discontinued Medications Sodium Chloride (Ns) 1,000 mls @ 999 mls/hr IV .Q1H1M ONE Stop: 04/22/25 12:43 Last Infusion: 04/22/25 15:55 Dose: Infused Documented By: Admin: 04/22/25 11:53 Dose: 999 mls/hr Documented By: BY Metoclopramide HCl (Metoclopramide Inj 5 Mg/Ml Vial 2 Ml) 10 mg IVP X1 ONE; Protocol Stop: 04/22/25 15:05 Last Admin: 04/22/25 15:30 Dose: 10 mg Documented By: BY Morphine Sulfate (Morphine Sulf Inj 4 Mg/Ml Vial) 4 mg IVP X1 ONE Stop: 04/22/25 11:44 Last Admin: 04/22/25 11:55 Dose: 4 mg Documented By: BY Morphine Sulfate (Morphine Sulf Inj 4 Mg/Ml Vial) 4 mg IVP X1 ONE Stop: 04/22/25 13:04 Last Admin: 04/22/25 13:12 Dose: 4 mg Documented By: BY Ondansetron HCl (Ondansetron Inj 2 Mg/Ml Inj 2 Ml) 4 mg IVP Q1H PRN PRN Reason: PERSISTENT NAUSEA OR VOMITING Stop: 04/23/25 11:42 Last Admin: 04/22/25 11:53 Dose: 4 mg Documented By: BY Ondansetron HCl (Ondansetron Inj 2 Mg/Ml Inj 2 Ml) 4 mg IVP X1 ONE; Protocol Stop: 04/22/25 13:04 Last Admin: 04/22/25 13:12 Dose: 4 mg Documented By: BY see above Consultations Consultation(s) initiated? (list below): No Diagnosis Differential diagnosis abdominal pain: other (gastritis, pancreatitis, and small bowel obstruction) Most likely diagnosis given after review of the tests above:: Gastroparesis Admission Indicated Admission indicated?: not indicated Admission Request Was there a request for admission?: No Disposition Plan Disposition Plan: Discharge Discharge Attestation Discharge Attestation: The patient and all family members were given an opportunity to ask questions and understood the discharge instructions. Discharge instructions specifically effects, indications for sooner follow up or return to the emergency department, and the expected course of current diagnosis. Patient condition: Stable Discharge Plan Plan Patient Disposition: HOME (Self Care) Patient condition on transfer: Stable Prescriptions/Referrals Prescriptions/Med Rec: New metoclopramide HCl [Reglan] 10 mg tablet 10 mg PO Q6H MDD 4 tabs 7 Days Qty: 28 0RF No Action ondansetron HCl 8 mg tablet 4 mg PO Q8HR PRN (Reason: Nausea) Patient Comments: TAKE ONE TABLET BY MOUTH EVERY 8 HOURS NEEDED FOR NAUSEA pregabalin 150 mg capsule 75 mg PO HS Patient Comments: TAKE ONE CAPSULE BY MOUTH EVERY 12 HOURS NOTE NEW STRENGTH fluoxetine 20 mg Capsule 20 mg PO QDAY lorazepam 1 mg tablet 1 mg PO DAILY PRN (Reason: anxiety) Patient Comments: TAKE 1 TABLET BY MOUTH THREE TIMES A DAY NEEDED FOR ANXIETY pantoprazole [Protonix] [address] for susp in packet 40 mg PO QDAY Qty: 30 2RF cyclobenzaprine 5 mg tablet 5 mg PO TID PRN (Reason: muscle relaxation) Patient Comments: TAKE 1 TABLET BY MOUTH 3 TIMES A DAY NEEDED MUSCLE RELAXATION amitriptyline 10 mg tablet 30 mg PO HS Patient Comments: TAKE 3 TABLETS BY MOUTH EVERY DAY quetiapine 100 mg tablet 100 mg PO HS Patient Comments: TAKE 1 TABLET(S) ORALLY 1 TIME AT NIGHT metoclopramide HCl [Reglan] 10 mg tablet 10 mg PO Q6H PRN (Reason: nausea and vomiting) Qty: 30 0RF Referrals: No Primary/Family,Physician [Referring Provider] - In 1 week Problem List Clinical Impression: Gastroparesis Patient/Caregiver Discharge Instructions Discharge Activity: activity as tolerated Education Materials: Gastroparesis, Anatomy of the Digestive System Additional Instructions: Follow-up with your regular doctor and your GI doctor next week. Take Reglan as directed. Print Language: Yi Stand Alone Forms: Patti Award Info., Patient Portal Info Letter
[2025-04-22] MEDS: SODIUM CHLORIDE 0.9% 1000 ML 1,000 ML 999 ML IV (11:53)
[2025-04-22] MEDS: ONDANSETRON INJ 2 MG/ML INJ 2 ML 4 MG IVP ×2 (11:53→13:12)
[2025-04-22] MEDS: MORPHINE SULF INJ 4 MG/ML VIAL IVP ×2 (11:55→13:12)
[2025-04-22 12:25] LABS: Basophils # (Auto) 0.0 Thou/mm3 (0.0-0.2); Basophils % (Auto) 1 % (0-2.5); Eosinophils # (Auto) 0.1 Thou/mm3 (0.0-0.5); Eosinophils % (Auto) 2 % (0-10); Hematocrit 30.8 % (36.0-46.0); Hemoglobin 9.4 g/dL (12.0-16.0); Immature Granulocytes Auto 0.03 Thou/mm3 (0.00-0.00); Lymphocytes # (Auto) 1.3 Thou/mm3 (1.0-4.8); Lymphocytes % (Auto) 21 % (10-50); Mean Corpuscular HGB Conc 30.5 g/dl (31.0-37.0); Mean Corpuscular Hemoglobin 21.2 pg (25.0-35.0); Mean Corpuscular Volume 70 fL (80-100); Monocytes # (Auto) 0.3 Thou/mm3 (0.0-0.8); Monocytes % (Auto) 5 % (0-12); Neutrophils # (Auto) 4.5 Thou/mm3 (1.8-7.7); Neutrophils % (Auto) 72 % (37-80); Nucleated Red Blood Cell # 0.00 Thou/mm3 (0.00-0.00); Nucleated Red Blood Cell % 0 /100 WBC (0); Platelet Count 188 Thou/mm3 (140-440); RDW Standard Deviation 43.4 fL (36.4-46.3); Red Blood Count 4.43 Miln/mm3 (4.00-5.20); White Blood Count 6.2 Thou/mm3 (3.6-11.0)
[2025-04-22 12:33] LABS: INR 1.0 (0.9-1.3); Prothrombin Time 10.3 Seconds (9.0-12.2)
[2025-04-22 12:37] LABS: Alanine Aminotransferase 38 U/L (10-49); Albumin, Serum 5.3 gm/dL (3.5-5.0); Albumin/Globulin Ratio 2.3 (1.2-2.2); Alkaline Phosphatase 96 U/L (46-116); Anion Gap 11 (7-16); Aspartate Amino Transferase 21 U/L (0-34); BUN/Creatinine Ratio 15 Ratio (12-20); Bilirubin,Total 0.4 mg/dL (0.3-1.2); Blood Urea Nitrogen 12 mg/dL (9-23); Calcium 9.7 mg/dL (8.3-10.6); Calcium (Corrected) 9.7 mg/dL (8.5-10.1); Carbon Dioxide 25.6 mMol/L (20.0-31.0); Chloride 105 mMol/L (98-107); Creatinine (Component) 0.8 mg/dL (0.6-1.3); Estimated Creatinine Clearance 107.0 mL/min (>60); Globulin 2.3 gm/dL (2.3-3.5); Glucose 134 mg/dL (74-106); Lipase 40 U/L (12-53); Magnesium 1.8 mg/dL (1.6-2.6); Osmolality,Calculated 284 (275-295); Potassium 4.0 mMol/L (3.4-5.1); Sodium 142 mMol/L (136-145); Total Protein 7.6 gm/dL (5.7-8.2); eGFR > 60 See Note
[2025-04-22 13:01] LABS: Collection Type, Urine Clean Catch
[2025-04-22 13:17] VITALS: BP 135/95; PULSE 61; RESP 16; TEMP 36.8; O2SAT 100
[2025-04-22 13:29] LABS: Bilirubin,Urine Negative (Negative); Blood,Urine Negative (Negative); Color,Urine Yellow (Lt Yel-Yel); Glucose, Urine Negative (Negative); Ketones,Urine Trace (Negative); Leukocyte Esterase,Urine Negative (Negative); Nitrite,Urine Negative (Negative); PH,Urine 8.0 (5.0-7.0); Protein,Urine 1+ (Neg - Trace); RBC,Urine 2 /hpf (0-3); Specific Gravity,Urine 1.030 (1.001-1.035); Squamous Epithelial Cell,Urine < 1 /hpf (0-5); Urobilinogen,Urine Negative mg/dL (0.0-1.0); WBC,Urine < 1 /hpf (0-5)
[2025-04-22 13:30] LABS: Clarity,Urine Hazy (Clear/Hazy)
[2025-04-22 14:13] VITALS: BP 181/105; PULSE 57; RESP 19; TEMP 36.8; O2SAT 98
[2025-04-22] MEDS: METOCLOPRAMIDE INJ 5 MG/ML VIAL 2 ML 10 MG IVP (15:30)
[2025-04-22 15:37] VITALS: BP 163/96; PULSE 59; RESP 16; O2SAT 98
== END 2025-04-22 15:55 | disposition home or self-care (01) ==
PROVIDERS: Emergency Provider Family Medicine; PCP Nurse Practitioner Family
DX: K31.84 Gastroparesis (principal); K29.70 Gastritis, unspecified, without bleeding
CPT/HCPCS: 36415; 74176; 80053; 81001; 83690; 83735; 85025; 85610; 96361; 96374; 96375; 96376; 99284; J2270; J2405; J2765; J7030

== ENCOUNTER 2025-04-24 03:06 | Observation (INO) | payer MEDICAID, SELFPAY ==
[2025-04-24] VITALS (14 sets, daily range): BP systolic 109–171; BP diastolic 75–119; PULSE 61–87; RESP 12–97; TEMP 36.6–37.3; O2SAT 92–100; BMI 31.3
--- NOTE | 2025-04-24 03:15 | PD.EDABDPN ---
ED Abdominal Pain RME/HPI General Chief Complaint: Abdominal Pain Stated complaint: ABD PAIN Time seen by provider: 04/24/25 03:09 Arrival date/time: 04/24/25 03:06 RME / HPI RME / HPI narrative: Dr. Sneed?s Main ED Evaluation: 40yo female with a history of peptic ulcer disease, esophageal ulcer, gastritis BIBA from home presents to the ED for complaints of chronic abdominal pain and N/V. Patient states she recently stopped using marijuana, but has been unable to hold down her Reglan at home. Patient denies any fever, chills, or any other associated symptoms. NKA. Related Data Home Medications ?Medication ?Instructions ?Recorded ?Confirmed ondansetron HCl 8 mg tablet 4 mg PO Q8HR PRN Nausea 08/25/21 04/18/25 pregabalin 150 mg capsule 75 mg PO HS 11/17/21 04/18/25 fluoxetine 20 mg capsule 20 mg PO QDAY 02/05/23 04/18/25 cyclobenzaprine 5 mg tablet 5 mg PO TID PRN muscle relaxation 07/14/24 04/18/25 amitriptyline 10 mg tablet 30 mg PO HS 12/14/24 04/18/25 quetiapine 100 mg tablet 100 mg PO HS 12/14/24 04/18/25 lorazepam 1 mg tablet 1 mg PO DAILY PRN anxiety 04/18/25 04/18/25 Previous Rx's ?Medication ?Instructions ?Recorded metoclopramide HCl 10 mg tablet 10 mg PO Q6H PRN nausea and 01/25/25 (Reglan) vomiting #30 tabs pantoprazole 40 mg granules 40 mg PO QDAY #30 ea 04/19/25 delayed-release for susp in packet (Protonix) metoclopramide HCl 10 mg tablet 10 mg PO Q6H nausea 7 days #28 tabs 04/22/25 (Reglan) Allergies Allergy/AdvReac Type Severity Reaction Status Date / Time No Known Allergies Allergy Verified 04/22/25 11:36 Review of Systems Review of Systems Systems Reviewed: All systems reviewed, normal except as documented ED Exam Narrative Physical exam: Generally patient is alert and in mild to moderate distress secondary to her nausea and vomiting, heart regular rate and rhythm, lungs clear to auscultation equal bilaterally, abdomen soft bowel sounds present nondistended epigastric abdominal tenderness without rebound, skin is cool pale and dry, neurologic exam [place] Coma Scale 15 Course Quality Measures none Orders Category Date Time Status Beta HCG,Quantitative Stat Lab 04/24/25 03:18 Completed CBC Stat Lab 04/24/25 03:18 Completed CMP [Comprehensive Metabolic Panel] Stat Lab 04/24/25 03:18 Completed Drug Screen,Urine Stat Lab 04/24/25 04:03 Ordered Lipase Stat Lab 04/24/25 03:18 Completed DiphenhydrAMINE INJ [Benadryl Inj] Med 04/24/25 04:51 Discontinued 50 mg IVP X1 ONE Haloperidol Lactate [Haldol Inj] Med 04/24/25 03:16 Discontinued 5 mg IV Q6HR PRN Haloperidol Lactate [Haldol Inj] Med 04/24/25 04:02 Discontinued 5 mg IV Q6HR PRN Haloperidol Lactate [Haldol Inj] Med 04/24/25 04:09 Discontinued 5 mg IV X1 ONE Metoclopramide Inj [Reglan Inj] Med 04/24/25 03:16 Discontinued 10 mg IVP X1 ONE Metoclopramide Inj [Reglan Inj] Med 04/24/25 04:02 Discontinued 10 mg IVP X1 ONE Pantoprazole Inj [Protonix Inj] Med 04/24/25 03:16 Discontinued 40 mg IVP X1 ONE Ringers Lactated 1000 ml [Lactated Ringers] 1,000 ml Med 04/24/25 03:16 Discontinued IV 999 mls/hr Vital Signs Vital signs: Vital Signs Temperature 98.2 F 04/24/25 03:17 Pulse Rate 74 04/24/25 03:17 Respiratory Rate 12 04/24/25 03:17 Blood Pressure 159/119 H 04/24/25 03:17 Pulse Oximetry (%) 99 04/24/25 03:17 Oxygen Delivery Method Room Air 04/24/25 03:17 Abdominal Pain MDM MDM Narrative MDM Narrative:: Scribe Attestation: 04/24/25 Shirley Hou am scribing for and in the presence of Dr. Sneed. I investigated the patient's recent admission. EGD showed evidence for gastritis esophagitis but without evidence of active bleed. She also had evidence for gastric dysmotility syndrome. She does smoke marijuana on a regular basis but has not smoked it since being released from the hospital 2 days ago. Here in the emergency room she was hydrated with 1 L lactated Ringer's. She was given Reglan 10 mg IV x 2 and Haldol 5 mg IV x 2 as well as Benadryl 50 mg IV for mild dystonia. Patient is still feeling nauseous. I discussed this case with the hospitalist who will come down and evaluate the patient for admission. Patient data External records reviewed:: [facility] previous records (Per chart review, patient was seen here on 04/22/25 for gastroparesis.) and EMS form Clinical information provided by:: patient Social determinants that could affect healthcare access:: substance use (history of marijuana use) Patient has the following chronic illnesses:: peptic ulcer disease, esophageal ulcer, gastritis How is presenting disease/condition affected by chronic disease/condition?: caused by Evaluation data The following diagnostics were reviewed and interpreted by me:: lab results Lab and/or radiology exams considered but not ordered:: none Interpretation Summary: See MDM Medications / Prescriptions Medications or Prescriptions considered but not ordered:: none Medication administrations:: Medication Administration History Discontinued Medications Diphenhydramine HCl (Diphenhydramine Inj 50 Mg/Ml Vial) 50 mg IVP X1 ONE Stop: 04/24/25 04:52 Last Admin: 04/24/25 04:56 Dose: 50 mg Documented By: CCT Haloperidol Lactate (Haloperidol Lact Inj 5 Mg/Ml Vial) 5 mg IV Q6HR PRN PRN Reason: AGITATION (SEVERE) Stop: 05/24/25 03:15 Last Admin: 04/24/25 03:27 Dose: 5 mg Documented By: CCT Haloperidol Lactate (Haloperidol Lact Inj 5 Mg/Ml Vial) 5 mg IV Q6HR PRN PRN Reason: AGITATION (SEVERE) Stop: 05/24/25 04:01 Haloperidol Lactate (Haloperidol Lact Inj 5 Mg/Ml Vial) 5 mg IV X1 ONE Stop: 04/24/25 04:10 Last Admin: 04/24/25 04:17 Dose: 5 mg Documented By: CCT Lactated Ringer's (Lactated Ringers) 1,000 mls @ 999 mls/hr IV .Q1H1M ONE Stop: 04/24/25 04:16 Last Infusion: 04/24/25 04:29 Dose: Infused Documented By: Admin: 04/24/25 03:26 Dose: 999 mls/hr Documented By: CCT Metoclopramide HCl (Metoclopramide Inj 5 Mg/Ml Vial 2 Ml) 10 mg IVP X1 ONE; Protocol Stop: 04/24/25 03:17 Last Admin: 04/24/25 03:25 Dose: 10 mg Documented By: CCT Metoclopramide HCl (Metoclopramide Inj 5 Mg/Ml Vial 2 Ml) 10 mg IVP X1 ONE; Protocol Stop: 04/24/25 04:03 Last Admin: 04/24/25 04:17 Dose: 10 mg Documented By: CCT Pantoprazole Sodium (Pantoprazole Inj 40 Mg Vial) 40 mg IVP X1 ONE Stop: 04/24/25 03:17 Last Admin: 04/24/25 03:25 Dose: 40 mg Documented By: CCT see above Consultations Consultation(s) initiated? (list below): Yes Diagnosis Differential diagnosis abdominal pain: other (See MDM) Most likely diagnosis given after review of the tests above:: see clinical impression below Admission Indicated Admission indicated?: indicated Admission Request Was there a request for admission?: Yes Admission Attestation Admission request attestation: Discussed case with [] from Hospitalist service regarding admission. Discussed patients ED course, exam findings, labs, and radiology results. The Hospitalist [agrees,declines] to accept the patient for admission. Disposition Plan Disposition Plan: Admit Discharge Plan Plan Patient Disposition: Admit Acute Care w/in Hospital Prescriptions/Referrals Prescriptions/Med Rec: No Action ondansetron HCl 8 mg tablet 4 mg PO Q8HR PRN (Reason: Nausea) Patient Comments: TAKE ONE TABLET BY MOUTH EVERY 8 HOURS NEEDED FOR NAUSEA pregabalin 150 mg capsule 75 mg PO HS Patient Comments: TAKE ONE CAPSULE BY MOUTH EVERY 12 HOURS NOTE NEW STRENGTH fluoxetine 20 mg Capsule 20 mg PO QDAY lorazepam 1 mg tablet 1 mg PO DAILY PRN (Reason: anxiety) Patient Comments: TAKE 1 TABLET BY MOUTH THREE TIMES A DAY NEEDED FOR ANXIETY pantoprazole [Protonix] [address] for susp in packet 40 mg PO QDAY Qty: 30 2RF metoclopramide HCl [Reglan] 10 mg tablet 10 mg PO Q6H MDD 4 tabs 7 Days Qty: 28 0RF cyclobenzaprine 5 mg tablet 5 mg PO TID PRN (Reason: muscle relaxation) Patient Comments: TAKE 1 TABLET BY MOUTH 3 TIMES A DAY NEEDED MUSCLE RELAXATION amitriptyline 10 mg tablet 30 mg PO HS Patient Comments: TAKE 3 TABLETS BY MOUTH EVERY DAY quetiapine 100 mg tablet 100 mg PO HS Patient Comments: TAKE 1 TABLET(S) ORALLY 1 TIME AT NIGHT metoclopramide HCl [Reglan] 10 mg tablet 10 mg PO Q6H PRN (Reason: nausea and vomiting) Qty: 30 0RF Referrals: No Primary/Family,Physician [Primary Care Provider] - In 1 week Problem List Clinical Impression: Intractable cyclical vomiting, Gastritis, Esophagitis, Gastroparesis Patient/Caregiver Discharge Instructions Print Language: Prydeinig Stand Alone Forms: Patti Award Info., Patient Portal Info Letter
[2025-04-24] MEDS: METOCLOPRAMIDE INJ 5 MG/ML VIAL 2 ML 10 MG IVP ×3 (03:25→16:15)
[2025-04-24] MEDS: RINGERS LACTATED 1000 ML 1,000 ML 999 ML IV (03:26)
[2025-04-24] MEDS: HALOPERIDOL LACT INJ 5 MG/ML VIAL IV ×2 (03:27→04:17)
[2025-04-24 03:35] LABS: Basophils # (Auto) 0.1 Thou/mm3 (0.0-0.2); Basophils % (Auto) 1 % (0-2.5); Eosinophils # (Auto) 0.2 Thou/mm3 (0.0-0.5); Eosinophils % (Auto) 2 % (0-10); Hematocrit 33.7 % (36.0-46.0); Hemoglobin 10.4 g/dL (12.0-16.0); Immature Granulocytes Auto 0.05 Thou/mm3 (0.00-0.00); Lymphocytes # (Auto) 2.8 Thou/mm3 (1.0-4.8); Lymphocytes % (Auto) 22 % (10-50); Mean Corpuscular HGB Conc 30.9 g/dl (31.0-37.0); Mean Corpuscular Hemoglobin 21.3 pg (25.0-35.0); Mean Corpuscular Volume 69 fL (80-100); Monocytes # (Auto) 0.7 Thou/mm3 (0.0-0.8); Monocytes % (Auto) 6 % (0-12); Neutrophils # (Auto) 9.0 Thou/mm3 (1.8-7.7); Neutrophils % (Auto) 70 % (37-80); Nucleated Red Blood Cell # 0.00 Thou/mm3 (0.00-0.00); Nucleated Red Blood Cell % 0 /100 WBC (0); Platelet Count 494 Thou/mm3 (140-440); RDW Standard Deviation 42.5 fL (36.4-46.3); Red Blood Count 4.89 Miln/mm3 (4.00-5.20); White Blood Count 12.9 Thou/mm3 (3.6-11.0)
[2025-04-24 03:50] LABS: Alanine Aminotransferase 36 U/L (10-49); Albumin, Serum 5.2 gm/dL (3.5-5.0); Albumin/Globulin Ratio 2.4 (1.2-2.2); Alkaline Phosphatase 92 U/L (46-116); Anion Gap 13 (7-16); Aspartate Amino Transferase 24 U/L (0-34); BUN/Creatinine Ratio 16 Ratio (12-20); Beta HCG,Quantitative 1 mIU/mL (<5.0); Bilirubin,Total 0.2 mg/dL (0.3-1.2); Blood Urea Nitrogen 14 mg/dL (9-23); Calcium 9.7 mg/dL (8.3-10.6); Calcium (Corrected) 9.7 mg/dL (8.5-10.1); Carbon Dioxide 23.2 mMol/L (20.0-31.0); Chloride 105 mMol/L (98-107); Creatinine (Component) 0.9 mg/dL (0.6-1.3); Estimated Creatinine Clearance 95.1 mL/min (>60); Globulin 2.2 gm/dL (2.3-3.5); Glucose 145 mg/dL (74-106); Lipase 42 U/L (12-53); Osmolality,Calculated 284 (275-295); Potassium 3.8 mMol/L (3.4-5.1); Sodium 141 mMol/L (136-145); Total Protein 7.4 gm/dL (5.7-8.2); eGFR > 60 See Note
--- NOTE | 2025-04-24 04:10 | PC.NURSE ---
Pt given was reglan and haldol; however, pt still having nausea and vomiting, and feels very anxious. Pt not able to lay still on gurney. Dr. Sneed aware, per MD will put in new orders.
--- NOTE | 2025-04-24 04:10 | PC.NURSE ---
Pt still having nausea and vomiting, and feels very anxious Dr. Sneed aware, per MD will put in new orders.
--- NOTE | 2025-04-24 04:10 | PC.NURSE ---
Pt was given reglan and haldol; however, pt still having nausea and vomiting, and feels very anxious. Pt not able to lay still on gurney. Dr. Sneed aware, per MD will put in new orders.
--- NOTE | 2025-04-24 05:43 | PD.RESHP ---
Documentation for date of: 04/24/25 [facility] History of Present Illness Chief complaint: keep throwing up and feel nauseous History of present illness: Erika Hope is 40 yr female with PMH of Peptic ulcer disease, gastritis, hiatal hernia, fibromyalgia, anxiety presenting to ED due to recurrent nausea and vomiting. Patient was recently discharged on 04/19. At that time EGD was done as part of workup for upper GI bleed. Findings consistent with gastritis and gastric motility disorder after retained food seen in the stomach. Since her discharge, patient has been unable to keep down any food or her Reglan that she was discharged with. Endorses multiple episodes of vomiting and associated epigastric/chest pain spastic in nature. Pain /, denies any diarrhea. States that she as quit smoking THC. Denies any weakness, headache, dizziness. No SOB. In ED, BP 160/120. WBC 13, other labs unremarkable. CT A/P benign. No obstruction or free air, negative for gastritis. She was given Reglan 10mg IV x2, haldol 5mg IV x2, Benadryl, and PPI. Admit patient for intractable n/v. PmH: as noted above PSH: denies famhx: noncontributory Social: denies etoh, no smoking. Said her last marijuana use was few days ago. Meds: Pantoprazole, Zofran, Lyrica, amitriptyline, fluoxetine Review of Systems Review of Systems Systems Reviewed: All systems reviewed, normal except as documented Exam Vital Signs Temp Pulse Resp BP Pulse Ox O2 Del Method 98.2 F 76 15 155/94 H 99 Room Air 04/24/25 05:35 04/24/25 05:35 04/24/25 05:35 04/24/25 05:35 04/24/25 05:35 04/24/25 05:35 Narrative Exam General: Alert and oriented x3. Distress from pain, cooperative HEENT: NCAT, No JVD noted. Mucosa moist. Pupils are equal and reactive to light bilaterally Cardiovascular: Normal S1 and S2. Regular rate and rhythm. Respiratory: Lungs are clear to auscultation bilaterally. No wheezing or crackles heard. Abdomen: Soft, tenderness epigastric area, no rebound or guarding, no distention, normal bowel sounds. Skin: Warm to touch, dry, no rashes noted Musculoskeletal: No gross injuries. Able to move all 4 extremities. No pitting edema Neuro: Alert and oriented x3. No focal neuro deficits. Psych: Normal affect and mood Results: Labs 04/25/25 04:07 04/25/25 04:07 Labs: Short CBC 04/24/25 Range/Units 03:18 WBC 12.9 H D (3.6-11.0) Thou/mm3 Hgb 10.4 L (12.0-16.0) g/dL Hct 33.7 L (36.0-46.0) % Plt Count 494 H D (140-440) Thou/mm3 BMP 04/24/25 03:18 Sodium 141 Potassium 3.8 Chloride 105 Carbon Dioxide 23.2 BUN 14 Creatinine 0.9 Glucose 145 H Calcium 9.7 Liver Function 04/24/25 Range/Units 03:18 Total Bilirubin 0.2 L (0.3-1.2) mg/dL AST 24 (0-34) U/L ALT 36 (10-49) U/L Alkaline Phosphatase 92 (46-116) U/L Albumin 5.2 H (3.5-5.0) gm/dL Quality Measures Quality Measures VTE prophylaxis Medications Home Medications and Allergies Home Medications ?Medication ?Instructions ?Recorded ?Confirmed ?Type fluoxetine 20 mg capsule 20 mg PO QDAY 02/05/23 04/24/25 History cyclobenzaprine 5 mg tablet 5 mg PO TID PRN muscle relaxation 07/14/24 04/24/25 History amitriptyline 10 mg tablet 30 mg PO HS 12/14/24 04/24/25 History quetiapine 100 mg tablet 100 mg PO HS 12/14/24 04/24/25 History lorazepam 1 mg tablet 1 mg PO DAILY PRN anxiety 04/18/25 04/24/25 History fluoxetine 20 mg tablet 20 mg PO .once 04/24/25 04/24/25 History pantoprazole 40 mg tablet,delayed 40 mg PO Q12H 04/24/25 04/24/25 History release pregabalin 75 mg capsule 75 mg PO TID 04/24/25 04/24/25 History Allergies Allergy/AdvReac Type Severity Reaction Status Date / Time No Known Allergies Allergy Verified 04/22/25 11:36 Visit Medications Acetaminophen (Acetaminophen 325 Mg Tablet) 650 mg PO Q6H PRN PRN Reason: Fever >100.4 or pain 1-3 Stop: 05/24/25 05:25 Enoxaparin Sodium (Enoxaparin Sod Inj 40 Mg/0.4 Ml Syringe) 40 mg SC QDAY [facility] Stop: 05/08/25 08:59 Erythromycin Ethylsuccinate (Erythromycin E-Succ Susp 200 Mg/5 Ml) 250 mg PO BID [facility] Stop: 05/01/25 08:59 Sodium Chloride (Ns) 1,000 mls @ 100 mls/hr IV .Q10H [facility] Stop: 04/24/25 15:29 Ketorolac Tromethamine (Ketorolac Inj 30 Mg/Ml Vial) 30 mg IVP Q6HR PRN PRN Reason: pain 7-10 Stop: 04/29/25 05:35 Metoclopramide HCl (Metoclopramide Inj 5 Mg/Ml Vial 2 Ml) 10 mg IVP Q6H PRN; Protocol PRN Reason: NAUSEA OR VOMITING Stop: 05/24/25 05:25 Pantoprazole Sodium (Pantoprazole Inj 40 Mg Vial) 40 mg IVP QDAY [facility] Stop: 05/24/25 08:59 Discontinued Medications Diphenhydramine HCl (Diphenhydramine Inj 50 Mg/Ml Vial) 50 mg IVP X1 ONE Stop: 04/24/25 04:52 Last Admin: 04/24/25 04:56 Dose: 50 mg Haloperidol Lactate (Haloperidol Lact Inj 5 Mg/Ml Vial) 5 mg IV Q6HR PRN PRN Reason: AGITATION (SEVERE) Stop: 05/24/25 03:15 Last Admin: 04/24/25 03:27 Dose: 5 mg Haloperidol Lactate (Haloperidol Lact Inj 5 Mg/Ml Vial) 5 mg IV Q6HR PRN PRN Reason: AGITATION (SEVERE) Stop: 05/24/25 04:01 Haloperidol Lactate (Haloperidol Lact Inj 5 Mg/Ml Vial) 5 mg IV X1 ONE Stop: 04/24/25 04:10 Last Admin: 04/24/25 04:17 Dose: 5 mg Lactated Ringer's (Lactated Ringers) 1,000 mls @ 999 mls/hr IV .Q1H1M ONE Stop: 04/24/25 04:16 Last Infusion: 04/24/25 04:29 Dose: Infused Metoclopramide HCl (Metoclopramide Inj 5 Mg/Ml Vial 2 Ml) 10 mg IVP X1 ONE; Protocol Stop: 04/24/25 03:17 Last Admin: 04/24/25 03:25 Dose: 10 mg Metoclopramide HCl (Metoclopramide Inj 5 Mg/Ml Vial 2 Ml) 10 mg IVP X1 ONE; Protocol Stop: 04/24/25 04:03 Last Admin: 04/24/25 04:17 Dose: 10 mg Nifedipine (Nifedipine Xl 30 Mg Tabcr) 30 mg PO X1 ONE Stop: 04/24/25 05:38 Pantoprazole Sodium (Pantoprazole Inj 40 Mg Vial) 40 mg IVP X1 ONE Stop: 04/24/25 03:17 Last Admin: 04/24/25 03:25 Dose: 40 mg Assessment & Plan Plan Erika Hope is 40 yr female with PMH of Peptic ulcer disease, gastritis, hiatal hernia, fibromyalgia, anxiety presenting to ED due to recurrent nausea and vomiting. Admit for intractable n/v. #Intractable nausea/vomiting #Gastroparesis #Esophagitis Patient was recently discharged on 04/19. EGD on 04/18--done as part of workup for upper GI bleed. Findings consistent with gastritis and gastric motility disorder after retained food seen in the stomach. Since her discharge, patient has been unable to keep down any food or her Reglan. Endorses multiple episodes of vomiting and associated epigastric/chest pain spastic in nature. CT A/P benign. No obstruction or free air, negative for gastritis. She was given Reglan 10mg IV x2, haldol 5mg IV x2, Benadryl, and PPI in ED. -IV fluids -IV Reglan q6hr -Erythromycin promotility 250 BID -NPO advance as tolerated -IV ketorolac q6hr PRN -avoid opioids -CCB nicardipine 30mg x1 for spastic chest pain -EKG pending to check for qtc time #Hypertensive urgency-resolved BP 160/120 on admission, most likely due to pain. No end organ damage. -IV hydralazine 10 prn for SBP >180 -nicardipine 30mg x1 as above -monitor BP and repeat as needed #Microcytic anemia Hb 10, MC 69 on admission. Most likely iron deficiency. No evidence of acute blood loss at this time. -consider ordering iron pannel/ferritin levels -ferrous sulfate 325mg daily at discharge #Chronic Pain / Fibromyalgia -Avoid opioids during gastroparesis -pain mgmt as noted above -resume TCA home medication after med rec -resume pregabalin after med rc #Substance Use Says she has not smoked marijuana since her last admission. -utox pending #Anxiety / Insomnia Chronic issue, stable. -Resume home amitriptyline once tolerating PO -Supportive care, reassurance Health maintenance: Dispo: medsurge for intract n/v FEN: NPO DVT prophylaxis: Lovenox CODE STATUS: Full code The patient's management plan was discussed with my attending physician Dr. Franco. Belinda Zafar, PGY-2 Attending Provider Attestation/Addendum After examination of the patient and review of the clinical data I feel that this patient needs admission to the hospital for further treatment/evaluation. Plan of care discussed with patient and is in agreement. I Ata Franco MD, attest that I was physically present for roche portions of evaluation, and examined patient, labs and imagings and plan of care were discussed with IM residents team, and I agree with the findings and plans documented above.
[2025-04-24] MEDS: KETOROLAC INJ 30 MG/ML VIAL IVP ×2 (05:45→16:15)
[2025-04-24] MEDS: SODIUM CHLORIDE 0.9% 1000 ML 1,000 ML 100 ML IV (05:57)
--- NOTE | 2025-04-24 06:10 | PC.NURSE ---
Spoke to resident Dr. Zafar regarding ordered meds hydralazine and nefedipine. Made aware bp is now 126/92 hr 84, per MD hold medications for now.
--- NOTE | 2025-04-24 06:11 | PC.NURSE ---
Received call from resident Dr. Zafar, per MD will reorder nifedipine and to administer for spastic chest pain.
--- NOTE | 2025-04-24 06:20 | PC.NURSE ---
Report given to BITA Mena
[2025-04-24 06:28] LABS: Amphetamine/Methamp Scrn,U Negative (Negative); Barbiturate Screen,Urine Negative (Negative); Benzodiazepines Screen,Urine Negative (Negative); Benzoylecgonine Screen, Ur Negative (Negative); Fentanyl Screen,Urine Negative (Negative); Opiate Screen,Urine Positive (Negative); THC Screen,Urine Positive (Negative)
[2025-04-24 06:28] LABS: Magnesium 1.9 mg/dL (1.6-2.6)
--- NOTE | 2025-04-24 06:35 | PC.NURSE ---
pt in shower.
[2025-04-24] MEDS: NIFEdipine XL 30 MG TABCR PO (06:57)
[2025-04-24] MEDS: MORPHINE SULF INJ 4 MG/ML VIAL 1 MG IVP (09:18)
[2025-04-24] MEDS: ENOXAPARIN SOD INJ 40 MG/0.4 ML SYRINGE SC (09:19)
[2025-04-24] MEDS: LORazepam 2 MG/ML VIAL 1 MG IVP (10:54)
--- NOTE | 2025-04-24 11:36 | PC.SS ---
Patient is alert/oriented. Patient was able to verify demographics. Patient resides at home with spouse. Patient was admitted for intractable nausea and vomiting. Patient is independent with ADL's. No DME used. Discharge plan is to return home. PCP: [facility]. Last appt. was a few months ago. Pharmacy: [facility]. Transportation: family. Alt medical decision maker: , Leonard Hope,
--- NOTE | 2025-04-24 13:26 | ESPR_ITS ---
<Statement entered by Randolph May MD - 04/24/25 15:42> Patient is seen and examined at bedside. Admitted overnight in view of nausea and vomiting. No ROSA or electrolyte disturbances were noted. Patient is seeking pain medications for the lower chest and epigastric pain. Noted to have showered multiple times. Likely suspected to have cannabis hyperemesis syndrome. Educated patient on cannabis abstinence and follow-up on outpatient basis with tertiary care center for hiatal hernia repair. I have personally seen and examined the patient, agree with residents assessment and plan Patient plan of care was discussed with the attending physician, Dr. Shivani May, PGY2 Documentation for date of: 04/24/25 Subjective Subjective Interval history: Patient seen after shower; reports persistent severe epigastric abdominal pain. She continues to feel nauseated but denies vomiting since separator tender. No hematemesis, melena, dizziness, chest pain, or shortness of breath. Lorazepam 1 mg was given for anxiety-associated pain exacerbation, and capsaicin cream applied for symptomatic relief. Exam Vital Signs Temp Pulse Resp BP Pulse Ox O2 Del Method 99.1 F 61 18 109/75 95 Room Air 04/24/25 11:55 04/24/25 11:55 04/24/25 11:55 04/24/25 11:55 04/24/25 11:55 04/24/25 11:55 Narrative Exam General: Alert and oriented x3. Distress from pain, cooperative HEENT: NCAT, No JVD noted. Mucosa moist. Pupils are equal and reactive to light bilaterally Cardiovascular: Normal S1 and S2. Regular rate and rhythm. Respiratory: Lungs are clear to auscultation bilaterally. No wheezing or crackles heard. Abdomen: Soft, tenderness epigastric area, no rebound or guarding, no distention, normal bowel sounds. Skin: Warm to touch, dry, no rashes noted Musculoskeletal: No gross injuries. Able to move all 4 extremities. No pitting edema Neuro: Alert and oriented x3. No focal neuro deficits. Psych: Normal affect and mood Objective Labs 04/24/25 03:18 04/24/25 03:18 Labs: Laboratory Results - last 24 hr 04/24/25 04/24/25 03:18 05:45 WBC 12.9 H D RBC 4.89 Hgb 10.4 L Hct 33.7 L MCV 69 L MCH 21.3 L MCHC 30.9 L RDW Std Deviation 42.5 Plt Count 494 H D Neut % (Auto) 70 Lymph % (Auto) 22 Dixon % (Auto) 6 Eos % (Auto) 2 Baso % (Auto) 1 Neut # (Auto) 9.0 H Lymph # (Auto) 2.8 Dixon # (Auto) 0.7 Eos # (Auto) 0.2 Baso # (Auto) 0.1 Immature Gran # (Auto) 0.05 H Absolute Nucleated RBC 0.00 Immature Gran % 0 Nucleated RBC % 0 Sodium 141 Potassium 3.8 Chloride 105 Carbon Dioxide 23.2 Anion Gap 13 BUN 14 Creatinine 0.9 Estim Creat Clear Calc 95.1 eGFR > 60 BUN/Creatinine Ratio 16 Glucose 145 H Calculated Osmolality 284 Calcium 9.7 Corrected Calcium 9.7 Magnesium 1.9 Total Bilirubin 0.2 L AST 24 ALT 36 Alkaline Phosphatase 92 Total Protein 7.4 Albumin 5.2 H Globulin 2.2 L Albumin/Globulin Ratio 2.4 H Lipase 42 Beta HCG, Quant 1 Urine Opiates Screen Positive A Urine Fentanyl Screen Negative Ur Barbiturates Screen Negative U Amphetamin/Meth Scrn Negative U Benzodiazepines Scrn Negative U Cocaine Metab Screen Negative U Marijuana (THC) Screen Positive A Quality Measures Quality Measures VTE prophylaxis Assessment & Plan Assessment Current Active Medications: Generic Name Dose Route Start Last Admin Trade Name Freq PRN Reason Stop Dose Admin Acetaminophen 650 mg 04/24/25 05:26 Acetaminophen 325 Mg Tablet PO 05/24/25 05:25 Q6H PRN Fever >100.4 or pain 1-3 Capsaicin 0 gm 04/24/25 09:30 Capsaicin Cr 60 Gm Tube TOP 05/24/25 09:29 TID CHRISTINA Enoxaparin Sodium 40 mg 04/24/25 09:00 04/24/25 09:19 Enoxaparin Sod Inj 40 Mg/0.4 Ml Syringe SC 05/08/25 08:59 40 mg QDAY [facility]INA Administration Erythromycin Ethylsuccinate 250 mg 04/24/25 09:00 04/24/25 09:07 Erythromycin E-Succ Susp 200 Mg/5 Ml PO 05/01/25 08:59 Not Given BID CHRISTINA Sodium Chloride 1,000 mls @ 100 mls/hr 04/24/25 05:30 04/24/25 05:57 Ns IV 04/24/25 15:29 100 mls/hr .Q10H [facility]INA Administration Ketorolac Tromethamine 30 mg 04/24/25 05:36 04/24/25 05:45 Ketorolac Inj 30 Mg/Ml Vial IVP 04/29/25 05:35 30 mg Q6HR PRN Administration pain 7-10 Metoclopramide HCl 10 mg 04/24/25 05:26 Metoclopramide Inj 5 Mg/Ml Vial 2 Ml IVP 05/24/25 05:25 Q6H PRN NAUSEA OR VOMITING Protocol Pantoprazole Sodium 40 mg 04/24/25 09:00 04/24/25 09:18 Pantoprazole Inj 40 Mg Vial IVP 05/24/25 08:59 40 mg QDAY [facility] Administration Plan 40-year-old female with history of PUD, gastritis, gastroparesis, hiatal hernia, fibromyalgia, and anxiety readmitted with intractable nausea/vomiting and abdominal pain. #Intractable nausea/vomiting #Gastroparesis #Esophagitis Patient was recently discharged on 04/19. EGD on 04/18--done as part of workup for upper GI bleed. Findings consistent with gastritis and gastric motility disorder after retained food seen in the stomach. Since her discharge, patient has been unable to keep down any food or her Reglan. Endorses multiple episodes of vomiting and associated epigastric/chest pain spastic in nature. CT A/P benign. No obstruction or free air, negative for gastritis. She was given Reglan 10mg IV x2, haldol 5mg IV x2, Benadryl, and PPI in ED. 04/24/2025: Persistent nausea/vomiting despite home Reglan; improved slightly but still symptomatic. Persistent pain; declines additional analgesics; received lorazepam and capsaicin. Informed patient no more IV pain medication such as opioids, patient understood and agreed. Plan: * Continue IV Reglan q6h * Continue IV Erythromycin 250 mg BID * Zofran 4 mg IV PRN * Clear liquid diet advance as tolerated * Monitor for EPS with Haldol + Reglan * Strict avoidance of marijuana and opioids * Lorazepam 1 mg IV given for anxiety-associated pain flare * Capsaicin cream to abdomen for symptomatic relief * Avoid opioids * Continue non-opioid regimen (Reglan, PPI, erythromycin) #Hypertensive urgency-resolved BP 160/120 on admission, most likely due to pain. No end organ damage. Blood pressure controlled this morning 109/75. -IV hydralazine 10 prn for SBP >180 -nicardipine 30mg x1 as above -monitor BP and repeat as needed # Moderate Hiatal Hernia, recurrent symptomatic episodes (multiple ED visits + readmission) Likely contributing to pain, reflux, and gastric stasis. Plan: * Discussed with patient that due to recurrent admissions and persistent symptoms, she needs tertiary-center evaluation. #Microcytic Anemia (Hgb 10.4, MCV 69) Stable, chronic iron-deficiency picture. Plan: * Daily CBC * Outpatient iron panel * Ferrous sulfate on discharge #Chronic Pain / Fibromyalgia -Avoid opioids during gastroparesis -resume TCA home medication after med rec -resume pregabalin after med rc #Substance Use, marijuana & opioids Likely contributing to symptoms; utox positive. Plan: * Reinforce strict cessation * Social work consult #Anxiety / Insomnia Chronic issue, stable. Plan: * Lorazepam given * Resume fluoxetine/amitriptyline once tolerating PO and once med rec's are completed. Health maintenance: Dispo: medsurge for intract n/v FEN: Clear liquid diet advance as tolerated. DVT prophylaxis: Lovenox CODE STATUS: Full code ----- Plan discussed with attending physician Dr. Parrish and senior resident Dr. Yadira Hoff MD PGY-1 Internal Medicine Attending Provider Attestation/Addendum I have examined the patient, reviewed labs and imaging findings, discussed the case with the resident(s), and reviewed entered orders. I agree with the plan of care as outlined in this note, with these additional summaries/recommendations: Patient seen at bedside. Patient admitted overnight for severe intractable nausea/vomiting. Patient was just discharged from hospital recently and underwent EGD with findings consistent for gastritis, gastric motility disorder, esophagitis, and hiatal hernia. Patient was started on Reglan and discharged on 04/19/2025. Patient presented back to the emergency room on 04/24/2025 with intractable nausea/vomiting.. Patient also endorses chronic marijuana use. Patient counseled extensively to stop marijuana use. Continue Reglan. No benefit for gastric emptying study at this time given patient is on Reglan. Patient declining haloperidol. Discussed with patient that there is little benefit for IV morphine or Dilaudid at this time and will avoid giving in the future. Continue antiemetics and avoid narcotics. Outpatient follow-up for hiatal hernia. Continue home antihypertensives. Patient tolerating clear liquid diet and we will attempt to advance as tolerated. Anticipate discharge once oral intake is more improved. Patient updated on the plan and in agreement. All questions answered to satisfaction. Please see residents note for additional details and management. Dr. Shivani MD
[2025-04-24] MEDS: LORazepam 2 MG/ML VIAL IVP (18:51)
[2025-04-24] MEDS: ERYTHROMYCIN E-SUCC SUSP 200 MG/5 ML 250 MG PO (21:00)
[2025-04-25] VITALS: BP 142/89; PULSE 80; RESP 16; TEMP 36.6; O2SAT 95
[2025-04-25] MEDS: KETOROLAC INJ 30 MG/ML VIAL IVP ×2 (00:48→07:50)
[2025-04-25] MEDS: METOCLOPRAMIDE INJ 5 MG/ML VIAL 2 ML 10 MG IVP ×2 (02:00→07:50)
[2025-04-25] MEDS: LORazepam 2 MG/ML VIAL IVP (02:20)
[2025-04-25 04:00] VITALS: BP 150/95; PULSE 93; RESP 20; TEMP 36.9; O2SAT 95
[2025-04-25 05:13] VITALS: BMI 31.4
[2025-04-25 05:59] LABS: Basophils # (Auto) 0.1 Thou/mm3 (0.0-0.2); Basophils % (Auto) 1 % (0-2.5); Eosinophils # (Auto) 0.1 Thou/mm3 (0.0-0.5); Eosinophils % (Auto) 2 % (0-10); Hematocrit 35.7 % (36.0-46.0); Hemoglobin 10.9 g/dL (12.0-16.0); Immature Granulocytes Auto 0.03 Thou/mm3 (0.00-0.00); Lymphocytes # (Auto) 1.8 Thou/mm3 (1.0-4.8); Lymphocytes % (Auto) 26 % (10-50); Mean Corpuscular HGB Conc 30.5 g/dl (31.0-37.0); Mean Corpuscular Hemoglobin 21.2 pg (25.0-35.0); Mean Corpuscular Volume 70 fL (80-100); Monocytes # (Auto) 0.5 Thou/mm3 (0.0-0.8); Monocytes % (Auto) 7 % (0-12); Neutrophils # (Auto) 4.6 Thou/mm3 (1.8-7.7); Neutrophils % (Auto) 65 % (37-80); Nucleated Red Blood Cell # 0.00 Thou/mm3 (0.00-0.00); Nucleated Red Blood Cell % 0 /100 WBC (0); Platelet Count 432 Thou/mm3 (140-440); RDW Standard Deviation 42.7 fL (36.4-46.3); Red Blood Count 5.13 Miln/mm3 (4.00-5.20); White Blood Count 7.1 Thou/mm3 (3.6-11.0)
[2025-04-25 06:17] LABS: Alanine Aminotransferase 32 U/L (10-49); Albumin, Serum 5.1 gm/dL (3.5-5.0); Albumin/Globulin Ratio 2.3 (1.2-2.2); Alkaline Phosphatase 90 U/L (46-116); Anion Gap 12 (7-16); Aspartate Amino Transferase 21 U/L (0-34); BUN/Creatinine Ratio 13 Ratio (12-20); Bilirubin,Total 0.5 mg/dL (0.3-1.2); Blood Urea Nitrogen 9 mg/dL (9-23); Calcium 9.0 mg/dL (8.3-10.6); Calcium (Corrected) 9.0 mg/dL (8.5-10.1); Carbon Dioxide 22.9 mMol/L (20.0-31.0); Chloride 104 mMol/L (98-107); Creatinine (Component) 0.7 mg/dL (0.6-1.3); Estimated Creatinine Clearance 122.6 mL/min (>60); Globulin 2.2 gm/dL (2.3-3.5); Glucose 99 mg/dL (74-106); Osmolality,Calculated 276 (275-295); Phosphorous 2.9 mg/dL (2.4-5.1); Potassium 3.5 mMol/L (3.4-5.1); Sodium 139 mMol/L (136-145); Total Protein 7.3 gm/dL (5.7-8.2); eGFR > 60 See Note
[2025-04-25 06:54] VITALS: PULSE 90; RESP 18; RESP 94
[2025-04-25 07:00] VITALS: BP 133/86; PULSE 73; RESP 19; TEMP 36.3; O2SAT 95
[2025-04-25 08:00] VITALS: BP 133/86; PULSE 73; RESP 18; TEMP 36.3; O2SAT 95
[2025-04-25] MEDS: ENOXAPARIN SOD INJ 40 MG/0.4 ML SYRINGE SC (09:02)
--- NOTE | 2025-04-25 15:39 | PD.RESDS ---
Planned Discharge Date 04/25/25 DS: Providers Provider Date of admission: 04/24/25 05:26 Primary care physician: Physician No Primary/Family Admitting Provider: Ata Franco MD Attending Provider on Admission: Ata Franco MD Consults: 04/24/25 07:27 Referral Registered Dietitian Routine Comment: Attending Provider on DC: Sajan Bassett MD Discharging Provider: Clark Hoff MD DS: Diagnosis Problem List Completed Was Problem List Reviewed/Reconciled?: Yes Hospital Course Hospital Course Hospital course: 40-year-old female with a known history of peptic ulcer disease, gastritis, hiatal hernia, and gastroparesis. She was readmitted with recurrent nausea/vomiting, epigastric pain, and intractable nausea. The patient had been discharged on 04/19/2025 after an EGD showing esophagitis, gastritis, and retained food, with findings suggestive of gastroparesis and moderate hiatal hernia. Upon readmission on 04/24/2025, the patient reported continued nausea and epigastric pain, despite Reglan use at home. CT abdomen/pelvis was negative for obstruction, free air, and showed a moderate retrocardiac hiatal hernia. The patient was started on IV Reglan, erythromycin, and IV Protonix, with pain management using lorazepam and capsaicin cream. Her symptoms improved with toleration of clear liquids, and after trialing a regular diet for lunch, she has shown further improvement. She has been advised to follow up with tertiary care for gastroparesis and hiatal hernia management, including gastric emptying studies and possible surgical consultation. Her hemoglobin remained stable at 10.9. The patient denied opioid and marijuana use since her last admission but UTOX was positive and was educated on marijuana cessation. Diagnosed during admission: #Intractable nausea/vomiting #Gastroparesis #Esophagitis #Hypertensive urgency-resolved # Moderate Hiatal Hernia, recurrent symptomatic episodes (multiple ED visits + readmission) #Microcytic Anemia (Hgb 10.4, MCV 69) #Chronic Pain / Fibromyalgia #Substance Use, marijuana & opioids #Anxiety / Insomnia Discharge instructions: -Follow-up with PCP within 1 week of discharge. If you do not have appointment, please follow-up with the [facility] with Dr. May. Call [phone] to make an appointment. -Recommended to continue home medications -Recommended to stop consuming marijuana -Follow up on outpatient basis for Hiatal hernia in a [facility] -Return to ED if symptoms persist or return ----- Plan discussed with attending physician Dr. Serjio Hoff MD PGY-1 Internal Medicine Time Spent with Patient Time attestation: Total time spent providing and/or coordinating discharge services: Time spent: Greater than 30 minutes Exam Vital Signs Temp Pulse Resp BP Pulse Ox O2 Del Method 97.4 F 73 18 133/86 H 95 Room Air 04/25/25 08:00 04/25/25 08:00 04/25/25 08:00 04/25/25 08:00 04/25/25 08:00 04/25/25 08:00 Narrative Exam General: Alert and oriented x3. Distress from pain, cooperative HEENT: NCAT, No JVD noted. Mucosa moist. Pupils are equal and reactive to light bilaterally Cardiovascular: Normal S1 and S2. Regular rate and rhythm. Respiratory: Lungs are clear to auscultation bilaterally. No wheezing or crackles heard. Abdomen: Soft, tenderness epigastric area, no rebound or guarding, no distention, normal bowel sounds. Skin: Warm to touch, dry, no rashes noted Musculoskeletal: No gross injuries. Able to move all 4 extremities. No pitting edema Neuro: Alert and oriented x3. No focal neuro deficits. Psych: Normal affect and mood Discharge Plan Plan Patient Disposition: HOME (Self Care) Patient condition on transfer: Stable Care Plan Goals: -Follow-up with PCP within 1 week of discharge. If you do not have appointment, please follow-up with the [facility] with Dr. May. Call [phone] to make an appointment. -Recommended to continue home medications -Recommended to stop consuming marijuana -Follow up on outpatient basis for Hiatal hernia in a [facility] -Return to ED if symptoms persist or return Prescriptions/Referrals Prescriptions/Med Rec: Continued fluoxetine 20 mg Capsule 20 mg PO QDAY lorazepam 1 mg tablet 1 mg PO DAILY PRN (Reason: anxiety) Patient Comments: TAKE 1 TABLET BY MOUTH THREE TIMES A DAY NEEDED FOR ANXIETY pregabalin 75 mg capsule 75 mg PO TID Patient Comments: TAKE 1 CAPSULE BY MOUTH THREE TIMES A DAY fluoxetine 20 mg tablet 20 mg PO .once Patient Comments: TAKE 1 TABLET BY MOUTH EVERY DAY pantoprazole 40 mg tablet,delayed release (DR/EC) 40 mg PO Q12H Patient Comments: TAKE 1 TABLET BY MOUTH EVERY DAY cyclobenzaprine 5 mg tablet 5 mg PO TID PRN (Reason: muscle relaxation) Patient Comments: TAKE 1 TABLET BY MOUTH 3 TIMES A DAY NEEDED MUSCLE RELAXATION amitriptyline 10 mg tablet 30 mg PO HS Patient Comments: TAKE 3 TABLETS BY MOUTH EVERY DAY quetiapine 100 mg tablet 100 mg PO HS Patient Comments: TAKE 1 TABLET(S) ORALLY 1 TIME AT NIGHT metoclopramide HCl [Reglan] 10 mg tablet 10 mg PO Q6H PRN (Reason: nausea and vomiting) Qty: 30 0RF Referrals: No Primary/Family,Physician [Primary Care Provider] Patient/Caregiver Discharge Instructions Education Materials: Gastroparesis, Self-Care for Vomiting and Diarrhea, Understanding Anxiety Disorders, Treating Anxiety Disorders ... Print Language: Monegasque Stand Alone Forms: Patti Award Info., Patient Portal Info Letter, Work/Release Restrictions Discharge Order Discharge Orders: Discharge (Routine); Ordered 04/25/25 Ordered By: Randolph May Quality Discharge Quality Measures VTE prophylaxis MD Attestestation MD Attestation I have discussed and was present for the essential components of the discharge history, physical examination, diagnosis, and discharge treatment plan with the resident. I agree with the patient's discharge care as documented by the resident and amended herein by me. Mina Bassett DO. The patient understood all discharge instructions, all questions were answered satisfactorily. The patient was instructed to return to the Emergency Department is symptoms worsened or persisted. Patient feels significantly better at time of discharge home, did auto travel counselor the patient on the necessity for marijuana cessation as we think there may be a component of cyclic vomiting syndrome, Reglan previously prescribed, patient felt well, wanted to go home today, she was stable, afebrile, tolerant p.o. intake and ambulatory at time of discharge home. Although this document has been carefully reviewed, there may still be some phonetic and other typographical errors. These errors are purely grammatical due to imperfections in the software program and should not be construed in any way to compromise the substance of the patient's medical care during this visit.
== END 2025-04-25 11:55 | disposition home or self-care (01) ==
LOC: SERX 05:01 → SERHOLD 05:48 → S3NX 06:31
PROVIDERS: Admitting Provider Student in an Organized Health Care Education/Training Program; Emergency Provider Emergency Medicine; Visit Provider Student in an Organized Health Care Education/Training Program
DX: K31.84 Gastroparesis (principal); K20.90 Esophagitis, unspecified without bleeding; I16.0 Hypertensive urgency; K44.9 Diaphragmatic hernia without obstruction or gangrene; D50.9 Iron deficiency anemia, unspecified; M79.7 Fibromyalgia; F41.9 Anxiety disorder, unspecified; G47.00 Insomnia, unspecified; F12.90 Cannabis use, unspecified, uncomplicated; Z87.11 Personal history of peptic ulcer disease; Z87.19 Personal history of other diseases of the digestive system
CPT/HCPCS: 36415; 80053; 80307; 83690; 83735; 84100; 84702; 85025; 87081; 96361; 96372; 96374; 96375; 96376; 99283; G0378; J1200; J1630; J1650; J1885; J2060; J2270; J2470; J2765; J7030; J7120; A9270

== ENCOUNTER 2025-05-03 18:56 | Inpatient (IN) | payer MEDICAID, SELFPAY ==
[2025-05-03] VITALS (7 sets, daily range): BP systolic 116–122; BP diastolic 71–85; PULSE 103–130; RESP 18–23; TEMP 37–37.7; O2SAT 94–98; BMI 31.3
--- NOTE | 2025-05-03 19:22 | PD.EDGIBLD ---
ED GI Bleed RME/HPI General Chief complaint: GI Bleed Stated complaint: GI BLEED Time Seen by Provider: 05/03/25 19:22 Arrival date/time: 05/03/25 18:56 RME / HPI RME / HPI Narrative: See [facility] for Dr. Artis's HPI Documentation. Related Data Home Medications ?Medication ?Instructions ?Recorded ?Confirmed fluoxetine 20 mg capsule 20 mg PO QDAY 02/05/23 05/04/25 cyclobenzaprine 5 mg tablet 5 mg PO TID PRN muscle relaxation 07/14/24 05/04/25 amitriptyline 10 mg tablet 30 mg PO HS 12/14/24 05/04/25 quetiapine 100 mg tablet 100 mg PO HS 12/14/24 05/04/25 lorazepam 1 mg tablet 1 mg PO DAILY PRN anxiety 04/18/25 05/04/25 fluoxetine 20 mg tablet 20 mg PO .once 04/24/25 05/04/25 pantoprazole 40 mg tablet,delayed 40 mg PO Q12H 04/24/25 05/04/25 release pregabalin 75 mg capsule 75 mg PO TID 04/24/25 05/04/25 ondansetron HCl 4 mg tablet 4 mg PO TID PRN nausea and vomiting 05/04/25 05/04/25 Allergies Allergy/AdvReac Type Severity Reaction Status Date / Time No Known Allergies Allergy Verified 05/03/25 19:03 Review of Systems Review of Systems Systems Reviewed: All systems reviewed, normal except as documented Past Medical History Past Medical History CARDIAC: Positive Cardiac Disorders, Hypercholesterolemia and Varicose Veins GASTROINTESTINAL: Positive Gastrointestinal Disorders, Pancreatitis, Hiatal Hernia and Obesity MUSCULOSKELETAL: Positive Musculoskeletal Disorders, Arthritis, Degenerative Disk Disease and Fibromyalgia PSYCHO/SOCIAL: Positive Psychiatric Problems, Recreational Drug Use, Bipolar Disorder, Depression, Anxiety and Depression OTHER HISTORY: Positive Hospitalization and Chicken Pox Family History FAMILY HISTORY: Positive Family Cardiac Disorders, Family Cancer and Family Surgery Social History SMOKING STATUS: Current some day smoker SUBSTANCE USE: crack/cocaine ED Exam Narrative Physical exam: See [facility] for Dr. Artis's Physical Exam Documentation. Course Quality Measures none Orders Category Date Time Status Admit to Inpatient Status Routine Admission 05/03/25 23:11 Active Patient Condition Routine Admission 05/03/25 23:11 Ordered Activity as Tolerated Routine Care 05/03/25 23:12 Ordered Continuous Pulse Oximetry NOW Care 05/03/25 23:10 Completed EKG (ED ONLY) *Do not use* NOW Care 05/03/25 20:06 Completed Endoscopy Consents .On arrival Care 05/03/25 20:48 Active Incentive Spirometry Treatment .q2h w/a Care 05/03/25 23:10 Completed May take PO meds w/sips of H2O NEEDED Care 05/03/25 23:10 Active Miscellaneous Nursing Order NOW Care 05/03/25 23:14 Active NPO after Midnight ONCE Care 05/03/25 19:48 Active NPO after Midnight ONCE Care 05/03/25 20:49 Active Notify provider NEEDED Care 05/03/25 23:11 Active Saline [Insert IV] NOW Care 05/03/25 19:24 Active Sequential Compression Device QSHIFT Care 05/03/25 23:10 Active Consult to Gastroenterology Stat Cons 05/03/25 19:48 Ordered Diet NPO after Midnight Diet 05/04/25 00:01 Active Diet NPO after Midnight Diet 05/04/25 00:01 Completed EKG (ED Only) Stat Exams 05/03/25 20:06 Draft US gall bladder Stat Exams 05/03/25 19:26 Completed XR chest 1V portable Stat Exams 05/03/25 20:06 Completed ABG [Arterial Blood Gas] Stat Lab 05/03/25 19:58 Completed Alcohol, Blood Medical Stat Lab 05/03/25 19:40 Completed Ammonia Stat Lab 05/03/25 19:48 Completed Amylase Stat Lab 05/03/25 19:40 Completed BNP [B-Type Natriuretic Peptide] Stat Lab 05/03/25 19:48 Completed Beta Hydroxybutyrate Stat Lab 05/03/25 19:40 Completed Bilirubin,Direct Stat Lab 05/03/25 19:40 Completed Blood Culture (Lab) Stat Lab 05/03/25 19:45 Results CBC AM DRAW Lab 05/04/25 03:23 Completed CBC AM DRAW Lab 05/05/25 05:00 Ordered CBC AM DRAW Lab 05/06/25 05:00 Ordered CBC AM DRAW Lab 05/07/25 05:00 Ordered CBC AM DRAW Lab 05/08/25 05:00 Ordered CBC AM DRAW Lab 05/09/25 05:00 Ordered CBC AM DRAW Lab 05/10/25 05:00 Ordered CBC AM DRAW Lab 05/11/25 05:00 Ordered CBC AM DRAW Lab 05/12/25 05:00 Ordered CBC AM DRAW Lab 05/13/25 05:00 Ordered CBC Stat Lab 05/03/25 19:40 Completed CMP [Comprehensive Metabolic Panel] AM DRAW Lab 05/04/25 03:23 Completed CMP [Comprehensive Metabolic Panel] AM DRAW Lab 05/05/25 05:00 Ordered CMP [Comprehensive Metabolic Panel] AM DRAW Lab 05/06/25 05:00 Ordered CMP [Comprehensive Metabolic Panel] AM DRAW Lab 05/07/25 05:00 Ordered CMP [Comprehensive Metabolic Panel] AM DRAW Lab 05/08/25 05:00 Ordered CMP [Comprehensive Metabolic Panel] AM DRAW Lab 05/09/25 05:00 Ordered CMP [Comprehensive Metabolic Panel] AM DRAW Lab 05/10/25 05:00 Ordered CMP [Comprehensive Metabolic Panel] AM DRAW Lab 05/11/25 05:00 Ordered CMP [Comprehensive Metabolic Panel] AM DRAW Lab 05/12/25 05:00 Ordered CMP [Comprehensive Metabolic Panel] AM DRAW Lab 05/13/25 05:00 Ordered CMP [Comprehensive Metabolic Panel] Stat Lab 05/03/25 19:40 Completed CRP [C-Reactive Protein] Stat Lab 05/03/25 19:40 Completed D-Dimer Stat Lab 05/03/25 19:40 Completed Drug Screen,Urine Stat Lab 05/04/25 02:15 Completed ESR [Sed Rate (ESR)] Stat Lab 05/03/25 19:40 Completed HCG,Qualitative Serum Stat Lab 05/03/25 19:40 Completed Hemoglobin A1C [Glycohemoglobin w (eAG)] Stat Lab 05/03/25 19:40 Completed Hemoglobin and Hematocrit Stat Lab 05/03/25 21:11 Completed Lactate (Lactic Acid) Stat Lab 05/03/25 19:48 Completed Lactic Acid, 3 HR Stat Lab 05/03/25 23:05 Completed Lipase Stat Lab 05/03/25 19:40 Completed Mag [Magnesium] AM DRAW Lab 05/04/25 03:23 Completed Mag [Magnesium] AM DRAW Lab 05/05/25 05:00 Ordered Mag [Magnesium] AM DRAW Lab 05/06/25 05:00 Ordered Mag [Magnesium] AM DRAW Lab 05/07/25 05:00 Ordered Mag [Magnesium] AM DRAW Lab 05/08/25 05:00 Ordered Mag [Magnesium] AM DRAW Lab 05/09/25 05:00 Ordered Mag [Magnesium] AM DRAW Lab 05/10/25 05:00 Ordered Mag [Magnesium] AM DRAW Lab 05/11/25 05:00 Ordered Mag [Magnesium] AM DRAW Lab 05/12/25 05:00 Ordered Mag [Magnesium] AM DRAW Lab 05/13/25 05:00 Ordered Magnesium Stat Lab 05/03/25 19:40 Completed PT [Prothrombin Time with INR] Stat Lab 05/03/25 19:40 Completed PTT [Partial Thromboplastin Time] Stat Lab 05/03/25 19:40 Completed Path Review Blood Smear Stat Lab 05/03/25 19:40 Completed Phosphorous AM DRAW Lab 05/04/25 03:23 Completed Phosphorous AM DRAW Lab 05/05/25 05:00 Ordered Phosphorous AM DRAW Lab 05/06/25 05:00 Ordered Phosphorous AM DRAW Lab 05/07/25 05:00 Ordered Phosphorous AM DRAW Lab 05/08/25 05:00 Ordered Phosphorous AM DRAW Lab 05/09/25 05:00 Ordered Phosphorous AM DRAW Lab 05/10/25 05:00 Ordered Phosphorous AM DRAW Lab 05/11/25 05:00 Ordered Phosphorous AM DRAW Lab 05/12/25 05:00 Ordered Phosphorous AM DRAW Lab 05/13/25 05:00 Ordered Procalcitonin Stat Lab 05/03/25 19:40 Completed TSH [Thyroid Stimulating Hormone] Stat Lab 05/03/25 19:40 Completed Troponin I Stat Lab 05/03/25 19:40 Completed Troponin I Stat Lab 05/03/25 21:11 Completed Type and Screen Stat Lab 05/03/25 19:40 Completed UA, C/S IF [Urinalysis, C/S if Indicated] Stat Lab 05/04/25 02:15 Completed Acetaminophen Tab [Tylenol Tab] Med 05/03/25 23:10 Active 650 mg PO Q6H PRN Docusate Sod [Colace] Med 05/04/25 09:00 Active 100 mg PO QDAY Famotidine Inj [Pepcid Inj] Med 05/03/25 19:25 Discontinued 20 mg IVP X1 ONE HYDROcodone*/APAP 5/325 [[place] 5/325] Med 05/03/25 23:10 Active 1 tab PO Q4HR PRN HYDROmorphone INJ [Dilaudid Inj] Med 05/03/25 20:40 Discontinued 1 mg IVP X1 ONE Levofloxacin/D5w 500 mg Ivpb [Levaquin Ivpb] Med 05/03/25 21:38 Discontinued 500 mg in 100 ml IV X1 Magnesium Sulfate 2 GM Ivpb [Magnesium Sulfate Ivpb] Med 05/03/25 20:41 Discontinued 2 gm in 50 ml IV X1 Morphine* Inj Med 05/03/25 23:10 Active 1 mg IVP Q4HR PRN Morphine* Inj Med 05/03/25 19:24 Discontinued 4 mg IV X1 ONE Ondansetron Inj [Zofran Inj] Med 05/03/25 23:10 Active 4 mg IVP Q6H PRN Ondansetron Inj [Zofran Inj] Med 05/03/25 19:24 Discontinued 4 mg IVP X1 ONE Ondansetron Inj [Zofran Inj] Med 05/03/25 20:40 Discontinued 4 mg IVP X1 ONE Pantoprazole Inj [Protonix Inj] Med 05/04/25 09:00 Active 40 mg IVP Q12HR Pantoprazole Inj [Protonix Inj] Med 05/03/25 19:25 Discontinued 80 mg IVP X1 ONE Ringers Lactated 1000 ml [Lactated Ringers] 1,000 ml Med 05/03/25 20:40 Discontinued IV 1,000 mls/hr Ringers Lactated 1000 ml [Lactated Ringers] 1,000 ml Med 05/03/25 23:15 Hold IV 75 mls/hr Sodium Chloride 0.9% 1000 ml [Ns] 1,000 ml Med 05/03/25 19:24 Discontinued IV 999 mls/hr Code Status Routine Oth 05/03/25 23:10 Ordered Oxygen Delivery DAILY RT 05/03/25 23:12 Active Vital Signs Vital signs: Vital Signs Temperature 98.6 F 05/03/25 19:03 Pulse Rate 130 H 05/03/25 19:03 Respiratory Rate 18 05/03/25 19:03 Blood Pressure 118/81 05/03/25 19:03 Pulse Oximetry (%) 95 05/03/25 19:03 Oxygen Delivery Method Room Air 05/03/25 19:03 GI Bleed MDM Narrative MDM Narrative:: This section includes all my notes and documentations, including HPI, PE, and ED course. Luis Artis MD HPI: 40 y/o female with Hx of Esophagitis, GI Bleed, and Pancreatitis BIBA from home with over 20 episodes of coffee-ground emesis and similar episodes of tarry stools in the past 24 hours. Reports worsening fatigue and malaise. No other complaints. ROS: All negative except as documented in HPI. Physical Exam: General: Alert and oriented. Appearance of malaise noted. Eyes: Conjunctivae and lids clear. ENT: No nasal congestion. Neck: Supple. Heart: RRR. Lungs: No respiratory distress. Good air movement. No rhonchi, wheezing, rales. Abdomen: Soft with equivocal tenderness, difficult to localize. Normal bowel sounds. No distension. No rebound or guarding. Back: No CVA tenderness. Skin: Warm and dry. Neuro: Alert and oriented X 3. I reviewed EMS notes. I reviewed all diagnostic test results: My interpretation of the EKG is: Sinus tachycardia (109 bpm) with nonspecific ST-T changes. My interpretation of the chest x-ray is infiltrates. My review of the Gall Bladder US report is NAD. My review of the abdominal CT report is right lung pneumonia. Blood tests and urine tests remarkable for WBC 12.4, D-dimer 1550, lactic acid 3.6, Mg 1.2, troponin 0.130, CRP 16.16, and procalcitonin 46.18. At this point, diagnoses include: GI Bleed Elevated Troponin Pneumonia Hypomagnesemia Treatment here from me included: IVF Zofran 4 mg IV Morphine 4 mg IV Famotidine 20 mg IV Protonix 80 mg IV No significant improvement noted. I discussed the case with our GI, Dr. Meraz, and our hospitalist team. About the presentation and exam and diagnostics and treatments here. And need of further care in the hospital. Agreed to accept the patient. Luis Artis MD Patient data External records reviewed:: [facility] previous records (Reviewed prior ED records from 04/24/25. Patient was seen for Esophagitis.) and EMS form Clinical information provided by:: patient and EMS Social determinants that could affect healthcare access:: substance use Patient has the following chronic illnesses:: Hypercholesterolemia, Varicose Veins, GI Bleed, Pancreatitis, Hiatal Hernia, Obesity, Arthritis, Degenerative Disk Disease, Fibromyalgia, Recreational Drug Use, Bipolar Disorder, Depression, Anxiety How is presenting disease/condition affected by chronic disease/condition?: exacerbated by Evaluation data The following diagnostics were reviewed and interpreted by me:: lab results, radiology exam(s) and EKG tracing(s) (My interpretation of the EKG is: Sinus tachycardia (109 bpm) with nonspecific ST-T changes. Luis Artis MD) Lab and/or radiology exams considered but not ordered:: None Interpretation Summary: I reviewed all diagnostic test results: My interpretation of the EKG is: Sinus tachycardia (109 bpm) with nonspecific ST-T changes. My interpretation of the chest x-ray is infiltrates. My review of the Gall Bladder US report is NAD. My review of the abdominal CT report is right lung pneumonia. Blood tests and urine tests remarkable for WBC 12.4, D-dimer 1550, lactic acid 3.6, Mg 1.2, troponin 0.130, CRP 16.16, and procalcitonin 46.18. Medications / Prescriptions Medications or Prescriptions considered but not ordered:: None Medication administrations:: Medication Administration History Acetaminophen (Acetaminophen 325 Mg Tablet) 650 mg PO Q6H PRN PRN Reason: Fever >100.4 or pain 1-3 Stop: 06/02/25 23:09 Hydrocodone Bitart/Acetaminophen (Hydrocodone/Apap 5/325 Tablet) 1 tab PO Q4HR PRN PRN Reason: PAIN SCALE 4-6 (Moderate Stop: 05/08/25 23:09 Last Admin: 05/04/25 19:42 Dose: 1 tab Documented By: Admin: 05/04/25 06:02 Dose: 1 tab Documented By: SS Albuterol/Ipratropium (Albuterol/Ipratropium (Duoneb) Rt Lian 3 Ml Nebu) 3 ml INH Q4HRRT CHRISTINA Stop: 06/03/25 02:59 Last Admin: 05/04/25 19:01 Dose: 3 ml Documented By: Admin: 05/04/25 15:01 Dose: 3 ml Documented By: Admin: 05/04/25 10:45 Dose: 3 ml Documented By: Admin: 05/04/25 06:21 Dose: 3 ml Documented By: Admin: 05/04/25 02:39 Dose: 3 ml Documented By: PAR Alprazolam (Alprazolam 0.25 Mg Tablet) 0.25 mg PO BID PRN PRN Reason: ANXIETY Stop: 05/09/25 12:04 Last Admin: 05/04/25 12:13 Dose: 0.25 mg Documented By: Azithromycin (Azithromycin 250 Mg Tablet) 500 mg PO [facility]; Protocol Stop: 05/07/25 21:01 Budesonide (Budesonide Rt 0.25 Mg/2 Ml Nebu) 0.25 mg INH QDAY [facility] Stop: 06/03/25 08:59 Last Admin: 05/04/25 10:45 Dose: 0.25 mg Documented By: ANDREW Cyclobenzaprine HCl (Cyclobenzaprine 5 Mg Tablet) 5 mg PO [facility] Stop: 06/03/25 20:59 Docusate Sodium (Docusate Sod 100 Mg Capsule) 100 mg PO QDAY [facility]; Protocol Stop: 06/03/25 08:59 Last Admin: 05/04/25 08:49 Dose: Not Given Documented By: Non-Admin Reason: NPO Fluoxetine HCl (Fluoxetine Hcl 10 Mg Capsule) 20 mg PO [facility] Stop: 06/03/25 20:59 Guaifenesin/Dextromethorphan (Guaifenesin/Dm Tablet) 1 each PO BID PRN PRN Reason: COUGH Stop: 06/03/25 11:38 Last Admin: 05/04/25 12:13 Dose: 1 each Documented By: Lactated Ringer's (Lactated Ringers) 1,000 mls @ 75 mls/hr IV .[id number] CHRISTINA On Hold: 05/04/25 09:58 Stop: 06/02/25 23:14 Last Admin: 05/03/25 23:34 Dose: 75 mls/hr Documented By: SOULEYMANE Ceftriaxone Sodium/Dextrose (Rocephin/D5w 1gm Iv Premix) 1 gm in 50 mls @ 100 mls/hr IV QDAY CHRISTINA Stop: 05/10/25 23:14 Last Admin: 05/04/25 08:47 Dose: 100 mls/hr Documented By: Infusion: 05/04/25 00:06 Dose: Infused Documented By: Admin: 05/03/25 23:36 Dose: 100 mls/hr Documented By: SOULEYMANE Morphine Sulfate (Morphine Sulf Inj 4 Mg/Ml Vial) 1 mg IVP Q4HR PRN PRN Reason: PAIN SCALE 7-10 (Severe Stop: 05/08/25 23:09 Last Admin: 05/04/25 17:59 Dose: 1 mg Documented By: Admin: 05/04/25 13:20 Dose: 1 mg Documented By: Admin: 05/04/25 09:15 Dose: 1 mg Documented By: Admin: 05/04/25 03:52 Dose: 1 mg Documented By: Admin: 05/03/25 23:32 Dose: 1 mg Documented By: SOULEYMANE Ondansetron HCl (Ondansetron Inj 2 Mg/Ml Inj 2 Ml) 4 mg IVP Q6H PRN; Protocol PRN Reason: NAUSEA OR VOMITING Stop: 06/02/25 23:09 Last Admin: 05/04/25 19:42 Dose: 4 mg Documented By: Admin: 05/04/25 06:02 Dose: 4 mg Documented By: Admin: 05/03/25 23:32 Dose: 4 mg Documented By: SOULEYMANE Pantoprazole Sodium (Pantoprazole Inj 40 Mg Vial) 40 mg IVP Q12HR CHRISTINA Stop: 06/03/25 08:59 Last Admin: 05/04/25 08:50 Dose: 40 mg Documented By: Pregabalin (Pregabalin 75 Mg Capsule) 75 mg PO TID CHRISTINA Stop: 06/03/25 13:59 Last Admin: 05/04/25 13:36 Dose: 75 mg Documented By: Discontinued Medications Amitriptyline HCl (Amitriptyline Hcl 25 Mg Tablet) 30 mg PO HS CHRISTINA Stop: 06/03/25 20:59 Famotidine (Famotidine Inj 10 Mg/Ml Vial 2 Ml) 20 mg IVP X1 ONE Stop: 05/03/25 19:26 Last Admin: 05/03/25 19:34 Dose: 20 mg Documented By: SOULEYMANE Hydromorphone HCl (Hydromorphone Inj 2 Mg/Ml Vial) 1 mg IVP X1 ONE Stop: 05/03/25 20:41 Last Admin: 05/03/25 21:03 Dose: 1 mg Documented By: Sodium Chloride (Ns) 1,000 mls @ 999 mls/hr IV .Q1H1M ONE Stop: 05/03/25 20:24 Last Infusion: 05/03/25 20:40 Dose: Infused Documented By: Admin: 05/03/25 19:32 Dose: 999 mls/hr Documented By: SOULEYMANE Lactated Ringer's (Lactated Ringers) 1,000 mls @ 1,000 mls/hr IV .Q1H ONE Stop: 05/03/25 21:39 Last Infusion: 05/03/25 22:20 Dose: Infused Documented By: Admin: 05/03/25 21:09 Dose: 1,000 mls/hr Documented By: Magnesium Sulfate (Magnesium Sulfate Ivpb) 2 gm in 50 mls @ 25 mls/hr IV X1 ONE Stop: 05/03/25 22:40 Last Infusion: 05/03/25 23:10 Dose: Infused Documented By: Admin: 05/03/25 21:10 Dose: 25 mls/hr Documented By: Levofloxacin/Dextrose (Levaquin Ivpb) 500 mg in 100 mls @ 100 mls/hr IV X1 ONE Stop: 05/03/25 22:37 Last Infusion: 05/03/25 23:34 Dose: Infused Documented By: Admin: 05/03/25 22:34 Dose: 100 mls/hr Documented By: Azithromycin 500 mg/ Sodium (Chloride) 250 mls @ 250 mls/hr IV QDAY CHRISTINA Stop: 05/10/25 23:15 Last Admin: 05/04/25 10:07 Dose: Not Given Documented By: Non-Admin Reason: Discontinued Admin: 05/04/25 00:48 Dose: 250 mls/hr Documented By: VICKI Magnesium Sulfate (Magnesium Sulfate Ivpb) 2 gm in 50 mls @ 25 mls/hr IV X1 ONE Stop: 05/04/25 01:21 Last Admin: 05/03/25 23:40 Dose: 25 mls/hr Documented By: SOULEYMANE Lactated Ringer's (Lactated Ringers) 1,000 mls @ 999 mls/hr IV .Q1H1M ONE Stop: 05/04/25 04:45 Last Admin: 05/04/25 03:58 Dose: 999 mls/hr Documented By: VICKI Lorazepam (Lorazepam 2 Mg/Ml Vial) 1 mg IVP X1 ONE Stop: 05/04/25 19:43 Last Admin: 05/04/25 19:50 Dose: 1 mg Documented By: GLADIS Morphine Sulfate (Morphine Sulf Inj 4 Mg/Ml Vial) 4 mg IV X1 ONE Stop: 05/03/25 19:25 Last Admin: 05/03/25 19:33 Dose: 4 mg Documented By: DT Ondansetron HCl (Ondansetron Inj 2 Mg/Ml Inj 2 Ml) 4 mg IVP X1 ONE; Protocol Stop: 05/03/25 19:25 Last Admin: 05/03/25 19:33 Dose: 4 mg Documented By: DT Ondansetron HCl (Ondansetron Inj 2 Mg/Ml Inj 2 Ml) 4 mg IVP X1 ONE; Protocol Stop: 05/03/25 20:41 Last Admin: 05/03/25 21:07 Dose: 4 mg Documented By: SE Pantoprazole Sodium (Pantoprazole Inj 40 Mg Vial) 80 mg IVP X1 ONE Stop: 05/03/25 19:26 Last Admin: 05/03/25 19:37 Dose: 80 mg Documented By: DT Pregabalin (Pregabalin 75 Mg Capsule) 75 mg PO HS CHRISTINA Stop: 06/03/25 20:59 Quetiapine Fumarate (Quetiapine Fumarate 100 Mg Tablet) 100 mg PO HS CHRISTINA Stop: 06/03/25 20:59 Sodium Chloride (Sodium Chloride Rt 10% 15 Ml Nebu) 5 ml INH X1 ONE Stop: 05/04/25 01:15 Treatment here from me included: IVF Zofran 4 mg IV Morphine 4 mg IV Famotidine 20 mg IV Protonix 80 mg IV Consultations Consultation(s) initiated? (list below): Yes Consultation #1 (Physician, Specialty, Details): I discussed the case with our GI, Dr. Meraz, and our hospitalist team. About the presentation and exam and diagnostics and treatments here. And need of further care in the hospital. Agreed to accept the patient. Diagnosis GI bleed differential diagnosis: hemorrhoids, infectious diarrhea, esophageal varices, gastritis, Chely-Allen syndrome, Upper gastrointestinal hemorrhage, Lower gastrointestinal hemorrhage, hematochezia, melena and anal fissure Most likely diagnosis given after review of the tests above:: GI Bleed Elevated Troponin Pneumonia Hypomagnesemia Admission Indicated Admission indicated?: indicated Explain why admission is indicated or not indicated:: GI Bleed Elevated Troponin Admission Request Was there a request for admission?: Yes Admission Attestation Admission request attestation: Discussed case with Hospitalist service regarding admission. Discussed patients ED course, exam findings, labs, and radiology results. Agreed to accept the patient for admission. Disposition Plan Disposition Plan: Admit Critical Care Time Critical Care Time Critical Care Time: Yes Total Critical Care Time (min.): 36 Attestation: Due to a high probability of clinically significant, life threatening deterioration, the patient required my highest level of preparedness to intervene emergently and I personally spent this critical care time directly and personally managing the patient. This critical care time included obtaining a history; examining the patient; ordering and review of studies; arranging urgent treatment with development of a management plan; evaluation of patient's response to treatment; frequent reassessment; and discussions with family and other providers. It was exclusive of separately billable procedures and treating other patients and teaching time. Luis Artis MD Discharge Plan Plan Patient Disposition: Admit Acute Care w/in Hospital Problem List Clinical Impression: GI bleed, Elevated troponin, Pneumonia, Hypomagnesemia
--- NOTE | 2025-05-03 19:26 | XR_ITS ---
Examination: Abdomen sonogram, Limited Date and time of exam: May 03, 2025, 2003 hours INDICATIONS: Blood in the stool coughing blood abdominal pain 1 month Technique: Real-time kennedy scale transabdominal sonographic images of the upper abdomen obtained. Findings: Normal gallbladder Normal common bile duct 0.3 cm Pancreatic head 3.4 cm Liver 20.8 cm fatty infiltration lobular contour Normal hepatopetal portal venous flow Patent IVC IMPRESSION: Normal gallbladder Moderate hepatomegaly, suspect primary hepatocellular disease
[2025-05-03] MEDS: SODIUM CHLORIDE 0.9% 1000 ML 1,000 ML 999 ML IV (19:32)
[2025-05-03] MEDS: ONDANSETRON INJ 2 MG/ML INJ 2 ML 4 MG IVP ×3 (19:33→23:32)
[2025-05-03] MEDS: MORPHINE SULF INJ 4 MG/ML VIAL IV (19:33)
[2025-05-03] MEDS: FAMOTIDINE INJ 10 MG/ML VIAL 2 ML 20 MG IVP (19:34)
[2025-05-03 19:51] LABS: Lactate (Lactic Acid) 3.6 mMol/L (0.4-2.0)
[2025-05-03 19:52] LABS: Basophils # (Auto) 0.0 Thou/mm3 (0.0-0.2); Basophils % (Auto) 0 % (0-2.5); Eosinophils # (Auto) 0.0 Thou/mm3 (0.0-0.5); Eosinophils % (Auto) 0 % (0-10); Hematocrit 33.3 % (36.0-46.0); Hemoglobin 10.3 g/dL (12.0-16.0); Immature Granulocytes Auto 0.05 Thou/mm3 (0.00-0.00); Lymphocytes # (Auto) 0.7 Thou/mm3 (1.0-4.8); Lymphocytes % (Auto) 6 % (10-50); Mean Corpuscular HGB Conc 30.9 g/dl (31.0-37.0); Mean Corpuscular Hemoglobin 21.1 pg (25.0-35.0); Mean Corpuscular Volume 68 fL (80-100); Monocytes # (Auto) 0.9 Thou/mm3 (0.0-0.8); Monocytes % (Auto) 8 % (0-12); Neutrophils # (Auto) 10.7 Thou/mm3 (1.8-7.7); Neutrophils % (Auto) 86 % (37-80); Nucleated Red Blood Cell # 0.00 Thou/mm3 (0.00-0.00); Nucleated Red Blood Cell % 0 /100 WBC (0); Platelet Count 321 Thou/mm3 (140-440); RDW Standard Deviation 42.5 fL (36.4-46.3); Red Blood Count 4.87 Miln/mm3 (4.00-5.20); White Blood Count 12.4 Thou/mm3 (3.6-11.0)
[2025-05-03 19:53] LABS: Beta Hydroxybutyrate 0.1 mmol/L (<0.6)
[2025-05-03 20:02] LABS: Base Excess -1 (-3-3); HCO3 23 mEq/L (20-26); Inspired O2, VO2 Liters 3 L/min; O2 Saturation 93 % (91-98); PCO2 33 mmHg (32.0-48.0); PO2 61 mmHg (83-108); pH, Arterial 7.45 (7.35-7.45)
[2025-05-03 20:03] LABS: Allen Test Performed/OK; Puncture Site Left Radial
[2025-05-03 20:06] LABS: HCG,Qualitative Serum Negative
--- NOTE | 2025-05-03 20:06 | XR_ITS ---
EXAMINATION: AP chest single view TECHNIQUE: AP portable upright chest single view Date and time: May 03, 20252027 hours INDICATIONS: Shortness of breath today. FINDINGS: Severe diffuse right lung pneumonia Normal heart size Moderate osteopenia IMPRESSION: Severe diffuse right lung pneumonia
--- NOTE | 2025-05-03 20:06 | EKG_ITS ---
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
[2025-05-03 20:07] LABS: INR 1.1 (0.9-1.3); Partial Thromboplastin Time 29.9 Seconds (22.0-36.0); Prothrombin Time 11.9 Seconds (9.0-12.2)
[2025-05-03 20:10] LABS: B-Type Natriuretic Peptide 244 pg/mL (0-100)
[2025-05-03 20:10] LABS: Sed Rate (ESR) 37 mm/hr (0-20)
[2025-05-03 20:15] LABS: Ammonia 18 uMol/L (11-32)
[2025-05-03 20:22] LABS: Path Review Blood Smear Sent to Pathologist
[2025-05-03 20:25] LABS: D-Dimer 1550 ng/mL (<600)
[2025-05-03 20:28] LABS: Glucose Estimated Average 126 mg/dL (80-131); Hemoglobin A1C 6.0 % Hgb (4.8-6.0)
[2025-05-03 20:34] LABS: Alanine Aminotransferase 33 U/L (10-49); Albumin, Serum 4.3 gm/dL (3.5-5.0); Albumin/Globulin Ratio 1.9 (1.2-2.2); Alcohol, Blood Medical < 3.0 mg/dL (0-10.0); Alkaline Phosphatase 70 U/L (46-116); Amylase < 20 U/L (30-118); Anion Gap 14 (7-16); Aspartate Amino Transferase 34 U/L (0-34); BUN/Creatinine Ratio 24 Ratio (12-20); Bilirubin,Direct 0.2 mg/dL (0.0-0.3); Bilirubin,Total 0.5 mg/dL (0.3-1.2); Blood Urea Nitrogen 17 mg/dL (9-23); Calcium 9.4 mg/dL (8.3-10.6); Calcium (Corrected) 9.4 mg/dL (8.5-10.1); Carbon Dioxide 21.8 mMol/L (20.0-31.0); Chloride 102 mMol/L (98-107); Creatinine (Component) 0.7 mg/dL (0.6-1.3); Estimated Creatinine Clearance 122.3 mL/min (>60); Globulin 2.3 gm/dL (2.3-3.5); Glucose 128 mg/dL (74-106); Lipase 25 U/L (12-53); Magnesium 1.2 mg/dL (1.6-2.6); Osmolality,Calculated 279 (275-295); Potassium 3.4 mMol/L (3.4-5.1); Procalcitonin 46.18 ng/ml (0.0-0.49); Sodium 138 mMol/L (136-145); Thyroid Stimulating Hormone 1.94 uIU/mL (0.55-4.78); Total Protein 6.6 gm/dL (5.7-8.2); eGFR > 60 See Note
[2025-05-03 20:37] LABS: Troponin I 0.130 ng/mL (0.0-0.045)
[2025-05-03 20:44] LABS: C-Reactive Protein 16.6 mg/dL (0.0-0.9)
--- NOTE | 2025-05-03 20:48 | PD.IMCONS ---
HPI Data of Consult Primary Care Provider: LUBA Triana Consult Narrative Reason for consult: Coffee-ground hematemesis History of present illness: 40 years old female got a call from the emergency room physician for multiple episodes of coffee-ground hematemesis Presenting hemoglobin hematocrit 10.3 and 33.3 Patient also had a CT scan of the abdomen pelvis done which showed extensive right lung pneumonia Fatty liver Gallbladder ultrasound showed normal gallbladder and fatty liver and hepatomegaly at 20.8 cm Patient is not taking any blood thinners On 04/18/2025 patient had undergone upper endoscopy which showed esophagitis and gastritis According to her she had about 9 episodes of hematemesis cc:: cc: Meds Home Medications and Allergies Home Medications ?Medication ?Instructions ?Recorded ?Confirmed ?Type fluoxetine 20 mg capsule 20 mg PO QDAY 02/05/23 05/04/25 History cyclobenzaprine 5 mg tablet 5 mg PO TID PRN muscle relaxation 07/14/24 05/04/25 History amitriptyline 10 mg tablet 30 mg PO HS 12/14/24 05/04/25 History quetiapine 100 mg tablet 100 mg PO HS 12/14/24 05/04/25 History lorazepam 1 mg tablet 1 mg PO DAILY PRN anxiety 04/18/25 05/04/25 History fluoxetine 20 mg tablet 20 mg PO .once 04/24/25 05/04/25 History pantoprazole 40 mg tablet,delayed 40 mg PO Q12H 04/24/25 05/04/25 History release pregabalin 75 mg capsule 75 mg PO TID 04/24/25 05/04/25 History ondansetron HCl 4 mg tablet 4 mg PO TID PRN nausea and vomiting 05/04/25 05/04/25 History Allergies Allergy/AdvReac Type Severity Reaction Status Date / Time No Known Allergies Allergy Verified 05/03/25 19:03 Exam Vital Signs Temp Pulse Resp BP Pulse Ox O2 Del Method 98.6 F 130 H 18 118/81 95 Room Air 05/03/25 19:03 05/03/25 19:03 05/03/25 19:03 05/03/25 19:03 05/03/25 19:03 05/03/25 19:03 Constitutional Comments: Short of breath but alert and oriented Routine Respiratory Exam Comments: Decreased breath sounds on the right side with rhonchi Results Labs 05/04/25 03:23 05/04/25 03:23 Labs: Short CBC 05/03/25 Range/Units 19:40 WBC 12.4 H (3.6-11.0) Thou/mm3 Hgb 10.3 L (12.0-16.0) g/dL Hct 33.3 L (36.0-46.0) % Plt Count 321 D (140-440) Thou/mm3 BMP 05/03/25 19:40 Sodium 138 Potassium 3.4 Chloride 102 Carbon Dioxide 21.8 BUN 17 Creatinine 0.7 Glucose 128 H Calcium 9.4 Cardiac Enzymes 05/03/25 Range/Units 19:40 Troponin I 0.130 H* (0.0-0.045) ng/mL Liver Function 05/03/25 Range/Units 19:40 Total Bilirubin 0.5 (0.3-1.2) mg/dL Direct Bilirubin 0.2 (0.0-0.3) mg/dL AST 34 (0-34) U/L ALT 33 (10-49) U/L Alkaline Phosphatase 70 (46-116) U/L Albumin 4.3 (3.5-5.0) gm/dL ABG Interpretation ABG results: 05/03/25 19:58 ABG pH 7.45 ABG pCO2 33 ABG pO2 61 L ABG HCO3 23 ABG O2 Saturation 93 ABG Base Excess -1 Assessment and Plan Additional Assessment & Plan Additional Plan: # Multiple episodes of nausea vomiting with hematemesis Differential diagnoses include Che[place] tear versus peptic ulcer disease versus extensive severe esophagitis or gastritis Suggestions N.p.o. midnight Serial CBC Procedure tentatively scheduled which is fiberoptic esophagogastroduodenoscopy with biopsy therapeutic intervention under intravenous moderate sedation for tomorrow provided her respiratory status is okay IV Protonix Will evaluate the patient in the morning Other medical problems include Hypoxia secondary to right lung pneumonia Anxiety neurosis taking multiple medication with component of depression Fatty liver Hepatomegaly Right lung pneumonia Thank you very much for the opportunity to participate in the care of this patient
[2025-05-03] MEDS: HYDROmorphone INJ 2 MG/ML VIAL 1 MG IVP (21:03)
[2025-05-03] MEDS: RINGERS LACTATED 1000 ML 1,000 ML IV (21:09)
[2025-05-03] MEDS: Magnesium Sulfate 2 GM Ivpb 2 GM/50 ML BAG IV ×2 (21:10→23:40)
[2025-05-03 21:21] LABS: Hematocrit 29.0 % (36.0-46.0); Hemoglobin 9.1 g/dL (12.0-16.0)
[2025-05-03 21:48] LABS: Troponin I 0.123 ng/mL (0.0-0.045)
[2025-05-03] MEDS: LEVOFLOXACIN/D5W 500 MG IVPB 500 MG/100 ML BAG 100 MG IV (22:34)
[2025-05-03 22:48] LABS: Reflex Lactate? Y
[2025-05-03 23:17] LABS: Lactic Acid, 3 HR 2.8 mMol/L (0.4-2.0)
--- NOTE | 2025-05-03 23:23 | XR_ITS ---
Examination: CT abdomen with intravenous contrast CT pelvis with intravenous contrast 2-D coronal reconstructions 2-D sagittal reconstructions Date and time of exam: May 03, 2025, 1144 hours INDICATIONS: Upper gastrointestinal bleeding abdominal pain today. CTDI: vol (mGy) 10.4 DLP: (mGycm) 616 Technique: Multiple axial sections of the abdomen and pelvis have been obtained. 64 slice high-resolution scanner used. 3 mm axial sections have been obtained, post intravenous injection 60 cc [id number] 2-D sagittal, coronal reconstructions obtained. Low dose protocols were performed. One or more of the following dose reduction techniques were used; automated exposure control, adjustment of the mA and/or KV according to patient size, use of iterative reconstruction technique. Findings: Extensive right lung pneumonia Retrocardiac gastric hernia No focal liver or splenic lesions No definite gallstones Negative for pancreatitis No hydronephrosis Aorta normal size Small fat-containing inguinal hernia No pericecal inflammatory change Anteverted uterus No bladder mass or bladder calculi Moderate osteopenia IMPRESSION: Extensive right lung pneumonia Fatty infiltration throughout the liver No gallstones Negative for pancreatitis No renal or ureteral calculi, no hydronephrosis No CT findings of appendicitis or bowel obstruction
--- NOTE | 2025-05-03 23:24 | PD.RESHP ---
Documentation for date of: 05/03/25 [facility] History of Present Illness History of present illness: 40-year-old female with a known history of peptic ulcer disease, gastritis, hiatal hernia, and gastroparesis with multiple recent admissions due to GI symptoms recurrent nausea/vomiting, epigastric pain, who presents today after 24 hours of multiple episodes of coffee ground emesis and tarry stools. Patient admitted for upper GI bleed work up. ED Course Summary Vitals: BP118/81 HR 130 RR 18 T 98.6F O2 sat 95% RA Labs: WBC 12/4 Hgb 10.3 MCV 68 ESR 37 Coag (wnl, PT 11.9 INR 1.1 APTT 29.9) D-dimer 1550, K 3.4 BUN 17 Cr 0.7 Lactic acid 3.6 Mg 1.2 Trop 0.13 CRP 16.6 BNP 244 Amylase <20 Lipase 25 Procalcitonin 46.18 TSH 1.94 ABG pH 7.45 pCO2 33 pO2 61 HCO3 23 O2 sat 93 Imaging: GB US: Normal gallbladder. Moderate hepatomegaly, suspect primary hepatocellular disease CXR: Severe diffuse right lung pneumonia CTAP: Extensive right lung pneumonia. Fatty infiltration throughout the liver. No gallstones. Negative for pancreatitis. No renal or ureteral calculi, no hydronephrosis. No CT findings of appendicitis or bowel obstruction Treatment: NS 1L zofran 4mg Morphine 4mg Famotidine 20mg Protonix 80mg Hydromorphone 1mg zofran 4mg LR 1L Magnesium Sulfate 2g Levofloxacin 500mg Consults and why: Dr. Meraz for upper GI bleed work up The patient had been discharged on 04/19/2025 after an EGD showing esophagitis, gastritis, and retained food, with findings suggestive of gastroparesis and moderate hiatal hernia. She was readmitted on 04/24/2025, the patient reported continued nausea and epigastric pain, despite Reglan use at home. CT abdomen/pelvis was negative for obstruction, free air, and showed a moderate retrocardiac hiatal hernia. She has been advised to follow up with tertiary care for gastroparesis and hiatal hernia management, including gastric emptying studies and possible surgical consultation. Today, on initial evaluation the patient confirms narrative provided by ED that over the last 24 hours she has had over 20 bouts of coffee ground emesis and at least 4-5 black tarry stools. She describes the vomitus and throwup as black, tarry, and slick like oil with an incredibly foul smell. Her recent path report from 01/27/2025 was negative for H.pylori in IHC. She drinks a lot of scalding hot coffee each day. She does not take iron supplements. She is not on any anti-coagulants. She is under a lot of stress due to ongoing divorce proceedings with her who she tearfully calls a little girl in the midst of the interview. After appropriate consolation she was able to be redirected. She reports SOB after an episode of emesis today. She has no chest pain but reports that the cough is new onset and at least from the middle of the day when she had frequent vomiting episodes. 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 Exam Vital Signs Temp Pulse Resp BP Pulse Ox O2 Del Method 99.8 F 109 H 19 116/71 95 Room Air 05/03/25 21:17 05/03/25 21:17 05/03/25 21:17 05/03/25 21:17 05/03/25 21:17 05/03/25 21:17 Narrative Exam GENERAL APPEARANCE: AOx3. NAD, activity normal for age, well developed/ well nourished, no cyanosis, pallor, or diaphoresis. HEENT: Normocephalic atraumatic, no facial trauma, neck is supple. Lids/conjunctiva normal. Mucous membranes moist, nares normal, lips/teeth normal uvula midline without oral pharyngeal erythema, exudate or swelling TMs normal bilaterally. No lymphangitis/lymphedema. CARDIAC: Tachycardic S1+S2 heard. No murmurs, rubs, or gallops noted RESPIRATORY: respiratory effort normal, speaks in full sentences, no tripod position, no accessory muscle use. Rales, rhonchi, and bilateral wheezes. ABDOMINAL: NBS. Soft, ND. No evidence of fluid wave. No pulsatile masses on exam, rebound tenderness, Worley sign or pain over Mcburney's point. Mid sternal chest pain on palpation and epigastric pain with radiation to the back on palpation MUSCLES/EXTREMITIES: No abnormal range of motion, no swelling. DERM: Warm, pink and dry. No rashes, dermatoses, petechiae or lesions. NEUROLOGICAL: Speech is clear and appropriate. Normal level of consciousness. Gait and coordination are normal. 5/5 strength in all extremities. PSYCH: Normal mood and affect. Judgement/competence is appropriate Results: Labs 05/04/25 03:23 05/04/25 03:23 Labs: Short CBC 05/03/25 05/03/25 Range/Units 19:40 21:11 WBC 12.4 H (3.6-11.0) Thou/mm3 Hgb 10.3 L 9.1 L (12.0-16.0) g/dL Hct 33.3 L 29.0 L (36.0-46.0) % Plt Count 321 D (140-440) Thou/mm3 BMP 05/03/25 19:40 Sodium 138 Potassium 3.4 Chloride 102 Carbon Dioxide 21.8 BUN 17 Creatinine 0.7 Glucose 128 H Calcium 9.4 Cardiac Enzymes 05/03/25 05/03/25 Range/Units 19:40 21:11 Troponin I 0.130 H* 0.123 H* (0.0-0.045) ng/mL Liver Function 05/03/25 Range/Units 19:40 Total Bilirubin 0.5 (0.3-1.2) mg/dL Direct Bilirubin 0.2 (0.0-0.3) mg/dL AST 34 (0-34) U/L ALT 33 (10-49) U/L Alkaline Phosphatase 70 (46-116) U/L Albumin 4.3 (3.5-5.0) gm/dL ABG Interpretation ABG results: 05/03/25 19:58 ABG pH 7.45 ABG pCO2 33 ABG pO2 61 L ABG HCO3 23 ABG O2 Saturation 93 ABG Base Excess -1 Quality Measures Quality Measures VTE prophylaxis Medications Home Medications and Allergies Home Medications ?Medication ?Instructions ?Recorded ?Confirmed ?Type fluoxetine 20 mg capsule 20 mg PO QDAY 02/05/23 05/04/25 History cyclobenzaprine 5 mg tablet 5 mg PO TID PRN muscle relaxation 07/14/24 05/04/25 History amitriptyline 10 mg tablet 30 mg PO HS 12/14/24 05/04/25 History quetiapine 100 mg tablet 100 mg PO HS 12/14/24 05/04/25 History lorazepam 1 mg tablet 1 mg PO DAILY PRN anxiety 04/18/25 05/04/25 History fluoxetine 20 mg tablet 20 mg PO .once 04/24/25 05/04/25 History pantoprazole 40 mg tablet,delayed 40 mg PO Q12H 04/24/25 05/04/25 History release pregabalin 75 mg capsule 75 mg PO TID 04/24/25 05/04/25 History ondansetron HCl 4 mg tablet 4 mg PO TID PRN nausea and vomiting 05/04/25 05/04/25 History Allergies Allergy/AdvReac Type Severity Reaction Status Date / Time No Known Allergies Allergy Verified 05/03/25 19:03 Visit Medications Acetaminophen (Acetaminophen 325 Mg Tablet) 650 mg PO Q6H PRN PRN Reason: Fever >100.4 or pain 1-3 Stop: 06/02/25 23:09 Hydrocodone Bitart/Acetaminophen (Hydrocodone/Apap 5/325 Tablet) 1 tab PO Q4HR PRN PRN Reason: PAIN SCALE 4-6 (Moderate Stop: 05/08/25 23:09 Albuterol/Ipratropium (Albuterol/Ipratropium (Duoneb) Rt Lian 3 Ml Nebu) 3 ml INH Q4HRRT [facility] Stop: 06/03/25 02:59 Docusate Sodium (Docusate Sod 100 Mg Capsule) 100 mg PO QDAY [facility]; Protocol Stop: 06/03/25 08:59 Lactated Ringer's (Lactated Ringers) 1,000 mls @ 75 mls/hr IV .[id number] [facility] Stop: 06/02/25 23:14 Ceftriaxone Sodium/Dextrose (Rocephin/D5w 1gm Iv Premix) 1 gm in 50 mls @ 100 mls/hr IV QDAY [facility] Stop: 05/10/25 23:14 Azithromycin 500 mg/ Sodium (Chloride) 250 mls @ 250 mls/hr IV QDAY [facility] Stop: 05/10/25 23:15 Magnesium Sulfate (Magnesium Sulfate Ivpb) 2 gm in 50 mls @ 25 mls/hr IV X1 ONE Stop: 05/04/25 01:21 Morphine Sulfate (Morphine Sulf Inj 4 Mg/Ml Vial) 1 mg IVP Q4HR PRN PRN Reason: PAIN SCALE 7-10 (Severe Stop: 05/08/25 23:09 Ondansetron HCl (Ondansetron Inj 2 Mg/Ml Inj 2 Ml) 4 mg IVP Q6H PRN; Protocol PRN Reason: NAUSEA OR VOMITING Stop: 06/02/25 23:09 Pantoprazole Sodium (Pantoprazole Inj 40 Mg Vial) 40 mg IVP Q12HR [facility] Stop: 06/03/25 08:59 Discontinued Medications Famotidine (Famotidine Inj 10 Mg/Ml Vial 2 Ml) 20 mg IVP X1 ONE Stop: 05/03/25 19:26 Last Admin: 05/03/25 19:34 Dose: 20 mg Hydromorphone HCl (Hydromorphone Inj 2 Mg/Ml Vial) 1 mg IVP X1 ONE Stop: 05/03/25 20:41 Last Admin: 05/03/25 21:03 Dose: 1 mg Sodium Chloride (Ns) 1,000 mls @ 999 mls/hr IV .Q1H1M ONE Stop: 05/03/25 20:24 Last Infusion: 05/03/25 20:40 Dose: Infused Lactated Ringer's (Lactated Ringers) 1,000 mls @ 1,000 mls/hr IV .Q1H ONE Stop: 05/03/25 21:39 Last Infusion: 05/03/25 22:20 Dose: Infused Magnesium Sulfate (Magnesium Sulfate Ivpb) 2 gm in 50 mls @ 25 mls/hr IV X1 ONE Stop: 05/03/25 22:40 Last Admin: 05/03/25 21:10 Dose: 25 mls/hr Levofloxacin/Dextrose (Levaquin Ivpb) 500 mg in 100 mls @ 100 mls/hr IV X1 ONE Stop: 05/03/25 22:37 Last Admin: 05/03/25 22:34 Dose: 100 mls/hr Morphine Sulfate (Morphine Sulf Inj 4 Mg/Ml Vial) 4 mg IV X1 ONE Stop: 05/03/25 19:25 Last Admin: 05/03/25 19:33 Dose: 4 mg Ondansetron HCl (Ondansetron Inj 2 Mg/Ml Inj 2 Ml) 4 mg IVP X1 ONE; Protocol Stop: 05/03/25 19: Last Admin: 05/03/25 19:33 Dose: 4 mg Ondansetron HCl (Ondansetron Inj 2 Mg/Ml Inj 2 Ml) 4 mg IVP X1 ONE; Protocol Stop: 05/03/25 20:41 Last Admin: 05/03/25 21:07 Dose: 4 mg Pantoprazole Sodium (Pantoprazole Inj 40 Mg Vial) 80 mg IVP X1 ONE Stop: 05/03/25 19: Last Admin: 05/03/25 19:37 Dose: 80 mg Assessment & Plan Plan 40-year-old female with a known history of peptic ulcer disease, gastritis, hiatal hernia, and gastroparesis with multiple recent admissions due to GI symptoms recurrent nausea/vomiting, epigastric pain, who presents today after 24 hours of multiple episodes of coffee ground emesis and tarry stools. Patient admitted for upper GI bleed work up. #Upper GI bleed #Acute blood loss anemia (microcytic) #Hx of cyclic vomiting syndrome DDx PUD, stress ulcers 24 hours she has had over 20 bouts of coffee ground emesis and at least 4-5 black tarry stools. She describes the vomitus and throwup as black, tarry, and slick like oil with an incredibly foul smell. Her recent path report from 01/27/2025 was negative for H.pylori in IHC. She drinks a lot of scalding hot coffee each day. She does not take iron supplements. She is not on any anti-coagulants. Is undergoing a lot of stress in personal life. 04/19/2025 EGD esophagitis, gastritis, and retained food, with findings suggestive of gastroparesis and moderate hiatal hernia. Physical exam shows epigastric tenderness to the back and midsternal discomfort on palpation. Hemoglobin 10.3 on admission downtrending 9.1--> 9.0. MCV 68. ferritin 01/28/2025 was 10. CTAP was negative for pancreatitis, lipase wnl. GB US: Normal gallbladder. Moderate hepatomegaly, suspect primary hepatocellular disease. Plan: -Dr. Meraz (GI consulted) appreciate recs -FUP blood cx:___ -Ceftriaxone for SBP prophylaxis -Holding iron supplementation due to ongoing infxn, will consider iron infusions pending resolution of infection concern -Protonix 40mg IV Q12 -Restart home amitryptilline 30mg PO HS (cyclic vomiting syndrome) #AHRF #Pneumonia #Hx of Asthma #D-Dimer elevation ddx CAP vs atypicals vs aspiration WBC 12.5-->15.3, ABG pO@ 61. CTAP extensive right lung pneumonia. Patient reports new onset SOB after episode of vomiting the morning of admission. Bilateral wheezing, rales, and rhonchi on physical exam. D-dimer ordered by ED, elevated in the setting of infection will not pursue CTA chest as there is no concern for PE at this time. Plan: -MRSA screen negative -Ceftriaxone 1g IV QD -Azithromycin 500mg QD -FUP Sputum cx:___ -ISS -Duonebs -Budesonide 0.25 mg INH QD #Lactic acidosis Lactic acid 3.6 --> 2.8 --> 3.3. 3 boluses of IVF given along with maintenance fluids. Most likely due to volume dupletion in the setting of intractable nausea and vomiting. Plan: -IVF -Trend lactate #Microcytic anemia Likely Iron deficiency anemia Iron panel previously noted for Ferritin of 10 Patient not on any Iron supplements. Underwent 2x EGD in 3 months. Hold Iron infusion pending infection clearance #Hx of chronic back pain Plan: -Restart cyclobenzaprine 5mg PO HS -Restart home pregabalin 75 mg PO HS #Hx of Depression Plan: -Restart home fluoxetine 20mg PO HS -Restart home seroquel 100mg PO HS Health Maintenance: Code status: Full DVT prophylaxis: SCD GI prophylaxis: Protonix 40mg Q12hr Diet: NPO pending Dr. Meraz consult in AM Berger: None Lines: PIV Supplemental O2: NC Disposition: To tele for upper GI bleed and AHRF Patient seen and reviewed with attending Dr. Franco. Note written by Jamie Jennings MD PGY-1 Attending Provider Attestation/Addendum After examination of the patient and review of the clinical data I feel that this patient needs admission to the hospital for further treatment/evaluation. Plan of care discussed with patient and is in agreement. I Ata Franco MD, attest that I was physically present for roche portions of evaluation, and examined patient, labs and imagings and plan of care were discussed with IM residents team, and I agree with the findings and plans documented above.
[2025-05-03] MEDS: MORPHINE SULF INJ 4 MG/ML VIAL 1 MG IVP (23:32)
[2025-05-03] MEDS: RINGERS LACTATED 1000 ML 1,000 ML 75 ML IV (23:34)
[2025-05-03] MEDS: cefTRIAXone/D5w 1gm IV premix 1 GM/50 ML BAG IV (23:36)
[2025-05-04] VITALS (15 sets, daily range): BP systolic 117–137; BP diastolic 63–87; PULSE 94–120; RESP 18–98; TEMP 35.9–37.7; O2SAT 89–100; BMI 31.6
[2025-05-04 00:01] LABS: COVID-19 Antigen (In-House) Negative (Negative)
[2025-05-04] MEDS: AZITHROMYCIN INJ 500 MG in SODIUM CHLORIDE 0.9% 250 ML 250 ML 250 MG IV (00:48)
[2025-05-04] MEDS: ALBUTEROL/IPRATROPIUM (Duoneb) RT SOL 3 ML NEBU INH ×6 (02:39→22:16)
--- NOTE | 2025-05-04 02:53 | PC.RT ---
Sputum Culture collected and sent to lab for analysis. No induction needed
[2025-05-04 03:43] LABS: Lactate (Lactic Acid) 3.3 mMol/L (0.4-2.0)
[2025-05-04 03:44] LABS: Basophils # (Auto) 0.0 Thou/mm3 (0.0-0.2); Basophils % (Auto) 0 % (0-2.5); Eosinophils # (Auto) 0.0 Thou/mm3 (0.0-0.5); Eosinophils % (Auto) 0 % (0-10); Hematocrit 30.0 % (36.0-46.0); Hemoglobin 9.0 g/dL (12.0-16.0); Immature Granulocytes Auto 0.06 Thou/mm3 (0.00-0.00); Lymphocytes # (Auto) 1.3 Thou/mm3 (1.0-4.8); Lymphocytes % (Auto) 8 % (10-50); Mean Corpuscular HGB Conc 30.0 g/dl (31.0-37.0); Mean Corpuscular Hemoglobin 20.9 pg (25.0-35.0); Mean Corpuscular Volume 70 fL (80-100); Monocytes # (Auto) 0.9 Thou/mm3 (0.0-0.8); Monocytes % (Auto) 6 % (0-12); Neutrophils # (Auto) 13.1 Thou/mm3 (1.8-7.7); Neutrophils % (Auto) 86 % (37-80); Nucleated Red Blood Cell # 0.00 Thou/mm3 (0.00-0.00); Nucleated Red Blood Cell % 0 /100 WBC (0); Platelet Count 289 Thou/mm3 (140-440); RDW Standard Deviation 44.4 fL (36.4-46.3); Red Blood Count 4.31 Miln/mm3 (4.00-5.20); White Blood Count 15.3 Thou/mm3 (3.6-11.0)
[2025-05-04] MEDS: MORPHINE SULF INJ 4 MG/ML VIAL 1 MG IVP ×4 (03:52→17:59)
[2025-05-04] MEDS: RINGERS LACTATED 1000 ML 1,000 ML 999 ML IV (03:58)
[2025-05-04 04:02] LABS: Collection Type, Urine Clean Catch
[2025-05-04 04:21] LABS: Alanine Aminotransferase 27 U/L (10-49); Albumin, Serum 4.1 gm/dL (3.5-5.0); Albumin/Globulin Ratio 1.9 (1.2-2.2); Alkaline Phosphatase 60 U/L (46-116); Anion Gap 11 (7-16); Aspartate Amino Transferase 29 U/L (0-34); BUN/Creatinine Ratio 17 Ratio (12-20); Bilirubin,Total 0.3 mg/dL (0.3-1.2); Blood Urea Nitrogen 10 mg/dL (9-23); Calcium 8.6 mg/dL (8.3-10.6); Calcium (Corrected) 8.6 mg/dL (8.5-10.1); Carbon Dioxide 24.3 mMol/L (20.0-31.0); Chloride 104 mMol/L (98-107); Creatinine (Component) 0.6 mg/dL (0.6-1.3); Estimated Creatinine Clearance 142.7 mL/min (>60); Globulin 2.2 gm/dL (2.3-3.5); Glucose 113 mg/dL (74-106); Magnesium 2.4 mg/dL (1.6-2.6); Osmolality,Calculated 277 (275-295); Phosphorous 2.6 mg/dL (2.4-5.1); Potassium 3.8 mMol/L (3.4-5.1); Sodium 139 mMol/L (136-145); Total Protein 6.3 gm/dL (5.7-8.2); eGFR > 60 See Note
[2025-05-04 04:28] LABS: Bilirubin,Urine Negative (Negative); Blood,Urine Negative (Negative); Clarity,Urine Clear (Clear/Hazy); Color,Urine Lt-Yellow (Lt Yel-Yel); Culture Indicated,Urine Not Indicated; Glucose, Urine Negative (Negative); Ketones,Urine Negative (Negative); Leukocyte Esterase,Urine Negative (Negative); Nitrite,Urine Negative (Negative); PH,Urine 6.5 (5.0-7.0); Protein,Urine Negative (Neg - Trace); RBC,Urine < 1 /hpf (0-3); Specific Gravity,Urine 1.038 (1.001-1.035); Squamous Epithelial Cell,Urine < 1 /hpf (0-5); Urobilinogen,Urine Negative mg/dL (0.0-1.0); WBC,Urine < 1 /hpf (0-5)
[2025-05-04 04:50] LABS: Amphetamine/Methamp Scrn,U Negative (Negative); Barbiturate Screen,Urine Negative (Negative); Benzodiazepines Screen,Urine Negative (Negative); Benzoylecgonine Screen, Ur Negative (Negative); Fentanyl Screen,Urine Negative (Negative); Opiate Screen,Urine Positive (Negative); THC Screen,Urine Positive (Negative)
[2025-05-04] MEDS: HYDROcodone/APAP 5/325 TABLET 1 TAB PO ×2 (06:02→19:42)
[2025-05-04] MEDS: ONDANSETRON INJ 2 MG/ML INJ 2 ML 4 MG IVP ×2 (06:02→19:42)
[2025-05-04 06:39] LABS: Reflex Lactate? Y
[2025-05-04 07:41] LABS: Lactic Acid, 3 HR 2.4 mMol/L (0.4-2.0)
[2025-05-04] MEDS: cefTRIAXone/D5w 1gm IV premix 1 GM/50 ML BAG IV (08:47)
--- NOTE | 2025-05-04 09:36 | PC.SS ---
Patient Erika Hope is a 40 Year old female admitted for Upper GI bleed. SS made face to face contact with patient at bedside. SS introduced self, role, and reason for visit. Patient confirmed demographic information and stated that she lives with her , Leonard Hope, . Patient reports she does not utilize any source of DME to assist with ambulation. Patient is independent with all ADL's. PCP is Dr. Javier at [facility], her last appointment was on 04/21/2025. Her pharmacy of choice is [facility]. Patient stated that once medically clear she will be going home and stated that her family will provide transportation. PCP: [facility] Decision maker: Leonard Jayy [phone] D/c: home
[2025-05-04] MEDS: BUDESONIDE RT 0.25 MG/2 ML NEBU INH (10:45)
--- NOTE | 2025-05-04 10:59 | ESPR_ITS ---
Documentation for date of: 05/04/25 Subjective Subjective Interval history: Patient is hemoglobin hematocrit down to 9.0 and 30.0 Patient is on OxyMask at 10 L oxygen flow upper endoscopy canceled for today Exam Vital Signs Temp Pulse Resp BP Pulse Ox O2 Del Method O2 Flow Rate 96.6 F L 94 19 117/63 96 Oxy Mask 8 05/04/25 08:00 05/04/25 10:47 05/04/25 10:47 05/04/25 08:00 05/04/25 10:47 05/04/25 08:00 05/04/25 10:47 Objective Labs 05/04/25 03:23 05/04/25 03:23 Labs: Laboratory Results - last 24 hr 05/03/25 05/03/25 05/03/25 19:40 19:48 19:58 WBC 12.4 H RBC 4.87 Hgb 10.3 L Hct 33.3 L MCV 68 L MCH 21.1 L MCHC 30.9 L RDW Std Deviation 42.5 Plt Count 321 D Neut % (Auto) 86 H Lymph % (Auto) 6 L [place] % (Auto) 8 Eos % (Auto) 0 Baso % (Auto) 0 Neut # (Auto) 10.7 H Lymph # (Auto) 0.7 L [place] # (Auto) 0.9 H Eos # (Auto) 0.0 Baso # (Auto) 0.0 Immature Gran # (Auto) 0.05 H Absolute Nucleated RBC 0.00 Immature Gran % 0 Nucleated RBC % 0 Smear Path Review Sent to Pathologist ESR 37 H PT 11.9 INR 1.1 APTT 29.9 D-Dimer 1550 H Puncture Site Left Radial ABG pH 7.45 ABG pCO2 33 ABG pO2 61 L ABG HCO3 23 ABG O2 Saturation 93 ABG Base Excess -1 Oxygen Liter Flow 3 Sodium 138 Potassium 3.4 Chloride 102 Carbon Dioxide 21.8 Anion Gap 14 BUN 17 Creatinine 0.7 Estim Creat Clear Calc 122.3 eGFR > 60 BUN/Creatinine Ratio 24 H Glucose [address] Glu mg/dL 126 Hemoglobin A1c 6.0 Calculated Osmolality 279 Lactic Acid 3.6 H Calcium 9.4 Corrected Calcium 9.4 Phosphorus Magnesium 1.2 L Total Bilirubin 0.5 Direct Bilirubin 0.2 AST 34 ALT 33 Alkaline Phosphatase 70 Ammonia 18 Troponin I 0.130 H* C-Reactive Prot, Quant 16.6 H B-Natriuretic Peptide 244 H Total Protein 6.6 Albumin 4.3 Globulin 2.3 Albumin/Globulin Ratio 1.9 Amylase < 20 L Lipase 25 Beta-Hydroxybutyrate/Acetoacetate 0.1 Procalcitonin 46.18 H TSH 1.94 D HCG, Qual Negative Ur Collection Type Urine Color Urine Clarity Urine pH Ur Specific [place] Urine Protein Urine Glucose (UA) Urine Ketones Urine Blood Urine Nitrite Urine Bilirubin Urine Urobilinogen (Auto) Ur Leukocyte Esterase Urine RBC Urine WBC Ur Squamous Epith Cells Urine Bacteria Ur Culture Indicated? Urine Opiates Screen Urine Fentanyl Screen Ur Barbiturates Screen U Amphetamin/Meth Scrn U Benzodiazepines Scrn U Cocaine Metab Screen U Marijuana (THC) Screen Ethyl Alcohol < 3.0 SARS-CoV-2 Ag (Rapid) Blood Type A Positive Antibody Screen NEGATIVE Blood Bank Wristband ID Yes 05/03/25 05/03/25 05/04/25 21:11 23:05 02:15 WBC RBC Hgb 9.1 L Hct 29.0 L MCV MCH MCHC RDW Std Deviation Plt Count Neut % (Auto) Lymph % (Auto) [place] % (Auto) Eos % (Auto) Baso % (Auto) Neut # (Auto) Lymph # (Auto) [place] # (Auto) Eos # (Auto) Baso # (Auto) Immature Gran # (Auto) Absolute Nucleated RBC Immature Gran % Nucleated RBC % Smear Path Review ESR PT INR APTT D-Dimer Puncture Site ABG pH ABG pCO2 ABG pO2 ABG HCO3 ABG O2 Saturation ABG Base Excess Oxygen Liter Flow Sodium Potassium Chloride Carbon Dioxide Anion Gap BUN Creatinine Estim Creat Clear Calc eGFR BUN/Creatinine Ratio Glucose Estimated Ave Glu mg/dL Hemoglobin A1c Calculated Osmolality Lactic Acid 2.8 H Calcium Corrected Calcium Phosphorus Magnesium Total Bilirubin Direct Bilirubin AST ALT Alkaline Phosphatase Ammonia Troponin I 0.123 H* C-Reactive Prot, Quant B-Natriuretic Peptide Total Protein Albumin Globulin Albumin/Globulin Ratio Amylase Lipase Beta-Hydroxybutyrate/Acetoacetate Procalcitonin TSH HCG, Qual Ur Collection Type Clean Catch Urine Color Lt-Yellow Urine Clarity Clear Urine pH 6.5 Ur Specific [place] 1.038 H Urine Protein Negative Urine Glucose (UA) Negative Urine Ketones Negative Urine Blood Negative Urine Nitrite Negative Urine Bilirubin Negative Urine Urobilinogen (Auto) Negative Ur Leukocyte Esterase Negative Urine RBC < 1 Urine WBC < 1 Ur Squamous Epith Cells < 1 Urine Bacteria None Ur Culture Indicated? Not Indicated Urine Opiates Screen Positive A Urine Fentanyl Screen Negative Ur Barbiturates Screen Negative U Amphetamin/Meth Scrn Negative U Benzodiazepines Scrn Negative U Cocaine Metab Screen Negative U Marijuana (THC) Screen Positive A Ethyl Alcohol SARS-CoV-2 Ag (Rapid) Negative Blood Type Antibody Screen Blood Bank Wristband ID 05/04/25 05/04/25 03:23 07:29 WBC 15.3 H RBC 4.31 Hgb 9.0 L Hct 30.0 L MCV 70 L MCH 20.9 L MCHC 30.0 L RDW Std Deviation 44.4 Plt Count 289 D Neut % (Auto) 86 H Lymph % (Auto) 8 L [place] % (Auto) 6 Eos % (Auto) 0 Baso % (Auto) 0 Neut # (Auto) 13.1 H Lymph # (Auto) 1.3 [place] # (Auto) 0.9 H Eos # (Auto) 0.0 Baso # (Auto) 0.0 Immature Gran # (Auto) 0.06 H Absolute Nucleated RBC 0.00 Immature Gran % 0 Nucleated RBC % 0 Smear Path Review ESR PT INR APTT D-Dimer Puncture Site ABG pH ABG pCO2 ABG pO2 ABG HCO3 ABG O2 Saturation ABG Base Excess Oxygen Liter Flow Sodium 139 Potassium 3.8 Chloride 104 Carbon Dioxide 24.3 Anion Gap 11 BUN 10 Creatinine 0.6 Estim Creat Clear Calc 142.7 eGFR > 60 BUN/Creatinine Ratio 17 Glucose [address] Glu mg/dL Hemoglobin A1c Calculated Osmolality 277 Lactic Acid 3.3 H 2.4 H Calcium 8.6 Corrected Calcium 8.6 Phosphorus 2.6 Magnesium 2.4 Total Bilirubin 0.3 Direct Bilirubin AST 29 ALT 27 Alkaline Phosphatase 60 Ammonia Troponin I C-Reactive Prot, Quant B-Natriuretic Peptide Total Protein 6.3 Albumin 4.1 Globulin 2.2 L Albumin/Globulin Ratio 1.9 Amylase Lipase Beta-Hydroxybutyrate/Acetoacetate Procalcitonin TSH HCG, Qual Ur Collection Type Urine Color Urine Clarity Urine pH Ur Specific [place] Urine Protein Urine Glucose (UA) Urine Ketones Urine Blood Urine Nitrite Urine Bilirubin Urine Urobilinogen (Auto) Ur Leukocyte Esterase Urine RBC Urine WBC Ur Squamous Epith Cells Urine Bacteria Ur Culture Indicated? Urine Opiates Screen Urine Fentanyl Screen Ur Barbiturates Screen U Amphetamin/Meth Scrn U Benzodiazepines Scrn U Cocaine Metab Screen U Marijuana (THC) Screen Ethyl Alcohol SARS-CoV-2 Ag (Rapid) Blood Type Antibody Screen Blood Bank Wristband ID Impressions Impression: # Acute hypoxic respiratory failure secondary to right lung pneumonia requiring oxy mask at 10 L # Hematemesis # Acute anemia of blood loss Plan Start clear liquid diet Continue IV Protonix Upper endoscopy canceled for today rescheduled for tomorrow provided the respiratory status is better N.p.o. midnight tonight ABG Interpretation ABG results: 05/03/25 19:58 ABG pH 7.45 ABG pCO2 33 ABG pO2 61 L ABG HCO3 23 ABG O2 Saturation 93 ABG Base Excess -1 Assessment & Plan A&P Narrative # Multiple episodes of nausea vomiting with hematemesis Differential diagnoses include [place] tear versus peptic ulcer disease versus extensive severe esophagitis or gastritis Suggestions N.p.o. 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
--- NOTE | 2025-05-04 12:02 | PC.NURSE ---
DR. CERVANTES AT BEDSIDE ROUNDING ON PT, MD WAS MADE AWARE OF PTS CHILLS, RECTAL TEMP 98.2, CHEST PRESSURE AND REFUSAL OF [place] FOR HER PAIN. DR. CERVANTES WILL PUT IN ORDERS.
--- NOTE | 2025-05-04 12:06 | PC.NURSE ---
PT VOIDED 400 ML OF YELLOW URINE, DENIES PAIN. DR. CERVANTES MADE AWARE. NO NEW ORDERS.
[2025-05-04] MEDS: guaiFENesin/DM TABLET 1 EACH PO (12:13)
[2025-05-04] MEDS: PREGABALIN 75 MG CAPSULE PO ×2 (13:36→21:24)
--- NOTE | 2025-05-04 16:00 | ESPR_ITS ---
Documentation for date of: 05/04/25 Subjective Subjective Interval history: Patient was an overnight admission for GI bleed, new black colored emesis and black tarry stools.?Patient seen and examined at bedside this AM.?Patient appeared uncomfortable, however she does report that her symptoms of nausea and vomiting have since resolved after coming to the hospital. Per nursing, there was reported to be a black tarry stool today however. Discussed with GI; endoscopy will take place once the patient's respiratory status improves given the pneumonia. Labs and vitals were reviewed.?Patient was requiring 8L OxyMask this morning. Will continue ceftriaxone and azithromycin for most likely aspiration pneumonia. Patient does endorse starting to cough after episodes of vomiting started. Patient continues to smoke marijuana, continued to try to smoke to relax despite vomiting however the coughing made it difficult. Patient was requesting IV Ativan, notified patient that we will given prn PO alprazolam instead. Patient requested that her pregabalin be given all at once instead of TID as the prescription states, saying that her doctor stated she can do this at home and take all 3 at night since she has children to take care of and the medication makes her sleepy. We will continue pregabalin 75 mg TID as prescribed. Review of systems otherwise negative except what is mentioned above. Exam Vital Signs Temp Pulse Resp BP Pulse Ox O2 Del Method O2 Flow Rate 99.8 F 99 32 H 126/87 H 98 Oxy Mask 6 05/04/25 12:00 05/04/25 15:02 05/04/25 15:02 05/04/25 12:00 05/04/25 15:02 05/04/25 12:00 05/04/25 15:02 Narrative Exam Physical Exam General: Awake and in mild discomfort. Conversational and chronically ill- appearing. HEENT: Normocephalic, atraumatic, mucous membranes moist. Heart: Regular rate and rhythm, normal S1 and S2, no murmurs. Lungs: Mild rhonchi R>L. Abdomen: Soft, nondistended, nontender, positive bowel sounds. ?No guarding or rebound tenderness. Neurologic: Alert and oriented x3, no gross neurological deficit, and patient able to move all 4 extremities. Extremities: No edema. Skin: No rash or ecchymoses. Objective Labs 05/05/25 05:00 05/05/25 05:00 Labs: Laboratory Results - last 24 hr 05/03/25 05/03/25 05/03/25 19:40 19:48 19:58 WBC 12.4 H RBC 4.87 Hgb 10.3 L Hct 33.3 L MCV 68 L MCH 21.1 L MCHC 30.9 L RDW Std Deviation 42.5 Plt Count 321 D Neut % (Auto) 86 H Lymph % (Auto) 6 L [place] % (Auto) 8 Eos % (Auto) 0 Baso % (Auto) 0 Neut # (Auto) 10.7 H Lymph # (Auto) 0.7 L [place] # (Auto) 0.9 H Eos # (Auto) 0.0 Baso # (Auto) 0.0 Immature Gran # (Auto) 0.05 H Absolute Nucleated RBC 0.00 Immature Gran % 0 Nucleated RBC % 0 Smear Path Review Sent to Pathologist ESR 37 H PT 11.9 INR 1.1 APTT 29.9 D-Dimer 1550 H Puncture Site Left Radial ABG pH 7.45 ABG pCO2 33 ABG pO2 61 L ABG HCO3 23 ABG O2 Saturation 93 ABG Base Excess -1 Oxygen Liter Flow 3 Sodium 138 Potassium 3.4 Chloride 102 Carbon Dioxide 21.8 Anion Gap 14 BUN 17 Creatinine 0.7 Estim Creat Clear Calc 122.3 eGFR > 60 BUN/Creatinine Ratio 24 H Glucose [address] Glu mg/dL 126 Hemoglobin A1c 6.0 Calculated Osmolality 279 Lactic Acid 3.6 H Calcium 9.4 Corrected Calcium 9.4 Phosphorus Magnesium 1.2 L Total Bilirubin 0.5 Direct Bilirubin 0.2 AST 34 ALT 33 Alkaline Phosphatase 70 Ammonia 18 Troponin I 0.130 H* C-Reactive Prot, Quant 16.6 H B-Natriuretic Peptide 244 H Total Protein 6.6 Albumin 4.3 Globulin 2.3 Albumin/Globulin Ratio 1.9 Amylase < 20 L Lipase 25 Beta-Hydroxybutyrate/Acetoacetate 0.1 Procalcitonin 46.18 H TSH 1.94 D HCG, Qual Negative Ur Collection Type Urine Color Urine Clarity Urine pH Ur Specific [place] Urine Protein Urine Glucose (UA) Urine Ketones Urine Blood Urine Nitrite Urine Bilirubin Urine Urobilinogen (Auto) Ur Leukocyte Esterase Urine RBC Urine WBC Ur Squamous Epith Cells Urine Bacteria Ur Culture Indicated? Urine Opiates Screen Urine Fentanyl Screen Ur Barbiturates Screen U Amphetamin/Meth Scrn U Benzodiazepines Scrn U Cocaine Metab Screen U Marijuana (THC) Screen Ethyl Alcohol < 3.0 SARS-CoV-2 Ag (Rapid) Blood Type A Positive Antibody Screen NEGATIVE Blood Bank Wristband ID Yes 05/03/25 05/03/25 05/04/25 21:11 23:05 02:15 WBC RBC Hgb 9.1 L Hct 29.0 L MCV MCH MCHC RDW Std Deviation Plt Count Neut % (Auto) Lymph % (Auto) [place] % (Auto) Eos % (Auto) Baso % (Auto) Neut # (Auto) Lymph # (Auto) [place] # (Auto) Eos # (Auto) Baso # (Auto) Immature Gran # (Auto) Absolute Nucleated RBC Immature Gran % Nucleated RBC % Smear Path Review ESR PT INR APTT D-Dimer Puncture Site ABG pH ABG pCO2 ABG pO2 ABG HCO3 ABG O2 Saturation ABG Base Excess Oxygen Liter Flow Sodium Potassium Chloride Carbon Dioxide Anion Gap BUN Creatinine Estim Creat Clear Calc eGFR BUN/Creatinine Ratio Glucose Estimated Ave Glu mg/dL Hemoglobin A1c Calculated Osmolality Lactic Acid 2.8 H Calcium Corrected Calcium Phosphorus Magnesium Total Bilirubin Direct Bilirubin AST ALT Alkaline Phosphatase Ammonia Troponin I 0.123 H* C-Reactive Prot, Quant B-Natriuretic Peptide Total Protein Albumin Globulin Albumin/Globulin Ratio Amylase Lipase Beta-Hydroxybutyrate/Acetoacetate Procalcitonin TSH HCG, Qual Ur Collection Type Clean Catch Urine Color Lt-Yellow Urine Clarity Clear Urine pH 6.5 Ur Specific [place] 1.038 H Urine Protein Negative Urine Glucose (UA) Negative Urine Ketones Negative Urine Blood Negative Urine Nitrite Negative Urine Bilirubin Negative Urine Urobilinogen (Auto) Negative Ur Leukocyte Esterase Negative Urine RBC < 1 Urine WBC < 1 Ur Squamous Epith Cells < 1 Urine Bacteria None Ur Culture Indicated? Not Indicated Urine Opiates Screen Positive A Urine Fentanyl Screen Negative Ur Barbiturates Screen Negative U Amphetamin/Meth Scrn Negative U Benzodiazepines Scrn Negative U Cocaine Metab Screen Negative U Marijuana (THC) Screen Positive A Ethyl Alcohol SARS-CoV-2 Ag (Rapid) Negative Blood Type Antibody Screen Blood Bank Wristband ID 05/04/25 05/04/25 03:23 07:29 WBC 15.3 H RBC 4.31 Hgb 9.0 L Hct 30.0 L MCV 70 L MCH 20.9 L MCHC 30.0 L RDW Std Deviation 44.4 Plt Count 289 D Neut % (Auto) 86 H Lymph % (Auto) 8 L [place] % (Auto) 6 Eos % (Auto) 0 Baso % (Auto) 0 Neut # (Auto) 13.1 H Lymph # (Auto) 1.3 [place] # (Auto) 0.9 H Eos # (Auto) 0.0 Baso # (Auto) 0.0 Immature Gran # (Auto) 0.06 H Absolute Nucleated RBC 0.00 Immature Gran % 0 Nucleated RBC % 0 Smear Path Review ESR PT INR APTT D-Dimer Puncture Site ABG pH ABG pCO2 ABG pO2 ABG HCO3 ABG O2 Saturation ABG Base Excess Oxygen Liter Flow Sodium 139 Potassium 3.8 Chloride 104 Carbon Dioxide 24.3 Anion Gap 11 BUN 10 Creatinine 0.6 Estim Creat Clear Calc 142.7 eGFR > 60 BUN/Creatinine Ratio 17 Glucose [address] Glu mg/dL Hemoglobin A1c Calculated Osmolality 277 Lactic Acid 3.3 H 2.4 H Calcium 8.6 Corrected Calcium 8.6 Phosphorus 2.6 Magnesium 2.4 Total Bilirubin 0.3 Direct Bilirubin AST 29 ALT 27 Alkaline Phosphatase 60 Ammonia Troponin I C-Reactive Prot, Quant B-Natriuretic Peptide Total Protein 6.3 Albumin 4.1 Globulin 2.2 L Albumin/Globulin Ratio 1.9 Amylase Lipase Beta-Hydroxybutyrate/Acetoacetate Procalcitonin TSH HCG, Qual Ur Collection Type Urine Color Urine Clarity Urine pH Ur Specific [place] Urine Protein Urine Glucose (UA) Urine Ketones Urine Blood Urine Nitrite Urine Bilirubin Urine Urobilinogen (Auto) Ur Leukocyte Esterase Urine RBC Urine WBC Ur Squamous Epith Cells Urine Bacteria Ur Culture Indicated? Urine Opiates Screen Urine Fentanyl Screen Ur Barbiturates Screen U Amphetamin/Meth Scrn U Benzodiazepines Scrn U Cocaine Metab Screen U Marijuana (THC) Screen Ethyl Alcohol SARS-CoV-2 Ag (Rapid) Blood Type Antibody Screen Blood Bank Wristband ID ABG Interpretation ABG results: 05/03/25 19:58 ABG pH 7.45 ABG pCO2 33 ABG pO2 61 L ABG HCO3 23 ABG O2 Saturation 93 ABG Base Excess -1 Quality Measures Quality Measures VTE prophylaxis Assessment & Plan Assessment Current Active Medications: Generic Name Dose Route Start Last Admin Trade Name Freq PRN Reason Stop Dose Admin Acetaminophen 650 mg 05/03/25 23:10 Acetaminophen 325 Mg Tablet PO 06/02/25 23:09 Q6H PRN Fever >100.4 or pain 1-3 Hydrocodone Bitart/Acetaminophen 1 tab 05/03/25 23:10 05/04/25 06:02 Hydrocodone/Apap 5/325 Tablet PO 05/08/25 23:09 1 tab Q4HR PRN Administration PAIN SCALE 4-6 (Moderate Albuterol/Ipratropium 3 ml 05/04/25 03:00 05/04/25 15:01 Albuterol/Ipratropium (Duoneb) Rt Lian 3 Ml Nebu INH 06/03/25 02:59 3 ml Q4HRRT CHRISTINA Administration Alprazolam 0.25 mg 05/04/25 12:05 05/04/25 12:13 Alprazolam 0.25 Mg Tablet PO 05/09/25 12:04 0.25 mg BID PRN Administration ANXIETY Azithromycin 500 mg 05/04/25 21:00 Azithromycin 250 Mg Tablet PO 05/07/25 21:01 HS [facility] Protocol Budesonide 0.25 mg 05/04/25 09:00 05/04/25 10:45 Budesonide Rt 0.25 Mg/2 Ml Nebu INH 06/03/25 08:59 0.25 mg QDAY CHRISTINA Administration Cyclobenzaprine HCl 5 mg 05/04/25 21:00 Cyclobenzaprine 5 Mg Tablet PO 06/03/25 20:59 HS [facility] Docusate Sodium 100 mg 05/04/25 09:00 05/04/25 08:49 Docusate Sod 100 Mg Capsule PO 06/03/25 08:59 Not Given QDAY [facility] Protocol Fluoxetine HCl 20 mg 05/04/25 21:00 Fluoxetine Hcl 10 Mg Capsule PO 06/03/25 20:59 HS [facility] Guaifenesin/Dextromethorphan 1 each 05/04/25 11:39 05/04/25 12:13 Guaifenesin/Dm Tablet PO 06/03/25 11:38 1 each BID PRN Administration COUGH Lactated Ringer's 1,000 mls @ 75 mls/hr 05/03/25 23:15 05/03/25 23:34 Lactated Ringers IV 06/02/25 23:14 75 mls/hr On Hold: 05/04/25 09:58 .[id number] CHRISTINA Administration Ceftriaxone Sodium/Dextrose 1 gm in 50 mls @ 100 mls/hr 05/03/25 23:15 05/04/25 08:47 Rocephin/D5w 1gm Iv Premix IV 05/10/25 23:14 100 mls/hr QDAY CHRISTINA Administration Morphine Sulfate 1 mg 05/03/25 23:10 05/04/25 13:20 Morphine Sulf Inj 4 Mg/Ml Vial IVP 05/08/25 23:09 1 mg Q4HR PRN Administration PAIN SCALE 7-10 (Severe Ondansetron HCl 4 mg 05/03/25 23:10 05/04/25 06:02 Ondansetron Inj 2 Mg/Ml Inj 2 Ml IVP 06/02/25 23:09 4 mg Q6H PRN Administration NAUSEA OR VOMITING Protocol Pantoprazole Sodium 40 mg 05/04/25 09:00 05/04/25 08:50 Pantoprazole Inj 40 Mg Vial IVP 06/03/25 08:59 40 mg Q12HR CHRISTINA Administration Pregabalin 75 mg 05/04/25 14:00 05/04/25 13:36 Pregabalin 75 Mg Capsule PO 06/03/25 13:59 75 mg TID CHRISTINA Administration Plan 40-year-old female with a known history of peptic ulcer disease, gastritis, hiatal hernia, and gastroparesis with multiple recent admissions due to GI symptoms of recurrent nausea/vomiting and epigastric pain, who presented on 05/03/2025 after 24 hours of multiple episodes of coffee ground emesis and tarry stools. Patient was admitted for upper GI bleed work up. #Upper GI bleed #Acute blood loss anemia (microcytic) #Hx of cyclical vomiting syndrome DDx PUD, stress ulcers 24 hours she has had over 20 bouts of coffee ground emesis and at least 4-5 black tarry stools. She describes the vomitus and throwup as black, tarry, and slick like oil with an incredibly foul smell. Her recent path report from 01/27/2025 was negative for H.pylori in IHC. She drinks a lot of scalding hot coffee each day. She does not take iron supplements. She is not on any anti- coagulants. Is undergoing a lot of stress in personal life. 04/19/2025 EGD esophagitis, gastritis, and retained food, with findings suggestive of gastroparesis and moderate hiatal hernia. Physical exam shows epigastric tenderness to the back and midsternal discomfort on palpation. Hemoglobin 10.3 on admission downtrending 9.1--> 9.0. MCV 68. ferritin 01/28/2025 was 10. CTAP was negative for pancreatitis, lipase wnl. GB US: Normal gallbladder. Moderate hepatomegaly, suspect primary hepatocellular disease. Plan: -Dr. Meraz (GI consulted) appreciate recs -FUP blood cx:___ -Protonix 40mg IV Q12 -Restart home amitryptiline 30mg PO HS (cyclic vomiting syndrome) #AHRF #Pneumonia #Hx of Asthma Aspiration versus community acquired pneumonia WBC 12.5-->15.3, ABG pO@ 61. CTAP extensive right lung pneumonia. Patient reports new onset SOB and cough after episode of vomiting the morning of admission. Bilateral wheezing, rales, and rhonchi on physical exam. Plan: -MRSA screen negative -Ceftriaxone 1g IV QD -Azithromycin 500mg QD -FUP Sputum cx:___ -ISS -Duonebs -Budesonide 0.25 mg INH QD #Lactic acidosis Lactic acid 3.6 --> 2.8 --> 3.3. 3 boluses of IVF given along with maintenance fluids. Most likely due to volume depletion in the setting of intractable nausea and vomiting. Plan: -IVF -Trend lactate #Microcytic anemia Likely iron deficiency anemia Iron panel previously noted for Ferritin of 10 Patient not on any iron supplements. Underwent 2x EGD in 3 months. -Hold iron infusion pending infection clearance #Hx of chronic back pain Plan: -Restart cyclobenzaprine 5mg PO HS -Restart home pregabalin 75 mg PO TID #Hx of depression Plan: -Restart home fluoxetine 20mg PO HS -Restart home seroquel 100mg PO HS Health Maintenance: Code status: Full DVT prophylaxis: SCD GI prophylaxis: Protonix 40mg Q12hr Diet: NPO pending EGD Berger: None Lines: PIV Supplemental O2: NC Disposition: Tele for upper GI bleed and AHRF Patient plan of care was discussed with the attending physician, Dr. Parrish. Monika Sotelo, PGY-3 Attending Provider Attestation/Addendum I have examined the patient, reviewed labs and imaging findings, discussed the case with the resident(s), and reviewed entered orders. I agree with the plan of care as outlined in this note, with these additional summaries/recommendations: Patient seen at bedside. Patient endorses shortness of breath although slightly improved from admission. Patient has had multiple readmissions for similar complaints. Patient admitted for upper GI bleed and intractable nausea and vomiting. Patient endorsed hematemesis and melena. She has had EGD in the past that revealed esophagitis, gastritis, significant hiatal hernia, and food in the stomach suggestive of gastric motility disorder. Continue antiemetics and PPI. Gastroenterology consulted with plans for upper endoscopy although will be completed once O2 requirements improved. Patient also diagnosed with acute hypoxic respiratory failure most likely secondary to aspiration pneumonia. Leukocytosis present. Imaging reveals extensive right lung pneumonia. Continue IV antibiotics and follow-up culture results. Continue pain management as needed for hiatal hernia. Lactic acidosis resolving. Patient updated on the plan and in agreement. All questions answered to satisfaction. Please see residents note for additional details and management. Dr. Shivani MD
[2025-05-04] MEDS: LORazepam 2 MG/ML VIAL 1 MG IVP (19:50)
[2025-05-04] MEDS: AZITHROMYCIN 250 MG TABLET 500 MG PO (20:14)
[2025-05-05] VITALS (18 sets, daily range): BP systolic 95–133; BP diastolic 65–86; PULSE 90–110; RESP 11–28; TEMP 36.1–37.2; O2SAT 90–100
[2025-05-05] MEDS: ACETAMINOPHEN 325 MG TABLET 650 MG PO (01:06)
[2025-05-05] MEDS: MORPHINE SULF INJ 4 MG/ML VIAL 1 MG IVP ×4 (02:20→21:57)
[2025-05-05] MEDS: ALBUTEROL/IPRATROPIUM (Duoneb) RT SOL 3 ML NEBU INH ×6 (02:24→22:17)
[2025-05-05 05:23] LABS: Lactate (Lactic Acid) 2.5 mMol/L (0.4-2.0)
[2025-05-05] MEDS: PREGABALIN 75 MG CAPSULE PO ×3 (05:36→21:58)
[2025-05-05 05:39] LABS: Basophils # (Auto) 0.0 Thou/mm3 (0.0-0.2); Basophils % (Auto) 0 % (0-2.5); Eosinophils # (Auto) 0.1 Thou/mm3 (0.0-0.5); Eosinophils % (Auto) 1 % (0-10); Hematocrit 25.7 % (36.0-46.0); Immature Granulocytes Auto 0.12 Thou/mm3 (0.00-0.00); Lymphocytes # (Auto) 0.9 Thou/mm3 (1.0-4.8); Lymphocytes % (Auto) 7 % (10-50); Mean Corpuscular HGB Conc 31.1 g/dl (31.0-37.0); Mean Corpuscular Hemoglobin 21.3 pg (25.0-35.0); Mean Corpuscular Volume 69 fL (80-100); Monocytes # (Auto) 0.8 Thou/mm3 (0.0-0.8); Monocytes % (Auto) 6 % (0-12); Neutrophils # (Auto) 11.7 Thou/mm3 (1.8-7.7); Neutrophils % (Auto) 85 % (37-80); Nucleated Red Blood Cell # 0.00 Thou/mm3 (0.00-0.00); Nucleated Red Blood Cell % 0 /100 WBC (0); Platelet Count 265 Thou/mm3 (140-440); RDW Standard Deviation 43.3 fL (36.4-46.3); Red Blood Count 3.75 Miln/mm3 (4.00-5.20); White Blood Count 13.7 Thou/mm3 (3.6-11.0)
[2025-05-05 05:40] LABS: Hemoglobin 8.0 g/dL (12.0-16.0)
[2025-05-05 06:08] LABS: Alanine Aminotransferase 19 U/L (10-49); Albumin, Serum 4.0 gm/dL (3.5-5.0); Albumin/Globulin Ratio 1.7 (1.2-2.2); Alkaline Phosphatase 68 U/L (46-116); Anion Gap 12 (7-16); Aspartate Amino Transferase 19 U/L (0-34); BUN/Creatinine Ratio 15 Ratio (12-20); Bilirubin,Total 0.3 mg/dL (0.3-1.2); Blood Urea Nitrogen 9 mg/dL (9-23); Calcium 8.7 mg/dL (8.3-10.6); Calcium (Corrected) 8.7 mg/dL (8.5-10.1); Carbon Dioxide 24.5 mMol/L (20.0-31.0); Chloride 104 mMol/L (98-107); Creatinine (Component) 0.6 mg/dL (0.6-1.3); Estimated Creatinine Clearance 143.0 mL/min (>60); Globulin 2.4 gm/dL (2.3-3.5); Glucose 106 mg/dL (74-106); Magnesium 1.8 mg/dL (1.6-2.6); Osmolality,Calculated 278 (275-295); Phosphorous 3.0 mg/dL (2.4-5.1); Potassium 3.4 mMol/L (3.4-5.1); Sodium 140 mMol/L (136-145); Total Protein 6.4 gm/dL (5.7-8.2); eGFR > 60 See Note
[2025-05-05] MEDS: cefTRIAXone/D5w 1gm IV premix 1 GM/50 ML BAG IV (07:52)
[2025-05-05 08:20] LABS: Reflex Lactate? Y
[2025-05-05 09:06] LABS: Lactic Acid, 3 HR 1.3 mMol/L (0.4-2.0)
--- NOTE | 2025-05-05 10:45 | CHAP ---
Patient was visited by the Spiritual Care Volunteer who prayed silently for them. (Volunteer was in the hospital from 09:30-10:45)
--- NOTE | 2025-05-05 10:49 | PC.SS ---
SS follow up note. EGD today, PNA, patient is on IV ABX. Patient will discharge home when medically cleared.
[2025-05-05] MEDS: BUDESONIDE RT 0.25 MG/2 ML NEBU INH (11:05)
--- NOTE | 2025-05-05 14:20 | XR_ITS ---
Examination: Shoulder, right, 3 views Technique: Shoulder AP internal rotation, AP external rotation, Y view shoulder, 3 views Exam date and time : May 05, 2025, 1451 hours INDICATIONS: Patient fell 3 days ago with injury to the shoulder, shoulder pain FINDINGS: Extensive opacity in the right lung field No shoulder fracture or dislocation IMPRESSION: No shoulder fracture or dislocation
--- NOTE | 2025-05-05 14:25 | PC.NURSE ---
notified pt co of R shoulder pain due top fall at home
--- NOTE | 2025-05-05 14:30 | PD.RESPRO ---
Documentation for date of: 05/05/25 Subjective Subjective Interval history: Overnight, the patient requested Ativan 1 mg IV x1 for anxiety, emphasized that patient is to receive prn PO alprazolam instead of Ativan.?Patient seen and examined at bedside this AM. She is on 4L oxygen. Pending EGD. Discussed with Dr. Meraz, will keep patient NPO and patient will be evaluated for endoscopy. Otherwise, continuing treatment for pneumonia with ceftriaxone, azithromycin. DuoNebs for asthma and Mucinex for symptom relief. No further dark stools or vomiting events were reported. Review of systems otherwise negative except what is mentioned above. Exam Vital Signs Temp Pulse Resp BP Pulse Ox O2 Del Method O2 Flow Rate 97.5 F 100 25 H 130/78 100 Nasal Cannula 5 05/05/25 08:00 05/05/25 11:08 05/05/25 11:08 05/05/25 08:00 05/05/25 11:08 05/05/25 08:00 05/05/25 11:08 Narrative Exam Physical Exam General: Awake and in mild discomfort. Conversational and chronically ill-appearing. HEENT: Normocephalic, atraumatic, mucous membranes moist. Heart: Regular rate and rhythm, normal S1 and S2, no murmurs. Lungs: Mild rhonchi R>L. Abdomen: Soft, nondistended, nontender, positive bowel sounds. ?No guarding or rebound tenderness. Neurologic: Alert and oriented x3, no gross neurological deficit, and patient able to move all 4 extremities. Extremities: No edema. Skin: No rash or ecchymoses. Objective Labs 05/06/25 05:17 05/06/25 05:17 Labs: Laboratory Results - last 24 hr 05/05/25 05/05/25 05:00 08:52 WBC 13.7 H RBC 3.75 L Hgb 8.0 L Hct 25.7 L MCV 69 L MCH 21.3 L MCHC 31.1 RDW Std Deviation 43.3 Plt Count 265 Neut % (Auto) 85 H Lymph % (Auto) 7 L [place] % (Auto) 6 Eos % (Auto) 1 Baso % (Auto) 0 Neut # (Auto) 11.7 H Lymph # (Auto) 0.9 L [place] # (Auto) 0.8 Eos # (Auto) 0.1 Baso # (Auto) 0.0 Immature Gran # (Auto) 0.12 H Absolute Nucleated RBC 0.00 Immature Gran % 1 H Nucleated RBC % 0 Sodium 140 Potassium 3.4 Chloride 104 Carbon Dioxide 24.5 Anion Gap 12 BUN 9 Creatinine 0.6 Estim Creat Clear Calc 143.0 eGFR > 60 BUN/Creatinine Ratio 15 Glucose 106 Calculated Osmolality 278 Lactic Acid 2.5 H 1.3 Calcium 8.7 Corrected Calcium 8.7 Phosphorus 3.0 Magnesium 1.8 Total Bilirubin 0.3 AST 19 ALT 19 Alkaline Phosphatase 68 Total Protein 6.4 Albumin 4.0 Globulin 2.4 Albumin/Globulin Ratio 1.7 ABG Interpretation ABG results: 05/03/25 19:58 ABG pH 7.45 ABG pCO2 33 ABG pO2 61 L ABG HCO3 23 ABG O2 Saturation 93 ABG Base Excess -1 Quality Measures Quality Measures VTE prophylaxis Assessment & Plan Assessment Current Active Medications: Generic Name Dose Route Start Last Admin Trade Name Freq PRN Reason Stop Dose Admin Acetaminophen 650 mg 05/03/25 23:10 05/05/25 01:06 Acetaminophen 325 Mg Tablet PO 06/02/25 23:09 650 mg Q6H PRN Administration Fever >100.4 or pain 1-3 Hydrocodone Bitart/Acetaminophen 1 tab 05/03/25 23:10 05/04/25 19:42 Hydrocodone/Apap 5/325 Tablet PO 05/08/25 23:09 1 tab Q4HR PRN Administration PAIN SCALE 4-6 (Moderate Albuterol/Ipratropium 3 ml 05/04/25 03:00 05/05/25 11:06 Albuterol/Ipratropium (Duoneb) Rt Lian 3 Ml Nebu INH 06/03/25 02:59 3 ml Q4HRRT CHRISTINA Administration Alprazolam 0.25 mg 05/04/25 12:05 05/05/25 01:06 Alprazolam 0.25 Mg Tablet PO 05/09/25 12:04 0.25 mg BID PRN Administration ANXIETY Azithromycin 500 mg 05/04/25 21:00 05/04/25 20:14 Azithromycin 250 Mg Tablet PO 05/07/25 21:01 500 mg HS CHRISTINA Administration Protocol Budesonide 0.25 mg 05/04/25 09:00 05/05/25 11:05 Budesonide Rt 0.25 Mg/2 Ml Nebu INH 06/03/25 08:59 0.25 mg QDAY CHRISTINA Administration Cyclobenzaprine HCl 5 mg 05/04/25 21:00 05/04/25 20:14 Cyclobenzaprine 5 Mg Tablet PO 06/03/25 20:59 5 mg HS CHRISTINA Administration Docusate Sodium 100 mg 05/04/25 09:00 05/05/25 09:15 Docusate Sod 100 Mg Capsule PO 06/03/25 08:59 Not Given QDAY CHRISTINA Protocol Fluoxetine HCl 20 mg 05/04/25 21:00 05/04/25 20:14 Fluoxetine Hcl 10 Mg Capsule PO 06/03/25 20:59 20 mg HS CHRISTINA Administration Guaifenesin/Dextromethorphan 1 each 05/04/25 11:39 05/04/25 12:13 Guaifenesin/Dm Tablet PO 06/03/25 11:38 1 each BID PRN Administration COUGH Ceftriaxone Sodium/Dextrose 1 gm in 50 mls @ 100 mls/hr 05/03/25 23:15 05/05/25 07:52 Rocephin/D5w 1gm Iv Premix IV 05/10/25 23:14 100 mls/hr QDAY CHRISTINA Administration Morphine Sulfate 1 mg 05/03/25 23:10 05/05/25 12:07 Morphine Sulf Inj 4 Mg/Ml Vial IVP 05/08/25 23:09 1 mg Q4HR PRN Administration PAIN SCALE 7-10 (Severe Ondansetron HCl 4 mg 05/03/25 23:10 05/04/25 19:42 Ondansetron Inj 2 Mg/Ml Inj 2 Ml IVP 06/02/25 23:09 4 mg Q6H PRN Administration NAUSEA OR VOMITING Protocol Pantoprazole Sodium 40 mg 05/04/25 09:00 05/05/25 07:52 Pantoprazole Inj 40 Mg Vial IVP 06/03/25 08:59 40 mg Q12HR CHRISTINA Administration Pregabalin 75 mg 05/04/25 14:00 05/05/25 14:19 Pregabalin 75 Mg Capsule PO 06/03/25 13:59 75 mg TID CHRISTINA Administration Plan 40-year-old female with a known history of peptic ulcer disease, gastritis, hiatal hernia, and gastroparesis with multiple recent admissions due to GI symptoms of recurrent nausea/vomiting and epigastric pain, who presented on 05/03/2025 after 24 hours of multiple episodes of coffee ground emesis and tarry stools. Patient was admitted for upper GI bleed work up. #Upper GI bleed #Acute blood loss anemia (microcytic) #Hx of cyclical vomiting syndrome DDx PUD, stress ulcers 24 hours she has had over 20 bouts of coffee ground emesis and at least 4-5 black tarry stools. She describes the vomitus and throwup as black, tarry, and slick like oil with an incredibly foul smell. Her recent path report from 01/27/2025 was negative for H.pylori in IHC. She drinks a lot of scalding hot coffee each day. She does not take iron supplements. She is not on any anti-coagulants. Is undergoing a lot of stress in personal life. 04/19/2025 EGD esophagitis, gastritis, and retained food, with findings suggestive of gastroparesis and moderate hiatal hernia. Physical exam shows epigastric tenderness to the back and midsternal discomfort on palpation. Hemoglobin 10.3 on admission downtrending 9.1--> 9.0. MCV 68. ferritin 01/28/2025 was 10. CTAP was negative for pancreatitis, lipase wnl. GB US: Normal gallbladder. Moderate hepatomegaly, suspect primary hepatocellular disease. Plan: -Dr. Meraz (GI consulted) appreciate recs -Protonix 40mg IV Q12 -Restarted home amitryptiline 30mg PO HS (cyclic vomiting syndrome) #Acute hypoxic respiratory failure #Pneumonia, likely aspiration #Hx of Asthma Aspiration versus community acquired pneumonia WBC 12.5-->15.3, ABG pO@ 61. CTAP extensive right lung pneumonia. Patient reports new onset SOB and cough after episode of vomiting the morning of admission. Bilateral wheezing, rales, and rhonchi on physical exam. Blood cultures negative from admission Plan: -MRSA screen negative -Ceftriaxone 1g IV QD -Azithromycin 500mg QD -FUP Sputum cx:___ -ISS -Duonebs -Budesonide 0.25 mg INH QD #Microcytic anemia Likely iron deficiency anemia Iron panel previously noted for Ferritin of 10 Patient not on any iron supplements. Underwent 2x EGD in 3 months. -Hold iron infusion pending infection clearance #Hx of chronic back pain Plan: -Continue home cyclobenzaprine 5mg PO HS -Continue home pregabalin 75 mg PO TID #Hx of depression Plan: -Continue home fluoxetine 20mg PO HS -Continue home seroquel 100mg PO HS #Lactic acidosis, resolved Lactic acid 3.6 --> 2.8 --> 3.3. 3 boluses of IVF given along with maintenance fluids. Most likely due to volume depletion in the setting of intractable nausea and vomiting. Downtrended to normal on 05/05/2025 Health Maintenance: Code status: Full DVT prophylaxis: SCD GI prophylaxis: Protonix 40mg Q12hr Diet: NPO pending EGD Berger: None Lines: PIV Supplemental O2: NC Disposition: Tele for upper GI bleed and AHRF Patient plan of care was discussed with the attending physician, Dr. Parrish. Monika Sotelo, PGY-3 Attending Provider Attestation/Addendum I have examined the patient, reviewed labs and imaging findings, discussed the case with the resident(s), and reviewed entered orders. I agree with the plan of care as outlined in this note, with these additional summaries/recommendations: Patient seen at bedside. No acute overnight events. Patient still endorsing shortness of breath and abdominal pain. Patient has had multiple readmissions for similar complaints. Patient admitted for upper GI bleed and intractable nausea and vomiting. Patient endorsed hematemesis and melena. She has had EGD in the past that revealed esophagitis, gastritis, significant hiatal hernia, and food in the stomach suggestive of gastric motility disorder. Continue antiemetics and PPI. Gastroenterology consulted with plans for upper endoscopy today 05/05. Patient also diagnosed with acute hypoxic respiratory failure most likely secondary to aspiration pneumonia. Leukocytosis present. Imaging reveals extensive right lung pneumonia. Continue IV antibiotics and follow-up culture results. Continue pain management as needed for hiatal hernia. Lactic acidosis resolving. Patient updated on the plan and in agreement. All questions answered to satisfaction. Please see residents note for additional details and management. Dr. Shivani MD
[2025-05-05] MEDS: HYDROcodone/APAP 5/325 TABLET 1 TAB PO (15:31)
--- NOTE | 2025-05-05 17:05 | SUR.PHASEI ---
Patient arrived to PACU bay #01 s/p EGD. She is lethargic but arousable to verbal stimuli. VSS. She was placed on 5 L via Oxymask. Respirations even and unlabored. No s/s of distress.
--- NOTE | 2025-05-05 17:30 | SUR.PHASEI ---
Report called to primary nurse, Jaleesa SUNSHINE. Patient remains lethargic but responsive to verbal stimuli. SPO2 95% on 5 L via Oxymask.
--- NOTE | 2025-05-05 17:40 | SUR.PHASEI ---
Patient was transferred back to room via gurney without issues. SPo2 remained above 93% on 5 L via Oxymask. No apparent distress noted. No voiced complaints.
[2025-05-05] MEDS: NA SU/NAHCO3/KC/PEG (Golytely) 4,000 ML BTL 4000 ML PO (18:30)
[2025-05-05] MEDS: AZITHROMYCIN 250 MG TABLET 500 MG PO (21:23)
[2025-05-06] VITALS (14 sets, daily range): BP systolic 101–147; BP diastolic 67–91; PULSE 84–113; RESP 14–33; TEMP 36.1–37.2; O2SAT 91–101; BMI 31.3
[2025-05-06] MEDS: MORPHINE SULF INJ 4 MG/ML VIAL 1 MG IVP ×5 (02:21→22:31)
[2025-05-06] MEDS: ALBUTEROL/IPRATROPIUM (Duoneb) RT SOL 3 ML NEBU INH ×6 (02:36→23:04)
[2025-05-06] MEDS: PREGABALIN 75 MG CAPSULE PO (05:38)
[2025-05-06 06:35] LABS: Basophils # (Auto) 0.0 Thou/mm3 (0.0-0.2); Basophils % (Auto) 0 % (0-2.5); Eosinophils # (Auto) 0.2 Thou/mm3 (0.0-0.5); Eosinophils % (Auto) 1 % (0-10); Hematocrit 24.3 % (36.0-46.0); Immature Granulocytes Auto 0.18 Thou/mm3 (0.00-0.00); Lymphocytes # (Auto) 1.2 Thou/mm3 (1.0-4.8); Lymphocytes % (Auto) 11 % (10-50); Mean Corpuscular HGB Conc 30.9 g/dl (31.0-37.0); Mean Corpuscular Hemoglobin 20.9 pg (25.0-35.0); Mean Corpuscular Volume 68 fL (80-100); Monocytes # (Auto) 0.8 Thou/mm3 (0.0-0.8); Monocytes % (Auto) 7 % (0-12); Neutrophils # (Auto) 9.1 Thou/mm3 (1.8-7.7); Neutrophils % (Auto) 79 % (37-80); Nucleated Red Blood Cell # 0.00 Thou/mm3 (0.00-0.00); Nucleated Red Blood Cell % 0 /100 WBC (0); Platelet Count 316 Thou/mm3 (140-440); RDW Standard Deviation 42.4 fL (36.4-46.3); Red Blood Count 3.59 Miln/mm3 (4.00-5.20); White Blood Count 11.5 Thou/mm3 (3.6-11.0)
[2025-05-06 07:01] LABS: Alanine Aminotransferase 17 U/L (10-49); Albumin, Serum 4.0 gm/dL (3.5-5.0); Albumin/Globulin Ratio 1.7 (1.2-2.2); Alkaline Phosphatase 82 U/L (46-116); Anion Gap 10 (7-16); Aspartate Amino Transferase < 8 U/L (0-34); BUN/Creatinine Ratio 18 Ratio (12-20); Bilirubin,Total 0.3 mg/dL (0.3-1.2); Blood Urea Nitrogen 9 mg/dL (9-23); Calcium 9.1 mg/dL (8.3-10.6); Calcium (Corrected) 9.1 mg/dL (8.5-10.1); Carbon Dioxide 25.0 mMol/L (20.0-31.0); Chloride 103 mMol/L (98-107); Creatinine (Component) 0.5 mg/dL (0.6-1.3); Estimated Creatinine Clearance 171.2 mL/min (>60); Globulin 2.3 gm/dL (2.3-3.5); Glucose 88 mg/dL (74-106); Magnesium 1.8 mg/dL (1.6-2.6); Osmolality,Calculated 273 (275-295); Phosphorous 3.3 mg/dL (2.4-5.1); Potassium 3.3 mMol/L (3.4-5.1); Sodium 138 mMol/L (136-145); Total Protein 6.3 gm/dL (5.7-8.2); eGFR > 60 See Note
[2025-05-06 07:04] LABS: Hemoglobin 7.5 g/dL (12.0-16.0)
[2025-05-06] MEDS: DOCUSATE SOD 100 MG CAPSULE PO (09:09)
[2025-05-06] MEDS: cefTRIAXone/D5w 1gm IV premix 1 GM/50 ML BAG IV (09:09)
[2025-05-06] MEDS: BUDESONIDE RT 0.25 MG/2 ML NEBU INH (10:07)
--- NOTE | 2025-05-06 14:49 | ESPR_ITS ---
Documentation for date of: 05/06/25 Subjective Subjective Interval history: No overnight events. Patient was examined at bedside; they appear A&Ox3 and in NAD. Vitals/labs today significant for BP 101/68, HR 108, RR 33, WBC 13.7->11.5, Hgb 8.0->7.5. Physical exam was non-contributory. 05/05 EGD showed diffuse moderate inflammation characterized by erythema in the gastric antrum but was negative for sites of active bleeding. 05/05 shoulder XR showed extensive opacity in the right lung field but negative for shoulder fracture or dislocation. At this time, the explanation for patient's drop in hemoglobin remains elusive. She is on GoLytely today and pending colonoscopy. The etiology of patient's intractable nausea and abdominal pain is currently unclear but may be 2/2 her hiatal hernia but may also be from cannabinoid hyperemesis syndrome from her continued use of marijuana. Exam Vital Signs Temp Pulse Resp BP Pulse Ox O2 Del Method O2 Flow Rate 96.9 F 101 H 21 H 128/89 H 96 Oxy Mask 6 05/06/25 12:00 05/06/25 12:00 05/06/25 12:00 05/06/25 12:00 05/06/25 12:00 05/06/25 12:00 05/06/25 12:00 Narrative Exam General: Awake and in mild discomfort. Conversational and chronically ill- appearing. HEENT: Normocephalic, atraumatic, mucous membranes moist. Heart: Regular rate and rhythm, normal S1 and S2, no murmurs. Lungs: Mild rhonchi R>L. Abdomen: Soft, nondistended, nontender, positive bowel sounds. ?No guarding or rebound tenderness. Neurologic: Alert and oriented x3, no gross neurological deficit, and patient able to move all 4 extremities. Extremities: No edema. Skin: No rash or ecchymoses. Objective Labs 05/07/25 04:59 05/07/25 04:59 Labs: Laboratory Results - last 24 hr 05/06/25 05:17 WBC 11.5 H RBC 3.59 L Hgb 7.5 L Hct 24.3 L MCV 68 L MCH 20.9 L MCHC 30.9 L RDW Std Deviation 42.4 Plt Count 316 D Neut % (Auto) 79 Lymph % (Auto) 11 [place] % (Auto) 7 Eos % (Auto) 1 Baso % (Auto) 0 Neut # (Auto) 9.1 H Lymph # (Auto) 1.2 [place] # (Auto) 0.8 Eos # (Auto) 0.2 Baso # (Auto) 0.0 Immature Gran # (Auto) 0.18 H Absolute Nucleated RBC 0.00 Immature Gran % 2 H Nucleated RBC % 0 Sodium 138 Potassium 3.3 L Chloride 103 Carbon Dioxide 25.0 Anion Gap 10 BUN 9 Creatinine 0.5 L Estim Creat Clear Calc 171.2 eGFR > 60 BUN/Creatinine Ratio 18 Glucose 88 Calculated Osmolality 273 L Calcium 9.1 Corrected Calcium 9.1 Phosphorus 3.3 Magnesium 1.8 Total Bilirubin 0.3 AST < 8 ALT 17 Alkaline Phosphatase 82 D Total Protein 6.3 Albumin 4.0 Globulin 2.3 Albumin/Globulin Ratio 1.7 ABG Interpretation ABG results: 05/03/25 19:58 ABG pH 7.45 ABG pCO2 33 ABG pO2 61 L ABG HCO3 23 ABG O2 Saturation 93 ABG Base Excess -1 Quality Measures Quality Measures VTE prophylaxis Assessment & Plan Assessment Current Active Medications: Generic Name Dose Route Start Last Admin Trade Name Freq PRN Reason Stop Dose Admin Acetaminophen 650 mg 05/03/25 23:10 05/05/25 01:06 Acetaminophen 325 Mg Tablet PO 06/02/25 23:09 650 mg Q6H PRN Administration Fever >100.4 or pain 1-3 Hydrocodone Bitart/Acetaminophen 1 tab 05/03/25 23:10 05/05/25 15:31 Hydrocodone/Apap 5/325 Tablet PO 05/08/25 23:09 1 tab Q4HR PRN Administration PAIN SCALE 4-6 (Moderate Albuterol/Ipratropium 3 ml 05/04/25 03:00 05/06/25 10:07 Albuterol/Ipratropium (Duoneb) Rt Lian 3 Ml Nebu INH 06/03/25 02:59 3 ml Q4HRRT CHRISTINA Administration Alprazolam 0.25 mg 05/04/25 12:05 05/05/25 23:33 Alprazolam 0.25 Mg Tablet PO 05/09/25 12:04 0.25 mg BID PRN Administration ANXIETY Amitriptyline HCl 25 mg 05/06/25 21:00 Amitriptyline Hcl 25 Mg Tablet PO 06/05/25 20:59 HS CHRISTINA Azithromycin 500 mg 05/04/25 21:00 05/05/25 21:23 Azithromycin 250 Mg Tablet PO 05/07/25 21:01 500 mg HS CHRISTINA Administration Protocol Budesonide 0.25 mg 05/04/25 09:00 05/06/25 10:07 Budesonide Rt 0.25 Mg/2 Ml Nebu INH 06/03/25 08:59 0.25 mg QDAY CHRISTINA Administration Cyclobenzaprine HCl 5 mg 05/04/25 21:00 05/05/25 21:22 Cyclobenzaprine 5 Mg Tablet PO 06/03/25 20:59 5 mg HS CHRISTINA Administration Docusate Sodium 100 mg 05/04/25 09:00 05/06/25 09:09 Docusate Sod 100 Mg Capsule PO 06/03/25 08:59 100 mg QDAY CHRISTINA Administration Protocol Fluoxetine HCl 20 mg 05/04/25 21:00 05/05/25 21:23 Fluoxetine Hcl 10 Mg Capsule PO 06/03/25 20:59 20 mg HS CHRISTINA Administration Guaifenesin/Dextromethorphan 1 each 05/04/25 11:39 05/04/25 12:13 Guaifenesin/Dm Tablet PO 06/03/25 11:38 1 each BID PRN Administration COUGH Ceftriaxone Sodium/Dextrose 1 gm in 50 mls @ 100 mls/hr 05/03/25 23:15 05/06/25 09:09 Rocephin/D5w 1gm Iv Premix IV 05/10/25 23:14 100 mls/hr QDAY CHRISTINA Administration Morphine Sulfate 1 mg 05/03/25 23:10 05/06/25 13:04 Morphine Sulf Inj 4 Mg/Ml Vial IVP 05/08/25 23:09 1 mg Q4HR PRN Administration PAIN SCALE 7-10 (Severe Ondansetron HCl 4 mg 05/03/25 23:10 05/04/25 19:42 Ondansetron Inj 2 Mg/Ml Inj 2 Ml IVP 06/02/25 23:09 4 mg Q6H PRN Administration NAUSEA OR VOMITING Protocol Pantoprazole Sodium 40 mg 05/04/25 09:00 05/06/25 09:08 Pantoprazole Inj 40 Mg Vial IVP 06/03/25 08:59 40 mg Q12HR CHRISTINA Administration Pregabalin 75 mg 05/04/25 14:00 05/06/25 14:04 Pregabalin 75 Mg Capsule PO 06/03/25 13:59 Not Given TID CHRISTINA Plan 40-year-old female with a known history of peptic ulcer disease, gastritis, hiatal hernia, and gastroparesis with multiple recent admissions due to GI symptoms of recurrent nausea/vomiting and epigastric pain, who presented on 05/03/2025 after 24 hours of multiple episodes of coffee ground emesis and tarry stools. Patient was admitted for upper GI bleed work up. #Upper GI bleed #Acute blood loss anemia (microcytic) #Hx of cyclical vomiting syndrome DDx: PUD, stress ulcers 24 hours she has had over 20 bouts of coffee ground emesis and at least 4-5 black tarry stools. She describes the vomitus and throw-up as black, tarry, and slick like oil with an incredibly foul smell. Her recent path report from 01/27/2025 was negative for H.pylori in IHC. She drinks a lot of scalding hot coffee each day. She does not take iron supplements. She is not on any anti- coagulants. Is undergoing a lot of stress in personal life. 04/19/2025 EGD esophagitis, gastritis, and retained food, with findings suggestive of gastroparesis and moderate hiatal hernia. Physical exam shows epigastric tenderness to the back and midsternal discomfort on palpation. Hemoglobin 10.3 on admission downtrending 9.1--> 9.0. MCV 68. ferritin 01/28/2025 was 10. CTAP was negative for pancreatitis, lipase wnl. GB US: Normal gallbladder. Moderate hepatomegaly, suspect primary hepatocellular disease. Dx: -05/05 EGD completed, showed diffuse moderate inflammation characterized by erythema in the gastric antrum but was negative for sites of active bleeding. -Colonoscopy pending, showed ___ Rx: -Dr. Meraz (GI consulted) appreciate recs -Protonix 40mg IV Q12 -Restarted home amitryptiline 30mg PO HS (cyclic vomiting syndrome) #Acute hypoxic respiratory failure #Pneumonia, likely aspiration #Hx of Asthma Aspiration versus community acquired pneumonia WBC 12.5-->15.3, ABG pO@ 61. CTAP extensive right lung pneumonia. Patient reports new onset SOB and cough after episode of vomiting the morning of admission. Bilateral wheezing, rales, and rhonchi on physical exam. Blood cultures negative from admission Dx: -05/05 shoulder XR showed extensive opacity in the right lung field but negative for shoulder fracture or dislocation. Rx: -MRSA screen negative -Ceftriaxone 1g IV QD -Azithromycin 500mg QD -FUP Sputum cx:___ -ISS -Duonebs -Budesonide 0.25 mg INH QD #Microcytic anemia Likely iron deficiency anemia Iron panel previously noted for Ferritin of 10 Patient not on any iron supplements. Underwent 2x EGD in 3 months. -Hold iron infusion pending infection clearance #Hx of chronic back pain Plan: -Continue home cyclobenzaprine 5mg PO HS -Continue home pregabalin 75 mg PO TID #Hx of depression Plan: -Continue home fluoxetine 20mg PO HS -Continue home seroquel 100mg PO HS #Lactic acidosis, resolved Lactic acid 3.6 --> 2.8 --> 3.3. 3 boluses of IVF given along with maintenance fluids. Most likely due to volume depletion in the setting of intractable nausea and vomiting. Downtrended to normal on 05/05/2025 Health Maintenance: Code status: Full DVT prophylaxis: SCD GI prophylaxis: Protonix 40mg Q12hr Diet: NPO pending EGD Berger: None Lines: PIV Supplemental O2: NC Disposition: Tele for upper GI bleed and AHRF Patient plan of care was discussed with the attending physician, Dr. Shivani Mckoy, DO PGY-1 Attending Provider Attestation/Addendum I have examined the patient, reviewed labs and imaging findings, discussed the case with the resident(s), and reviewed entered orders. I agree with the plan of care as outlined in this note, with these additional summaries/recommendations: Patient seen at bedside. No acute overnight events. Patient still endorsing abdominal pain although reports improvement in intractable nausea/vomiting. Patient is status post EGD yesterday which revealed normal esophagus, gastritis, and normal duodenum. No source of GI bleed found. Patient started on GoLytely and will go for colonoscopy once cleared. Continue antiemetics and PPI. Pain medicine as needed. Patient also diagnosed with acute hypoxic respiratory failure most likely secondary to aspiration pneumonia. Leukocytosis present although improving. Imaging reveals extensive right lung pneumonia. Continue IV antibiotics and follow-up culture results. Blood cultures show no growth at 48 hours. Continue pain management as needed for hiatal hernia. Patient updated on the plan and in agreement. All questions answered to satisfaction. Please see residents note for additional details and management. Dr. Shivani MD
--- NOTE | 2025-05-06 16:57 | PC.NURSE ---
Patient not tolerating golytely. Transferred from tele Dr. Parrish aware.
--- NOTE | 2025-05-06 18:05 | ESPR_ITS ---
Documentation for date of: 05/06/25 Subjective Subjective Interval history: Patient uncooperative in drinking the GoLytely Hemoglobin hematocrit continues to drop to 7.5 and 24.3 Leukocytosis improving to 11.5 Exam Vital Signs Temp Pulse Resp BP Pulse Ox O2 Del Method O2 Flow Rate 97.8 F 84 18 133/71 H 95 Room Air 3 05/06/25 16:00 05/06/25 16:00 05/06/25 16:00 05/06/25 16:00 05/06/25 16:00 05/06/25 16:00 05/06/25 15:58 Objective Labs 05/06/25 05:17 05/06/25 05:17 Labs: Laboratory Results - last 24 hr 05/06/25 05:17 WBC 11.5 H RBC 3.59 L Hgb 7.5 L Hct 24.3 L MCV 68 L MCH 20.9 L MCHC 30.9 L RDW Std Deviation 42.4 Plt Count 316 D Neut % (Auto) 79 Lymph % (Auto) 11 [place] % (Auto) 7 Eos % (Auto) 1 Baso % (Auto) 0 Neut # (Auto) 9.1 H Lymph # (Auto) 1.2 [place] # (Auto) 0.8 Eos # (Auto) 0.2 Baso # (Auto) 0.0 Immature Gran # (Auto) 0.18 H Absolute Nucleated RBC 0.00 Immature Gran % 2 H Nucleated RBC % 0 Sodium 138 Potassium 3.3 L Chloride 103 Carbon Dioxide 25.0 Anion Gap 10 BUN 9 Creatinine 0.5 L Estim Creat Clear Calc 171.2 eGFR > 60 BUN/Creatinine Ratio 18 Glucose 88 Calculated Osmolality 273 L Calcium 9.1 Corrected Calcium 9.1 Phosphorus 3.3 Magnesium 1.8 Total Bilirubin 0.3 AST < 8 ALT 17 Alkaline Phosphatase 82 D Total Protein 6.3 Albumin 4.0 Globulin 2.3 Albumin/Globulin Ratio 1.7 Impressions Impression: Occult GI bleeding Anemia blood loss Extensive right-sided pneumonia Improving leukocytosis Gave a break to the patient for the GoLytely Hopefully she will cooperate to drink it again ABG Interpretation ABG results: 05/03/25 19:58 ABG pH 7.45 ABG pCO2 33 ABG pO2 61 L ABG HCO3 23 ABG O2 Saturation 93 ABG Base Excess -1 Assessment & Plan A&P Narrative # Multiple episodes of nausea vomiting with hematemesis Differential diagnoses include [place] tear versus peptic ulcer disease versus extensive severe esophagitis or gastritis Suggestions N.p.o. 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
[2025-05-07] VITALS (17 sets, daily range): BP systolic 118–154; BP diastolic 70–97; PULSE 92–115; RESP 18–28; TEMP 36.4–36.9; O2SAT 87–100; BMI 31.6
[2025-05-07] MEDS: MELATONIN 3 MG TABLET 6 MG PO ×2 (00:48→21:52)
[2025-05-07] MEDS: ALBUTEROL/IPRATROPIUM (Duoneb) RT SOL 3 ML NEBU INH ×2 (02:26→11:20)
[2025-05-07] MEDS: MORPHINE SULF INJ 4 MG/ML VIAL 1 MG IVP ×4 (02:39→19:35)
[2025-05-07 06:17] LABS: Basophils # (Auto) 0.1 Thou/mm3 (0.0-0.2); Basophils % (Auto) 1 % (0-2.5); Eosinophils # (Auto) 0.2 Thou/mm3 (0.0-0.5); Eosinophils % (Auto) 1 % (0-10); Hematocrit 25.5 % (36.0-46.0); Immature Granulocytes Auto 0.69 Thou/mm3 (0.00-0.00); Lymphocytes # (Auto) 1.6 Thou/mm3 (1.0-4.8); Lymphocytes % (Auto) 12 % (10-50); Mean Corpuscular HGB Conc 31.4 g/dl (31.0-37.0); Mean Corpuscular Hemoglobin 20.9 pg (25.0-35.0); Mean Corpuscular Volume 67 fL (80-100); Monocytes # (Auto) 1.4 Thou/mm3 (0.0-0.8); Monocytes % (Auto) 10 % (0-12); Neutrophils # (Auto) 10.1 Thou/mm3 (1.8-7.7); Neutrophils % (Auto) 72 % (37-80); Nucleated Red Blood Cell # 0.00 Thou/mm3 (0.00-0.00); Nucleated Red Blood Cell % 0 /100 WBC (0); Platelet Count 341 Thou/mm3 (140-440); RDW Standard Deviation 42.4 fL (36.4-46.3); Red Blood Count 3.83 Miln/mm3 (4.00-5.20); White Blood Count 14.1 Thou/mm3 (3.6-11.0)
[2025-05-07 06:19] LABS: Hemoglobin 8.0 g/dL (12.0-16.0)
[2025-05-07 06:37] LABS: Alanine Aminotransferase 14 U/L (10-49); Albumin, Serum 4.2 gm/dL (3.5-5.0); Albumin/Globulin Ratio 1.8 (1.2-2.2); Alkaline Phosphatase 89 U/L (46-116); Anion Gap 13 (7-16); Aspartate Amino Transferase 14 U/L (0-34); BUN/Creatinine Ratio 14 Ratio (12-20); Bilirubin,Total 0.3 mg/dL (0.3-1.2); Blood Urea Nitrogen 7 mg/dL (9-23); Calcium 9.0 mg/dL (8.3-10.6); Calcium (Corrected) 9.0 mg/dL (8.5-10.1); Carbon Dioxide 24.7 mMol/L (20.0-31.0); Chloride 99 mMol/L (98-107); Creatinine (Component) 0.5 mg/dL (0.6-1.3); Estimated Creatinine Clearance 172.2 mL/min (>60); Globulin 2.4 gm/dL (2.3-3.5); Glucose 94 mg/dL (74-106); Magnesium 1.8 mg/dL (1.6-2.6); Osmolality,Calculated 271 (275-295); Phosphorous 4.1 mg/dL (2.4-5.1); Potassium 3.4 mMol/L (3.4-5.1); Sodium 137 mMol/L (136-145); Total Protein 6.6 gm/dL (5.7-8.2); eGFR > 60 See Note
[2025-05-07] MEDS: ONDANSETRON INJ 2 MG/ML INJ 2 ML 4 MG IVP (07:35)
[2025-05-07] MEDS: cefTRIAXone/D5w 1gm IV premix 1 GM/50 ML BAG IV (08:07)
[2025-05-07] MEDS: DOCUSATE SOD 100 MG CAPSULE PO (08:07)
[2025-05-07] MEDS: BUDESONIDE RT 0.25 MG/2 ML NEBU INH (11:20)
--- NOTE | 2025-05-07 14:28 | ESPR_ITS ---
Documentation for date of: 05/07/25 Subjective Subjective Interval history: Overnight, the patient was refusing Golytely.?Patient seen and examined at bedside this AM. She stated that Dr. Meraz is ok with trying laxatives instead of the Golytely. Will start dulcolax and lactulose at this time.?Patient is allowed to take PO meds with sips of water. Patient is emotional, states that she has kids at home and she has been going through a divorce with her . Would like to get through the procedure as soon as she can to get home. Feeling anxious, wants to have additional doses of benzodiazepines. Patient may have prn alprazolam. IV benzos to be avoided. Labs and vitals were reviewed.?Potassium 3.4, attempted to give liquid potassium but the patient refused. Review of systems otherwise negative except what is mentioned above. Exam Vital Signs Temp Pulse Resp BP Pulse Ox O2 Del Method O2 Flow Rate 97.5 F 99 18 154/83 H 93 L Room Air 4 05/07/25 11:47 05/07/25 11:47 05/07/25 11:47 05/07/25 11:47 05/07/25 11:47 05/07/25 11:47 05/07/25 11:21 Narrative Exam General: Awake and in mild discomfort. Conversational and chronically ill- appearing. HEENT: Normocephalic, atraumatic, mucous membranes moist. Heart: Regular rate and rhythm, normal S1 and S2, no murmurs. Lungs: Clear to auscultation bilaterally. Abdomen: Soft, nondistended, nontender, positive bowel sounds. ?No guarding or rebound tenderness. Neurologic: Alert and oriented x3, no gross neurological deficit, and patient able to move all 4 extremities. Extremities: No edema. Skin: No rash or ecchymoses. Objective Labs 05/08/25 04:36 05/08/25 04:36 Labs: Laboratory Results - last 24 hr 05/07/25 04:59 WBC 14.1 H RBC 3.83 L Hgb 8.0 L Hct 25.5 L MCV 67 L MCH 20.9 L MCHC 31.4 RDW Std Deviation 42.4 Plt Count 341 Neut % (Auto) 72 Lymph % (Auto) 12 [place] % (Auto) 10 Eos % (Auto) 1 Baso % (Auto) 1 Neut # (Auto) 10.1 H Lymph # (Auto) 1.6 [place] # (Auto) 1.4 H Eos # (Auto) 0.2 Baso # (Auto) 0.1 Immature Gran # (Auto) 0.69 H Absolute Nucleated RBC 0.00 Immature Gran % 5 H Nucleated RBC % 0 Sodium 137 Potassium 3.4 Chloride 99 Carbon Dioxide 24.7 Anion Gap 13 BUN 7 L Creatinine 0.5 L Estim Creat Clear Calc 172.2 eGFR > 60 BUN/Creatinine Ratio 14 Glucose 94 Calculated Osmolality 271 L Calcium 9.0 Corrected Calcium 9.0 Phosphorus 4.1 Magnesium 1.8 Total Bilirubin 0.3 AST 14 ALT 14 Alkaline Phosphatase 89 Total Protein 6.6 Albumin 4.2 Globulin 2.4 Albumin/Globulin Ratio 1.8 ABG Interpretation ABG results: 05/03/25 19:58 ABG pH 7.45 ABG pCO2 33 ABG pO2 61 L ABG HCO3 23 ABG O2 Saturation 93 ABG Base Excess -1 Quality Measures Quality Measures VTE prophylaxis Assessment & Plan Assessment Current Active Medications: Generic Name Dose Route Start Last Admin Trade Name Freq PRN Reason Stop Dose Admin Acetaminophen 650 mg 05/03/25 23:10 05/05/25 01:06 Acetaminophen 325 Mg Tablet PO 06/02/25 23:09 650 mg Q6H PRN Administration Fever >100.4 or pain 1-3 Hydrocodone Bitart/Acetaminophen 1 tab 05/03/25 23:10 05/05/25 15:31 Hydrocodone/Apap 5/325 Tablet PO 05/08/25 23:09 1 tab Q4HR PRN Administration PAIN SCALE 4-6 (Moderate Alprazolam 0.25 mg 05/04/25 12:05 05/07/25 10:11 Alprazolam 0.25 Mg Tablet PO 05/09/25 12:04 0.25 mg BID PRN Administration ANXIETY Amitriptyline HCl 25 mg 05/06/25 21:00 05/06/25 22:15 Amitriptyline Hcl 25 Mg Tablet PO 06/05/25 20:59 Not Given HS CHRISTINA Azithromycin 500 mg 05/04/25 21:00 05/06/25 22:15 Azithromycin 250 Mg Tablet PO 05/07/25 21:01 Not Given HS CHRISTINA Protocol Bisacodyl 5 mg 05/07/25 14:30 Bisacodyl 5 Mg Tabec PO 06/06/25 14:29 BID CHRISTINA Protocol Budesonide 0.25 mg 05/04/25 09:00 05/07/25 11:20 Budesonide Rt 0.25 Mg/2 Ml Nebu INH 06/03/25 08:59 0.25 mg QDAY CHRISTINA Administration Cyclobenzaprine HCl 5 mg 05/04/25 21:00 05/06/25 22:15 Cyclobenzaprine 5 Mg Tablet PO 06/03/25 20:59 Not Given HS CHRISTINA Docusate Sodium 100 mg 05/04/25 09:00 05/07/25 08:07 Docusate Sod 100 Mg Capsule PO 06/03/25 08:59 100 mg QDAY CHRISTINA Administration Protocol Fluoxetine HCl 20 mg 05/04/25 21:00 05/06/25 22:15 Fluoxetine Hcl 10 Mg Capsule PO 06/03/25 20:59 Not Given HS CHRISTINA Guaifenesin/Dextromethorphan 1 each 05/04/25 11:39 05/04/25 12:13 Guaifenesin/Dm Tablet PO 06/03/25 11:38 1 each BID PRN Administration COUGH Ceftriaxone Sodium/Dextrose 1 gm in 50 mls @ 100 mls/hr 05/03/25 23:15 05/07/25 08:07 Rocephin/D5w 1gm Iv Premix IV 05/10/25 23:14 100 mls/hr QDAY CHRISTINA Administration Lactulose 20 gm 05/07/25 17:00 Lactulose Syrup 20 Gm/30 Ml Udc PO 06/06/25 16:59 QID [facility] Protocol Levalbuterol HCl 1.25 mg 05/07/25 19:00 Levalbuterol Rt 1.25 Mg/0.5 Ml Nebu INH 06/06/25 18:59 Q6HRRT CHRISTINA Melatonin 6 mg 05/07/25 00:40 05/07/25 00:48 Melatonin 3 Mg Tablet PO 06/06/25 00:39 6 mg HS CHRISTINA Administration Morphine Sulfate 1 mg 05/03/25 23:10 05/07/25 12:38 Morphine Sulf Inj 4 Mg/Ml Vial IVP 05/08/25 23:09 1 mg Q4HR PRN Administration PAIN SCALE 7-10 (Severe Ondansetron HCl 4 mg 05/03/25 23:10 05/07/25 07:35 Ondansetron Inj 2 Mg/Ml Inj 2 Ml IVP 06/02/25 23:09 4 mg Q6H PRN Administration NAUSEA OR VOMITING Protocol Pantoprazole Sodium 40 mg 05/04/25 09:00 05/07/25 08:07 Pantoprazole Inj 40 Mg Vial IVP 06/03/25 08:59 40 mg Q12HR CHRISTINA Administration Pregabalin 75 mg 05/04/25 14:00 05/07/25 14:26 Pregabalin 75 Mg Capsule PO 06/03/25 13:59 Not Given TID CHRISTINA Sodium Chloride 3 ml 05/07/25 12:08 Sodium Chloride Rt Lian 0.9% 3 Ml Nebu INH 06/06/25 12:07 PRN PRN SOLN Plan 40-year-old female with a known history of peptic ulcer disease, gastritis, hiatal hernia, and gastroparesis with multiple recent admissions due to GI symptoms of recurrent nausea/vomiting and epigastric pain, who presented on 05/03/2025 after 24 hours of multiple episodes of coffee ground emesis and tarry stools. Patient was admitted for GI bleed work up. #GI bleed #Possible acute blood loss anemia #History of cyclical vomiting syndrome DDx: PUD, stress ulcers 24 hours prior to admission she has had over 20 bouts of coffee ground emesis and at least 4-5 black tarry stools. She describes the vomitus and throw-up as black, tarry, and slick like oil with an incredibly foul smell. Her recent path report from 01/27/2025 was negative for H.pylori in IHC. She drinks a lot of scalding hot coffee each day. She does not take iron supplements. She is not on any anti-coagulants. Is undergoing a lot of stress in personal life. 04/19/2025 EGD esophagitis, gastritis, and retained food, with findings suggestive of gastroparesis and moderate hiatal hernia. Physical exam shows epigastric tenderness to the back and midsternal discomfort on palpation. Hemoglobin 10.3 on admission downtrending 9.1--> 9.0. MCV 68. Ferritin 01/28/2025 was 10. CTAP was negative for pancreatitis, lipase wnl. GB US: Normal gallbladder. Moderate hepatomegaly, suspect primary hepatocellular disease. Patient continues to actively smoke marijuana daily Dx: -05/05 EGD completed, showed diffuse moderate inflammation characterized by erythema in the gastric antrum but was negative for sites of active bleeding. -Colonoscopy pending, showed ___ Rx: -Dr. Meraz (GI consulted) appreciate recs -Patient is non-compliant with Golytely, started aggressive laxatives -Lactulose 20 gm QID -Dulcolax 5 mg BID -Colace 100 mg qday -Protonix 40 mg IV q12h -Continue home amitryptiline 25 mg PO HS for cyclic vomiting syndrome #Acute hypoxic respiratory failure #Pneumonia, likely aspiration #History of asthma Aspiration versus community acquired pneumonia CTAP extensive right lung pneumonia. Patient reported new onset SOB and cough after episode of vomiting the morning of admission. Bilateral wheezing, rales, and rhonchi on physical exam. Dx: -05/05 shoulder XR showed extensive opacity in the right lung field but negative for shoulder fracture or dislocation. -MRSA screen negative -Blood cultures negative -Sputum culture grew Klebsiella and E. coli that are pansensitive Rx: -Ceftriaxone 1g IV QD -Azithromycin 500 mg QD, may discontinue after 05/08 -Incentive spirometry -Duonebs -Budesonide 0.25 mg INH QD #Microcytic anemia Likely iron deficiency anemia Iron panel previously noted for Ferritin of 10 Patient not on any iron supplements. Underwent 2x EGD in 3 months. -Hold iron infusion pending infection clearance #History of chronic back pain Plan: -Continue home cyclobenzaprine 5mg PO HS -Continue home pregabalin 75 mg PO TID #History of major depression #History of generalized anxiety Plan: -Continue home fluoxetine 20mg PO HS -Continue home seroquel 100mg PO HS #Lactic acidosis, resolved Lactic acid 3.6 --> 2.8 --> 3.3. 3 boluses of IVF given along with maintenance fluids. Most likely due to volume depletion in the setting of intractable nausea and vomiting. Downtrended to normal on 05/05/2025 Health Maintenance: Code status: Full DVT prophylaxis: SCD GI prophylaxis: Protonix 40mg Q12hr Diet: NPO except meds pending colonoscopy Berger: None Lines: PIV Supplemental O2: NC Disposition: Tele for upper GI bleed and AHRF Patient plan of care was discussed with the attending physician, Dr. Parrish. Monika Sotelo, PGY-3 Attending Provider Attestation/Addendum I have examined the patient, reviewed labs and imaging findings, discussed the case with the resident(s), and reviewed entered orders. I agree with the plan of care as outlined in this note, with these additional summaries/recommendations: Patient seen at bedside. No acute overnight events. Patient endorsing significant anxiety this morning and requested an additional dose of anxiolytic. Her abdominal pain continues to improve and her intractable nausea/vomiting has resolved for now. Patient is status post EGD which revealed normal esophagus, gastritis, and normal duodenum. No source of GI bleed found. Patient started on GoLytely and will go for colonoscopy once cleared. Continue antiemetics and PPI. Pain medicine as needed. Patient also diagnosed with acute hypoxic respiratory failure most likely secondary to aspiration pneumonia. Acute hypoxic respiratory failure now resolved. Imaging reveals extensive right lung pneumonia. Continue IV antibiotics. Blood cultures show no growth at 48 hours. Outpatient follow-up for hiatal hernia. Patient updated on the plan and in agreement. All questions answered to satisfaction. Please see residents note for additional details and management. Dr. Shivani MD
[2025-05-07] MEDS: SODIUM CHLORIDE 0.9% 500 ML 500 ML 20 ML IV (15:20)
--- NOTE | 2025-05-07 15:50 | SUR.PHASEI ---
pt received from OR in recovery bay 1. pt asleep but responds to voice, breathing unlabored on nc4l. v/s stable. report received from Loni SUNSHINE.
--- NOTE | 2025-05-07 16:22 | SUR.PHASEI ---
pt asleep but responds to voice, breathing unlabored on nc 3l. v/s stable. report called to Nisa SUNSHINE. pt will be transferred to room at this time.
[2025-05-07] MEDS: LEVALBUTEROL RT 1.25 MG/0.5 ML NEBU INH (18:29)
[2025-05-07] MEDS: SODIUM CHLORIDE RT SOL 0.9% 3 ML NEBU INH (18:29)
--- NOTE | 2025-05-07 21:05 | PC.NURSE ---
Called Dr. Zafar to let her know that pt's zithromax po pill reached the stop date and got discontinued, stated that she will order a x1 order.
[2025-05-07] MEDS: AZITHROMYCIN 250 MG TABLET 500 MG PO (21:53)
[2025-05-07] MEDS: AMITRIPTYLINE HCL 25 MG TABLET PO (21:53)
[2025-05-07] MEDS: PREGABALIN 75 MG CAPSULE PO (21:53)
[2025-05-08] VITALS (22 sets, daily range): BP systolic 105–142; BP diastolic 64–92; PULSE 85–119; RESP 19–35; TEMP 36.2–38.8; O2SAT 90–100; BMI 29.6; BMI 29.7
[2025-05-08] MEDS: LEVALBUTEROL RT 1.25 MG/0.5 ML NEBU INH ×4 (00:29→18:20)
[2025-05-08] MEDS: SODIUM CHLORIDE RT SOL 0.9% 3 ML NEBU INH ×2 (00:29→18:19)
[2025-05-08 05:40] LABS: Basophils # (Auto) 0.1 Thou/mm3 (0.0-0.2); Basophils % (Auto) 1 % (0-2.5); Eosinophils # (Auto) 0.2 Thou/mm3 (0.0-0.5); Eosinophils % (Auto) 1 % (0-10); Hematocrit 27.3 % (36.0-46.0); Immature Granulocytes Auto 1.41 Thou/mm3 (0.00-0.00); Lymphocytes # (Auto) 1.9 Thou/mm3 (1.0-4.8); Lymphocytes % (Auto) 12 % (10-50); Mean Corpuscular HGB Conc 31.9 g/dl (31.0-37.0); Mean Corpuscular Hemoglobin 21.4 pg (25.0-35.0); Mean Corpuscular Volume 67 fL (80-100); Monocytes # (Auto) 1.7 Thou/mm3 (0.0-0.8); Monocytes % (Auto) 11 % (0-12); Neutrophils # (Auto) 10.6 Thou/mm3 (1.8-7.7); Neutrophils % (Auto) 67 % (37-80); Nucleated Red Blood Cell # 0.00 Thou/mm3 (0.00-0.00); Nucleated Red Blood Cell % 0 /100 WBC (0); Platelet Count 431 Thou/mm3 (140-440); RDW Standard Deviation 43.0 fL (36.4-46.3); Red Blood Count 4.06 Miln/mm3 (4.00-5.20); White Blood Count 15.9 Thou/mm3 (3.6-11.0)
[2025-05-08 05:53] LABS: Hemoglobin 8.7 g/dL (12.0-16.0)
[2025-05-08] MEDS: PREGABALIN 75 MG CAPSULE PO ×2 (06:10→14:33)
[2025-05-08 06:19] LABS: Alanine Aminotransferase 13 U/L (10-49); Albumin, Serum 4.4 gm/dL (3.5-5.0); Albumin/Globulin Ratio 1.6 (1.2-2.2); Alkaline Phosphatase 109 U/L (46-116); Anion Gap 15 (7-16); Aspartate Amino Transferase 13 U/L (0-34); BUN/Creatinine Ratio 14 Ratio (12-20); Bilirubin,Total 0.3 mg/dL (0.3-1.2); Blood Urea Nitrogen 7 mg/dL (9-23); Calcium 9.0 mg/dL (8.3-10.6); Calcium (Corrected) 9.0 mg/dL (8.5-10.1); Carbon Dioxide 22.8 mMol/L (20.0-31.0); Chloride 99 mMol/L (98-107); Creatinine (Component) 0.5 mg/dL (0.6-1.3); Estimated Creatinine Clearance 166.7 mL/min (>60); Globulin 2.8 gm/dL (2.3-3.5); Glucose 96 mg/dL (74-106); Magnesium 2.2 mg/dL (1.6-2.6); Osmolality,Calculated 271 (275-295); Phosphorous 4.3 mg/dL (2.4-5.1); Potassium 3.3 mMol/L (3.4-5.1); Sodium 137 mMol/L (136-145); Total Protein 7.2 gm/dL (5.7-8.2); eGFR > 60 See Note
[2025-05-08] MEDS: MORPHINE SULF INJ 4 MG/ML VIAL 1 MG IVP ×3 (06:28→22:09)
[2025-05-08] MEDS: BUDESONIDE RT 0.25 MG/2 ML NEBU INH (07:01)
--- NOTE | 2025-05-08 07:36 | XR_ITS ---
EXAMINATION: AP chest single view TECHNIQUE: AP portable upright chest single view Date and time: May 08, 2025, 0753 hours, comparison #26 2024 INDICATIONS: Shortness of breath today. FINDINGS: Again noted extensive right lung pneumonia Interval significant left base pneumonia Normal heart size Mild vascular congestion IMPRESSION: Again noted extensive right lung pneumonia Interval significant left base pneumonia
--- NOTE | 2025-05-08 07:37 | CHAP ---
Responded to Rapid Response (07:37). No new car inspector was needed. Said a silent prayer for the patient.
[2025-05-08] MEDS: RINGERS LACTATED 1000 ML 1,000 ML 125 ML IV (07:47)
[2025-05-08] MEDS: ACETAMINOPHEN 325 MG TABLET 650 MG PO (07:48)
[2025-05-08] MEDS: cefTRIAXone/D5w 1gm IV premix 1 GM/50 ML BAG IV (08:06)
[2025-05-08 08:09] LABS: Lactate (Lactic Acid) 1.0 mMol/L (0.4-2.0)
[2025-05-08 08:15] LABS: Basophils # (Auto) 0.1 Thou/mm3 (0.0-0.2); Basophils % (Auto) 1 % (0-2.5); Eosinophils # (Auto) 0.2 Thou/mm3 (0.0-0.5); Eosinophils % (Auto) 1 % (0-10); Hematocrit 26.2 % (36.0-46.0); Immature Granulocytes Auto 1.37 Thou/mm3 (0.00-0.00); Lymphocytes # (Auto) 2.2 Thou/mm3 (1.0-4.8); Lymphocytes % (Auto) 15 % (10-50); Mean Corpuscular HGB Conc 32.1 g/dl (31.0-37.0); Mean Corpuscular Hemoglobin 20.9 pg (25.0-35.0); Mean Corpuscular Volume 65 fL (80-100); Monocytes # (Auto) 1.3 Thou/mm3 (0.0-0.8); Monocytes % (Auto) 9 % (0-12); Neutrophils # (Auto) 9.6 Thou/mm3 (1.8-7.7); Neutrophils % (Auto) 65 % (37-80); Nucleated Red Blood Cell # 0.02 Thou/mm3 (0.00-0.00); Nucleated Red Blood Cell % 0 /100 WBC (0); Platelet Count 451 Thou/mm3 (140-440); RDW Standard Deviation 41.6 fL (36.4-46.3); Red Blood Count 4.01 Miln/mm3 (4.00-5.20); White Blood Count 14.7 Thou/mm3 (3.6-11.0)
[2025-05-08 08:19] LABS: Hemoglobin 8.4 g/dL (12.0-16.0)
--- NOTE | 2025-05-08 08:30 | PC.NURSE ---
GEOMAGNETIST CALLED FOR 101.5 RECTAL FEVER, HR 110, DESATURATION 88%, AND TACHYPNEA 30'S. CHANGE OF CONDITION. PT MEET SEPSIS CRITERIA AND WAS CALLED FOR FEVER AND HR 110.
[2025-05-08 08:40] LABS: Alanine Aminotransferase 14 U/L (10-49); Albumin, Serum 4.4 gm/dL (3.5-5.0); Albumin/Globulin Ratio 1.6 (1.2-2.2); Alkaline Phosphatase 110 U/L (46-116); Anion Gap 14 (7-16); Aspartate Amino Transferase 20 U/L (0-34); BUN/Creatinine Ratio 12 Ratio (12-20); Bilirubin,Total 0.2 mg/dL (0.3-1.2); Blood Urea Nitrogen 6 mg/dL (9-23); Calcium 9.0 mg/dL (8.3-10.6); Calcium (Corrected) 9.0 mg/dL (8.5-10.1); Carbon Dioxide 22.2 mMol/L (20.0-31.0); Chloride 100 mMol/L (98-107); Creatinine (Component) 0.5 mg/dL (0.6-1.3); Estimated Creatinine Clearance 166.7 mL/min (>60); Globulin 2.8 gm/dL (2.3-3.5); Glucose 123 mg/dL (74-106); Osmolality,Calculated 270 (275-295); Potassium 3.3 mMol/L (3.4-5.1); Procalcitonin 0.95 ng/ml (0.0-0.49); Sodium 136 mMol/L (136-145); Total Protein 7.2 gm/dL (5.7-8.2); eGFR > 60 See Note
[2025-05-08] MEDS: LIDOCAINE 5% 1 PATCH TOP (09:17)
[2025-05-08] MEDS: HYDROcodone/APAP 5/325 TABLET 1 TAB PO (09:17)
--- NOTE | 2025-05-08 10:42 | PC.SS ---
Rounding: Pt spiked fevers, DC plan home when stable
--- NOTE | 2025-05-08 10:52 | XR_ITS ---
Examination: CTA chest with intravenous contrast 2-D reconstructions 3-D reconstructions, vascular Date and time of exam: May 08, 2025, 1218 hours INDICATIONS: Shortness of breath chest pain today CTDI: vol (mGy) 19 DLP: (mGycm) 41.2 Technique: Multiple axial sections of the thorax have been obtained. 3 mm slice thickness, from below the hemidiaphragms to above the apices of the lungs. Mediastinal and lung density settings have been obtained. 2-D sagittal and coronal reconstructions. 3-D angiographic renderings, 3-D volume renderings, 3D post processing, vascular maximum intensity projections obtained. Contrast administered is 100 cc [id number]. Low dose protocols were performed. One or more of the following dose reduction techniques were used; automated exposure control, adjustment of the mA and/or KV according to patient size, use of iterative reconstruction technique. Findings: Multiple lymph nodes, most prominent pretracheal measuring 22 mm Right hilar lymphadenopathy No thoracic aortic aneurysmal dilatation No pulmonary artery emboli Dense opacity in the right upper lobe and right lower lobe most consistent with pneumonia Mild pneumonia left base Liver is irregular in contour only partly visualized, enlarged No pancreatic mass No hydronephrosis, kidneys partially visualized Mild osteopenia IMPRESSION: Negative for pulmonary artery emboli Findings most consistent with severe right lung pneumonia, follow-up imaging is needed to document clearing
--- NOTE | 2025-05-08 11:17 | ESPR_ITS ---
<Statement entered by Bar Pickett MD - 05/08/25 15:14> Patient was examined and case was reviewed with team including attending physician. Note reviewed, I agree with most of its contents and agree with the patient's care. Patient seen today at the bedside found awake, alert, orientedx3. Patient had rapid response during the day for new onset fever and hypoxia, was started on HFNC and sepsis labs were ordered. Will follow up labs, imaging shows worsening pneumonia. Labs reviewed. Case discussed with my attending Dr. Shivani Pickett MD PGY-2 Disclaimer: Despite multiple revisions, due to the dictation software being used, the document bellow may not be free of grammatical errors including phonetic/typographic errors. However, this does not deter from our commitment to providing health care in the patient's best interest in mind. Documentation for date of: 05/08/25 Subjective Subjective Interval history: No significant events occurred overnight. A Rapid Response was called at 7:32 AM due to acute changes in the patient's vital signs, including a fever of 101.5?F, heart rate of 110 bpm, respiratory rate of 26, and oxygen saturation dropping below 88% on 4L nasal cannula. Patient was placed on 15L oxymask. Upon assessment, the patient was alert, oriented, and responsive to questions, with bilateral wheezing noted on auscultation. Rapid response orders included: - Procalcitonin: 0.95 - Lactic acid: 1.0 - CXR: Extensive right-sided pneumonia with interval development of significant left lower base pneumonia. - No significant changes in the CBC and CMP from the morning labs. - Blood cultures are pending. - Patient was started on high-flow oxygen therapy. - Tylenol was given for fever. Given the acute changes in respiratory status, along with an elevated D-dimer of 1550 on admission and a Wells score of 6, a CTA was ordered to rule out a pulmonary embolism. The results were negative for pulmonary artery embolism. Exam Vital Signs Temp Pulse Resp BP Pulse Ox O2 Del Method O2 Flow Rate 100.5 F H 117 H 19 127/80 99 Oxy Mask 10 05/08/25 08:48 05/08/25 09:00 05/08/25 09:00 05/08/25 07:32 05/08/25 09:00 05/08/25 07:27 05/08/25 09:00 FiO2 30 05/08/25 09:00 Narrative Exam Physical Exam General: Awake and alert. On high flow oxygen. HEENT: Normocephalic, atraumatic, mucous membranes moist. Heart: Tachycardic and regular rhythm, no murmurs. Lungs: Bilateral wheezing on auscultation. Abdomen: Soft, nondistended, nontender. No guarding or rebound tenderness. Neurologic: Alert and oriented x3, no gross neurological deficit, and patient able to move all 4 extremities. Extremities: No edema. Skin: No rash or ecchymoses. Psychiatric: Cooperative, appropriate mood and affect. Objective Labs 05/10/25 04:34 05/10/25 04:34 Labs: Laboratory Results - last 24 hr 05/08/25 05/08/25 04:36 07:50 WBC 15.9 H 14.7 H RBC 4.06 4.01 Hgb 8.7 L 8.4 L Hct 27.3 L 26.2 L MCV 67 L 65 L MCH 21.4 L 20.9 L MCHC 31.9 32.1 RDW Std Deviation 43.0 41.6 Plt Count 431 D 451 H Neut % (Auto) 67 65 Lymph % (Auto) 12 15 [place] % (Auto) 11 9 Eos % (Auto) 1 1 Baso % (Auto) 1 1 Neut # (Auto) 10.6 H 9.6 H Lymph # (Auto) 1.9 2.2 [place] # (Auto) 1.7 H 1.3 H Eos # (Auto) 0.2 0.2 Baso # (Auto) 0.1 0.1 Immature Gran # (Auto) 1.41 H 1.37 H Absolute Nucleated RBC 0.00 0.02 H Immature Gran % 9 H 9 H Nucleated RBC % 0 0 Sodium 137 136 Potassium 3.3 L 3.3 L Chloride 99 100 Carbon Dioxide 22.8 22.2 Anion Gap 15 14 BUN 7 L 6 L Creatinine 0.5 L 0.5 L Estim Creat Clear Calc 166.7 166.7 eGFR > 60 > 60 BUN/Creatinine Ratio 14 12 Glucose 96 123 H Calculated Osmolality 271 L 270 L Lactic Acid 1.0 Calcium 9.0 9.0 Corrected Calcium 9.0 9.0 Phosphorus 4.3 Magnesium 2.2 Total Bilirubin 0.3 0.2 L AST 13 20 ALT 13 14 Alkaline Phosphatase 109 D 110 Total Protein 7.2 7.2 Albumin 4.4 4.4 Globulin 2.8 2.8 Albumin/Globulin Ratio 1.6 1.6 Procalcitonin 0.95 H ABG Interpretation ABG results: 05/03/25 19:58 ABG pH 7.45 ABG pCO2 33 ABG pO2 61 L ABG HCO3 23 ABG O2 Saturation 93 ABG Base Excess -1 Quality Measures Quality Measures VTE prophylaxis Assessment & Plan Assessment Current Active Medications: Generic Name Dose Route Start Last Admin Trade Name Freq PRN Reason Stop Dose Admin Acetaminophen 650 mg 05/03/25 23:10 05/08/25 07:48 Acetaminophen 325 Mg Tablet PO 06/02/25 23:09 650 mg Q6H PRN Administration Fever >100.4 or pain 1-3 Hydrocodone Bitart/Acetaminophen 1 tab 05/03/25 23:10 05/08/25 09:17 Hydrocodone/Apap 5/325 Tablet PO 05/08/25 23:09 1 tab Q4HR PRN Administration PAIN SCALE 4-6 (Moderate Alprazolam 0.25 mg 05/04/25 12:05 05/07/25 21:52 Alprazolam 0.25 Mg Tablet PO 05/09/25 12:04 0.25 mg BID PRN Administration ANXIETY Amitriptyline HCl 25 mg 05/06/25 21:00 05/07/25 21:53 Amitriptyline Hcl 25 Mg Tablet PO 06/05/25 20:59 25 mg HS CHRISTINA Administration Bisacodyl 5 mg 05/07/25 14:30 05/08/25 08:25 Bisacodyl 5 Mg Tabec PO 06/06/25 14:29 Not Given BID CHRISTINA Protocol Budesonide 0.25 mg 05/04/25 09:00 05/08/25 07:01 Budesonide Rt 0.25 Mg/2 Ml Nebu INH 06/03/25 08:59 0.25 mg QDAY CHRISTINA Administration Cyclobenzaprine HCl 5 mg 05/04/25 21:00 05/07/25 21:53 Cyclobenzaprine 5 Mg Tablet PO 06/03/25 20:59 5 mg HS CHRISTINA Administration Docusate Sodium 100 mg 05/04/25 09:00 05/08/25 08:25 Docusate Sod 100 Mg Capsule PO 06/03/25 08:59 Not Given QDAY CHRISTINA Protocol Fluoxetine HCl 20 mg 05/04/25 21:00 05/07/25 21:52 Fluoxetine Hcl 10 Mg Capsule PO 06/03/25 20:59 20 mg HS CHRISTINA Administration Guaifenesin/Dextromethorphan 1 each 05/04/25 11:39 05/04/25 12:13 Guaifenesin/Dm Tablet PO 06/03/25 11:38 1 each BID PRN Administration COUGH Ceftriaxone Sodium/Dextrose 1 gm in 50 mls @ 100 mls/hr 05/03/25 23:15 05/08/25 08:06 Rocephin/D5w 1gm Iv Premix IV 05/10/25 23:14 100 mls/hr QDAY CHRISTINA Administration Sodium Chloride 500 mls @ 20 mls/hr 05/07/25 15:20 05/07/25 15:20 Ns IV 05/08/25 15:19 20 mls/hr .Q24H ONE Administration Lactated Ringer's 1,000 mls @ 125 mls/hr 05/08/25 07:42 05/08/25 07:47 Lactated Ringers IV 05/08/25 15:41 125 mls/hr .Q8H CHRISTINA Administration Levalbuterol HCl 1.25 mg 05/07/25 19:00 05/08/25 07:01 Levalbuterol Rt 1.25 Mg/0.5 Ml Nebu INH 06/06/25 18:59 1.25 mg Q6HRRT CHRISTINA Administration Melatonin 6 mg 05/07/25 00:40 05/07/25 21:52 Melatonin 3 Mg Tablet PO 06/06/25 00:39 6 mg HS CHRISTINA Administration Morphine Sulfate 1 mg 05/03/25 23:10 05/08/25 06:28 Morphine Sulf Inj 4 Mg/Ml Vial IVP 05/08/25 23:09 1 mg Q4HR PRN Administration PAIN SCALE 7-10 (Severe Ondansetron HCl 4 mg 05/03/25 23:10 05/07/25 07:35 Ondansetron Inj 2 Mg/Ml Inj 2 Ml IVP 06/02/25 23:09 4 mg Q6H PRN Administration NAUSEA OR VOMITING Protocol Pantoprazole Sodium 40 mg 05/04/25 09:00 05/08/25 08:06 Pantoprazole Inj 40 Mg Vial IVP 06/03/25 08:59 40 mg Q12HR CHRISTINA Administration Pregabalin 75 mg 05/04/25 14:00 05/08/25 06:10 Pregabalin 75 Mg Capsule PO 06/03/25 13:59 75 mg TID CHRISTINA Administration Quetiapine Fumarate 100 mg 05/07/25 21:00 05/07/25 21:53 Quetiapine Fumarate 100 Mg Tablet PO 06/06/25 20:59 100 mg HS CHRISTINA Administration Sodium Chloride 3 ml 05/07/25 12:08 05/08/25 00:29 Sodium Chloride Rt Lian 0.9% 3 Ml Nebu INH 06/06/25 12:07 3 ml PRN PRN Administration SOLN Plan 40-year-old female with a known history of peptic ulcer disease, gastritis, hiatal hernia, gastroparesis and cyclic vomiting syndrome with multiple recent admissions due to GI symptoms of recurrent nausea/vomiting and epigastric pain, admitted for multiple episodes of coffee ground emesis and tarry stools with ongoing concerns of aspiration pneumonia. #GI bleed (upper vs lower GI bleed vs gastritis or PUD vs unknown source) #Possible acute blood loss anemia #History of cyclical vomiting syndrome 24 hours prior to admission she has had over 20 bouts of coffee ground emesis and at least 4-5 black tarry stools. She describes the vomitus and throw-up as black, tarry, and slick like oil with an incredibly foul smell. Her recent path report from 01/27/2025 was negative for H.pylori in IHC. She drinks a lot of scalding hot coffee each day. She does not take iron supplements. She is not on any anti-coagulants. Is undergoing a lot of stress in personal life. 04/19/2025 EGD showed esophagitis, gastritis, and retained food, with findings suggestive of gastroparesis and moderate hiatal hernia. Physical exam shows epigastric tenderness to the back and midsternal discomfort on palpation. Hemoglobin 10.3 on admission downtrending 9.1--> 9.0. MCV 68. Ferritin 01/28/2025 was 10. CTAP was negative for pancreatitis, lipase wnl. GB US: Normal gallbladder. Moderate hepatomegaly, suspect primary hepatocellular disease. Patient continues to actively smoke marijuana daily. 05/05 EGD, showed diffuse moderate inflammation characterized by erythema in the gastric antrum but was negative for sites of active bleeding. 05/07 Colonoscopy, showed internal hemorrhoids and a larger than 1 cm polyp endoscopically resected in the rectum with histopathology pending. Plan: * Dr. Meraz (GI consulted) appreciate recs: repeat colonoscopy in 5 years and follow-up outpatient. * Protonix 40 mg IV q12h. * Continue home amitryptiline 25 mg PO HS for cyclic vomiting syndrome. #Acute hypoxic respiratory failure #Pneumonia, likely aspiration #History of asthma Aspiration versus community acquired pneumonia. CTAP extensive right lung pneumonia. Patient reported new onset SOB and cough after episode of vomiting the morning of admission. Bilateral wheezing, rales, and rhonchi on physical exam. 05/05 shoulder XR showed extensive opacity in the right lung field but negative for shoulder fracture or dislocation. MRSA screen negative. Blood cultures negative. Sputum culture grew Klebsiella and E. coli that are pansensitive. Plan: * Ceftriaxone 1g IV QD. * Finished course of Azithromycin 500 mg QD. * Incentive spirometry. * Chest physiotherapy. * Duonebs. * Budesonide 0.25 mg INH QD #Pulmonary emboli ruled out Given the acute changes in respiratory status, along with an elevated D-dimer of 1550 on admission and a Wells score of 6, a CTA was ordered to rule out a pulmonary embolism. The results were negative for pulmonary artery emboli. Chemical prophylaxis for DVT not started due to concern for GI bleed. #Microcytic anemia Likely iron deficiency anemia. Iron panel previously noted for Ferritin of 10. Patient not on any iron supplements. Plan: * Transfuse if Hgb < 7 (current Hgb 8.4) * Monitor vital signs #History of chronic back pain Plan: * Held home cyclobenzaprine 5mg PO HS due to the patient being on high-flow oxygen and to avoid the use of sedating medications. * Apply lidocaine patch as needed for pain relief. #History of major depression #History of generalized anxiety Plan: * Continue home fluoxetine 20mg PO HS. * Continue home seroquel 100mg PO HS. #Lactic acidosis (resolved) Lactic acid 3.6 --> 2.8 --> 3.3. 3 boluses of IVF given along with maintenance fluids. Most likely due to volume depletion in the setting of intractable nausea and vomiting. Downtrended to normal on 05/05/2025. Health Maintenance: Disposition: Med tele DVT prophylaxis: SCD since possible GI bleed GI prophylaxis: Pantoprazole 40 mg IV Q12hr Diet: NPO [place]: None CODE STATUS: FULL Patient plan of care was discussed with the senior resident, Dr. Mark Anthony Pickett, and attending physician, Dr. Parrish. Geovani Campa, PGY-1 Attending Provider Attestation/Addendum I have examined the patient, reviewed labs and imaging findings, discussed the case with the resident(s), and reviewed entered orders. I agree with the plan of care as outlined in this note, with these additional summaries/recommendations: Patient seen at bedside. No acute overnight events. Patient had rapid response this morning for hypoxia. On arrival patient was noted to have fever of 101.5 Fahrenheit and O2 sat of 88 to 89% on 15 L nasal cannula. Patient was upgraded to high flow nasal cannula. CTA chest was obtained which was negative for PE although did reveal severe right lung pneumonia, interval left base pneumonia, pretracheal and hilar lymphadenopathy. Sepsis alert initiated. Continue IV antibiotics and start IV fluids. Follow-up repeat culture results. Patient is status post colonoscopy yesterday evening that revealed internal hemorrhoids and 1 large polyp. Repeat colonoscopy in 5 years and high-fiber diet. Patient is also status post EGD which revealed normal esophagus, gastritis and normal duodenum. Outpatient follow-up for hiatal hernia. Patient updated on the plan and in agreement. All questions answered to satisfaction. Please see residents note for additional details and management. Dr. Shivani MD
[2025-05-08 11:43] LABS: HCG,Qualitative Serum Negative
--- NOTE | 2025-05-08 13:48 | ESPR_ITS ---
Documentation for date of: 05/08/25 Subjective Subjective Interval history: Patient evaluated Hemoglobin hematocrit 8.4 and 26.2 with a platelet count of 4 and 51,000 Upper endoscopy showed gastritis Colonoscopy showed internal hemorrhoids and a larger than 1 cm polyp endoscopically resected in the rectum histopathology pending Exam Vital Signs Temp Pulse Resp BP Pulse Ox O2 Del Method O2 Flow Rate 97.2 F 86 19 109/64 99 High Flow Nasal Cannula 30 05/08/25 11:20 05/08/25 11:20 05/08/25 11:20 05/08/25 11:20 05/08/25 11:20 05/08/25 11:20 05/08/25 11:20 FiO2 30 05/08/25 09:00 Objective Labs 05/08/25 07:50 05/08/25 07:50 Labs: Laboratory Results - last 24 hr 05/08/25 05/08/25 04:36 07:50 WBC 15.9 H 14.7 H RBC 4.06 4.01 Hgb 8.7 L 8.4 L Hct 27.3 L 26.2 L MCV 67 L 65 L MCH 21.4 L 20.9 L MCHC 31.9 32.1 RDW Std Deviation 43.0 41.6 Plt Count 431 D 451 H Neut % (Auto) 67 65 Lymph % (Auto) [address] [place] % (Auto) 11 9 Eos % (Auto) 1 1 Baso % (Auto) 1 1 Neut # (Auto) 10.6 H 9.6 H Lymph # (Auto) 1.[address] [place] # (Auto) 1.7 H 1.3 H Eos # (Auto) 0.2 0.2 Baso # (Auto) 0.1 0.1 Immature Gran # (Auto) 1.41 H 1.37 H Absolute Nucleated RBC 0.00 0.02 H Immature Gran % 9 H 9 H Nucleated RBC % 0 0 Sodium 137 136 Potassium 3.3 L 3.3 L Chloride 99 100 Carbon Dioxide 22.8 22.2 Anion Gap 15 14 BUN 7 L 6 L Creatinine 0.5 L 0.5 L Estim Creat Clear Calc 166.7 166.7 eGFR > 60 > 60 BUN/Creatinine Ratio 14 12 Glucose 96 123 H Calculated Osmolality 271 L 270 L Lactic Acid 1.0 Calcium 9.0 9.0 Corrected Calcium 9.0 9.0 Phosphorus 4.3 Magnesium 2.2 Total Bilirubin 0.3 0.2 L AST 13 20 ALT 13 14 Alkaline Phosphatase 109 D 110 Total Protein 7.2 7.2 Albumin 4.4 4.4 Globulin 2.8 2.8 Albumin/Globulin Ratio 1.6 1.6 Procalcitonin 0.95 H HCG, Qual Negative Impressions Impression: Rectal polyp endoscopically resected Internal hemorrhoids Gastritis Continue to follow CBC ABG Interpretation ABG results: 05/03/25 19:58 ABG pH 7.45 ABG pCO2 33 ABG pO2 61 L ABG HCO3 23 ABG O2 Saturation 93 ABG Base Excess -1 Assessment & Plan A&P Narrative # Multiple episodes of nausea vomiting with hematemesis Differential diagnoses include [place] tear versus peptic ulcer disease versus extensive severe esophagitis or gastritis Suggestions N.p.o. 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
--- NOTE | 2025-05-08 17:16 | PC.NURSE ---
DR. JUNIOR AND DR. BARRETO AT BEDSIDE, NOTIFIED PT IS MORE LETHARGIC AND DESAT TO 85% ON HI FLOW. RESPIRATORY THERAPIST AT BEDSIDE. ORDERS RECEIVED, READ BACK AND CARRIED OUT.
[2025-05-08 17:37] LABS: Base Excess, Venous 2 (-3-3); PCO2, Venous 37 mmHg (36-56); PO2, Venous 40 mmHg (15-58); pH, Venous 7.46 (7.33-7.66)
[2025-05-08 17:38] LABS: O2 Saturation, Venous 76 % (96-97)
[2025-05-08] MEDS: ACETAMINOPHEN IVPB 1,000 MG/100 ML VIAL 250 MG IV (20:17)
[2025-05-08] MEDS: AMITRIPTYLINE HCL 25 MG TABLET PO (20:24)
[2025-05-08] MEDS: MELATONIN 3 MG TABLET 6 MG PO (20:26)
--- NOTE | 2025-05-08 23:15 | PD.RESEVENT ---
Documentation for date of: 05/08/25 Event Note Event Note: Rapid Response Time: 7:32 AM Reason for Call: Fever 101.5F, HR 110, RR 26, On 4L NC and desat to < 88%. Patient presentation: - Vitals: 101.5F, BP 127/80, HR 110, RR 26 - Patient placed on oxymask 15L. - Patient able to respond to questions. Assessment: - Bilateral wheezing on auscultation New orders: - CBC - CMP - Procal - Lactic acid level - Continuos O2 pulse ox - CXR - Blood culture - High flow oxygen - Tylenol - Upgrade patient to med tele Patient was discussed with the attending, , and senior resident, Dr. Mark Anthony Pickett. Geovani Campa, PGY-1
[2025-05-09] VITALS (11 sets, daily range): BP systolic 101–143; BP diastolic 59–88; PULSE 82–114; RESP 19–25; TEMP 36.5–37.6; O2SAT 95–99; BMI 29.6
--- NOTE | 2025-05-09 00:38 | PC.NURSE ---
Dr May was made aware that pt's pain meds got reached the stop date and got Md demetria stated that she will let the day team decide if they want to add them back.
[2025-05-09] MEDS: SODIUM CHLORIDE RT SOL 0.9% 3 ML NEBU INH ×3 (00:57→13:59)
[2025-05-09] MEDS: LEVALBUTEROL RT 1.25 MG/0.5 ML NEBU INH ×4 (00:57→19:10)
[2025-05-09 06:03] LABS: Basophils # (Auto) 0.1 Thou/mm3 (0.0-0.2); Basophils % (Auto) 0 % (0-2.5); Eosinophils # (Auto) 0.3 Thou/mm3 (0.0-0.5); Eosinophils % (Auto) 2 % (0-10); Hematocrit 26.7 % (36.0-46.0); Immature Granulocytes Auto 1.19 Thou/mm3 (0.00-0.00); Lymphocytes # (Auto) 2.1 Thou/mm3 (1.0-4.8); Lymphocytes % (Auto) 15 % (10-50); Mean Corpuscular HGB Conc 30.7 g/dl (31.0-37.0); Mean Corpuscular Hemoglobin 20.8 pg (25.0-35.0); Mean Corpuscular Volume 68 fL (80-100); Monocytes # (Auto) 1.2 Thou/mm3 (0.0-0.8); Monocytes % (Auto) 9 % (0-12); Neutrophils # (Auto) 8.9 Thou/mm3 (1.8-7.7); Neutrophils % (Auto) 65 % (37-80); Nucleated Red Blood Cell # 0.02 Thou/mm3 (0.00-0.00); Nucleated Red Blood Cell % 0 /100 WBC (0); Platelet Count 440 Thou/mm3 (140-440); RDW Standard Deviation 42.9 fL (36.4-46.3); Red Blood Count 3.95 Miln/mm3 (4.00-5.20); White Blood Count 13.8 Thou/mm3 (3.6-11.0)
[2025-05-09 06:21] LABS: Alanine Aminotransferase 22 U/L (10-49); Albumin, Serum 4.3 gm/dL (3.5-5.0); Alkaline Phosphatase 115 U/L (46-116); Anion Gap 11 (7-16); Aspartate Amino Transferase 26 U/L (0-34); BUN/Creatinine Ratio 12 Ratio (12-20); Bilirubin,Total 0.2 mg/dL (0.3-1.2); Blood Urea Nitrogen 6 mg/dL (9-23); Calcium 9.1 mg/dL (8.3-10.6); Calcium (Corrected) 9.1 mg/dL (8.5-10.1); Carbon Dioxide 27.2 mMol/L (20.0-31.0); Chloride 102 mMol/L (98-107); Creatinine (Component) 0.5 mg/dL (0.6-1.3); Estimated Creatinine Clearance 163.5 mL/min (>60); Glucose 95 mg/dL (74-106); Magnesium 1.8 mg/dL (1.6-2.6); Osmolality,Calculated 277 (275-295); Phosphorous 3.9 mg/dL (2.4-5.1); Potassium 3.7 mMol/L (3.4-5.1); Sodium 140 mMol/L (136-145); eGFR > 60 See Note
[2025-05-09] MEDS: MORPHINE SULF INJ 4 MG/ML VIAL 1 MG IVP ×4 (06:24→22:47)
[2025-05-09] MEDS: BUDESONIDE RT 0.25 MG/2 ML NEBU INH (06:49)
[2025-05-09 06:51] LABS: Hemoglobin 8.2 g/dL (12.0-16.0)
[2025-05-09] MEDS: cefTRIAXone/D5w 1gm IV premix 1 GM/50 ML BAG IV (09:22)
--- NOTE | 2025-05-09 10:34 | PC.NURSE ---
Pt is experiencing pain, new onset of hearing disturbances in left ear that was not there yesterday and anxiety. She says she feels lot better, is more with it and doesnt understand why shes still here. She wants to talk to her drs. Dr Campa notified. at this time, Drs are conducting table rounds and can come talk to the patient when they get to the floor for rounds. pt medicated for pain
--- NOTE | 2025-05-09 11:15 | PC.NURSE ---
Pt moved to isolation room on highflow. airborne precautions implemented and pt was educated. pt requesting to speak with Drs regarding plan of care, anxiety and left sided hearing disturbances. pt very upset stating she's not staying here for a week. i let her know drs were rounding and would be by
--- NOTE | 2025-05-09 11:20 | PC.NURSE ---
Hospitalist team in the halls rounding, notified of pts concerns
[2025-05-09 11:27] LABS: Cult AFB Sendout- Sputum* See Sep Rpt
--- NOTE | 2025-05-09 11:53 | ESPR_ITS ---
<Statement entered by Rika Portillo MD - 05/22/25 09:16> I reviewed above note and agree with findings and plans. I have also personally examined the patient with medicine team and went over assessment and plan with medical team including internist and resident physician. <Statement entered by Bar Pickett MD - 05/09/25 17:11> Patient was examined and case was reviewed with team including attending physician. Note reviewed, I agree with most of its contents and agree with the patient's care as documented by Dr. Campa Patient seen today at the bedside found awake, alert, orientedx3. No overnight events reported. Vital signs and labs reviewed. Patient very anxious at this time, resumed patients xanax that was discontinued yesterday along with her flexeril due to lethargy. Yesterdays CT scan shows worsening inflitrates in the right middle lobe and possible cavitary lesion in upper lobe not seen on previous CT scans. Ordered Cocci serology, consulted Infectious Disease specialist and started isolation precautions in view of cavitary lesion , low suspicion for TB at this time as patient does not have any symptoms nor risk factors at this time. Will continue to wean the patient from HFNC as tolerated otherwise patient not happy about isolation precautions. Case discussed with my attending Dr. Bandar Pickett MD PGY-2 Disclaimer: Despite multiple revisions, due to the dictation software being used, the document bellow may not be free of grammatical errors including phonetic/typographic errors. However, this does not deter from our commitment to providing health care in the patient's best interest in mind. Documentation for date of: 05/09/25 Subjective Subjective Interval history: Overnight, the patient developed a fever of 102?F and was given Tylenol. Patient also received 1mg of morphine for non-specific abdominal pain, which was given once. Patient was seen at bedside this morning and denied any pain. Patient had been on HFNC with a 40 L/min oxygen flow rate, which is now being tapered down to 35 L/min, with an oxygen saturation of 97%. Will continue to wean off HFNC as tolerated. Given the patient?s acute change in respiratory status and possible cavitary lesions not seen on previous CT scan, airborne precautions were initiated due to concern for tuberculosis. Patient denies weight loss, hemoptysis, night sweats, or other risk factors. Additionally, Cocci serology also ordered and ID consulted. The first AFB sample was collected on 05/09 at 11 AM, with the second scheduled for 7 PM and the third for 3 AM. The patient expressed significant anxiety regarding isolation and the TB workup, becoming hysterical and crying. Alprazolam 0.25 mg PO BID was restarted. Exam Vital Signs Temp Pulse Resp BP Pulse Ox O2 Del Method O2 Flow Rate 98.4 F 112 H 22 H 133/88 H 95 High Flow Nasal Cannula 35 05/09/25 08:00 05/09/25 10:24 05/09/25 10:24 05/09/25 08:00 05/09/25 10:24 05/09/25 08:00 05/09/25 10:24 FiO2 60 05/09/25 10:24 Narrative Exam Physical Exam General: Awake and alert. On high flow oxygen. HEENT: Normocephalic, atraumatic, mucous membranes moist. Heart: Tachycardic and regular rhythm, no murmurs. Lungs: Bilateral wheezing on auscultation. Abdomen: Soft, nondistended, nontender. No guarding or rebound tenderness. Neurologic: Alert and oriented x3, no gross neurological deficit, and patient able to move all 4 extremities. Extremities: No edema. Skin: No rash or ecchymoses. Psychiatric: Cooperative, appropriate mood and affect. Objective Labs 05/09/25 05:04 05/09/25 05:04 Labs: Laboratory Results - last 24 hr 05/08/25 05/09/25 17:20 05:04 WBC 13.8 H RBC 3.95 L Hgb 8.2 L Hct 26.7 L MCV 68 L MCH 20.8 L MCHC 30.7 L RDW Std Deviation 42.9 Plt Count 440 Neut % (Auto) 65 Lymph % (Auto) 15 [place] % (Auto) 9 Eos % (Auto) 2 Baso % (Auto) 0 Neut # (Auto) 8.9 H Lymph # (Auto) 2.1 [place] # (Auto) 1.2 H Eos # (Auto) 0.3 Baso # (Auto) 0.1 Immature Gran # (Auto) 1.19 H Absolute Nucleated RBC 0.02 H Immature Gran % 9 H Nucleated RBC % 0 Puncture Site Cancelled ABG pH Cancelled ABG pCO2 Cancelled ABG pO2 Cancelled ABG HCO3 Cancelled ABG O2 Saturation Cancelled ABG Base Excess Cancelled VBG pH 7.46 VBG pCO2 37 VBG pO2 40 VBG O2 Sat ([place]) 76 L VBG Base Excess 2 Oxygen Liter Flow Cancelled FiO2 Cancelled Sodium 140 Potassium 3.7 Chloride 102 Carbon Dioxide 27.2 Anion Gap 11 BUN 6 L Creatinine 0.5 L Estim Creat Clear Calc 163.5 eGFR > 60 BUN/Creatinine Ratio 12 Glucose 95 Calculated Osmolality 277 Calcium 9.1 Corrected Calcium 9.1 Phosphorus 3.9 Magnesium 1.8 Total Bilirubin 0.2 L AST 26 ALT 22 Alkaline Phosphatase 115 Albumin 4.3 ABG Interpretation ABG results: 05/03/25 05/08/25 19:58 17:20 ABG pH 7.45 Cancelled ABG pCO2 33 Cancelled ABG pO2 61 L Cancelled ABG HCO3 23 Cancelled ABG O2 Saturation 93 Cancelled ABG Base Excess -1 Cancelled VBG pH 7.46 VBG pCO2 37 VBG pO2 40 VBG Base Excess 2 Quality Measures Quality Measures VTE prophylaxis Assessment & Plan Assessment Current Active Medications: Generic Name Dose Route Start Last Admin Trade Name Freq PRN Reason Stop Dose Admin Acetaminophen 650 mg 05/03/25 23:10 05/08/25 07:48 Acetaminophen 325 Mg Tablet PO 06/02/25 23:09 650 mg Q6H PRN Administration Fever >100.4 or pain 1-3 Amitriptyline HCl 25 mg 05/06/25 21:00 05/08/25 20:24 Amitriptyline Hcl 25 Mg Tablet PO 06/05/25 20:59 25 mg HS CHRISTINA Administration Bisacodyl 5 mg 05/07/25 14:30 05/09/25 09:22 Bisacodyl 5 Mg Tabec PO 06/06/25 14:29 Not Given BID CHRISTINA Protocol Budesonide 0.25 mg 05/04/25 09:00 05/09/25 06:49 Budesonide Rt 0.25 Mg/2 Ml Nebu INH 06/03/25 08:59 0.25 mg QDAY CHRISTINA Administration Docusate Sodium 100 mg 05/04/25 09:00 05/09/25 09:22 Docusate Sod 100 Mg Capsule PO 06/03/25 08:59 Not Given QDAY CHRISTINA Protocol Fluoxetine HCl 20 mg 05/04/25 21:00 05/08/25 20:25 Fluoxetine Hcl 10 Mg Capsule PO 06/03/25 20:59 20 mg HS CHRISTINA Administration Guaifenesin/Dextromethorphan 1 each 05/04/25 11:39 05/04/25 12:13 Guaifenesin/Dm Tablet PO 06/03/25 11:38 1 each BID PRN Administration COUGH Ceftriaxone Sodium/Dextrose 1 gm in 50 mls @ 100 mls/hr 05/03/25 23:15 05/09/25 09:22 Rocephin/D5w 1gm Iv Premix IV 05/10/25 23:14 100 mls/hr QDAY CHRISTINA Administration Levalbuterol HCl 1.25 mg 05/07/25 19:00 05/09/25 06:49 Levalbuterol Rt 1.25 Mg/0.5 Ml Nebu INH 06/06/25 18:59 1.25 mg Q6HRRT CHRISTINA Administration Melatonin 6 mg 05/07/25 00:40 05/08/25 20:26 Melatonin 3 Mg Tablet PO 06/06/25 00:39 6 mg HS CHRISTINA Administration Morphine Sulfate 1 mg 05/09/25 08:59 05/09/25 10:43 Morphine Sulf Inj 4 Mg/Ml Vial IVP 05/14/25 08:58 1 mg Q6HR PRN Administration pain 4-10 Ondansetron HCl 4 mg 05/03/25 23:10 05/07/25 07:35 Ondansetron Inj 2 Mg/Ml Inj 2 Ml IVP 06/02/25 23:09 4 mg Q6H PRN Administration NAUSEA OR VOMITING Protocol Pantoprazole Sodium 40 mg 05/04/25 09:00 05/09/25 09:22 Pantoprazole Inj 40 Mg Vial IVP 06/03/25 08:59 40 mg Q12HR CHRISTINA Administration Quetiapine Fumarate 100 mg 05/07/25 21:00 05/08/25 20:26 Quetiapine Fumarate 100 Mg Tablet PO 06/06/25 20:59 100 mg HS CHRISTINA Administration Sodium Chloride 3 ml 05/07/25 12:08 05/09/25 06:49 Sodium Chloride Rt Lian 0.9% 3 Ml Nebu INH 06/06/25 12:07 3 ml PRN PRN Administration SOLN Plan 40-year-old female with a known history of peptic ulcer disease, gastritis, hiatal hernia, gastroparesis and cyclic vomiting syndrome with multiple recent admissions due to GI symptoms of recurrent nausea/vomiting and epigastric pain, admitted for multiple episodes of coffee ground emesis and tarry stools with ongoing concerns of aspiration pneumonia. #Acute hypoxic respiratory failure #Pneumonia, likely aspiration #History of asthma - CTAP extensive right lung pneumonia. Patient reported new onset SOB and cough after episode of vomiting the morning of admission. Bilateral wheezing, rales, and rhonchi on physical exam. - MRSA screen negative. - Blood cultures negative. - Sputum culture grew Klebsiella and E. coli that are pansensitive. - Rapid response 05/08 for acute changes in the patient's vital signs, including a fever of 101.5?F, heart rate of 110 bpm, respiratory rate of 26, and oxygen saturation dropping below 88% on 4L nasal cannula. Given the acute changes in respiratory status, along with an elevated D-dimer of 1550 on admission and a Wells score of 6, a CTA was ordered to rule out a pulmonary embolism. - Chest CTA on 05/08 negative for PE, but identified possible cavitary lesions not seen on prior CT scans. - Patient denies weight loss, hemoptysis, night sweats, or other risk factors. - CXR 05/08 showed extensive right lung pneumonia and interval significant left base pneumonia. - Finished course of Azithromycin 500 mg QD. Plan: * Ceftriaxone 1g IV QD (05/03 - 05/10). * Incentive spirometry. * Chest physiotherapy. * Duonebs. * Budesonide 0.25 mg INH QD. * Active TB rule out tests ordered. * Airborne isolation precautions. * Need 3 AFB samples to rule out TB. * Repeat blood culture from rapid response pending. No growth to date. * Cocci serology pending. #Pulmonary emboli ruled out - Given the acute changes in respiratory status, along with an elevated D-dimer of 1550 on admission and a Wells score of 6, a CTA was ordered to rule out a pulmonary embolism. The results were negative for pulmonary artery emboli. Chemical prophylaxis for DVT not started due to concern for GI bleed. #GI bleed (upper vs lower GI bleed vs gastritis or PUD vs unknown source) #Possible acute blood loss anemia #History of cyclical vomiting syndrome - 24 hours prior to admission she has had over 20 bouts of coffee ground emesis and at least 4-5 black tarry stools. She describes the vomitus and throw-up as black, tarry, and slick like oil with an incredibly foul smell. - Recent path report from 01/27/2025 was negative for H.pylori in IHC. - Not on any iron supplements or anti-coagulants. - Patient continues to actively smoke marijuana daily. - EGD 04/19/2025 showed esophagitis, gastritis, and retained food, with findings suggestive of gastroparesis and moderate hiatal hernia. - Hemoglobin 10.3 on admission downtrending 9.1--> 9.0. MCV 68. Ferritin 01/28/2025 was 10. - CTAP107/03 was negative for pancreatitis, lipase wnl. GB US: Normal gallbladder. Moderate hepatomegaly, suspect primary hepatocellular disease. - EGD 05/05, showed diffuse moderate inflammation characterized by erythema in the gastric antrum but was negative for sites of active bleeding. - Colonoscop 05/07, showed internal hemorrhoids and a larger than 1 cm polyp endoscopically resected in the rectum with histopathology pending. Plan: * Dr. Meraz (GI consulted) appreciate recs: repeat colonoscopy in 5 years and follow-up outpatient. * Protonix 40 mg IV q12h. * Continue home amitryptiline 25 mg PO HS for cyclic vomiting syndrome. #Microcytic anemia - Likely iron deficiency anemia. - Iron panel previously noted for Ferritin of 10. - Patient not on any iron supplements. Plan: * Transfuse if Hgb < 7 (current Hgb 8.4). * Monitor vital signs. #History of chronic back pain Plan: * Held home cyclobenzaprine 5mg PO HS due to the patient being on high-flow oxygen and to avoid the use of sedating medications. * Apply lidocaine patch as needed for pain relief. #History of major depression #History of generalized anxiety Plan: * Continue home fluoxetine 20mg PO HS. * Continue home seroquel 100mg PO HS. #Lactic acidosis (resolved) - Lactic acid 3.6 --> 2.8 --> 3.3. - 3 boluses of IVF given along with maintenance fluids. Most likely due to volume depletion in the setting of intractable nausea and vomiting. - Downtrended to normal on 05/05/2025. Health Maintenance: Disposition: Med tele DVT prophylaxis: SCD since possible GI bleed GI prophylaxis: Pantoprazole 40 mg IV Q12hr Diet: NPO [place]: None CODE STATUS: FULL Patient plan of care was discussed with the senior resident, Dr. Mark Anthony Pickett, and attending physician, Dr. Portillo. Geovani Campa, PGY-1
--- NOTE | 2025-05-09 12:15 | PC.NURSE ---
Entered pt's room to fix alarming IV and take in lunch, pt upset because she states no one has been in to talk to her about the room move and address her previous concerns and go over her plan of care. Dr Campa notified. Per Dr Campa, there was a miscommunication fall out between who was to go in to the room to speak to the patient and will come after conference. Pt notified and apologized to. She remains upset but calm. Stable vitals. Continues on highflow. Call light within reach
--- NOTE | 2025-05-09 12:50 | PC.NURSE ---
Received call from pt's . Updated on pt's current progress, plan of care and isolation policy
[2025-05-09 13:12] LABS: Quantiferon-TB* See Sep Rpt
--- NOTE | 2025-05-09 13:15 | PC.NURSE ---
in to speak with pt, all questions answered
[2025-05-09 13:26] LABS: Albumin/Globulin Ratio 1.5 (1.2-2.2); Globulin 2.9 gm/dL (2.3-3.5); Total Protein 7.2 gm/dL (5.7-8.2)
[2025-05-09 18:17] LABS: Path Review Blood Smear Sent to Pathologist
[2025-05-09] MEDS: AMITRIPTYLINE HCL 25 MG TABLET PO (20:03)
[2025-05-09] MEDS: MELATONIN 3 MG TABLET 6 MG PO (20:04)
[2025-05-09] MEDS: KETOROLAC INJ 30 MG/ML VIAL 15 MG IVP (20:08)
[2025-05-09 20:30] LABS: Cult AFB Sendout- Sputum* See Sep Rpt
--- NOTE | 2025-05-09 21:19 | ESPR_ITS ---
Documentation for date of: 05/09/25 Subjective Subjective Interval history: Hemoglobin hematocrit 8.2 and 26.7 Exam Vital Signs Temp Pulse Resp BP Pulse Ox O2 Del Method O2 Flow Rate 99 F 100 22 H 101/63 96 High Flow Nasal Cannula 35 05/09/25 20:00 05/09/25 20:00 05/09/25 20:00 05/09/25 20:00 05/09/25 20:00 05/09/25 20:00 05/09/25 20:00 FiO2 50 05/09/25 20:00 Objective Labs 05/09/25 05:04 05/09/25 05:04 Labs: Laboratory Results - last 24 hr 05/09/25 05:04 WBC 13.8 H RBC 3.95 L Hgb 8.2 L Hct 26.7 L MCV 68 L MCH 20.8 L MCHC 30.7 L RDW Std Deviation 42.9 Plt Count 440 Neut % (Auto) 65 Lymph % (Auto) 15 [place] % (Auto) 9 Eos % (Auto) 2 Baso % (Auto) 0 Neut # (Auto) 8.9 H Lymph # (Auto) 2.1 [place] # (Auto) 1.2 H Eos # (Auto) 0.3 Baso # (Auto) 0.1 Immature Gran # (Auto) 1.19 H Absolute Nucleated RBC 0.02 H Immature Gran % 9 H Nucleated RBC % 0 Smear Path Review Sent to Pathologist Sodium 140 Potassium 3.7 Chloride 102 Carbon Dioxide 27.2 Anion Gap 11 BUN 6 L Creatinine 0.5 L Estim Creat Clear Calc 163.5 eGFR > 60 BUN/Creatinine Ratio 12 Glucose 95 Calculated Osmolality 277 Calcium 9.1 Corrected Calcium 9.1 Phosphorus 3.9 Magnesium 1.8 Total Bilirubin 0.2 L AST 26 ALT 22 Alkaline Phosphatase 115 Total Protein 7.2 Albumin 4.3 Globulin 2.9 Albumin/Globulin Ratio 1.5 Impressions Impression: Anemia blood loss Internal hemorrhoids Gastritis continue to trend hemoglobin hematocrit ABG Interpretation ABG results: 05/03/25 05/08/25 19:58 17:20 ABG pH 7.45 Cancelled ABG pCO2 33 Cancelled ABG pO2 61 L Cancelled ABG HCO3 23 Cancelled ABG O2 Saturation 93 Cancelled ABG Base Excess -1 Cancelled VBG pH 7.46 VBG pCO2 37 VBG pO2 40 VBG Base Excess 2 Assessment & Plan A&P Narrative # Multiple episodes of nausea vomiting with hematemesis Differential diagnoses include [place] tear versus peptic ulcer disease versus extensive severe esophagitis or gastritis Suggestions N.p.o. 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
[2025-05-10] VITALS (13 sets, daily range): BP systolic 125–136; BP diastolic 56–90; PULSE 80–107; RESP 18–24; TEMP 36.3–37.8; O2SAT 95–100
[2025-05-10] MEDS: MORPHINE SULF INJ 4 MG/ML VIAL 1 MG IVP ×3 (05:46→18:18)
[2025-05-10 06:38] LABS: Basophils # (Auto) 0.1 Thou/mm3 (0.0-0.2); Basophils % (Auto) 1 % (0-2.5); Eosinophils # (Auto) 0.3 Thou/mm3 (0.0-0.5); Eosinophils % (Auto) 3 % (0-10); Hematocrit 26.4 % (36.0-46.0); Immature Granulocytes Auto 0.88 Thou/mm3 (0.00-0.00); Lymphocytes # (Auto) 2.6 Thou/mm3 (1.0-4.8); Lymphocytes % (Auto) 19 % (10-50); Mean Corpuscular HGB Conc 31.4 g/dl (31.0-37.0); Mean Corpuscular Hemoglobin 20.9 pg (25.0-35.0); Mean Corpuscular Volume 66 fL (80-100); Monocytes # (Auto) 0.9 Thou/mm3 (0.0-0.8); Monocytes % (Auto) 7 % (0-12); Neutrophils # (Auto) 8.4 Thou/mm3 (1.8-7.7); Neutrophils % (Auto) 64 % (37-80); Nucleated Red Blood Cell # 0.00 Thou/mm3 (0.00-0.00); Nucleated Red Blood Cell % 0 /100 WBC (0); Platelet Count 603 Thou/mm3 (140-440); RDW Standard Deviation 42.8 fL (36.4-46.3); Red Blood Count 3.98 Miln/mm3 (4.00-5.20); White Blood Count 13.2 Thou/mm3 (3.6-11.0)
[2025-05-10 06:47] LABS: Hemoglobin 8.3 g/dL (12.0-16.0)
[2025-05-10 07:00] LABS: Alanine Aminotransferase 26 U/L (10-49); Albumin, Serum 4.2 gm/dL (3.5-5.0); Albumin/Globulin Ratio 1.3 (1.2-2.2); Alkaline Phosphatase 134 U/L (46-116); Anion Gap 14 (7-16); Aspartate Amino Transferase 26 U/L (0-34); BUN/Creatinine Ratio 18 Ratio (12-20); Bilirubin,Total 0.2 mg/dL (0.3-1.2); Blood Urea Nitrogen 9 mg/dL (9-23); Calcium 9.1 mg/dL (8.3-10.6); Calcium (Corrected) 9.1 mg/dL (8.5-10.1); Carbon Dioxide 24.3 mMol/L (20.0-31.0); Chloride 100 mMol/L (98-107); Creatinine (Component) 0.5 mg/dL (0.6-1.3); Estimated Creatinine Clearance 166.7 mL/min (>60); Globulin 3.2 gm/dL (2.3-3.5); Glucose 89 mg/dL (74-106); Magnesium 1.6 mg/dL (1.6-2.6); Osmolality,Calculated 273 (275-295); Phosphorous 4.8 mg/dL (2.4-5.1); Potassium 3.3 mMol/L (3.4-5.1); Sodium 138 mMol/L (136-145); Total Protein 7.4 gm/dL (5.7-8.2); eGFR > 60 See Note
[2025-05-10] MEDS: SODIUM CHLORIDE RT SOL 0.9% 3 ML NEBU INH ×3 (07:16→17:51)
[2025-05-10] MEDS: LEVALBUTEROL RT 1.25 MG/0.5 ML NEBU INH ×3 (07:16→17:51)
[2025-05-10] MEDS: BUDESONIDE RT 0.25 MG/2 ML NEBU INH (08:12)
[2025-05-10] MEDS: cefTRIAXone/D5w 1gm IV premix 1 GM/50 ML BAG IV (08:45)
--- NOTE | 2025-05-10 10:09 | PC.SS ---
Rounding: Pending AFBs, TB RO
--- NOTE | 2025-05-10 11:33 | ESPR_ITS ---
<Statement entered by Rika Portillo MD - 05/22/25 09:17> I reviewed above note and agree with findings and plans. I have also personally examined the patient with medicine team and went over assessment and plan with medical team including [employer] internship and resident physician. <Statement entered by Denzel Amador MD - 05/10/25 15:51> In summary: A 40-year-old woman with a history of peptic ulcer disease, gastritis, gastroparesis, and cyclic vomiting syndrome is admitted for recurrent episodes of coffee ground emesis, tarry stools, and concerns of aspiration pneumonia. She presents with acute hypoxic respiratory failure and pneumonia, likely aspiration-related, with Klebsiella and E. coli growth in sputum. Pulmonary embolism was ruled out after a negative CTA. GI concerns include possible upper GI bleeding, with endoscopy findings of gastritis, esophagitis, and gastroparesis. Currently on PROTONIX drip, GI bleed not recurrent, hemoglobin stable. However, CXR was concerning for apical cavitary lesion, and she did admit to symptoms of recurrent hemoptysis and cough. Currently on isolation, pending ID recommendations and AFB results. I?ve reviewed the note and agree with this assessment and plan, with the exceptions outlined above. I personally went over the labs, imaging, home medications, and prior records, and examined the patient. The case was also reviewed with the attending physician. Please note: this document was transcribed using voice recognition technology; minor inaccuracies may be present. Denzel Amador DO PGY II Documentation for date of: 05/10/25 Subjective Subjective Interval history: No acute events overnight. Patient was seen at the bedside this morning and denied any pain. The second AFB sample was collected at 7 PM on 05/09, and the third sample was not collected at 3 AM but collected around 8 AM. The patient is currently on HFNC at a flow rate of 30 L/min, an improvement from 35 L/min yesterday. We will continue to wean off HFNC as tolerated. Improved bilateral wheezing on lung auscultation. Exam Vital Signs Temp Pulse Resp BP Pulse Ox O2 Del Method O2 Flow Rate 97.3 F 92 18 125/77 100 Oxy Mask 13 05/10/25 11:31 05/10/25 11:31 05/10/25 11:31 05/10/25 11:31 05/10/25 11:31 05/10/25 11:31 05/10/25 11:31 FiO2 40 05/10/25 08:13 Narrative Exam Physical Exam General: Awake and alert. On high flow oxygen. HEENT: Normocephalic, atraumatic, mucous membranes moist. Heart: Tachycardic and regular rhythm, no murmurs. Lungs: Bilateral wheezing on auscultation. Abdomen: Soft, nondistended, nontender. No guarding or rebound tenderness. Neurologic: Alert and oriented x3, no gross neurological deficit, and patient able to move all 4 extremities. Extremities: No edema. Skin: No rash or ecchymoses. Psychiatric: Cooperative, appropriate mood and affect. Objective Labs 05/10/25 04:34 05/10/25 04:34 Labs: Laboratory Results - last 24 hr 05/09/25 05/10/25 05:04 04:34 WBC 13.2 H RBC 3.98 L Hgb 8.3 L Hct 26.4 L MCV 66 L MCH 20.9 L MCHC 31.4 RDW Std Deviation 42.8 Plt Count 603 H D Neut % (Auto) 64 Lymph % (Auto) 19 [place] % (Auto) 7 Eos % (Auto) 3 Baso % (Auto) 1 Neut # (Auto) 8.4 H Lymph # (Auto) 2.6 [place] # (Auto) 0.9 H Eos # (Auto) 0.3 Baso # (Auto) 0.1 Immature Gran # (Auto) 0.88 H Absolute Nucleated RBC 0.00 Immature Gran % 7 H Nucleated RBC % 0 Smear Path Review Sent to Pathologist Sodium 138 Potassium 3.3 L Chloride 100 Carbon Dioxide 24.3 Anion Gap 14 BUN 9 Creatinine 0.5 L Estim Creat Clear Calc 166.7 eGFR > 60 BUN/Creatinine Ratio 18 Glucose 89 Calculated Osmolality 273 L Calcium 9.1 Corrected Calcium 9.1 Phosphorus 4.8 Magnesium 1.6 Total Bilirubin 0.2 L AST 26 ALT 26 Alkaline Phosphatase 134 H Total Protein 7.2 7.4 Albumin 4.2 Globulin 2.9 3.2 Albumin/Globulin Ratio 1.5 1.3 ABG Interpretation ABG results: 05/03/25 05/08/25 19:58 17:20 ABG pH 7.45 Cancelled ABG pCO2 33 Cancelled ABG pO2 61 L Cancelled ABG HCO3 23 Cancelled ABG O2 Saturation 93 Cancelled ABG Base Excess -1 Cancelled VBG pH 7.46 VBG pCO2 37 VBG pO2 40 VBG Base Excess 2 Quality Measures Quality Measures VTE prophylaxis Assessment & Plan Assessment Current Active Medications: Generic Name Dose Route Start Last Admin Trade Name Praveenq PRN Reason Stop Dose Admin Acetaminophen 650 mg 05/03/25 23:10 05/08/25 07:48 Acetaminophen 325 Mg Tablet PO 06/02/25 23:09 650 mg Q6H PRN Administration Fever >100.4 or pain 1-3 Alprazolam 0.25 mg 05/09/25 13:15 Alprazolam 0.25 Mg Tablet PO 05/14/25 13:14 BID PRN ANXIETY Amitriptyline HCl 25 mg 05/06/25 21:00 05/09/25 20:03 Amitriptyline Hcl 25 Mg Tablet PO 06/05/25 20:59 25 mg HS CHRISTINA Administration Bisacodyl 5 mg 05/07/25 14:30 05/10/25 09:08 Bisacodyl 5 Mg Tabec PO 06/06/25 14:29 Not Given BID CHRISTINA Protocol Budesonide 0.25 mg 05/04/25 09:00 05/10/25 08:12 Budesonide Rt 0.25 Mg/2 Ml Nebu INH 06/03/25 08:59 0.25 mg QDAY CHRISTINA Administration Docusate Sodium 100 mg 05/04/25 09:00 05/10/25 09:09 Docusate Sod 100 Mg Capsule PO 06/03/25 08:59 Not Given QDAY CHRISTINA Protocol Fluoxetine HCl 20 mg 05/04/25 21:00 05/09/25 20:03 Fluoxetine Hcl 10 Mg Capsule PO 06/03/25 20:59 20 mg HS CHRISTINA Administration Guaifenesin/Dextromethorphan 1 each 05/04/25 11:39 05/04/25 12:13 Guaifenesin/Dm Tablet PO 06/03/25 11:38 1 each BID PRN Administration COUGH Ceftriaxone Sodium/Dextrose 1 gm in 50 mls @ 100 mls/hr 05/03/25 23:15 05/10/25 08:45 Rocephin/D5w 1gm Iv Premix IV 05/10/25 23:14 100 mls/hr QDAY CHRISTINA Administration Ketorolac Tromethamine 15 mg 05/09/25 19:26 12/02/25 20:08 Ketorolac Inj 30 Mg/Ml Vial IVP 05/14/25 19:25 15 mg X1 PRN Administration pain(severe) Protocol Levalbuterol HCl 1.25 mg 05/07/25 19:00 05/10/25 07:16 Levalbuterol Rt 1.25 Mg/0.5 Ml Nebu INH 06/06/25 18:59 1.25 mg Q6HRRT CHRISTINA Administration Lidocaine 1 patch 05/10/25 10:15 Lidocaine 5% 1 Patch TOP 06/09/25 10:14 QDAY CHRISTINA Melatonin 6 mg 05/07/25 00:40 05/09/25 20:04 Melatonin 3 Mg Tablet PO 06/06/25 00:39 6 mg HS CHRISTINA Administration Morphine Sulfate 1 mg 05/09/25 08:59 05/10/25 05:46 Morphine Sulf Inj 4 Mg/Ml Vial IVP 05/14/25 08:58 1 mg Q6HR PRN Administration pain 4-10 Ondansetron HCl 4 mg 05/03/25 23:10 05/07/25 07:35 Ondansetron Inj 2 Mg/Ml Inj 2 Ml IVP 06/02/25 23:09 4 mg Q6H PRN Administration NAUSEA OR VOMITING Protocol Pantoprazole Sodium 40 mg 05/04/25 09:00 05/10/25 08:44 Pantoprazole Inj 40 Mg Vial IVP 06/03/25 08:59 40 mg Q12HR CHRISTINA Administration Quetiapine Fumarate 100 mg 05/07/25 21:00 05/09/25 20:03 Quetiapine Fumarate 100 Mg Tablet PO 06/06/25 20:59 100 mg HS CHRISTINA Administration Sodium Chloride 3 ml 05/07/25 12:08 05/10/25 07:16 Sodium Chloride Rt Lian 0.9% 3 Ml Nebu INH 06/06/25 12:07 3 ml PRN PRN Administration SOLN Plan 40-year-old female with a known history of peptic ulcer disease, gastritis, hiatal hernia, gastroparesis and cyclic vomiting syndrome presented for multiple episodes of coffee ground emesis and tarry stools, admitted for GI bleed workup with ongoing concerns of aspiration pneumonia. #Acute hypoxic respiratory failure #Pneumonia, likely aspiration #History of asthma - CTAP extensive right lung pneumonia. Patient reported new onset SOB and cough after episode of vomiting the morning of admission. Bilateral wheezing, rales, and rhonchi on physical exam. - MRSA screen negative. - Blood cultures negative. - Sputum culture grew Klebsiella and E. coli that are pansensitive. - Rapid response 05/08 for acute changes in the patient's vital signs, including a fever of 101.5?F, heart rate of 110 bpm, respiratory rate of 26, and oxygen saturation dropping below 88% on 4L nasal cannula. Given the acute changes in respiratory status, along with an elevated D-dimer of 1550 on admission and a Wells score of 6, a CTA was ordered to rule out a pulmonary embolism. - Chest CTA on 05/08 negative for PE, but identified possible cavitary lesions not seen on prior CT scans. - Patient denies weight loss, hemoptysis, night sweats, or other risk factors. - CXR 05/08 showed extensive right lung pneumonia and interval significant left base pneumonia. - Finished course of Azithromycin 500 mg QD. - Repeat blood culture from rapid response 05/08 showed no growth. Plan: * Ceftriaxone 1g IV QD (05/03 - 05/10). * Incentive spirometry. * Chest physiotherapy. * Duonebs. * Budesonide 0.25 mg INH QD. * Active TB rule out tests ordered. * Airborne isolation precautions. * 3 AFB samples collected and pending. * Cocci serology pending. #Pulmonary emboli ruled out - Given the acute changes in respiratory status, along with an elevated D-dimer of 1550 on admission and a Wells score of 6, a CTA was ordered to rule out a pulmonary embolism. The results were negative for pulmonary artery emboli. Chemical prophylaxis for DVT not started due to concern for GI bleed. #GI bleed (upper vs lower GI bleed vs gastritis or PUD vs unknown source) #Possible acute blood loss anemia #History of cyclical vomiting syndrome - 24 hours prior to admission she has had over 20 bouts of coffee ground emesis and at least 4-5 black tarry stools. She describes the vomitus and throw-up as black, tarry, and slick like oil with an incredibly foul smell. - Recent path report from 01/27/2025 was negative for H.pylori in IHC. - Not on any iron supplements or anti-coagulants. - Patient continues to actively smoke marijuana daily. - EGD 04/19/2025 showed esophagitis, gastritis, and retained food, with findings suggestive of gastroparesis and moderate hiatal hernia. - Hemoglobin 10.3 on admission downtrending 9.1--> 9.0. MCV 68. Ferritin 01/28/2025 was 10. - CTAP107/03 was negative for pancreatitis, lipase wnl. GB US: Normal gallbladder. Moderate hepatomegaly, suspect primary hepatocellular disease. - EGD 05/05, showed diffuse moderate inflammation characterized by erythema in the gastric antrum but was negative for sites of active bleeding. - Colonoscopy 05/07, showed internal hemorrhoids and a larger than 1 cm polyp endoscopically resected in the rectum with histopathology pending. Plan: * Dr. Meraz (GI consulted) appreciate recs: repeat colonoscopy in 5 years and follow-up outpatient. * Protonix 40 mg IV q12h. * Continue home amitryptiline 25 mg PO HS for cyclic vomiting syndrome. #Microcytic anemia - Likely iron deficiency anemia. - Iron panel previously noted for Ferritin of 10. - Patient not on any iron supplements. Plan: * Transfuse if Hgb < 7 (current Hgb 8.4). * Monitor vital signs. #Thrombocytosis - Platelets 603 - Likely reactive in nature, possibly secondary to infection and/or iron deficiency anemia, as evidenced by ferritin <15 and MCV 66, consistent with FAUSTINA. Plan * Continue to monitor CBC closely and other hematologic parameters, for any trends. #History of chronic back pain Plan: * Held home cyclobenzaprine 5mg PO HS due to the patient being on high-flow oxygen and to avoid the use of sedating medications. * Apply lidocaine patch as needed for pain relief. #History of major depression #History of generalized anxiety Plan: * Continue home fluoxetine 20mg PO HS. * Continue home seroquel 100mg PO HS. #Lactic acidosis (resolved) - Lactic acid 3.6 --> 2.8 --> 3.3. - 3 boluses of IVF given along with maintenance fluids. Most likely due to volume depletion in the setting of intractable nausea and vomiting. - Downtrended to normal on 05/05/2025. Health Maintenance: Disposition: Med tele DVT prophylaxis: SCD since possible GI bleed GI prophylaxis: Pantoprazole 40 mg IV Q12hr Diet: NPO Berger: None CODE STATUS: FULL Patient plan of care was discussed with the senior resident, Dr. Mark Anthony Pickett, and attending physician, Dr. Portillo. Geovani Campa, PGY-1
[2025-05-10 14:04] LABS: Cocci Serology, IgM Negative (Negative)
--- NOTE | 2025-05-10 15:17 | ESCONSULT_ITS ---
<Statement entered by Nabil Meza MD - 05/15/25 09:23> pt seen with resident. all findings confirmed. see additional notes for details HPI Data of Consult Requesting Physician: Rika Portillo MD Admitting Provider: Ata Franco MD Attending Provider: Rika Portillo MD Primary Care Provider: LUBA Triana Consult Narrative History of present illness: Ms. Hope is a 40-year-old female with a known history of peptic ulcer disease, hiatal hernia, and gastroparesis with multiple recent admissions due to GI symptoms including recurrent nausea/vomiting, epigastric pain presented to the ED on 05/03 after multiple episodes of coffee ground emesis and tarry stools. Patient admitted for upper GI bleed work up, pt underwent EGD on 05/05 and findings were consistent with gastritis and colonoscopy on 05/07 and findings were consistent with internal hemorrhoids and 1 large sessile poly in the rectum. During her hospitalization Pt became hypoxic with fever overnight and was found to have pneumonia. CTA was highly suspicious of cavitary lesion, although pt denies any recent travels, TB exposure, incarceration, weight loss or night sweats. ID is consulted for further recommendations on working up the cavitary lesions in the right upper lung. PMH: PUD, hiatal hernia, and gastroparesis PSH: Bilateral salpingectomy SH: Denies alcohol use, former tobacco use, illicit drug use including opioids and marijuana as evident on urine tox Allergies: NSAIDS Medications: quietapine 100mg PO HS, Gabapentin 75mg PO BID, fluoxetine 20mg PO HS, cyclobenzaprine 5mg PO HS, amitriptyline 30mg PO HS cc:: cc: Rika Portillo MD Review of Systems Review of Systems Systems Reviewed: All systems reviewed, normal except as documented Exam Vital Signs Temp Pulse Resp BP Pulse Ox O2 Del Method O2 Flow Rate 97.3 F 100 20 125/77 96 Oxy Mask 4 05/10/25 11:31 05/10/25 14:54 05/10/25 14:54 05/10/25 11:31 05/10/25 14:54 05/10/25 11:31 05/10/25 14:54 FiO2 40 05/10/25 08:13 Narrative Exam GENERAL: A&Ox3 . Awake, Not in acute distress NEURO: no focal neurological deficits HEENT: Atraumatic, Normocephalic. mucous membranes moist. Eyes open, symmetrical, & clear HEART: Normal Heart Sounds LUNGS: Clear to auscultation with no wheezing or crackles. ABDOMEN: soft, non-distended, non-tender, bowel sounds heard, no guarding or rebound tenderness SKIN: No Rash or ecchymoses EXTREMITIES: No edema, tenderness, able to move all 4 extremities, pedal pulses palpated Results Labs 05/11/25 04:50 05/11/25 04:50 Labs: Short CBC 05/10/25 Range/Units 04:34 WBC 13.2 H (3.6-11.0) Thou/mm3 Hgb 8.3 L (12.0-16.0) g/dL Hct 26.4 L (36.0-46.0) % Plt Count 603 H D (140-440) Thou/mm3 BMP 05/10/25 04:34 Sodium 138 Potassium 3.3 L Chloride 100 Carbon Dioxide 24.3 BUN 9 Creatinine 0.5 L Glucose 89 Calcium 9.1 Liver Function 05/10/25 Range/Units 04:34 Total Bilirubin 0.2 L (0.3-1.2) mg/dL AST 26 (0-34) U/L ALT 26 (10-49) U/L Alkaline Phosphatase 134 H (46-116) U/L Albumin 4.2 (3.5-5.0) gm/dL ABG Interpretation ABG results: 05/03/25 05/08/25 19:58 17:20 ABG pH 7.45 Cancelled ABG pCO2 33 Cancelled ABG pO2 61 L Cancelled ABG HCO3 23 Cancelled ABG O2 Saturation 93 Cancelled ABG Base Excess -1 Cancelled VBG pH 7.46 VBG pCO2 37 VBG pO2 40 VBG Base Excess 2 Quality Measures Quality Measures VTE prophylaxis Medications Home Medications and Allergies Home Medications ?Medication ?Instructions ?Recorded ?Confirmed ?Type fluoxetine 20 mg capsule 20 mg PO QDAY 02/05/2305/04 History cyclobenzaprine 5 mg tablet 5 mg PO TID PRN muscle rel axation 07/14/24 05/04/25 History amitriptyline 10 mg tablet 30 mg PO HS 12/14/24 History quetiapine 100 mg tablet 100 mg PO HS 12/14/24 History lorazepam 1 mg tablet 1 mg PO DAILY PRN anxiety 05/04/25 History pantoprazole 40 mg tablet,delayed 40 mg PO Q12H 05/04/25 History release pregabalin 75 mg capsule 75 mg PO TID 04/24/25 History ondansetron HCl 4 mg tablet 4 mg PO TID PRN nausea and vomiting 05/04/25 05/04/25 History Allergies Allergy/AdvReac Type Severity Reaction Status Date / Time No Known Allergies Allergy Verified 05/03/25 19:03 Visit Medications Acetaminophen (Acetaminophen 325 Mg Tablet) 650 mg PO Q6H PRN PRN Reason: Fever >100.4 or pain 1-3 Stop: 06/02/25 23:09 Last Admin: 05/08/25 07:48 Dose: 650 mg Alprazolam (Alprazolam 0.25 Mg Tablet) 0.25 mg PO BID PRN PRN Reason: ANXIETY Stop: 05/14/25 13:14 Amitriptyline HCl (Amitriptyline Hcl 25 Mg Tablet) 25 mg PO [facility] Stop: 06/05/25 20:59 Last Admin: 05/09/25 20:03 Dose: 25 mg Bisacodyl (Bisacodyl 5 Mg Tabec) 5 mg PO BID [facility]; Protocol Stop: 06/06/25 14:29 Last Admin: 05/10/25 09:08 Dose: Not Given Budesonide (Budesonide Rt 0.25 Mg/2 Ml Nebu) 0.25 mg INH QDAY [facility] Stop: 06/03/25 08:59 Last Admin: 05/10/25 08:12 Dose: 0.25 mg Docusate Sodium (Docusate Sod 100 Mg Capsule) 100 mg PO QDAY [facility]; Protocol Stop: 06/03/25 08:59 Last Admin: 05/10/25 09:09 Dose: Not Given Fluoxetine HCl (Fluoxetine Hcl 10 Mg Capsule) 20 mg PO [facility] Stop: 06/03/25 20:59 Last Admin: 05/09/25 20:03 Dose: 20 mg Guaifenesin/Dextromethorphan (Guaifenesin/Dm Tablet) 1 each PO BID PRN PRN Reason: COUGH Stop: 06/03/25 11:38 Last Admin: 05/04/25 12:13 Dose: 1 each Ceftriaxone Sodium/Dextrose (Rocephin/D5w 1gm Iv Premix) 1 gm in 50 mls @ 100 mls/hr IV QDAY [facility] Stop: 05/10/25 23:14 Last Admin: 05/10/25 08:45 Dose: 100 mls/hr Ketorolac Tromethamine (Ketorolac Inj 30 Mg/Ml Vial) 15 mg IVP X1 PRN; Protocol PRN Reason: pain(severe) Stop: 05/14/25 19:25 Last Admin: 05/09/25 20:08 Dose: 15 mg Levalbuterol HCl (Levalbuterol Rt 1.25 Mg/0.5 Ml Nebu) 1.25 mg INH Q6HRRT [facility] Stop: 06/06/25 18:59 Last Admin: 05/10/25 14:46 Dose: 1.25 mg Lidocaine (Lidocaine 5% 1 Patch) 1 patch TOP QDAY [facility] Stop: 06/09/25 10:14 Last Admin: 05/10/25 13:01 Dose: Not Given Melatonin (Melatonin 3 Mg Tablet) 6 mg PO HS [facility] Stop: 06/06/25 00:39 Last Admin: 05/09/25 20:04 Dose: 6 mg Morphine Sulfate (Morphine Sulf Inj 4 Mg/Ml Vial) 1 mg IVP Q6HR PRN PRN Reason: pain 4-10 Stop: 05/14/25 08:58 Last Admin: 05/10/25 11:54 Dose: 1 mg Ondansetron HCl (Ondansetron Inj 2 Mg/Ml Inj 2 Ml) 4 mg IVP Q6H PRN; Protocol PRN Reason: NAUSEA OR VOMITING Stop: 06/02/25 23:09 Last Admin: 05/07/25 07:35 Dose: 4 mg Pantoprazole Sodium (Pantoprazole Inj 40 Mg Vial) 40 mg IVP Q12HR [facility] Stop: 06/03/25 08:59 Last Admin: 05/10/25 08:44 Dose: 40 mg Quetiapine Fumarate (Quetiapine Fumarate 100 Mg Tablet) 100 mg PO HS [facility] Stop: 06/06/25 20:59 Last Admin: 05/09/25 20:03 Dose: 100 mg Sodium Chloride (Sodium Chloride Rt Lian 0.9% 3 Ml Nebu) 3 ml INH PRN PRN PRN Reason: SOLN Stop: 06/06/25 12:07 Last Admin: 05/10/25 14:46 Dose: 3 ml Discontinued Medications Hydrocodone Bitart/Acetaminophen (Hydrocodone/Apap 5/325 Tablet) 1 tab PO Q4HR PRN PRN Reason: PAIN SCALE 4-6 (Moderate Stop: 05/08/25 23:09 Last Admin: 05/08/25 09:17 Dose: 1 tab Albuterol/Ipratropium (Albuterol/Ipratropium (Duoneb) Rt Lian 3 Ml Nebu) 3 ml INH Q4HRRT [facility] Stop: 06/03/25 02:59 Last Admin: 05/07/25 11:20 Dose: 3 ml Alprazolam (Alprazolam 0.25 Mg Tablet) 0.25 mg PO BID PRN PRN Reason: ANXIETY Stop: 05/09/25 12:04 Last Admin: 05/07/25 21:52 Dose: 0.25 mg Alprazolam (Alprazolam 0.25 Mg Tablet) 0.25 mg PO X1 ONE Stop: 05/09/25 13:16 Last Admin: 05/09/25 13:30 Dose: 0.25 mg Amitriptyline HCl (Amitriptyline Hcl 25 Mg Tablet) 30 mg PO HS [facility] Stop: 06/03/25 20:59 Azithromycin (Azithromycin 250 Mg Tablet) 500 mg PO HS [facility]; Protocol Stop: 05/07/25 21:01 Last Admin: 05/07/25 21:55 Dose: Not Given Azithromycin (Azithromycin 250 Mg Tablet) 500 mg PO X1 ONE Stop: 05/07/25 21:07 Last Admin: 05/07/25 21:53 Dose: 500 mg Benzocaine (Benzocaine 20% (Hurricaine) Thornton 1 Dose) 0 dose TOP X1 ONE Stop: 05/06/25 05:28 Last Admin: 05/09/25 16:02 Dose: Not Given Cyclobenzaprine HCl (Cyclobenzaprine 5 Mg Tablet) 5 mg PO HS [facility] Stop: 06/03/25 20:59 Last Admin: 05/07/25 21:53 Dose: 5 mg Diphenhydramine HCl (Diphenhydramine Inj 50 Mg/Ml Vial) 25 mg IVP X1 ONE Stop: 05/06/25 21:30 Last Admin: 05/06/25 22:32 Dose: 25 mg Diphenhydramine HCl (Diphenhydramine Inj 50 Mg/Ml Vial) 25 mg IVP PRNMRX1 PRN PRN Reason: MODERATE SEDATION Stop: 05/07/25 17:37 Famotidine (Famotidine Inj 10 Mg/Ml Vial 2 Ml) 20 mg IVP X1 ONE Stop: 05/03/25 19:26 Last Admin: 05/03/25 19:34 Dose: 20 mg Fentanyl Citrate (Fentanyl Cit Inj 50 Mcg/Ml Amp 2ml) 50 mcg IVP Q2M PRN PRN Reason: MODERATE SEDATION Stop: 05/07/25 17:37 Hydromorphone HCl (Hydromorphone Inj 2 Mg/Ml Vial) 1 mg IVP X1 ONE Stop: 05/03/25 20:41 Last Admin: 05/03/25 21:03 Dose: 1 mg Sodium Chloride (Ns) 1,000 mls @ 999 mls/hr IV .Q1H1M ONE Stop: 05/03/25 20:24 Last Infusion: 05/03/25 20:40 Dose: Infused Lactated Ringer's (Lactated Ringers) 1,000 mls @ 1,000 mls/hr IV .Q1H ONE Stop: 05/03/25 21:39 Last Infusion: 05/03/25 22:20 Dose: Infused Magnesium Sulfate (Magnesium Sulfate Ivpb) 2 gm in 50 mls @ 25 mls/hr IV X1 ONE Stop: 05/03/25 22:40 Last Infusion: 05/03/25 23:10 Dose: Infused Levofloxacin/Dextrose (Levaquin Ivpb) 500 mg in 100 mls @ 100 mls/hr IV X1 ONE Stop: 05/03/25 22:37 Last Infusion: 05/03/25 23:34 Dose: Infused Lactated Ringer's (Lactated Ringers) 1,000 mls @ 75 mls/hr IV .[id number] [facility] Stop: 06/02/25 23:14 Last Admin: 05/03/25 23:34 Dose: 75 mls/hr Azithromycin 500 mg/ Sodium (Chloride) 250 mls @ 250 mls/hr IV QDAY [facility] Stop: 05/10/25 23:15 Last Admin: 05/04/25 10:07 Dose: Not Given Magnesium Sulfate (Magnesium Sulfate Ivpb) 2 gm in 50 mls @ 25 mls/hr IV X1 ONE Stop: 05/04/25 01:21 Last Admin: 05/03/25 23:40 Dose: 25 mls/hr Lactated Ringer's (Lactated Ringers) 1,000 mls @ 999 mls/hr IV .Q1H1M ONE Stop: 05/04/25 04:45 Last Admin: 05/04/25 03:58 Dose: 999 mls/hr Lactated Ringer's (Lactated Ringers) 500 mls @ 125 mls/hr IV .Q4H ONE Stop: 05/05/25 20:47 Last Admin: 05/06/25 01:27 Dose: Not Given Sodium Chloride (Ns) 500 mls @ 20 mls/hr IV .Q24H ONE Stop: 05/08/25 15:19 Last Admin: 05/07/25 15:20 Dose: 20 mls/hr Lactated Ringer's (Lactated Ringers) 1,000 mls @ 125 mls/hr IV .Q8H [facility] Stop: 05/08/25 15:41 Last Admin: 05/08/25 07:47 Dose: 125 mls/hr Acetaminophen (Ofirmev Inj) 1,000 mg in 100 mls @ 250 mls/hr IV X1 ONE Stop: 05/08/25 20:29 Last Admin: 05/08/25 20:17 Dose: 250 mls/hr Lactulose (Lactulose Syrup 20 Gm/30 Ml Udc) 20 gm PO QID [facility]; Protocol Stop: 06/06/25 16:59 Last Admin: 05/08/25 06:12 Dose: Not Given Levalbuterol HCl (Levalbuterol Rt 1.25 Mg/0.5 Ml Nebu) 1.25 mg INH Q6HRRT [facility] Stop: 06/06/25 12:59 Lidocaine (Lidocaine 5% 1 Patch) 1 patch TOP X1 ONE Stop: 05/08/25 08:30 Last Admin: 05/08/25 09:17 Dose: 1 patch Lorazepam (Lorazepam 2 Mg/Ml Vial) 1 mg IVP X1 ONE Stop: 05/04/25 19:43 Last Admin: 05/04/25 19:50 Dose: 1 mg Midazolam HCl (Midazolam Inj 1 Mg/Ml Vial 2 Ml) 2 mg IVP Q2M PRN PRN Reason: Moderate Sedation Stop: 05/07/25 17:37 Morphine Sulfate (Morphine Sulf Inj 4 Mg/Ml Vial) 4 mg IV X1 ONE Stop: 05/03/25 19:25 Last Admin: 05/03/25 19:33 Dose: 4 mg Morphine Sulfate (Morphine Sulf Inj 4 Mg/Ml Vial) 1 mg IVP Q4HR PRN PRN Reason: PAIN SCALE 7-10 (Severe Stop: 05/08/25 23:09 Last Admin: 05/08/25 22:09 Dose: 1 mg Morphine Sulfate (Morphine Sulf Inj 4 Mg/Ml Vial) 1 mg IVP X1 ONE Stop: 05/09/25 06:08 Last Admin: 05/09/25 06:24 Dose: 1 mg Ondansetron HCl (Ondansetron Inj 2 Mg/Ml Inj 2 Ml) 4 mg IVP X1 ONE; Protocol Stop: 05/03/25 19:25 Last Admin: 05/03/25 19:33 Dose: 4 mg Ondansetron HCl (Ondansetron Inj 2 Mg/Ml Inj 2 Ml) 4 mg IVP X1 ONE; Protocol Stop: 05/03/25 20:41 Last Admin: 05/03/25 21:07 Dose: 4 mg Pantoprazole Sodium (Pantoprazole Inj 40 Mg Vial) 80 mg IVP X1 ONE Stop: 05/03/25 19:26 Last Admin: 05/03/25 19:37 Dose: 80 mg Polyethylene Glycol/Electrolytes (Na Mejia/Nahco3/Cliff/Peg (Golytely) 4,000 Ml Btl) 4,000 ml PO X1 ONE Stop: 05/05/25 17:01 Last Admin: 05/05/25 18:30 Dose: 4,000 ml Potassium Chloride (Potassium Chloride 20 Meq Tabcr) 40 meq PO X1 ONE Stop: 05/06/25 07:56 Last Admin: 05/06/25 09:09 Dose: 40 meq Potassium Chloride (Potassium Chloride 10% 20 Meq/15 Ml Udc) 40 meq PO X1 ONE Stop: 05/06/25 08:22 Last Admin: 05/09/25 16:02 Dose: Not Given Potassium Chloride (Potassium Chloride 10% 20 Meq/15 Ml Udc) 40 meq PO X1 ONE Stop: 05/07/25 07:56 Last Admin: 05/07/25 08:33 Dose: Not Given Potassium Chloride (Potassium Chloride 20 Meq Tabcr) 40 meq PO X1 ONE Stop: 05/08/25 07:49 Last Admin: 05/08/25 08:18 Dose: 40 meq Potassium Chloride (Potassium Chloride 20 Meq Tabcr) 40 meq PO X1 ONE Stop: 05/10/25 08:08 Last Admin: 05/10/25 08:44 Dose: 40 meq Pregabalin (Pregabalin 75 Mg Capsule) 75 mg PO HS [facility] Stop: 06/03/25 20:59 Pregabalin (Pregabalin 75 Mg Capsule) 75 mg PO TID [facility] Stop: 06/03/25 13:59 Last Admin: 05/08/25 14:33 Dose: 75 mg Quetiapine Fumarate (Quetiapine Fumarate 100 Mg Tablet) 100 mg PO HS [facility] Stop: 06/03/25 20:59 Sodium Chloride (Sodium Chloride Rt 10% 15 Ml Nebu) 5 ml INH X1 ONE Stop: 05/04/25 01:15 Last Admin: 05/04/25 20:45 Dose: Not Given Sodium Chloride (Sodium Chloride Rt 10% 15 Ml Nebu) 5 ml INH X1 ONE Stop: 05/09/25 10:48 Last Admin: 05/09/25 14:05 Dose: Not Given Sodium Chloride (Sodium Chloride Rt 10% 15 Ml Nebu) 5 ml INH X1 ONE Stop: 05/09/25 10:48 Assessment & Plan Plan Ms. Hope is a 40-year-old female with a known history of peptic ulcer disease, gastritis, hiatal hernia, and gastroparesis with multiple recent admissions due to GI symptoms including recurrent nausea/vomiting, epigastric pain presented to the ED on 05/03 after multiple episodes of coffee ground emesis and tarry stools. Patient admitted for upper GI bleed work up. #Acute hypoxic respiratory failure #Community acquired Pneumonia #History of asthma - CTAP extensive right lung pneumonia. - MRSA screen negative. - Blood cultures negative. - Sputum culture grew Klebsiella and E. coli that are pansensitive. - Chest CTA on 05/08 negative for PE, but identified possible cavitary lesions not seen on prior CT scans. - Patient denies weight loss, hemoptysis, night sweats, or other risk factors. - CXR 05/08 showed extensive right lung pneumonia and interval significant left base pneumonia. - Finished course of Azithromycin 500 mg QD. Plan: -Ceftriaxone 1g IV QD (05/03 - 12/3). - 2/3 AFB negative for TB. -Cocci IgM negative x2 #Pulmonary emboli ruled out #GI bleed (upper vs lower GI bleed vs gastritis or PUD vs unknown source) #Possible acute blood loss anemia #History of cyclical vomiting syndrome #Microcytic anemia #History of chronic back pain #History of major depression #History of generalized anxiety #Lactic acidosis (resolved) -management as per primary team Assessment and plan discussed with my attending physician Dr. Derrick Funez (PGY-2)- Internal medicine resident
--- NOTE | 2025-05-10 15:47 | PD.IDPROG ---
Subjective Subjective Interval history: whole fmiliy with flu sx. so she may have post flu pna. lower lobe disease is rarely mycobacterial. cocci neg. here for gi bleed thoughI can not find any afbs but should be back tomorrow in the unlikely event that she has tb, the health dept can treat that. it is not my suspicion that she has tb Exam Vital Signs Temp Pulse Resp BP Pulse Ox O2 Del Method O2 Flow Rate 97.3 F 100 20 125/77 96 Oxy Mask 4 05/10/25 11:31 05/10/25 14:54 05/10/25 14:54 05/10/25 11:31 05/10/25 14:54 05/10/25 11:31 05/10/25 14:54 FiO2 40 05/10/25 08:13 Narrative Exam no distress. fevers improved. on O2. needs to be off that to go home. Objective - Internal Medicine Labs 05/10/25 04:34 05/10/25 04:34 Labs: Laboratory Results - last 24 hr 05/09/25 05/09/25 05/10/25 05:04 12:35 04:34 WBC 13.2 H RBC 3.98 L Hgb 8.3 L Hct 26.4 L MCV 66 L MCH 20.9 L MCHC 31.4 RDW Std Deviation 42.8 Plt Count 603 H D Neut % (Auto) 64 Lymph % (Auto) 19 Brewster % (Auto) 7 Eos % (Auto) 3 Baso % (Auto) 1 Neut # (Auto) 8.4 H Lymph # (Auto) 2.6 Brewster # (Auto) 0.9 H Eos # (Auto) 0.3 Baso # (Auto) 0.1 Immature Gran # (Auto) 0.88 H Absolute Nucleated RBC 0.00 Immature Gran % 7 H Nucleated RBC % 0 Smear Path Review Sent to Pathologist Sodium 138 Potassium 3.3 L Chloride 100 Carbon Dioxide 24.3 Anion Gap 14 BUN 9 Creatinine 0.5 L Estim Creat Clear Calc 166.7 eGFR > 60 BUN/Creatinine Ratio 18 Glucose 89 Calculated Osmolality 273 L Calcium 9.1 Corrected Calcium 9.1 Phosphorus 4.8 Magnesium 1.6 Total Bilirubin 0.2 L AST 26 ALT 26 Alkaline Phosphatase 134 H Total Protein 7.4 Albumin 4.2 Globulin 3.2 Albumin/Globulin Ratio 1.3 Coccidioides IgM Ab Negative ABG Interpretation ABG results: 05/03/25 05/08/25 19:58 17:20 ABG pH 7.45 Cancelled ABG pCO2 33 Cancelled ABG pO2 61 L Cancelled ABG HCO3 23 Cancelled ABG O2 Saturation 93 Cancelled ABG Base Excess -1 Cancelled VBG pH 7.46 VBG pCO2 37 VBG pO2 40 VBG Base Excess 2 Assessment & Plan A&P Narrative pneumonia and fever. lower lobe disease is less likely to be mycobacterial. other problems noted. hypoxia changed to po cefuroxime and po doxy for 5-7d more. If sputum with non mrsa staph, ok to stop the doxy. I can not see her in f/u, so see primary and follow with them. if afb's sent to [facility] then call them tomorrow and see what the results are , but note that she has been here a while and only in isolation a few days. repeat cxr in 4-6 weeks to document resolution if cocci pos on repeat, then start rx for that as initial was neg. Time Spent With Patient Time: Total time spent is greater than 50% in coordination of care (as documented) at patient's floor/unit and/or counseling patient:
--- NOTE | 2025-05-10 16:58 | ESCONSULT_ITS ---
RE: RICHARD WRIGHT : 1985 DATE OF CONSULTATION: 05/10/2025 REFERRING PHYSICIAN: Ata Franco MD. REASON FOR CONSULTATION: Pneumonia with fever and sepsis. HISTORY OF PRESENT ILLNESS: Patient is here for pneumonia. There is some question about whether she has had AFBs done. I am not sure whether it was sent. If it is sent to the count lab they get them done within 24h IF she already has 2 negatives, that is probably going to be enough to say she probably does not have TB, plus TB is unusual to be found in the lower lobes. If you will, I am going to switch her to antibiotics from Rocephin to 5 days more of or about a week's more of doxycycline and cefuroxime as a precaution. If you wish to extend her treatment beyond that, that is up to you. She has already become afebrile, which may just simply be the result of the time. I will check on her Thursday if she remains, but she goes home I have no objection. She wants to go home today. I will defer to you on that. DT: 16:43:10 TT: 16:57:00 Ref: [id number] - TID: [id number] MTDD
[2025-05-10] MEDS: MELATONIN 3 MG TABLET 6 MG PO (20:21)
[2025-05-10] MEDS: DOXYCYCLINE 100 MG TABLET PO (20:23)
[2025-05-10] MEDS: AMITRIPTYLINE HCL 25 MG TABLET PO (20:23)
[2025-05-11] VITALS (10 sets, daily range): BP systolic 102–132; BP diastolic 60–92; PULSE 78–101; RESP 15–21; TEMP 36.8–37.7; O2SAT 91–99; BMI 28.8; BMI 28.9
[2025-05-11] MEDS: SODIUM CHLORIDE RT SOL 0.9% 3 ML NEBU INH (01:08)
[2025-05-11] MEDS: LEVALBUTEROL RT 1.25 MG/0.5 ML NEBU INH ×2 (01:08→06:23)
[2025-05-11] MEDS: MORPHINE SULF INJ 4 MG/ML VIAL 1 MG IVP (01:28)
[2025-05-11] MEDS: ONDANSETRON INJ 2 MG/ML INJ 2 ML 4 MG IVP (02:27)
[2025-05-11 05:57] LABS: Basophils # (Auto) 0.1 Thou/mm3 (0.0-0.2); Basophils % (Auto) 1 % (0-2.5); Eosinophils # (Auto) 0.2 Thou/mm3 (0.0-0.5); Eosinophils % (Auto) 1 % (0-10); Hematocrit 26.2 % (36.0-46.0); Immature Granulocytes Auto 0.73 Thou/mm3 (0.00-0.00); Lymphocytes # (Auto) 1.8 Thou/mm3 (1.0-4.8); Lymphocytes % (Auto) 11 % (10-50); Mean Corpuscular HGB Conc 31.3 g/dl (31.0-37.0); Mean Corpuscular Hemoglobin 20.7 pg (25.0-35.0); Mean Corpuscular Volume 66 fL (80-100); Monocytes # (Auto) 0.7 Thou/mm3 (0.0-0.8); Monocytes % (Auto) 4 % (0-12); Neutrophils # (Auto) 13.1 Thou/mm3 (1.8-7.7); Neutrophils % (Auto) 79 % (37-80); Nucleated Red Blood Cell # 0.00 Thou/mm3 (0.00-0.00); Nucleated Red Blood Cell % 0 /100 WBC (0); Platelet Count 621 Thou/mm3 (140-440); RDW Standard Deviation 42.6 fL (36.4-46.3); Red Blood Count 3.96 Miln/mm3 (4.00-5.20); White Blood Count 16.5 Thou/mm3 (3.6-11.0)
[2025-05-11] MEDS: BUDESONIDE RT 0.25 MG/2 ML NEBU INH (06:23)
[2025-05-11 06:29] LABS: Alanine Aminotransferase 28 U/L (10-49); Albumin, Serum 4.4 gm/dL (3.5-5.0); Albumin/Globulin Ratio 1.4 (1.2-2.2); Alkaline Phosphatase 131 U/L (46-116); Anion Gap 13 (7-16); Aspartate Amino Transferase 24 U/L (0-34); BUN/Creatinine Ratio 20 Ratio (12-20); Bilirubin,Total < 0.2 mg/dL (0.3-1.2); Blood Urea Nitrogen 10 mg/dL (9-23); Calcium 9.2 mg/dL (8.3-10.6); Calcium (Corrected) 9.2 mg/dL (8.5-10.1); Carbon Dioxide 24.1 mMol/L (20.0-31.0); Chloride 101 mMol/L (98-107); Creatinine (Component) 0.5 mg/dL (0.6-1.3); Estimated Creatinine Clearance 164.5 mL/min (>60); Globulin 3.2 gm/dL (2.3-3.5); Glucose 117 mg/dL (74-106); Magnesium 1.8 mg/dL (1.6-2.6); Osmolality,Calculated 275 (275-295); Phosphorous 4.6 mg/dL (2.4-5.1); Potassium 4.1 mMol/L (3.4-5.1); Sodium 138 mMol/L (136-145); Total Protein 7.6 gm/dL (5.7-8.2); eGFR > 60 See Note
[2025-05-11 06:49] LABS: Hepatitis C Antibody Non Reactive (Non React)
[2025-05-11 07:53] LABS: Hemoglobin 8.2 g/dL (12.0-16.0)
[2025-05-11] MEDS: DOXYCYCLINE 100 MG TABLET PO (08:28)
[2025-05-11] MEDS: PANTOPRAZOLE 40 MG TABLET PO (09:39)
[2025-05-11 10:30] LABS: HIV (1&2) Antibody Rapid Non-Reactive
--- NOTE | 2025-05-11 11:49 | XR_ITS ---
Examination: CT chest with intravenous contrast 2-D sagittal and coronal reconstructions Exam date and time: April 11, 2025, 1225 hours, comparison May 08, 2025 INDICATIONS: Mediastinal lymphadenopathy, pneumonia and parenchymal disease in both lungs on CT chest May 08, 2025 CTDI:vol (mGy) 11.7 DLP: (mGycm) 429 Technique: Multiple axial sections of the thorax have been obtained. Sections have been obtained, 3 mm slice thickness. Mediastinal and lung density settings have been obtained. Intravenous contrast administered, 60 cc Isovue-[id number]. 2-D sagittal, coronal images obtained. Low dose protocols were performed. One or more of the following dose reduction techniques were used; automated exposure control, adjustment of the mA and/or KV according to patient size, use of iterative reconstruction technique. Findings: No thoracic aortic aneurysm dilatation Pulmonary artery segments are not enlarged Cavitary parenchymal disease in the right upper lobe, the most prominent area measuring at least 6.2 x 5.2 cm in dimension Satellite extensive parenchymal disease and smaller cavitary lesions throughout the right lung, larger cavitary lesions in the right lower lobe, 36 mm, 37 mm No pleural disease No visualized liver or splenic lesion No pancreatic mass IMPRESSION: No thoracic aortic aneurysmal dilatation Negative for pulmonary artery hypertension Extensive cavitary parenchymal disease throughout the entire right lung, highest on the differential list would be infectious processes including active tuberculosis
[2025-05-11 11:59] LABS: Cocci Serology, IgM Negative (Negative)
[2025-05-11 12:11] LABS: Cocci Serology, IgG Negative (Negative)
--- NOTE | 2025-05-11 16:39 | PD.RESPRO ---
Documentation for date of: 05/11/25 Exam Vital Signs Temp Pulse Resp BP Pulse Ox O2 Del Method O2 Flow Rate 98.2 F 84 18 120/74 93 L Room Air 1 05/11/25 16:00 05/11/25 16:00 05/11/25 16:00 05/11/25 16:00 05/11/25 16:00 05/11/25 16:00 05/11/25 06:23 FiO2 40 05/10/25 08:13 Objective Labs 05/11/25 04:50 05/11/25 04:50 Labs: Laboratory Results - last 24 hr 05/09/25 05/09/25 05/09/25 11:00 12:35 20:24 WBC RBC Hgb Hct MCV MCH MCHC RDW Std Deviation Plt Count Neut % (Auto) Lymph % (Auto) [place] % (Auto) Eos % (Auto) Baso % (Auto) Neut # (Auto) Lymph # (Auto) [place] # (Auto) Eos # (Auto) Baso # (Auto) Immature Gran # (Auto) Absolute Nucleated RBC Immature Gran % Nucleated RBC % Sodium Potassium Chloride Carbon Dioxide Anion Gap BUN Creatinine Estim Creat Clear Calc eGFR BUN/Creatinine Ratio Glucose Calculated Osmolality Calcium Corrected Calcium Phosphorus Magnesium Total Bilirubin AST ALT Alkaline Phosphatase Total Protein Albumin Globulin Albumin/Globulin Ratio Coccidioides IgG Ab Negative Coccidioides IgM Ab Hepatitis C Antibody HIV 1&2 Antibody Rapid Mycobacterial Culture See Feb Rpt See Feb Rpt TB Test (QFT) See Feb Rpt 05/11/25 04:50 WBC 16.5 H RBC 3.96 L Hgb 8.2 L Hct 26.2 L MCV 66 L MCH 20.7 L MCHC 31.3 RDW Std Deviation 42.6 Plt Count 621 H Neut % (Auto) 79 Lymph % (Auto) 11 [place] % (Auto) 4 Eos % (Auto) 1 Baso % (Auto) 1 Neut # (Auto) 13.1 H Lymph # (Auto) 1.8 [place] # (Auto) 0.7 Eos # (Auto) 0.2 Baso # (Auto) 0.1 Immature Gran # (Auto) 0.73 H Absolute Nucleated RBC 0.00 Immature Gran % 4 H Nucleated RBC % 0 Sodium 138 Potassium 4.1 D Chloride 101 Carbon Dioxide 24.1 Anion Gap 13 BUN 10 Creatinine 0.5 L Estim Creat Clear Calc 164.5 eGFR > 60 BUN/Creatinine Ratio 20 Glucose 117 H Calculated Osmolality 275 Calcium 9.2 Corrected Calcium 9.2 Phosphorus 4.6 Magnesium 1.8 Total Bilirubin < 0.2 L AST 24 ALT 28 Alkaline Phosphatase 131 H Total Protein 7.6 Albumin 4.4 Globulin 3.2 Albumin/Globulin Ratio 1.4 Coccidioides IgG Ab Coccidioides IgM Ab Negative Hepatitis C Antibody Non Reactive HIV 1&2 Antibody Rapid Non-Reactive Mycobacterial Culture TB Test (QFT) ABG Interpretation ABG results: 05/03/25 05/08/25 19:58 17:20 ABG pH 7.45 Cancelled ABG pCO2 33 Cancelled ABG pO2 61 L Cancelled ABG HCO3 23 Cancelled ABG O2 Saturation 93 Cancelled ABG Base Excess -1 Cancelled VBG pH 7.46 VBG pCO2 37 VBG pO2 40 VBG Base Excess 2 Quality Measures Quality Measures VTE prophylaxis Assessment & Plan Assessment Current Active Medications: Generic Name Dose Route Start Last Admin Trade Name Freq PRN Reason Stop Dose Admin Acetaminophen 650 mg 05/03/25 23:10 05/08/25 07:48 Acetaminophen 325 Mg Tablet PO 06/02/25 23:09 650 mg Q6H PRN Administration Fever >100.4 or pain 1-3 Alprazolam 0.25 mg 05/09/25 13:15 Alprazolam 0.25 Mg Tablet PO 05/14/25 13:14 BID PRN ANXIETY Amitriptyline HCl 25 mg 05/06/25 21:00 05/10/25 20:23 Amitriptyline Hcl 25 Mg Tablet PO 06/05/25 20:59 25 mg HS CHRISTINA Administration Bisacodyl 5 mg 05/07/25 14:30 05/11/25 08:20 Bisacodyl 5 Mg Tabec PO 06/06/25 14:29 Not Given BID CHRISTINA Protocol Budesonide 0.25 mg 05/04/25 09:00 05/11/25 06:23 Budesonide Rt 0.25 Mg/2 Ml Nebu INH 06/03/25 08:59 0.25 mg QDAY CHRISTINA Administration Cefuroxime Axetil 500 mg 05/10/25 21:00 05/11/25 08:28 Cefuroxime Axetil 250 Mg Tablet PO 05/15/25 12:00 500 mg BID CHRISTINA Administration Docusate Sodium 100 mg 05/04/25 09:00 05/11/25 08:28 Docusate Sod 100 Mg Capsule PO 06/03/25 08:59 Not Given QDAY CHRISTINA Protocol Doxycycline Hyclate 100 mg 05/10/25 21:00 05/11/25 08:28 Doxycycline 100 Mg Tablet PO 05/17/25 20:59 100 mg BID CHRISTINA Administration Fluoxetine HCl 20 mg 05/04/25 21:00 05/10/25 20:22 Fluoxetine Hcl 10 Mg Capsule PO 06/03/25 20:59 20 mg HS CHRISTINA Administration Guaifenesin/Dextromethorphan 1 each 05/04/25 11:39 05/04/25 12:13 Guaifenesin/Dm Tablet PO 06/03/25 11:38 1 each BID PRN Administration COUGH Levalbuterol HCl 1.25 mg 05/11/25 13:56 Levalbuterol Rt 1.25 Mg/0.5 Ml Nebu INH 06/06/25 18:59 Q6HRRT PRN WHEEZING Lidocaine 1 patch 05/10/25 10:15 05/11/25 08:28 Lidocaine 5% 1 Patch TOP 06/09/25 10:14 Not Given QDAY CHRISTINA Melatonin 6 mg 05/07/25 00:40 05/10/25 20:21 Melatonin 3 Mg Tablet PO 06/06/25 00:39 6 mg HS CHRISTINA Administration Morphine Sulfate 1 mg 05/09/25 08:59 05/11/25 01:28 Morphine Sulf Inj 4 Mg/Ml Vial IVP 05/14/25 08:58 1 mg Q6HR PRN Administration pain 4-10 Ondansetron HCl 4 mg 05/03/25 23:10 05/11/25 02:27 Ondansetron Inj 2 Mg/Ml Inj 2 Ml IVP 06/02/25 23:09 4 mg Q6H PRN Administration NAUSEA OR VOMITING Protocol Pantoprazole Sodium 40 mg 05/11/25 09:45 05/11/25 09:39 Pantoprazole 40 Mg Tablet PO 06/10/25 09:44 40 mg QDAY CHRISTINA Administration Quetiapine Fumarate 100 mg 05/07/25 21:00 05/10/25 20:23 Quetiapine Fumarate 100 Mg Tablet PO 06/06/25 20:59 100 mg HS CHRISTINA Administration Sodium Chloride 3 ml 05/07/25 12:08 05/11/25 01:08 Sodium Chloride Rt Lian 0.9% 3 Ml Nebu INH 06/06/25 12:07 3 ml PRN PRN Administration SOLN
--- NOTE | 2025-05-11 17:33 | PC.NURSE ---
around [address] Amador that she spoke to Viv at [facility], and Viv told her that from county stand point she can be discharged home. I called [facility] at [phone] and spoke to Viv, DR Amador was also present during this speaker phone conversation. Viv stated that if patient is stable she can be discharged home, patient has to wear a mask at home and she will follow up with the third sputum results with the patient. Dr Portillo made aware by DR Amador.
--- NOTE | 2025-05-11 17:43 | PC.NURSE ---
Dr Amador informed me that DR Portillo thinks patient is not ready to be safely discharge home. Dr Amador explained to the patient regarding DR Portillo's decision, patient wants to leave against medical advice. I called Viv back and informed her that patient might leave AMA, Viv stated she will follow up with patient tomorrow.
--- NOTE | 2025-05-11 17:55 | PC.NURSE ---
Dr. Amador came to room and talked to patient. He did tell her the County will get notified because she is still a TB rule out. Dr. Amador got AMA papers ready and patient signed with me.
--- NOTE | 2025-05-11 19:41 | EVENTNT_ITS ---
<Statement entered by Rika Portillo MD - 05/22/25 09:19> I reviewed above note and agree with findings and plans. I have also personally examined the patient with medicine team and went over assessment and plan with medical team including analysis intern and resident physician. <Statement entered by Denzel Amador MD - 05/11/25 20:23> A 40-year-old female with a history of peptic ulcer disease, gastritis, hiatal hernia, gastroparesis, and cyclic vomiting syndrome was admitted for a gastrointestinal bleed and aspiration pneumonia. On CT, cavitary lesions in the right lung raised concern for tuberculosis, and the patient was placed in isolation while awaiting final test results. Despite being informed about the potential diagnosis and risks, including the need for isolation and notification of [facility] health authorities for further precautionary measures, the patient decided to leave against medical advice. She was assessed for decision-making c apacity, was fully informed of the potential consequences, and was advised that the hospital would notify county officials to ensure appropriate follow-up care and precautions. I informed the patient of the potential risks of leaving, particularly in relation to possible tuberculosis, which is highly contagious and could pose significant public health risks. I provided detailed instructions on what to do if her symptoms worsen, including when to seek emergency care. I also strongly recommended follow-up with her primary care provider, the [facility] department, and pulmonology to ensure proper monitoring and treatment, as well as continued isolation until final test results are available. I?ve reviewed the note and agree with this assessment and plan, with the exceptions outlined above. I personally went over the labs, imaging, home medications, and prior records, and examined the patient. The case was also reviewed with the attending physician. Please note: this document was transcribed using voice recognition technology; minor inaccuracies may be present. Denzel Amador DO PGY II Documentation for date of: 05/11/25 Event Note Event Note: 40-year-old female with a known history of peptic ulcer disease, gastritis, hiatal hernia, gastroparesis, and cyclic vomiting syndrome presented with multiple episodes of coffee ground emesis and tarry stools. She was admitted for GI bleed workup with ongoing concerns of aspiration pneumonia. Date of Admission: 05/08/2025 Date of AMA Discharge: 05/11/2025 Hospital Course * EGD on 05/05/2025 showed esophagitis, gastritis, and retained food, but no active bleeding was noted. * Colonoscopy on 05/07/2025: Showed internal hemorrhoids and a polyp larger than 1 cm, which was endoscopically resected in the rectum. * Hemoglobin remained stable with no recurrent GI bleeding observed. Protonix therapy was continued. * Patient demonstrated acute changes in respiratory status and was found to have acute hypoxic respiratory failure likely due to aspiration pneumonia. Sputum cultures revealed Klebsiella and E. coli. * Ptient was placed on high-flow nasal cannula. * CTA was performed due to acute changes in vital signs and an elevated D-dimer. The results were negative for pulmonary embolism but showed cavitary lesions in the right lung, raising concern for tuberculosis. * Due to concerns about tuberculosis, the patient was placed on airborne isolation precautions on 05/09/2025, and tests for TB were ordered. * Patient completed a course of Azithromycin and Ceftriaxone. * Infectious Disease consulted and placed the patient on Doxycycline and Cefuroxime. * Two AFB samples returned negative, with a third AFB sample pending. * NAAT for TB was negative. * Patient?s respiratory status improved, leading to the tapering of HFNC and transition to room air. * A follow-up CT chest was performed to assess pneumonia resolution. The results showed extensive cavitary parenchymal disease throughout the right lung, which continued to raise concern for active tuberculosis. The patient left against medical advice on 05/11/2025, after being counseled regarding the severity of her condition and the potential consequences of leaving prior to the completion of tuberculosis rule-out testing. The patient was informed of the potential diagnosis of active tuberculosis and that her test results would be reported to the health department as required by law for public health safety. The risks of leaving AMA, including potential progression of her respiratory condition, untreated tuberculosis, and further deterioration of her health, were fully explained. The patient verbally acknowledged understanding these risks. The patient was strongly advised to follow up immediately with outpatient care to ensure continuation of necessary treatments, including the completion of the TB workup and ongoing GI care. She was also encouraged to contact the clinic or her physician for any further questions or concerns. Pending results for TB rule out * Third AFB sample result pending. * One NAAT for TB. The patient was verbally informed of the risks associated with leaving AMA, including but not limited to untreated pneumonia, potential active tuberculosis, and being a threat to public health safety. The patient was provided the opportunity to ask questions regarding her diagnosis, treatment plan, and the consequences of leaving AMA. The patient's decision to leave AMA was documented in the medical record, and she was informed that her decision may affect the outcome of her treatment and follow-up care. The health department will be notified regarding the patient's case. The patient's decision to leave AMA was respected. However, the risks associated with this decision were thoroughly explained, especially regarding the potential diagnosis of tuberculosis. All necessary documentation regarding her AMA discharge, risks, and public health notification requirements are included in the medical record.
--- NOTE | 2025-05-11 20:28 | PD.IMPROG ---
Documentation for date of: 05/11/25 Subjective Subjective Interval history: Patient evaluated Hemoglobin hematocrit relatively stable Exam Vital Signs Temp Pulse Resp BP Pulse Ox O2 Del Method O2 Flow Rate 98.2 F 84 18 120/74 93 L Room Air 1 05/11/25 16:00 05/11/25 16:00 05/11/25 16:00 05/11/25 16:00 05/11/25 16:00 05/11/25 16:00 05/11/25 06:23 FiO2 40 05/10/25 08:13 Objective Labs 05/11/25 04:50 05/11/25 04:50 Labs: Laboratory Results - last 24 hr 05/09/25 05/09/25 05/09/25 11:00 12:35 20:24 WBC RBC Hgb Hct MCV MCH MCHC RDW Std Deviation Plt Count Neut % (Auto) Lymph % (Auto) [place] % (Auto) Eos % (Auto) Baso % (Auto) Neut # (Auto) Lymph # (Auto) [place] # (Auto) Eos # (Auto) Baso # (Auto) Immature Gran # (Auto) Absolute Nucleated RBC Immature Gran % Nucleated RBC % Sodium Potassium Chloride Carbon Dioxide Anion Gap BUN Creatinine Estim Creat Clear Calc eGFR BUN/Creatinine Ratio Glucose Calculated Osmolality Calcium Corrected Calcium Phosphorus Magnesium Total Bilirubin AST ALT Alkaline Phosphatase Total Protein Albumin Globulin Albumin/Globulin Ratio Coccidioides IgG Ab Negative Coccidioides IgM Ab Hepatitis C Antibody HIV 1&2 Antibody Rapid Mycobacterial Culture See Sep Rpt See Sep Rpt TB Test (QFT) See Sep Rpt 05/11/25 04:50 WBC 16.5 H RBC 3.96 L Hgb 8.2 L Hct 26.2 L MCV 66 L MCH 20.7 L MCHC 31.3 RDW Std Deviation 42.6 Plt Count 621 H Neut % (Auto) 79 Lymph % (Auto) 11 [place] % (Auto) 4 Eos % (Auto) 1 Baso % (Auto) 1 Neut # (Auto) 13.1 H Lymph # (Auto) 1.8 [place] # (Auto) 0.7 Eos # (Auto) 0.2 Baso # (Auto) 0.1 Immature Gran # (Auto) 0.73 H Absolute Nucleated RBC 0.00 Immature Gran % 4 H Nucleated RBC % 0 Sodium 138 Potassium 4.1 D Chloride 101 Carbon Dioxide 24.1 Anion Gap 13 BUN 10 Creatinine 0.5 L Estim Creat Clear Calc 164.5 eGFR > 60 BUN/Creatinine Ratio 20 Glucose 117 H Calculated Osmolality 275 Calcium 9.2 Corrected Calcium 9.2 Phosphorus 4.6 Magnesium 1.8 Total Bilirubin < 0.2 L AST 24 ALT 28 Alkaline Phosphatase 131 H Total Protein 7.6 Albumin 4.4 Globulin 3.2 Albumin/Globulin Ratio 1.4 Coccidioides IgG Ab Coccidioides IgM Ab Negative Hepatitis C Antibody Non Reactive HIV 1&2 Antibody Rapid Non-Reactive Mycobacterial Culture TB Test (QFT) Impressions Impression: Gastritis Internal hemorrhoids Continue current management ABG Interpretation ABG results: 05/03/25 05/08/25 19:58 17:20 ABG pH 7.45 Cancelled ABG pCO2 33 Cancelled ABG pO2 61 L Cancelled ABG HCO3 23 Cancelled ABG O2 Saturation 93 Cancelled ABG Base Excess -1 Cancelled VBG pH 7.46 VBG pCO2 37 VBG pO2 40 VBG Base Excess 2 Assessment & Plan A&P Narrative pneumonia and fever. lower lobe disease is less likely to be mycobacterial. other problems noted. hypoxia changed to po cefuroxime and po doxy for 5-7d more. If sputum with non mrsa staph, ok to stop the doxy. I can not see her in f/u, so see primary and follow with them. if afb's sent to [facility] then call them tomorrow and see what the results are , but note that she has been here a while and only in isolation a few days. repeat cxr in 4-6 weeks to document resolution if cocci pos on repeat, then start rx for that as initial was neg. Time Spent With Patient Time: Total time spent is greater than 50% in coordination of care (as documented) at patient's floor/unit and/or counseling patient:
== END 2025-05-11 18:02 | disposition left against medical advice (07) | DRG 241 ==
LOC: SERX 20:06 → SERHOLD 23:22 → S2NX 05-04 00:17 → S3NX 05-06 16:27
PROVIDERS: Internal Medicine Infectious Disease; Specialist; Student in an Organized Health Care Education/Training Program; Admitting Provider Student in an Organized Health Care Education/Training Program; Emergency Provider Emergency Medicine; Visit Provider Internal Medicine
PROC: (CPT 43239; principal; 2025-05-05 16:45)
PROC: 0DJD8ZZ Inspection of Lower Intestinal Tract, Via Natural or Artificial Opening Endoscopic (ICD-10-PCS; CPT 45378; principal; 2025-05-07 15:00)
DX: K29.71 Gastritis, unspecified, with bleeding (principal); K31.84 Gastroparesis; K20.91 Esophagitis, unspecified with bleeding; F17.200 Nicotine dependence, unspecified, uncomplicated; D62 Acute posthemorrhagic anemia; D12.8 Benign neoplasm of rectum; K64.1 Second degree hemorrhoids; J96.01 Acute respiratory failure with hypoxia; E87.20 Acidosis, unspecified; F12.90 Cannabis use, unspecified, uncomplicated; G89.29 Other chronic pain; F32.A Depression, unspecified; B96.1 Klebsiella pneumoniae [K. pneumoniae] as the cause of diseases classified elsewhere; J45.909 Unspecified asthma, uncomplicated; D75.839 Thrombocytosis, unspecified; J15.0 Pneumonia due to Klebsiella pneumoniae; K64.8 Other hemorrhoids; Z63.5 Disruption of family by separation and divorce; Z78.9 Other specified health status; Z79.899 Other long term (current) drug therapy; Z91.199 Patient's noncompliance with other medical treatment and regimen due to unspecified reason; Z87.11 Personal history of peptic ulcer disease; R16.0 Hepatomegaly, not elsewhere classified; T18.128A Food in esophagus causing other injury, initial encounter; W44.F3XA Food entering into or through a natural orifice, initial encounter
CPT/HCPCS: 36415; 36600; 71045; 71260; 71275; 73030; 74177; 76705; 80053; 80307; 80320; 81001; 82010; 82140; 82150; 82248; 82803; 83036; 83605; 83690; 83735; 83880; 84100; 84145; 84443; 84484; 84703; 85014; 85018; 85025; 85379; 85610; 85652; 85730; 86140; 86331; 86480; 86635; 86703; 86803; 86850; 86900; 86901; 87015; 87040; 87077; 87081; 87116; 87186; 87205; 87206; 87811; 93005; 94640; 94664; 94667; 94762; 96361; 96365; 96366; 96375; 96376; 99284; A4649; A9270; J0131; J0456; J0696; J1171; J1200; J1885; J1956; J2060; J2250; J2270; J2405; J2470; J3010; J3475; J3490; J7030; J7050; J7120; J7999; Q9967; G0480